=== PATIENT | female | born 1945 | race Caucasian/White ===

== ENCOUNTER → 2016-02-19 | Outpatient (CLI) | payer MEDICARE, MEDICAID | LOC: RAD 07:49 | PROVIDERS: ATTEND Specialist | DX: C20 Malignant neoplasm of rectum (principal) | CPT/HCPCS: 71260; 74177 ==

== ENCOUNTER 2016-03-29 08:00 | Outpatient (CLI) | payer MEDICARE, MEDICAID ==
[~2016-03-29 08:00] MED LIST: BEVACIZUMAB IV PRN; CONTAINER EMPTY IV PRN; DISPOSABLE IV PRN; FLUOROURACIL IV PRN; LEUCOVORIN CALCIUM IV PRN; NORMAL SALINE 250 ML IV PRN; NORMAL SALINE IV PRN
[2016-03-29 09:10] VITALS: BP 122/61
[2016-03-29 09:14] LABS: ABSOLUTE EOSINOPHILS # (AUTO) 0.1 10^3/uL (0.0-0.6); ABSOLUTE LYMPHOCYTES (AUTO) 0.6 10^3/uL (0.5-4.7); ABSOLUTE MONOCYTES (AUTO) 0.5 10^3/uL (0.1-1.4); ABSOLUTE NEUT (AUTO) 3.3 10^3/uL (1.7-8.2); BASOPHILS % (AUTO) 0.6 % (0-2); EOSINOPHILS % (AUTO) 2.5 % (0-6); HEMATOCRIT 32.9 % (36.0-47.0); HEMOGLOBIN 10.6 g/dL (12.0-15.5); HGB HCT DIFFERENCE -1.1; LYMPHOCYTES % (AUTO) 12.9 % (13-45); MEAN CORPUSCULAR HEMOGLOBIN 30.6 pg (27.0-33.4); MEAN CORPUSCULAR HGB CONC 32.3 g/dL (32.0-36.0); MEAN CORPUSCULAR VOLUME 95 fl (80-97); MONOCYTES % (AUTO) 10.7 % (3-13); RED BLOOD COUNT 3.47 10^6/uL (3.72-5.28); RED CELL DISTRIBUTION WIDTH 19.3 % (11.5-14.0); SEGMENTED NEUTROPHILS % (AUTO) 73.3 % (42-78); WHITE BLOOD COUNT 4.5 10^3/uL (4.0-10.5)
[2016-03-29 09:32] LABS: APPEARANCE,URINE SLIGHTLY-CLOUDY; BILIRUBIN,URINE NEGATIVE (NEGATIVE); GLUCOSE, URINE 50 mg/dL (NEGATIVE); KETONES,URINE NEGATIVE (NEGATIVE); LEUKOCYTE ESTERASE,URINE LARGE (NEGATIVE); NITRITE,URINE NEGATIVE (NEGATIVE); PROTEIN,URINE NEGATIVE (NEGATIVE); URINE SPECIFIC GRAVITY 1.015; UROBILINOGEN,URINE NEGATIVE mg/dL (<2.0)
== END 2016-03-29 13:04 | disposition home or self-care (01) ==
LOC: II 08:00 → 5TH 08:01 → II 13:04
PROVIDERS: ATTEND Internal Medicine
DX: Z51.11 Encounter for antineoplastic chemotherapy (principal); C20 Malignant neoplasm of rectum
CPT/HCPCS: 96413; 96415; 96416; 96376; 36415; 85025; 81001; A4222; J0640; A9270; J9190; J7050; J3490; J9035

== ENCOUNTER 2016-04-26 07:57 | Outpatient (CLI) | payer MEDICAID, MEDICARE ==
[2016-04-26 08:39] LABS: ABSOLUTE EOSINOPHILS # (AUTO) 0.2 10^3/uL (0.0-0.6); ABSOLUTE LYMPHOCYTES (AUTO) 0.5 10^3/uL (0.5-4.7); ABSOLUTE MONOCYTES (AUTO) 0.5 10^3/uL (0.1-1.4); ABSOLUTE NEUT (AUTO) 4.2 10^3/uL (1.7-8.2); BASOPHILS % (AUTO) 0.5 % (0-2); EOSINOPHILS % (AUTO) 3.3 % (0-6); HEMATOCRIT 33.6 % (36.0-47.0); HGB HCT DIFFERENCE -0.6; LYMPHOCYTES % (AUTO) 9.8 % (13-45); MEAN CORPUSCULAR HEMOGLOBIN 31.1 pg (27.0-33.4); MEAN CORPUSCULAR HGB CONC 32.7 g/dL (32.0-36.0); MEAN CORPUSCULAR VOLUME 95 fl (80-97); MONOCYTES % (AUTO) 9.1 % (3-13); RED BLOOD COUNT 3.54 10^6/uL (3.72-5.28); RED CELL DISTRIBUTION WIDTH 17.1 % (11.5-14.0); SEGMENTED NEUTROPHILS % (AUTO) 77.3 % (42-78); WHITE BLOOD COUNT 5.5 10^3/uL (4.0-10.5)
[2016-04-26 08:40] VITALS: BP 149/73
[2016-04-26 08:44] LABS: APPEARANCE,URINE CLEAR; BILIRUBIN,URINE NEGATIVE (NEGATIVE); GLUCOSE, URINE NEGATIVE (NEGATIVE); KETONES,URINE NEGATIVE (NEGATIVE); LEUKOCYTE ESTERASE,URINE LARGE (NEGATIVE); NITRITE,URINE NEGATIVE (NEGATIVE); PROTEIN,URINE NEGATIVE (NEGATIVE); URINE SPECIFIC GRAVITY 1.017; UROBILINOGEN,URINE NEGATIVE mg/dL (<2.0)
== END 2016-04-26 12:55 | disposition home or self-care (01) ==
LOC: II 07:57 → 5TH 07:58 → II 12:55
PROVIDERS: ATTEND Internal Medicine
PROC: 3E04305 Introduction of Other Antineoplastic into Central Vein, Percutaneous Approach (ICD-10-PCS; principal; 2016-04-26)
PROC: 3E0430M Introduction of Antineoplastic, Monoclonal Antibody, into Central Vein, Percutaneous Approach (ICD-10-PCS; 2016-04-26)
PROC: 3E0437Z Introduction of Electrolytic and Water Balance Substance into Central Vein, Percutaneous Approach (ICD-10-PCS; 2016-04-26)
PROC: 3E043GC Introduction of Other Therapeutic Substance into Central Vein, Percutaneous Approach (ICD-10-PCS; 2016-04-26)
DX: C20 Malignant neoplasm of rectum (principal); Z51.11 Encounter for antineoplastic chemotherapy
CPT/HCPCS: 96411; 96413; 96416; 96368; 96361; 36415; 85025; 81001; A4222; J0640; A9270; J9190; J7050; J3490; J9035; 96375; 96376; 96409; 96415

== ENCOUNTER 2016-04-28 13:17 | Outpatient (CLI) | payer MEDICAID, MEDICARE ==
[2016-04-28] MEDS ORDERED: NORMAL SALINE 1000 ML 1,000 ML IV PRN (13:48)
[2016-04-28] MEDS ORDERED: NORMAL SALINE INJ/PF 0.9% 10 ML SDV IV PRN (13:56)
[2016-04-28 15:54] VITALS: BP 114/70
== END 2016-04-28 14:41 | disposition home or self-care (01) ==
LOC: II 13:17 → 5TH 13:22 → II 14:41
PROVIDERS: ATTEND Internal Medicine
PROC: 3E0437Z Introduction of Electrolytic and Water Balance Substance into Central Vein, Percutaneous Approach (ICD-10-PCS; principal; 2016-04-28)
PROC: 3E0437Z Introduction of Electrolytic and Water Balance Substance into Central Vein, Percutaneous Approach (ICD-10-PCS; 2016-04-28)
DX: C20 Malignant neoplasm of rectum (principal); Z51.11 Encounter for antineoplastic chemotherapy
CPT/HCPCS: 96360; 96361

== ENCOUNTER 2016-05-10 07:57 | Outpatient (CLI) | payer MEDICARE, MEDICAID ==
[2016-05-10 08:34] LABS: ABSOLUTE EOSINOPHILS # (AUTO) 0.2 10^3/uL (0.0-0.6); ABSOLUTE LYMPHOCYTES (AUTO) 0.5 10^3/uL (0.5-4.7); ABSOLUTE MONOCYTES (AUTO) 0.5 10^3/uL (0.1-1.4); ABSOLUTE NEUT (AUTO) 3.7 10^3/uL (1.7-8.2); BASOPHILS % (AUTO) 0.8 % (0-2); EOSINOPHILS % (AUTO) 4.1 % (0-6); HEMATOCRIT 34.9 % (36.0-47.0); HEMOGLOBIN 11.5 g/dL (12.0-15.5); HGB HCT DIFFERENCE -0.4; LYMPHOCYTES % (AUTO) 9.9 % (13-45); MEAN CORPUSCULAR HEMOGLOBIN 31.3 pg (27.0-33.4); MEAN CORPUSCULAR VOLUME 95 fl (80-97); MONOCYTES % (AUTO) 10.8 % (3-13); RED BLOOD COUNT 3.69 10^6/uL (3.72-5.28); RED CELL DISTRIBUTION WIDTH 16.5 % (11.5-14.0); SEGMENTED NEUTROPHILS % (AUTO) 74.4 % (42-78); WHITE BLOOD COUNT 4.9 10^3/uL (4.0-10.5)
[2016-05-10 09:15] VITALS: BP 149/67
[2016-05-10 09:27] LABS: APPEARANCE,URINE SLIGHTLY-CLOUDY; BILIRUBIN,URINE NEGATIVE (NEGATIVE); GLUCOSE, URINE NEGATIVE (NEGATIVE); KETONES,URINE NEGATIVE (NEGATIVE); LEUKOCYTE ESTERASE,URINE SMALL (NEGATIVE); NITRITE,URINE NEGATIVE (NEGATIVE); PROTEIN,URINE NEGATIVE (NEGATIVE); URINE SPECIFIC GRAVITY 1.015; UROBILINOGEN,URINE NEGATIVE mg/dL (<2.0)
== END 2016-05-10 13:29 | disposition home or self-care (01) ==
LOC: II 07:57 → 5TH 07:59 → II 13:29
PROVIDERS: ATTEND Internal Medicine
PROC: 3E0430M Introduction of Antineoplastic, Monoclonal Antibody, into Central Vein, Percutaneous Approach (ICD-10-PCS; principal; 2016-05-10)
PROC: 3E04305 Introduction of Other Antineoplastic into Central Vein, Percutaneous Approach (ICD-10-PCS; 2016-05-10)
PROC: 3E0437Z Introduction of Electrolytic and Water Balance Substance into Central Vein, Percutaneous Approach (ICD-10-PCS; 2016-05-10)
PROC: 3E043GC Introduction of Other Therapeutic Substance into Central Vein, Percutaneous Approach (ICD-10-PCS; 2016-05-10)
DX: C20 Malignant neoplasm of rectum (principal); Z51.11 Encounter for antineoplastic chemotherapy
CPT/HCPCS: 96413; 96416; 96368; 96361; 96417; 36415; 85025; 81001; J0640; A9270; J9190; J7050; J3490; J9035; 96360; 96374; 96409; 96415

== ENCOUNTER 2016-05-12 12:37 | Outpatient (CLI) | payer MEDICARE, MEDICAID ==
[~2016-05-12 12:37] MED LIST changes: -BEVACIZUMAB IV PRN; -CONTAINER EMPTY IV PRN; -DISPOSABLE IV PRN; -FLUOROURACIL IV PRN; -LEUCOVORIN CALCIUM IV PRN; +NORMAL SALINE 10 ML SDV (AFTER EACH USE) IV PRN; +NORMAL SALINE 1000 ML 1,000 ML IV PRN; -NORMAL SALINE 250 ML IV PRN; -NORMAL SALINE IV PRN
[2016-05-12 13:18] VITALS: BP 132/66
[2016-05-12] MEDS ORDERED: ONDANSETRON HCL INJ/PF 4 MG/2 ML SDV IV ONE (14:30)
== END 2016-05-12 14:17 | disposition home or self-care (01) ==
LOC: II 12:37 → 5TH 12:41 → II 14:17
PROVIDERS: ATTEND Internal Medicine
PROC: 3E0337Z Introduction of Electrolytic and Water Balance Substance into Peripheral Vein, Percutaneous Approach (ICD-10-PCS; principal; 2016-05-12)
DX: C20 Malignant neoplasm of rectum (principal); Z51.11 Encounter for antineoplastic chemotherapy
CPT/HCPCS: 96360; 96375; J2405

== ENCOUNTER 2016-05-31 09:46 | Outpatient (CLI) | payer MEDICARE, MEDICAID ==
[~2016-05-31 09:46] MED LIST changes: +BEVACIZUMAB IV PRN; +CONTAINER EMPTY IV PRN; +DISPOSABLE IV PRN; +FLUOROURACIL IV PRN; +LEUCOVORIN CALCIUM IV PRN; +NORMAL SALINE 250 ML IV PRN; +NORMAL SALINE IV PRN; +ONDANSETRON 4 MG TAB.RAPDIS ONE
[2016-05-31 10:02] VITALS: BP 141/74
== END 2016-05-31 13:56 | disposition home or self-care (01) ==
LOC: II 09:46 → 5TH 09:47 → II 13:56
PROVIDERS: ATTEND Internal Medicine
PROC: 3E0430M Introduction of Antineoplastic, Monoclonal Antibody, into Central Vein, Percutaneous Approach (ICD-10-PCS; principal; 2016-05-31)
PROC: 3E04305 Introduction of Other Antineoplastic into Central Vein, Percutaneous Approach (ICD-10-PCS; 2016-05-31)
PROC: 3E043GC Introduction of Other Therapeutic Substance into Central Vein, Percutaneous Approach (ICD-10-PCS; 2016-05-31)
DX: Z51.11 Encounter for antineoplastic chemotherapy (principal); C20 Malignant neoplasm of rectum
CPT/HCPCS: 96411; 96413; 96415; 96366; 96367; 96361; J0640; A9270; J9190; J7050; J3490; J9035; 96360; 96409; 96417; S0119

== ENCOUNTER 2016-06-02 14:10 | Outpatient (CLI) | payer MEDICARE, MEDICAID ==
[2016-06-02] MEDS ORDERED: NORMAL SALINE 1000 ML 1,000 ML IV ONE (14:30)
[2016-06-02 16:06] VITALS: BP 115/75
== END 2016-06-02 15:45 | disposition home or self-care (01) ==
LOC: II 14:10 → 5TH 14:17 → II 15:45
PROVIDERS: ATTEND Internal Medicine
PROC: 3E043GC Introduction of Other Therapeutic Substance into Central Vein, Percutaneous Approach (ICD-10-PCS; principal; 2016-06-02)
DX: C20 Malignant neoplasm of rectum (principal)
CPT/HCPCS: 96360

== ENCOUNTER 2016-06-14 08:17 | Outpatient (CLI) | payer MEDICARE, MEDICAID ==
[~2016-06-14 08:17] MED LIST changes: -NORMAL SALINE 10 ML SDV (AFTER EACH USE) IV PRN; -ONDANSETRON 4 MG TAB.RAPDIS ONE
[2016-06-14 09:02] LABS: ABSOLUTE EOSINOPHILS # (AUTO) 0.1 10^3/uL (0.0-0.6); ABSOLUTE LYMPHOCYTES (AUTO) 0.5 10^3/uL (0.5-4.7); ABSOLUTE MONOCYTES (AUTO) 0.5 10^3/uL (0.1-1.4); ABSOLUTE NEUT (AUTO) 3.2 10^3/uL (1.7-8.2); BASOPHILS % (AUTO) 0.4 % (0-2); EOSINOPHILS % (AUTO) 3.1 % (0-6); HEMATOCRIT 32.8 % (36.0-47.0); HEMOGLOBIN 10.9 g/dL (12.0-15.5); HGB HCT DIFFERENCE -0.1; LYMPHOCYTES % (AUTO) 12.2 % (13-45); MEAN CORPUSCULAR HEMOGLOBIN 30.8 pg (27.0-33.4); MEAN CORPUSCULAR HGB CONC 33.1 g/dL (32.0-36.0); MEAN CORPUSCULAR VOLUME 93 fl (80-97); MONOCYTES % (AUTO) 11.9 % (3-13); RED BLOOD COUNT 3.53 10^6/uL (3.72-5.28); RED CELL DISTRIBUTION WIDTH 16.7 % (11.5-14.0); SEGMENTED NEUTROPHILS % (AUTO) 72.4 % (42-78); WHITE BLOOD COUNT 4.5 10^3/uL (4.0-10.5)
[2016-06-14 09:09] VITALS: BP 149/69
[2016-06-14 09:19] LABS: APPEARANCE,URINE CLEAR; BILIRUBIN,URINE NEGATIVE (NEGATIVE); GLUCOSE, URINE NEGATIVE (NEGATIVE); KETONES,URINE NEGATIVE (NEGATIVE); LEUKOCYTE ESTERASE,URINE TRACE (NEGATIVE); NITRITE,URINE NEGATIVE (NEGATIVE); PROTEIN,URINE NEGATIVE (NEGATIVE); URINE SPECIFIC GRAVITY 1.015; UROBILINOGEN,URINE NEGATIVE mg/dL (<2.0)
[2016-06-14] MEDS ORDERED: DIPHENHYDRAMINE HCL 25 MG CAPSULE PO PRN (10:00)
== END 2016-06-14 13:23 | disposition home or self-care (01) ==
LOC: II 08:17 → 5TH 08:18 → II 13:23
PROVIDERS: ATTEND Internal Medicine
PROC: 3E0430M Introduction of Antineoplastic, Monoclonal Antibody, into Central Vein, Percutaneous Approach (ICD-10-PCS; principal; 2016-06-14)
PROC: 3E043GC Introduction of Other Therapeutic Substance into Central Vein, Percutaneous Approach (ICD-10-PCS; 2016-06-14)
DX: Z51.11 Encounter for antineoplastic chemotherapy (principal); C20 Malignant neoplasm of rectum
CPT/HCPCS: 96409; 96413; 96415; 96416; 96375; 36415; 85025; 81001; J0640; A9270; J9190; J7050; J3490; J9035; 96366; 96367; 96417

== ENCOUNTER 2016-06-16 12:20 | Outpatient (CLI) | payer MEDICARE ==
[2016-06-16 12:46] VITALS: BP 117/62
== END 2016-06-16 13:48 | disposition home or self-care (01) ==
LOC: II 12:20 → 5TH 12:24 → II 13:48
PROVIDERS: ATTEND Internal Medicine
PROC: 3E0337Z Introduction of Electrolytic and Water Balance Substance into Peripheral Vein, Percutaneous Approach (ICD-10-PCS; principal; 2016-06-16)
DX: Z51.11 Encounter for antineoplastic chemotherapy (principal); C20 Malignant neoplasm of rectum
CPT/HCPCS: 96360; 96375

== ENCOUNTER → 2016-06-23 | Outpatient (CLI) | payer MEDICAID, MEDICARE | LOC: RAD 09:33 | PROVIDERS: ATTEND Internal Medicine | DX: C20 Malignant neoplasm of rectum (principal) | CPT/HCPCS: 71260; 74177 ==

== ENCOUNTER 2016-06-28 10:57 | Outpatient (CLI) | payer MEDICARE ==
[~2016-06-28 10:57] MED LIST changes: -NORMAL SALINE 1000 ML 1,000 ML IV PRN; -NORMAL SALINE 250 ML IV PRN
[2016-06-28] MEDS ORDERED: BEVACIZUMAB IV PRN (11:17)
[2016-06-28] MEDS ORDERED: NORMAL SALINE IV PRN (11:17)
[2016-06-28 11:23] VITALS: BP 161/74
[2016-06-28] MEDS: NORMAL SALINE 250 ML IV PRN ×2 (12:37→13:15)
== END 2016-06-28 13:19 | disposition home or self-care (01) ==
LOC: II 10:57 → 5TH 11:00 → II 13:19
PROVIDERS: ATTEND Internal Medicine
PROC: 3E0430M Introduction of Antineoplastic, Monoclonal Antibody, into Central Vein, Percutaneous Approach (ICD-10-PCS; principal; 2016-06-28)
DX: Z51.11 Encounter for antineoplastic chemotherapy (principal); C20 Malignant neoplasm of rectum
CPT/HCPCS: 96413; 96375; J9035; J0640; J3490; J7050; J9190

== ENCOUNTER 2016-07-12 09:13 | Outpatient (CLI) | payer MEDICARE ==
[~2016-07-12 09:13] MED LIST changes: -CONTAINER EMPTY IV PRN; -DISPOSABLE IV PRN; -FLUOROURACIL IV PRN; -LEUCOVORIN CALCIUM IV PRN; +NORMAL SALINE 10 ML SDV (AFTER EACH USE) IV PRN; +NORMAL SALINE 1000 ML 1,000 ML IV PRN; +NORMAL SALINE 250 ML IV PRN
[2016-07-12 10:21] VITALS: BP 147/83
== END 2016-07-12 10:33 | disposition home or self-care (01) ==
LOC: II 09:13 → 5TH 09:19 → II 10:33
PROVIDERS: ATTEND Internal Medicine
PROC: 3E0430M Introduction of Antineoplastic, Monoclonal Antibody, into Central Vein, Percutaneous Approach (ICD-10-PCS; principal; 2016-07-12)
DX: Z51.11 Encounter for antineoplastic chemotherapy (principal); C20 Malignant neoplasm of rectum
CPT/HCPCS: 96413; 96375; J9035

== ENCOUNTER 2016-07-26 08:05 | Outpatient (CLI) | payer MEDICARE ==
[~2016-07-26 08:05] MED LIST changes: -NORMAL SALINE 10 ML SDV (AFTER EACH USE) IV PRN; -NORMAL SALINE 1000 ML 1,000 ML IV PRN
[2016-07-26 09:33] VITALS: BP 106/50
== END 2016-07-26 10:00 | disposition home or self-care (01) ==
LOC: II 08:05 → 5TH 08:08 → II 10:00
PROVIDERS: ATTEND Internal Medicine
PROC: 3E0430M Introduction of Antineoplastic, Monoclonal Antibody, into Central Vein, Percutaneous Approach (ICD-10-PCS; principal; 2016-07-26)
DX: Z51.11 Encounter for antineoplastic chemotherapy (principal); C20 Malignant neoplasm of rectum
CPT/HCPCS: 96413; 96374; J9035

== ENCOUNTER 2016-08-09 11:33 | Outpatient (CLI) | payer MEDICARE ==
[~2016-08-09 11:33] MED LIST changes: -NORMAL SALINE 250 ML IV PRN
[2016-08-09 12:01] VITALS: BP 178/83
[2016-08-09] MEDS: NORMAL SALINE 250 ML IV PRN ×2 (12:48→13:25)
== END 2016-08-09 13:42 | disposition home or self-care (01) ==
LOC: II 11:33 → 5TH 12:00 → II 13:42
PROVIDERS: ATTEND Internal Medicine
PROC: 3E0330M Introduction of Antineoplastic, Monoclonal Antibody, into Peripheral Vein, Percutaneous Approach (ICD-10-PCS; principal; 2016-08-09)
DX: Z51.11 Encounter for antineoplastic chemotherapy (principal); C20 Malignant neoplasm of rectum
CPT/HCPCS: 96413; J9035

== ENCOUNTER 2016-08-18 17:52 | Emergency (ER) | payer MEDICARE ==
--- NOTE | 2016-08-18 18:57 | ER Document Report ---
ED General - General Chief Complaint: Numbness of Arm Stated Complaint: BLOOD PRESSURE Time Seen by Provider: 08/18/16 18:54 Notes: Patient is here because she has had a headache for the past couple of weeks which comes and goes. Additionally, yesterday, patient noticed pain in her fingers and then other places. She saw her primary care provider, Dr. Oakes and her blood pressure was high so he told her to come to the emergency department. 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 She is no longer on chemo but is on Neulasta. TRAVEL OUTSIDE OF THE [place] IN LAST 30 DAYS: No - Related Data Allergies/Adverse Reactions: oxaliplatin Allergy (Severe, Verified 08/18/16 17:57) Anaphylaxis morphine Adverse Reaction (Unknown, Verified 08/18/16 17:57) Unknown reaction Past Medical History - Social History Smoking Status: Never Smoker Chew tobacco use (# tins/day): No Frequency of alcohol use: None Drug Abuse: None Family History: Reviewed & Not Pertinent Patient has suicidal ideation: No Patient has homicidal ideation: No - Past Medical History Cardiac Medical History: Reports: Hx Hypertension - medicated Denies: Hx Atrial Fibrillation, Hx Congestive Heart Failure, Hx Coronary Artery Disease, Hx Heart Attack, Hx Hypercholesterolemia, Hx Peripheral Vascular Disease, Hx Pulmonary Embolism, Hx Heart Murmur Pulmonary Medical History: Reports: Hx Pneumonia - Age 13 Denies: Hx Asthma, Hx Bronchitis, Hx COPD, Hx Respiratory Failure, Hx Sleep Apnea, Hx Tuberculosis Neurological Medical History: Denies: Hx Cerebrovascular Accident, Hx Seizures Endocrine Medical History: Denies: Hx Graves' Disease, Hx Hyperthyroidism, Hx Hypothyroidism Renal/ Medical History: Denies: Hx Peritoneal Dialysis Malignancy Medical History: Reports: Hx Colorectal Cancer. Denies: Hx Leukemia , Hx Lung Cancer GI Medical History: Reports: Hx Hiatal Hernia. Denies: Hx Crohn's Disease, Hx Gastroesophageal Reflux Disease, Hx Hepatitis, Hx Irritable Bowel, Hx Liver Failure, Hx Ulcer Musculoskeltal Medical History: Denies Hx Arthritis, Denies Hx Fibromyalgia, Denies Hx Muscular Dystrophy Psychiatric Medical History: Denies: Hx Dementia Traumatic Medical History: Reports: Hx Fractures - Josesito index fingers, Lt little toe Infectious Medical History: Denies: Hx Hepatitis, Hx HIV Past Surgical History: Reports: Hx Bowel Surgery, Hx Tubal Ligation. Denies: Hx Appendectomy, Hx Section, Hx Cholecystectomy, Hx Colostomy, Hx Coronary Artery Bypass Graft, Hx Gastric Bypass Surgery, Hx Herniorrhaphy, Hx Hysterectomy, Hx Mastectomy, Hx Open Heart Surgery, Hx Pacemaker, Hx Tonsillectomy - Immunizations Hx Diphtheria, Pertussis, Tetanus Vaccination: Yes Hx Pneumococcal Vaccination: 12/14/13 Physical Exam - Vital signs Vitals: Temp Pulse Resp BP Pulse Ox 98.2 F 86 16 195/83 H 96 08/18/16 18:00 08/18/16 18:00 08/18/16 18:00 08/18/16 18:00 08/18/16 18:00 Course - Vital Signs Vital signs: Temp Pulse Resp BP Pulse Ox 98.2 F 86 16 195/83 H 96 08/18/16 18:00 08/18/16 18:00 08/18/16 18:47 08/18/16 18:00 08/18/16 18:00
[2016-08-18 19:32] LABS: APPEARANCE,URINE CLEAR; BILIRUBIN,URINE NEGATIVE (NEGATIVE); GLUCOSE, URINE NEGATIVE (NEGATIVE); KETONES,URINE NEGATIVE (NEGATIVE); LEUKOCYTE ESTERASE,URINE NEGATIVE (NEGATIVE); NITRITE,URINE NEGATIVE (NEGATIVE); PROTEIN,URINE 100 mg/dL (NEGATIVE); URINE SPECIFIC GRAVITY 1.016; UROBILINOGEN,URINE NEGATIVE mg/dL (<2.0)
--- NOTE | 2016-08-18 19:32 | RADIOLOGY REPORT (SQ) ---
EXAM DESCRIPTION: CT HEAD WITHOUT COMPLETED DATE/TIME: 08/18/2016 7:24 pm REASON FOR STUDY: X colon cancer with metastases, bad headache COMPARISON: None. TECHNIQUE: Axial images acquired through the brain without intravenous contrast. Images reviewed wi th bone, brain and subdural windows. Images stored on PACS. LIMITATIONS: None. FINDINGS: VENTRICLES: Normal size and contour. CEREBRUM: No masses. No hemorrhage. No midline shift. Normal walters/white matter differentiation. N o evidence for acute infarction. CEREBELLUM: No masses. No hemorrhage. No alteration of density. No evidence for acute infarction. EXTRAAXIAL SPACES: No fluid collections. No masses. ORBITS AND GLOBE: No intra- or extraconal masses. Normal contour of globe without masses. CALVARIUM: No fracture. PARANASAL SINUSES: No fluid or mucosal thickening. SOFT TISSUES: No mass or hematoma. OTHER: No other significant finding. IMPRESSION: UNREMARKABLE NONCONTRAST CT HEAD. CT HAS LIMITED SENSITIVITY FOR DETECTION OF METASTATI C DISEASE. IF PERSISTENT CONCERN, RECOMMEND CONTRAST-ENHANCED MRI BRAIN. COMMENT: WAS EXAM PERFORMED WITHIN 24 HOURS UPON ARRIVAL TO FACILITY? Yes. TECHNICAL DOCUMENTATION: JOB ID: [id number]
--- NOTE | 2016-08-18 19:35 | RADIOLOGY REPORT (SQ) ---
EXAM DESCRIPTION: CHEST PA/LAT COMPLETED DATE/TIME: 08/18/2016 7:26 pm REASON FOR STUDY: Colorectal cancer with lung metastases COMPARISON: CT CHEST FROM 06/23/2016. EXAM PARAMETERS: NUMBER OF VIEWS: two views TECHNIQUE: Digital Frontal and Lateral radiographic views of the chest acquired. RADIATION DOSE: NA LIMITATIONS: none FINDINGS: LUNGS AND PLEURA: Stable right upper lobe mass. No new opacities, masses or pneumothorax. No pleural effusion. MEDIASTINUM AND HILAR STRUCTURES: No masses or contour abnormalities. HEART AND VASCULAR STRUCTURES: Heart stable in size. No evidence for failure. BONES: No acute findings. HARDWARE: Stable. OTHER: No other significant finding. IMPRESSION: NO ACUTE CARDIOPULMONARY PROCESS. STABLE APPEARANCE OF THE CHEST INCLUDING RIGHT UPPER LOBE MASS. TECHNICAL DOCUMENTATION: JOB ID: [id number] [employer]- All Rights Reserved
[2016-08-18] MEDS ORDERED: OXYCODONE-ACETAMINOPHEN 5-325 MG TABLET PO ONE (21:27)
--- NOTE | 2016-08-18 21:27 | ER Document Report ---
ED General - General Mode of Arrival: Ambulatory Information source: Patient TRAVEL OUTSIDE OF THE [place] IN LAST 30 DAYS: No - HPI Onset: Other - Refer to HPI notes <KAMILA ARBOLEDA - Last Filed: 08/18/16 22:13> <PATT TEE - Last Filed: 08/19/16 00:14> - General Chief Complaint: Numbness of Arm Stated Complaint: BLOOD PRESSURE Time Seen by Provider: 08/18/16 18:54 Notes: Patient is a 71-year-old female presenting to the emergency department for headache, numbness in her left hand, blurred vision, and hypertension. Patient' s headaches have been waxing and waning over the past couple of weeks. Patient states she has right jaw pain and blurred vision with the headaches and these symptoms are relieved when the patient's headache goes away. Patient is also hypertensive today and she normally takes 30 mg of lisinopril for this. Patient took 2 30 mg lisinopril at 16:00 today. Patient has also been taking Neulasta x1 month and she was told it would raise her blood pressure. Patient has not been into see her PCP (Dr. Santiago) to get her lisinopril dosage adjusted from the Neulasta. Patient has colon cancer with metastisis to the brain; she is not longer on chemotherapy. Two months ago the patient had CT scans of the pelvis/ abdomen and brain that showed a stable state of her cancer and she has another CT scan scheduled in the next month. Patient's spouse contacted the patient's doctor who said to come into the ED if her symptoms persist. (KAMILA ARBOLEDA) - Related Data Allergies/Adverse Reactions: oxaliplatin Allergy (Severe, Verified 08/18/16 17:57) Anaphylaxis morphine Adverse Reaction (Unknown, Verified 08/18/16 17:57) Unknown reaction Past Medical History - General Information source: Patient - Social History Smoking Status: Never Smoker Cigarette use (# per day): No Chew tobacco use (# tins/day): No Frequency of alcohol use: None Drug Abuse: None Family History: None Patient has suicidal ideation: No Patient has homicidal ideation: No - Past Medical History Cardiac Medical History: Reports: Hx Hypertension - medicated Pulmonary Medical History: Reports: Hx Pneumonia - Age 13 Renal/ Medical History: Malignancy Medical History: Reports: 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 GI Medical History: Reports: Hx Hiatal Hernia Traumatic Medical History: Reports: Hx Fractures - Josesito index fingers, Lt little toe Past Surgical History: Reports: Hx Bowel Surgery, Hx Tubal Ligation - Immunizations Hx Diphtheria, Pertussis, Tetanus Vaccination: Yes Hx Pneumococcal Vaccination: 12/14/13 <KAMILA ARBOLEDA - Last Filed: 08/18/16 22:13> Review of Systems - Review of Systems Constitutional: No symptoms reported EENT: See HPI, Other - jaw pain Cardiovascular: No symptoms reported Respiratory: No symptoms reported Gastrointestinal: No symptoms reported Genitourinary: No symptoms reported Female Genitourinary: No symptoms reported Musculoskeletal: No symptoms reported Skin: No symptoms reported Hematologic/Lymphatic: No symptoms reported Neurological/Psychological: See HPI, Headaches, Numbness -: Yes All other systems reviewed and negative <EPHRAIMERROLKAMILA - Last Filed: 08/18/16 22:13> Physical Exam - Vital signs Interpretation: Hypertensive <KAMILA ARBOLEDA - Last Filed: 08/18/16 22:13> <PATT TEE - Last Filed: 08/19/16 00:14> - Vital signs Vitals: Temp Pulse Resp BP Pulse Ox 98.2 F 86 16 195/83 H 96 08/18/16 18:00 08/18/16 18:00 08/18/16 18:00 08/18/16 18:00 08/18/16 18:00 - Notes Notes: GENERAL: Alert, interacts well. No acute distress. HEAD: Normocephalic, atraumatic. Tenderness to palpation over the right posterior cervical musculature. EYES: Pupils equal, round, and reactive to light. Extraocular movements intact. Palpation over the eyeballs is nontender and soft. ENT: Oral mucosa moist, tongue midline. NECK: Full range of motion. Supple. Trachea midline. LUNGS: Clear to auscultation bilaterally, no wheezes, rales, or rhonchi. No respiratory distress. HEART: Regular rate and rhythm. No murmurs, gallops, or rubs. ABDOMEN: Soft, non-tender. Non-distended. Bowel sounds present in all 4 quadrants. EXTREMITIES: Moves all 4 extremities spontaneously. NEUROLOGICAL: Alert and oriented x3. Normal speech. PSYCH: Normal affect, normal mood. SKIN: Warm, dry, normal turgor. No rashes or lesions noted. (KAMILA ARBOLEDA) Course - Laboratory Result Diagrams: 08/18/16 21:19 08/18/16 21:19 <KAMILA ARBOLEDA - Last Filed: 08/18/16 22:13> - Laboratory Result Diagrams: 08/18/16 21:19 08/18/16 21:19 <PATT TEE - Last Filed: 08/19/16 00:14> - Vital Signs Vital signs: Temp Pulse Resp BP Pulse Ox 98.2 F 86 21 H 150/81 H 97 08/18/16 18:00 08/18/16 18:00 08/18/16 23:31 08/18/16 23:31 08/18/16 23:31 - Laboratory Laboratory results interpreted by me: 08/18/16 08/18/16 08/18/16 19:05 21:19 21:19 MCHC 31.8 L RDW 16.2 H Plt Count 141 L Seg Neutrophils % 78.1 H Lymphocytes % 9.4 L Glucose 113 H Urine Protein 100 H Discharge <KAMILA ARBOLEDA - Last Filed: 08/18/16 22:13> <PATT TEE - Last Filed: 08/19/16 00:14> - Discharge Clinical Impression: Tension headache Hypertension Qualifiers: Hypertension type: essential hypertension Qualified Code(s): I10 - Essential ( primary) hypertension Condition: Stable Disposition: HOME, SELF-CARE Additional Instructions: Follow-up with Dr. Santiago tomorrow to recheck your blood pressure and review your current medications. Return to the emergency room if any problems. Referrals: CULLEN SANTIAGO MD [Primary Care Provider] - 08/19/16 Scribe Attestation: 08/19/16 00:14 I personally performed the services described in the documentation, reviewed and edited the documentation which was dictated to the scribe in my presence, and it accurately records my words and actions. (PATT TEE) Scribe Documentation - Scribe Written by Scribe:: Kwan Gómez 08/18/2016 22:18 acting as scribe for :: Fabricio <KAMILA ARBOLEDA - Last Filed: 08/18/16 22:13>
[2016-08-18 21:36] LABS: ABSOLUTE EOSINOPHILS # (AUTO) 0.2 10^3/uL (0.0-0.6); ABSOLUTE LYMPHOCYTES (AUTO) 0.6 10^3/uL (0.5-4.7); ABSOLUTE MONOCYTES (AUTO) 0.5 10^3/uL (0.1-1.4); ABSOLUTE NEUT (AUTO) 4.6 10^3/uL (1.7-8.2); BASOPHILS % (AUTO) 0.2 % (0-2); EOSINOPHILS % (AUTO) 3.9 % (0-6); HEMATOCRIT 38.4 % (36.0-47.0); HEMOGLOBIN 12.2 g/dL (12.0-15.5); HGB HCT DIFFERENCE -1.8; LYMPHOCYTES % (AUTO) 9.4 % (13-45); MEAN CORPUSCULAR HEMOGLOBIN 29.4 pg (27.0-33.4); MEAN CORPUSCULAR HGB CONC 31.8 g/dL (32.0-36.0); MEAN CORPUSCULAR VOLUME 93 fl (80-97); MONOCYTES % (AUTO) 8.4 % (3-13); RED BLOOD COUNT 4.14 10^6/uL (3.72-5.28); RED CELL DISTRIBUTION WIDTH 16.2 % (11.5-14.0); SEGMENTED NEUTROPHILS % (AUTO) 78.1 % (42-78); WHITE BLOOD COUNT 5.9 10^3/uL (4.0-10.5)
[2016-08-18 21:43] LABS: ALANINE AMINOTRANSFERASE 31 U/L (9-52); ALBUMIN 4.1 g/dL (3.5-5.0); ALKALINE PHOSPHATASE 69 U/L (38-126); ANION GAP 11 (5-19); ASPARTATE AMINO TRANSFERASE 30 U/L (14-36); BILIRUBIN,DIRECT 0.3 mg/dL (0.0-0.4); BILIRUBIN,TOTAL 0.5 mg/dL (0.2-1.3); BLOOD UREA NITROGEN 19 mg/dL (7-20); CALCIUM 9.8 mg/dL (8.4-10.2); CARBON DIOXIDE 28 mmol/L (22-30); CHLORIDE 101 mmol/L (98-107); GLUCOSE 113 mg/dL (75-110); LIPASE 66.6 U/L (23-300); POTASSIUM 4.5 mmol/L (3.6-5.0); SODIUM 140.4 mmol/L (137-145); TOTAL PROTEIN 7.2 g/dL (6.3-8.2)
[2016-08-18] MEDS ORDERED: CLONIDINE HCL 0.2 MG TABLET PO ONE (22:18)
[2016-08-19 00:24] VITALS: BP 127/69
== END 2016-08-19 00:33 | disposition home or self-care (01) ==
LOC: ER 17:52
DX: G44.209 Tension-type headache, unspecified, not intractable (principal); I10 Essential (primary) hypertension; R20.0 Anesthesia of skin; H53.8 Other visual disturbances; Z79.899 Other long term (current) drug therapy
CPT/HCPCS: 99284; 36415; 83690; 85025; 80053; 81001; 71020; 70450; A9270 ×2

== ENCOUNTER 2016-08-23 09:01 | Outpatient (CLI) | payer MEDICARE ==
[~2016-08-23 09:01] MED LIST changes: +NORMAL SALINE 250 ML IV PRN
[2016-08-23 09:49] LABS: ABSOLUTE EOSINOPHILS # (AUTO) 0.2 10^3/uL (0.0-0.6); ABSOLUTE LYMPHOCYTES (AUTO) 0.6 10^3/uL (0.5-4.7); ABSOLUTE MONOCYTES (AUTO) 0.5 10^3/uL (0.1-1.4); ABSOLUTE NEUT (AUTO) 4.2 10^3/uL (1.7-8.2); BASOPHILS % (AUTO) 0.5 % (0-2); HEMATOCRIT 35.4 % (36.0-47.0); HEMOGLOBIN 11.7 g/dL (12.0-15.5); HGB HCT DIFFERENCE -0.3; LYMPHOCYTES % (AUTO) 11.5 % (13-45); MEAN CORPUSCULAR HGB CONC 33.1 g/dL (32.0-36.0); MEAN CORPUSCULAR VOLUME 91 fl (80-97); MONOCYTES % (AUTO) 8.9 % (3-13); RED BLOOD COUNT 3.91 10^6/uL (3.72-5.28); RED CELL DISTRIBUTION WIDTH 15.9 % (11.5-14.0); SEGMENTED NEUTROPHILS % (AUTO) 75.1 % (42-78); WHITE BLOOD COUNT 5.6 10^3/uL (4.0-10.5)
[2016-08-23 10:01] LABS: APPEARANCE,URINE CLEAR; BILIRUBIN,URINE NEGATIVE (NEGATIVE); GLUCOSE, URINE NEGATIVE (NEGATIVE); KETONES,URINE NEGATIVE (NEGATIVE); LEUKOCYTE ESTERASE,URINE SMALL (NEGATIVE); NITRITE,URINE NEGATIVE (NEGATIVE); PROTEIN,URINE 30 mg/dL (NEGATIVE); URINE SPECIFIC GRAVITY 1.016; UROBILINOGEN,URINE NEGATIVE mg/dL (<2.0)
[2016-08-23 10:28] VITALS: BP 147/66
== END 2016-08-23 11:10 | disposition home or self-care (01) ==
LOC: II 09:01 → 5TH 09:04 → II 11:10
PROVIDERS: ATTEND Internal Medicine
PROC: 3E0430M Introduction of Antineoplastic, Monoclonal Antibody, into Central Vein, Percutaneous Approach (ICD-10-PCS; principal; 2016-08-23)
DX: Z51.11 Encounter for antineoplastic chemotherapy (principal); C20 Malignant neoplasm of rectum
CPT/HCPCS: 96413; 96360; 96523; 36415; 85025; 81001; J9035

== ENCOUNTER 2016-08-28 10:32 | Emergency (ER) | payer MEDICARE ==
--- NOTE | 2016-08-28 11:06 | ER Document Report ---
ED Medical Screen (RME) - General Chief Complaint: Headache Stated Complaint: HEADACHE/CHEST PRESSURE Time Seen by Provider: 08/28/16 10:55 Mode of Arrival: Ambulatory Information source: Patient TRAVEL OUTSIDE OF THE [place] IN LAST 30 DAYS: No - HPI Onset: Yesterday Onset/Duration: Gradual Quality of pain: Achy, Dull Associated Symptoms: Chest pain, Nausea, Vomiting. denies: Diarrhea Exacerbated by: Denies Relieved by: Denies Similar symptoms previously: Yes - H.A. THOUGHT DUE TO CHEMOTx. - Related Data Allergies/Adverse Reactions: oxaliplatin Allergy (Severe, Verified 08/28/16 10:46) Anaphylaxis morphine Adverse Reaction (Unknown, Verified 08/28/16 10:46) Unknown reaction Past Medical History - General Information source: Patient - Social History Chew tobacco use (# tins/day): No Frequency of alcohol use: None Drug Abuse: None Lives with: Spouse/Significant other - Past Medical History Cardiac Medical History: Reports: Hx Hypertension - medicated Denies: Hx Atrial Fibrillation, Hx Congestive Heart Failure, Hx Coronary Artery Disease, Hx Heart Attack, Hx Hypercholesterolemia, Hx Peripheral Vascular Disease, Hx Pulmonary Embolism, Hx Heart Murmur Pulmonary Medical History: Reports: Hx Pneumonia - Age 13 Denies: Hx Asthma, Hx Bronchitis, Hx COPD, Hx Respiratory Failure, Hx Sleep Apnea, Hx Tuberculosis Neurological Medical History: Denies: Hx Cerebrovascular Accident, Hx Seizures Endocrine Medical History: Reports: Hx Diabetes Mellitus Type 2. 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 Denies: Hx Leukemia, Hx Lung Cancer GI Medical History: Reports: Hx Hiatal Hernia. Denies: Hx Crohn's Disease, Hx Gastroesophageal Reflux Disease, Hx Hepatitis, Hx Irritable Bowel, Hx Liver Failure, Hx Ulcer Musculoskeltal Medical History: Denies Hx Arthritis, Denies Hx Fibromyalgia, Denies Hx Muscular Dystrophy Psychiatric Medical History: Denies: Hx Dementia Traumatic Medical History: Reports: Hx Fractures - Josesito index fingers, Lt little toe Infectious Medical History: Denies: Hx Hepatitis, Hx HIV Past Surgical History: Reports: Hx Bowel Surgery, Hx Tubal Ligation. Denies: Hx Appendectomy, Hx Section, Hx Cholecystectomy, Hx Colostomy, Hx Coronary Artery Bypass Graft, Hx Gastric Bypass Surgery, Hx Herniorrhaphy, Hx Hysterectomy, Hx Mastectomy, Hx Open Heart Surgery, Hx Pacemaker, Hx Tonsillectomy - Immunizations Hx Diphtheria, Pertussis, Tetanus Vaccination: Yes Review of Systems - Review of Systems Constitutional: denies: Chills, Diaphoresis, Fever EENT: No symptoms reported Cardiovascular: See HPI Respiratory: See HPI Gastrointestinal: See HPI Physical Exam - Vital signs Vitals: Temp Pulse Resp BP Pulse Ox 98.1 F 86 20 169/90 H 08/28/16 10:45 08/28/16 10:45 08/28/16 10:45 08/28/16 10:45 08/28/16 10:45 Interpretation: Hypertensive - General General appearance: Appears well, Alert In distress: None Course - Vital Signs Vital signs: Temp Pulse Resp BP Pulse Ox 98.1 F 86 20 169/90 H 96 08/28/16 10:45 08/28/16 10:45 08/28/16 10:45 08/28/16 10:45 08/28/16 10:45
--- NOTE | 2016-08-28 11:30 | RADIOLOGY REPORT (SQ) ---
EXAM DESCRIPTION: CT HEAD WITHOUT COMPLETED DATE/TIME: 08/28/2016 11:21 am REASON FOR STUDY: HEADACHE COMPARISON: 08/18/2016. TECHNIQUE: Axial images acquired through the brain without intravenous contrast. Images reviewed wi th bone, brain and subdural windows. Images stored on PACS. All CT scanners at this facility use dose modulation, iterative reconstruction, and/or weight based d osing when appropriate to reduce radiation dose to as low as reasonably achievable (ALARA). [facility]: Dose Right [facility]: CareDose [facility]: Dose Right [facility]: Teradose 4D [facility]: Smart Legend3D RADIATION DOSE: Up-to-date CT equipment and radiation dose reduction techniques were employed. CTDIv ol: 64.6 mGy. DLP: 1163 mGy-cm. mGy. LIMITATIONS: None. FINDINGS: VENTRICLES: Normal size and contour. CEREBRUM: No masses. No hemorrhage. No midline shift. Normal walters/white matter differentiation. N o evidence for acute infarction. CEREBELLUM: No masses. No hemorrhage. No alteration of density. No evidence for acute infarction. EXTRAAXIAL SPACES: No fluid collections. No masses. ORBITS AND GLOBE: No intra- or extraconal masses. Normal contour of globe without masses. CALVARIUM: No fracture. PARANASAL SINUSES: No fluid or mucosal thickening. SOFT TISSUES: No mass or hematoma. OTHER: No other significant finding. IMPRESSION: NORMAL BRAIN CT WITHOUT CONTRAST. TECHNICAL DOCUMENTATION: JOB ID: [id number] Quality ID # [id number]: Final reports with documentation of one or more dose reduction techniques (e.g., Au tomated exposure control, adjustment of the mA and/or kV according to patient size, use of iterative reconstruction technique) 2010 [email or web address]- All Rights Reserved
--- NOTE | 2016-08-28 11:32 | ER Document Report ---
ED General - General Mode of Arrival: Wheelchair Information source: Patient TRAVEL OUTSIDE OF THE [place] IN LAST 30 DAYS: No - HPI Onset: This morning - Refer to HPI Notes Similar symptoms previously: Yes Recently seen / treated by doctor: Yes <KAMILA ARBOLEDA - Last Filed: 08/28/16 11:50> <PATT TEE - Last Filed: 08/28/16 16:48> - General Chief Complaint: Headache Stated Complaint: HEADACHE/CHEST PRESSURE Time Seen by Provider: 08/28/16 10:55 Notes: Patient is a 71-year-old female presented emergency department for nausea and headache. Patient's symptoms were onset this morning. Patient's headache is located to the back of her head/neck. Patient states she also feels hot and has some pain across her chest. Patient's blood pressure at home this morning was 188/87 and the patient has taken 40 mg of lisinopril and did not take any medication for her headache. Patient has a history of colon cancer with metastisis to her brain. Patient is no longer on chemotherapy. Patient is taking Neulasta and was seen on 08/18/2016 for similar symptoms of today's visit. Patient was discharged and told to follow up with her primary care physician, Dr. Santiago, so he could adjust her hypertension medications; the patient's Neulasta medication being prescribed by Dr. Dyer was increasing her blood pressure. Patient did follow up with Dr. Santiago who changed her lisinopril dose from 30 mg to 40 mg and also gave the patient an oxycodone prescription. (KAMILA ARBOLEDA) - Related Data Allergies/Adverse Reactions: oxaliplatin Allergy (Severe, Verified 08/28/16 10:46) Anaphylaxis morphine Adverse Reaction (Unknown, Verified 08/28/16 10:46) Unknown reaction Past Medical History - General Information source: Patient - Social History Smoking Status: Never Smoker Cigarette use (# per day): No Chew tobacco use (# tins/day): No Frequency of alcohol use: None Drug Abuse: None Lives with: Spouse/Significant other Family History: None - Past Medical History Cardiac Medical History: Reports: Hx Hypertension - medicated Pulmonary Medical History: Reports: Hx Pneumonia - Age 13 Endocrine Medical History: Reports: Hx Diabetes Mellitus Type 2 Renal/ Medical History: Malignancy Medical History: Reports: 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 GI Medical History: Reports: Hx Hiatal Hernia Traumatic Medical History: Reports: Hx Fractures - Josesito index fingers, Lt little toe Past Surgical History: Reports: Hx Bowel Surgery, Hx Tubal Ligation - Immunizations Hx Diphtheria, Pertussis, Tetanus Vaccination: Yes Hx Pneumococcal Vaccination: 12/14/13 <KAMILA ARBOLEDA - Last Filed: 08/28/16 11:50> Review of Systems - Review of Systems Constitutional: See HPI, Chills EENT: No symptoms reported Cardiovascular: See HPI, Chest pain Respiratory: No symptoms reported Gastrointestinal: See HPI, Nausea. denies: Vomiting Genitourinary: No symptoms reported Female Genitourinary: No symptoms reported Musculoskeletal: No symptoms reported Skin: No symptoms reported Hematologic/Lymphatic: No symptoms reported Neurological/Psychological: See HPI, Headaches -: Yes All other systems reviewed and negative <KAMILA ARBOLEDA - Last Filed: 08/28/16 11:50> Physical Exam - Vital signs Interpretation: Hypertensive <KAMILA ARBOLEDA - Last Filed: 08/28/16 11:50> <PATT TEE - Last Filed: 08/28/16 16:48> - Vital signs Vitals: Temp Pulse Resp BP Pulse Ox 98.1 F 86 20 169/90 H 96 08/28/16 10:45 08/28/16 10:45 08/28/16 10:45 08/28/16 10:45 08/28/16 10:45 - Notes Notes: GENERAL: Alert, interacts well. No acute distress. HEAD: Normocephalic, atraumatic. EYES: Appear normal. Pupils equal, round, and reactive to light. ENT: Moist mucus membranes, tongue midline. NECK: Full range of motion. Supple. Trachea midline. Posterior cervical muscles are tender with palpation. LUNGS: Clear to auscultation bilaterally, no wheezes, rales, or rhonchi. No respiratory distress. Mild tenderness to palpation over the sternum. HEART: Regular rate and rhythm. No murmurs, gallops, or rubs. ABDOMEN: Soft, non-tender. Non-distended. Normal bowel sounds. EXTREMITIES: Moves all 4 extremities spontaneously. Normal strength. Normal ROM. No edema. NEUROLOGICAL: Alert and oriented x3. Normal speech. No focal neurological deficits. GSC 15. PSYCH: Depressed. SKIN: Warm, dry, normal turgor. No rashes or lesions noted. (KAMILA ARBOLEDA) Course <KAMILA ARBOLEDA - Last Filed: 08/28/16 11:50> - Laboratory Result Diagrams: 08/28/16 12:53 08/28/16 12:53 - Diagnostic Test Radiology reviewed: Image reviewed, Reports reviewed - Chest x-ray does not show an acute process. CT scan of the brain is unremarkable. - EKG Interpretation by Me EKG shows normal: Sinus rhythm, [place], Intervals, QRS Complexes, ST-T Waves Rate: Normal - 83 Rhythm: NSR <PATT TEE - Last Filed: 08/28/16 16:48> - Re-evaluation Re-evalutation: 08/28/16 13:27 CBC, Chem-12, UA, EKG and chest x-ray are all unchanged compared to 08/18/2016. CT scan of the head today is unremarkable. 08/28/16 16:44 The patient feels much better. Blood pressures now down to 125/71. She will follow-up with her primary care physician tomorrow to discuss adding something to her lisinopril regimen. (PATT TEE) - Vital Signs Vital signs: Temp Pulse Resp BP Pulse Ox 98.1 F 86 17 125/71 92 08/28/16 10:45 08/28/16 10:45 08/28/16 16:30 08/28/16 16:30 08/28/16 16:30 - Laboratory Laboratory results interpreted by me: 08/28/16 08/28/16 08/28/16 12:53 12:53 12:53 RDW 15.8 H Plt Count 144 L Seg Neutrophils % 83.3 H Lymphocytes % 8.4 L Glucose 148 H Urine Protein 100 H Discharge <KAMILA ARBOLEDA - Last Filed: 08/28/16 11:50> <PATT TEE - Last Filed: 08/28/16 16:48> - Discharge Clinical Impression: Hypertension Qualifiers: Hypertension type: essential hypertension Qualified Code(s): I10 - Essential ( primary) hypertension Headache Qualifiers: Headache type: tension-type Headache chronicity pattern: unspecified pattern Intractability: not intractable Qualified Code(s): G44.209 - Tension-type headache, unspecified, not intractable Condition: Stable Disposition: HOME, SELF-CARE Additional Instructions: Follow-up with your doctor tomorrow to discuss additional blood pressure medications. RETURN TO THE EMERGENCY ROOM IF ANY NEW OR WORSENING SYMPTOMS. Referrals: CULLEN SANTIAGO MD [ACTIVE STAFF] - Follow up tomorrow Scribe Attestation: 08/28/16 16:45 I personally performed the services described in the documentation, reviewed and edited the documentation which was dictated to the scribe in my presence, and it accurately records my words and actions. (PATT TEE) Scribe Documentation - Scribe Written by Kwan:: Kwan Gómez 08/28/2016 11:49 acting as scribe for :: Fabricio <KAMILA ARBOLEDA - Last Filed: 08/28/16 11:50>
[2016-08-28] MEDS ORDERED: NORMAL SALINE 1000 ML 1,000 ML IV ONE (11:45)
--- NOTE | 2016-08-28 11:47 | RADIOLOGY REPORT (SQ) ---
EXAM DESCRIPTION: CHEST SINGLE VIEW COMPLETED DATE/TIME: 08/28/2016 11:31 am REASON FOR STUDY: CHEST PAIN COMPARISON: 08/18/2016. EXAM PARAMETERS: NUMBER OF VIEWS: One view. TECHNIQUE: Single frontal radiographic view of the chest acquired. RADIATION DOSE: NA LIMITATIONS: None. FINDINGS: LUNGS AND PLEURA: No opacities, masses or pneumothorax. No pleural effusion. MEDIASTINUM AND HILAR STRUCTURES: No masses. Contour normal. HEART AND VASCULAR STRUCTURES: Heart normal in size. Normal vasculature. BONES: No acute findings. HARDWARE: Vascular access port. Surgical clips. OTHER: No other significant finding. IMPRESSION: NO ACUTE RADIOGRAPHIC FINDING IN THE CHEST. TECHNICAL DOCUMENTATION: JOB ID: [id number]
[2016-08-28] MEDS ORDERED: ONDANSETRON 4 MG TAB.RAPDIS PO ONE (12:00)
[2016-08-28] MEDS ORDERED: OXYCODONE-ACETAMINOPHEN 5-325 MG TABLET PO ONE ×2 (12:00→13:59)
[2016-08-28] MEDS ORDERED: CLONIDINE HCL 0.1 MG TABLET PO ONE ×2 (12:00→13:58)
[2016-08-28 13:04] LABS: ABSOLUTE EOSINOPHILS # (AUTO) 0.1 10^3/uL (0.0-0.6); ABSOLUTE LYMPHOCYTES (AUTO) 0.5 10^3/uL (0.5-4.7); ABSOLUTE MONOCYTES (AUTO) 0.4 10^3/uL (0.1-1.4); ABSOLUTE NEUT (AUTO) 5.2 10^3/uL (1.7-8.2); BASOPHILS % (AUTO) 0.3 % (0-2); EOSINOPHILS % (AUTO) 1.8 % (0-6); HEMATOCRIT 38.2 % (36.0-47.0); HEMOGLOBIN 12.2 g/dL (12.0-15.5); HGB HCT DIFFERENCE -1.6; LYMPHOCYTES % (AUTO) 8.4 % (13-45); MEAN CORPUSCULAR HEMOGLOBIN 29.3 pg (27.0-33.4); MEAN CORPUSCULAR VOLUME 91 fl (80-97); MONOCYTES % (AUTO) 6.2 % (3-13); RED BLOOD COUNT 4.19 10^6/uL (3.72-5.28); RED CELL DISTRIBUTION WIDTH 15.8 % (11.5-14.0); SEGMENTED NEUTROPHILS % (AUTO) 83.3 % (42-78); WHITE BLOOD COUNT 6.2 10^3/uL (4.0-10.5)
[2016-08-28 13:20] LABS: ALANINE AMINOTRANSFERASE 24 U/L (9-52); ALBUMIN 3.8 g/dL (3.5-5.0); ALKALINE PHOSPHATASE 63 U/L (38-126); ANION GAP 7 (5-19); ASPARTATE AMINO TRANSFERASE 24 U/L (14-36); BILIRUBIN,DIRECT 0.2 mg/dL (0.0-0.4); BILIRUBIN,TOTAL 0.4 mg/dL (0.2-1.3); BLOOD UREA NITROGEN 14 mg/dL (7-20); CALCIUM 9.5 mg/dL (8.4-10.2); CARBON DIOXIDE 28 mmol/L (22-30); CHLORIDE 103 mmol/L (98-107); CREATINE KINASE 83 U/L (30-135); CREATININE RESULT 0.64 mg/dL (0.52-1.25); GLUCOSE 148 mg/dL (75-110); POTASSIUM 4.2 mmol/L (3.6-5.0); SODIUM 138.4 mmol/L (137-145); TOTAL PROTEIN 6.6 g/dL (6.3-8.2)
[2016-08-28 13:23] LABS: APPEARANCE,URINE CLEAR; BILIRUBIN,URINE NEGATIVE (NEGATIVE); GLUCOSE, URINE NEGATIVE (NEGATIVE); KETONES,URINE NEGATIVE (NEGATIVE); LEUKOCYTE ESTERASE,URINE NEGATIVE (NEGATIVE); NITRITE,URINE NEGATIVE (NEGATIVE); PROTEIN,URINE 100 mg/dL (NEGATIVE); URINE SPECIFIC GRAVITY 1.012; UROBILINOGEN,URINE NEGATIVE mg/dL (<2.0)
[2016-08-28 13:32] LABS: CREATINE KINASE MB 1.75 ng/mL (<4.55)
[2016-08-28 13:34] LABS: TROPONIN I < 0.012 ng/mL
--- NOTE | 2016-08-28 14:04 | EKG REPORT ---
SEVERITY:- NORMAL ECG - SINUS RHYTHM : Confirmed by: Michael Rush MD 28-Aug-2016 14:03:36
[2016-08-28 18:07] VITALS: BP 136/72
== END 2016-08-28 17:40 | disposition home or self-care (01) ==
LOC: ER 10:32
DX: G44.209 Tension-type headache, unspecified, not intractable (principal); I10 Essential (primary) hypertension; R07.9 Chest pain, unspecified; R11.0 Nausea; Z85.038 Personal history of other malignant neoplasm of large intestine; Z85.841 Personal history of malignant neoplasm of brain; Z79.899 Other long term (current) drug therapy
CPT/HCPCS: 93005; 36591; 99285; 96360; 96361; 36415; 82553; 82550; 85025; 80053; 81001; 84484; 71010; 70450; 93010; A9270 ×3; J7030; S0119

== ENCOUNTER 2016-09-06 09:46 | Outpatient (CLI) | payer MEDICARE ==
[2016-09-06 10:22] LABS: HEMATOCRIT 36.4 % (36.0-47.0); HGB HCT DIFFERENCE -0.4; MEAN CORPUSCULAR HEMOGLOBIN 30.2 pg (27.0-33.4); MEAN CORPUSCULAR HGB CONC 32.9 g/dL (32.0-36.0); MEAN CORPUSCULAR VOLUME 92 fl (80-97); RED BLOOD COUNT 3.98 10^6/uL (3.72-5.28); RED CELL DISTRIBUTION WIDTH 15.4 % (11.5-14.0); WHITE BLOOD COUNT 4.8 10^3/uL (4.0-10.5)
[2016-09-06 10:27] LABS: APPEARANCE,URINE CLEAR; BILIRUBIN,URINE NEGATIVE (NEGATIVE); GLUCOSE, URINE NEGATIVE (NEGATIVE); KETONES,URINE NEGATIVE (NEGATIVE); LEUKOCYTE ESTERASE,URINE NEGATIVE (NEGATIVE); NITRITE,URINE NEGATIVE (NEGATIVE); PROTEIN,URINE 30 mg/dL (NEGATIVE); URINE SPECIFIC GRAVITY 1.016; UROBILINOGEN,URINE NEGATIVE mg/dL (<2.0)
[2016-09-06 10:57] VITALS: BP 145/89
== END 2016-09-06 12:13 | disposition home or self-care (01) ==
LOC: II 09:46 → 5TH 10:45 → II 12:13
PROVIDERS: ATTEND Internal Medicine
PROC: 3E0430M Introduction of Antineoplastic, Monoclonal Antibody, into Central Vein, Percutaneous Approach (ICD-10-PCS; principal; 2016-09-06)
DX: Z51.11 Encounter for antineoplastic chemotherapy (principal); C20 Malignant neoplasm of rectum
CPT/HCPCS: 96413; 36415; 85027; 81001; J9035; 96375

== ENCOUNTER 2016-09-20 09:28 | Outpatient (CLI) | payer MEDICARE ==
[2016-09-20 09:54] LABS: HEMATOCRIT 35.8 % (36.0-47.0); HEMOGLOBIN 11.9 g/dL (12.0-15.5); HGB HCT DIFFERENCE -0.1; MEAN CORPUSCULAR HEMOGLOBIN 30.2 pg (27.0-33.4); MEAN CORPUSCULAR HGB CONC 33.2 g/dL (32.0-36.0); MEAN CORPUSCULAR VOLUME 91 fl (80-97); RED BLOOD COUNT 3.94 10^6/uL (3.72-5.28); RED CELL DISTRIBUTION WIDTH 14.6 % (11.5-14.0); WHITE BLOOD COUNT 4.2 10^3/uL (4.0-10.5)
[2016-09-20 10:06] LABS: APPEARANCE,URINE SLIGHTLY-CLOUDY; BILIRUBIN,URINE NEGATIVE (NEGATIVE); GLUCOSE, URINE NEGATIVE (NEGATIVE); KETONES,URINE NEGATIVE (NEGATIVE); LEUKOCYTE ESTERASE,URINE NEGATIVE (NEGATIVE); NITRITE,URINE NEGATIVE (NEGATIVE); PROTEIN,URINE 100 mg/dL (NEGATIVE); URINE SPECIFIC GRAVITY 1.016; UROBILINOGEN,URINE NEGATIVE mg/dL (<2.0)
[2016-09-20 11:10] VITALS: BP 142/70
== END 2016-09-20 11:45 | disposition home or self-care (01) ==
LOC: II 09:28 → 5TH 09:29 → II 11:45
PROVIDERS: ATTEND Internal Medicine
PROC: 3E0330M Introduction of Antineoplastic, Monoclonal Antibody, into Peripheral Vein, Percutaneous Approach (ICD-10-PCS; principal; 2016-09-20)
DX: Z51.11 Encounter for antineoplastic chemotherapy (principal); C20 Malignant neoplasm of rectum
CPT/HCPCS: 96413; 96375; 36415; 85027; 81001; J9035

== ENCOUNTER → 2016-09-29 | Outpatient (CLI) | payer MEDICAID, MEDICARE ==
--- NOTE | 2016-10-01 13:22 | RADIOLOGY REPORT (SQ) ---
EXAM DESCRIPTION: CT CHEST WITH; CT ABD/PELVIS WITH IV ORAL COMPLETED DATE/TIME: 09/29/2016 9:57 am REASON FOR STUDY: RECTAL CA (C20) C20 MALIGNANT NEOPLASM OF RECTUM COMPARISON: PET-CT 02/08/2015, CT chest abdomen and pelvis 06/15/2015, 11/16/2015, 02/19/2016, 06/23/2016 CONTRAST TYPE AND DOSE: 82 mL Isovue 370- low osmolar. RENAL FUNCTION: Creatinine 0.9 TECHNIQUE: CT scan of the chest performed using helical scanning technique with dynamic intravenous contrast injection. Images reviewed with lung, soft tissue and bone windows. Reconstructed coronal a nd sagittal MPR images reviewed. All images stored on PACS. CT scan of the abdomen and pelvis performed with intravenous and with oral contrastusing helical scan chhaya technique with dynamic intravenous contrast injection. Images reviewed with lung, soft tissue a nd bone windows. Reconstructed coronal and sagittal MPR images reviewed. Delayed images for evaluat ion of the urinary system also acquired and evaluated. All images stored on PACS. All CT scanners at this facility use dose modulation, iterative reconstruction, and/or weight based d osing when appropriate to reduce radiation dose to as low as reasonably achievable (ALARA). [facility]: Dose Right [facility]: CareDose [facility]: Dose Right [facility]: Teradose 4D [facility]: Smart Technologies RADIATION DOSE: Total study radiation dose 19 mGy . LIMITATIONS: None. FINDINGS: CHEST: LUNGS AND PLEURA: In the posterior right upper lobe, a 3.8 x 3.7 cm mass is present on axial image 29 (was 3 x 2.4 cm on 06/13/2016. Stable dumbbell-shaped lingular mass, 2.2 x 0.7 cm as compared to 06/23/2016. No other pulmonary nodules. No pleural effusion. No pneumothorax. HILAR AND MEDIASTINAL STRUCTURES: No identified masses or abnormal nodes. Small hiatal hernia HEART AND VASCULAR STRUCTURES: No aneurysm or dissection. No central pulmonary emboli. No pericardi al effusion. HARDWARE: None. THYROID AND OTHER SOFT TISSUES: No masses. No adenopathy. BONES: No significant finding. OTHER: No other significant finding. ABDOMEN AND PELVIS: LIVER: Normal size. No masses. No dilated ducts. SPLEEN: Normal size. No focal lesions. PANCREAS: No masses. No significant calcifications. No adjacent inflammation or peripancreatic fluid collections. Pancreatic duct not dilated. GALLBLADDER: Tiny stones in the gallbladder without CT signs of acute cholecystitis ADRENAL GLANDS: No significant masses or asymmetry. RIGHT KIDNEY AND URETER: No solid masses. No significant calcification. No hydronephrosis or hydroure ter. LEFT KIDNEY AND URETER: No solid masses. No significant calcification. No hydronephrosis or hydrouret er. AORTA AND VESSELS: No aneurysm. No dissection. Renal arteries, SMA, celiac without stenosis. RETROPERITONEUM: No retroperitoneal adenopathy, hemorrhage or masses. BOWEL AND PERITONEAL CAVITY: No masses or inflammatory changes. No free fluid or peritoneal masses. Anastomotic shirley at the rectosigmoid APPENDIX: Normal. ABDOMINAL WALL: No masses. Intact ventral hernia repair with mesh and laparoscopic tacks. BONES: No significant or acute findings. PELVIS: Normal size female pelvic organs. Bladder unremarkable. No free fluid. No adenopathy. Sta ble stranding in the presacral fat post radiation therapy. Surgical anastomotic shirley at the rectu m. No other significant finding. IMPRESSION: Increase in size of right upper lobe mass compared to previous studies Stable Post therapeutic changes in the pelvis given history of rectal cancer. No acute findings. TECHNICAL DOCUMENTATION: JOB ID: [id number] Quality ID # [id number]: Final reports with documentation of one or more dose reduction techniques (e.g., Au tomated exposure control, adjustment of the mA and/or kV according to patient size, use of iterative reconstruction technique) 2010 [employer]- All Rights Reserved
== END ==
LOC: RAD 09:18
PROVIDERS: ATTEND Internal Medicine
DX: C20 Malignant neoplasm of rectum (principal)
CPT/HCPCS: 71260; 74177; 82565

== ENCOUNTER 2016-10-04 11:52 | Outpatient (CLI) | payer MEDICARE ==
[2016-10-04 12:40] VITALS: BP 118/64
== END 2016-10-04 13:41 | disposition home or self-care (01) ==
LOC: II 11:52 → 5TH 11:55 → II 13:41
PROVIDERS: ATTEND Internal Medicine
PROC: 3E0430M Introduction of Antineoplastic, Monoclonal Antibody, into Central Vein, Percutaneous Approach (ICD-10-PCS; principal; 2016-10-04)
DX: Z51.11 Encounter for antineoplastic chemotherapy (principal); C20 Malignant neoplasm of rectum; Z79.899 Other long term (current) drug therapy
CPT/HCPCS: 96413; J9035; 96375; 96523

== ENCOUNTER → 2016-10-09 | Outpatient (CLI) | payer MEDICARE, MEDICAID ==
--- NOTE | 2016-10-10 09:17 | RADIOLOGY REPORT (SQ) ---
EXAM DESCRIPTION: PET CT SKULL/THIGH COMPLETED DATE/TIME: 10/09/2016 5:05 pm REASON FOR STUDY: RECTAL CANCER C20 MALIGNANT NEOPLASM OF RECTUM COMPARISON: 02/08/2015 RADIONUCLIDE AND DOSE: 9.5 mCi F18 FDG The route of agent administration: Intravenous FASTING BLOOD SUGAR: 101 mg/dl CONTRAST TYPE AND DOSE: No CT contrast given. TECHNIQUE: Blood glucose level was verified. Above dose of FDG was injected intravenously. 2-D seg mented attenuation correction images were obtained from the base of the skull to the midthighs. Nonc ontrast CT images were obtained for attenuation correction and fusion with emission images. CT image s were performed without oral or intravenous contrast and are not sensitive for parenchymal lesions. A series of overlapping emission PET images were obtained. Images reviewed and manipulated at [facility] work station by the radiologist. Images stored on PACS. LIMITATIONS: None. FINDINGS: HEAD AND NECK: No areas of abnormal metabolic activity in the soft tissues of the head and neck. CHEST: Right upper lobe mass measures about 4.7 x 3.2 cm with SUV 10.4. Lingular nodule measures abo ut 1.9 x 0.7 cm and 4 SUV. ABDOMEN AND PELVIS: 1 cm left adrenal nodule measures 5.5 SUV. PROXIMAL LOWER EXTREMITIES: No areas of abnormal metabolic activity in the soft tissues of the lower extremities. BONES: No abnormal metabolic activity in the visualized skeleton. ADDITIONAL CT FINDINGS: Colonic anastomosis. Ventral hernia repair. Cholelithiasis. OTHER: No other significant findings. IMPRESSION: Slight increase in size of pulmonary lesions. New left adrenal hypermetabolic lesion. TECHNICAL DOCUMENTATION: JOB ID: [id number] [employer]- All Rights Reserved
== END ==
LOC: RAD 14:51
PROVIDERS: ATTEND Internal Medicine
DX: C20 Malignant neoplasm of rectum (principal); R91.1 Solitary pulmonary nodule; E27.9 Disorder of adrenal gland, unspecified
CPT/HCPCS: 78815; A9552

== ENCOUNTER 2016-11-01 09:46 | Outpatient (CLI) | payer MEDICARE ==
[~2016-11-01 09:46] MED LIST changes: -BEVACIZUMAB IV PRN; +CONTAINER EMPTY IV PRN; +DIPHENHYDRAMINE HCL 50 MG/ML VIAL IV PRN; +DISPOSABLE IV PRN; +FLUOROURACIL IV PRN; +IRINOTECAN HCL IV PRN; +LEUCOVORIN CALCIUM IV PRN; -NORMAL SALINE 250 ML IV PRN; +ONDANSETRON HCL/PF 16 MG, DEXAMETHASONE SOD PHOSPHATE 10 MG in NORMAL SALINE 50 ML IV PRN; +PANITUMUMAB IV PRN
[2016-11-01 10:33] LABS: ABSOLUTE EOSINOPHILS # (AUTO) 0.2 10^3/uL (0.0-0.6); ABSOLUTE LYMPHOCYTES (AUTO) 0.6 10^3/uL (0.5-4.7); ABSOLUTE MONOCYTES (AUTO) 0.5 10^3/uL (0.1-1.4); BASOPHILS % (AUTO) 0.6 % (0-2); EOSINOPHILS % (AUTO) 4.1 % (0-6); HEMATOCRIT 33.7 % (36.0-47.0); HEMOGLOBIN 11.3 g/dL (12.0-15.5); HGB HCT DIFFERENCE 0.2; LYMPHOCYTES % (AUTO) 11.5 % (13-45); MEAN CORPUSCULAR HGB CONC 33.4 g/dL (32.0-36.0); MEAN CORPUSCULAR VOLUME 87 fl (80-97); MONOCYTES % (AUTO) 8.6 % (3-13); RED BLOOD COUNT 3.88 10^6/uL (3.72-5.28); RED CELL DISTRIBUTION WIDTH 15.1 % (11.5-14.0); SEGMENTED NEUTROPHILS % (AUTO) 75.2 % (42-78); WHITE BLOOD COUNT 5.3 10^3/uL (4.0-10.5)
[2016-11-01 10:44] VITALS: BP 119/62
[2016-11-01 10:46] LABS: ALBUMIN 4.1 g/dL (3.5-5.0); ANION GAP 9 (5-19); BLOOD UREA NITROGEN 21 mg/dL (7-20); CARBON DIOXIDE 28 mmol/L (22-30); CHLORIDE 103 mmol/L (98-107); CREATININE RESULT 0.81 mg/dL (0.52-1.25); GLUCOSE 155 mg/dL (75-110); POTASSIUM 4.3 mmol/L (3.6-5.0)
[2016-11-01 10:48] LABS: ALANINE AMINOTRANSFERASE 25 U/L (9-52); ALKALINE PHOSPHATASE 65 U/L (38-126); ASPARTATE AMINO TRANSFERASE 32 U/L (14-36); BILIRUBIN,DIRECT 0.3 mg/dL (0.0-0.4); BILIRUBIN,TOTAL 0.4 mg/dL (0.2-1.3); CALCIUM 10.1 mg/dL (8.4-10.2)
[2016-11-01] MEDS: NORMAL SALINE 250 ML IV PRN ×2 (11:16→12:36)
== END 2016-11-01 15:31 | disposition home or self-care (01) ==
LOC: II 09:46 → 5TH 09:48 → II 15:31
PROVIDERS: ATTEND Internal Medicine
PROC: 3E0430M Introduction of Antineoplastic, Monoclonal Antibody, into Central Vein, Percutaneous Approach (ICD-10-PCS; principal; 2016-11-01)
PROC: 3E04305 Introduction of Other Antineoplastic into Central Vein, Percutaneous Approach (ICD-10-PCS; 2016-11-01)
PROC: 3E043GC Introduction of Other Therapeutic Substance into Central Vein, Percutaneous Approach (ICD-10-PCS; 2016-11-01)
DX: Z51.11 Encounter for antineoplastic chemotherapy (principal); C20 Malignant neoplasm of rectum
CPT/HCPCS: 96409; 96413; 96415; 96416; 96367; 96375; 96417; 36415; 85025; 80053; J0640; J1200; A9270; J9190; J9206; J2405; J7050; J7040; J3490; J1100; J9303 ×2; 96368; 96411

== ENCOUNTER 2016-11-15 10:52 | Outpatient (CLI) | payer MEDICARE ==
[2016-11-15] MEDS ORDERED: DIPHENHYDRAMINE HCL 50 MG/ML VIAL IV PRN (11:03)
[2016-11-15] MEDS ORDERED: ONDANSETRON HCL/PF 16 MG, DEXAMETHASONE SOD PHOSPHATE 10 MG in NORMAL SALINE 50 ML IV PRN (11:04)
[2016-11-15] MEDS ORDERED: FLUOROURACIL IV PRN ×2 (11:08→11:16)
[2016-11-15] MEDS ORDERED: CONTAINER EMPTY IV PRN (11:08)
[2016-11-15] MEDS ORDERED: NORMAL SALINE 250 ML IV PRN (11:09)
[2016-11-15] MEDS ORDERED: IRINOTECAN HCL IV PRN (11:11)
[2016-11-15] MEDS ORDERED: NORMAL SALINE IV PRN ×3 (11:11→11:15)
[2016-11-15] MEDS ORDERED: PANITUMUMAB IV PRN (11:14)
[2016-11-15] MEDS ORDERED: LEUCOVORIN CALCIUM IV PRN (11:15)
[2016-11-15] MEDS ORDERED: DISPOSABLE IV PRN (11:16)
[2016-11-15 13:44] VITALS: BP 156/86
== END 2016-11-15 15:48 | disposition home or self-care (01) ==
LOC: II 10:52 → 5TH 11:10 → II 15:48
PROVIDERS: ATTEND Internal Medicine
PROC: 3E0330M Introduction of Antineoplastic, Monoclonal Antibody, into Peripheral Vein, Percutaneous Approach (ICD-10-PCS; principal; 2016-11-15)
PROC: 3E03305 Introduction of Other Antineoplastic into Peripheral Vein, Percutaneous Approach (ICD-10-PCS; 2016-11-15)
PROC: 3E033GC Introduction of Other Therapeutic Substance into Peripheral Vein, Percutaneous Approach (ICD-10-PCS; 2016-11-15)
DX: Z51.11 Encounter for antineoplastic chemotherapy (principal); C20 Malignant neoplasm of rectum
CPT/HCPCS: 96411; 96413; 96416; 96367; 96368; 96375; 96417; J0640; J1200; A9270; J9190; J9206; J2405; J7050; J7040; J3490; J1100; J9303 ×2; 96409; 96415

== ENCOUNTER 2016-11-29 10:40 | Outpatient (CLI) | payer MEDICARE ==
[~2016-11-29 10:40] MED LIST changes: +NORMAL SALINE 250 ML IV PRN
[2016-11-29] MEDS ORDERED: IRINOTECAN HCL IV PRN (11:00)
[2016-11-29] MEDS ORDERED: NORMAL SALINE IV PRN (11:00)
[2016-11-29 13:17] VITALS: BP 142/69
== END 2016-11-29 16:48 | disposition home or self-care (01) ==
LOC: 5TH 10:40 → II 10:40
PROVIDERS: ATTEND Internal Medicine
PROC: 3E0430M Introduction of Antineoplastic, Monoclonal Antibody, into Central Vein, Percutaneous Approach (ICD-10-PCS; principal; 2016-11-29)
PROC: 3E04305 Introduction of Other Antineoplastic into Central Vein, Percutaneous Approach (ICD-10-PCS; 2016-11-29)
PROC: 3E043GC Introduction of Other Therapeutic Substance into Central Vein, Percutaneous Approach (ICD-10-PCS; 2016-11-29)
DX: Z51.11 Encounter for antineoplastic chemotherapy (principal); C20 Malignant neoplasm of rectum
CPT/HCPCS: 96411; 96413; 96415; 96416; 96367; 96368; 96375; 96417; J0640; J1200; A9270; J9190; J9206; J2405; J7050; J7040; J3490; J1100; J9303 ×2

== ENCOUNTER 2016-12-03 21:31 | Emergency (ER) | payer MEDICARE, MEDICAID ==
[2016-12-03] MEDS ORDERED: ONDANSETRON HCL INJ/PF 4 MG/2 ML SDV IV ONE (23:13)
[2016-12-03] MEDS ORDERED: DIPHENOXYLATE HCL/ATROP SULF 2.5-0.025 MG TABLET PO ONE (23:14)
--- NOTE | 2016-12-03 23:39 | ER Document Report ---
ED General - General Chief Complaint: Diarrhea Stated Complaint: DIARRHEA Time Seen by Provider: 12/03/16 23:03 Notes: Patient is a 71-year-old female who has a history of colon cancer with some metastases to lungs and adrenal glands. She is on chemotherapy. She has a chemo pump which was recently discontinued. She says every time her chemo pump was discontinued she developed some vomiting and diarrhea which she has now. She has says she feels a little dehydrated. He is followed by Dr. Dyer. She denies any fevers. No blood in her emesis or stool. No significant abdominal pain. She is on Zofran and Phenergan at home. TRAVEL OUTSIDE OF THE [place] IN LAST 30 DAYS: No - Related Data Allergies/Adverse Reactions: oxaliplatin Allergy (Severe, Verified 12/03/16 22:50) Anaphylaxis morphine Adverse Reaction (Unknown, Verified 12/03/16 22:50) Unknown reaction Past Medical History - Social History Smoking Status: Unknown if Ever Smoked Frequency of alcohol use: None Drug Abuse: None Family History: None - Past Medical History Cardiac Medical History: Reports: Hx Hypertension - medicated Denies: Hx Atrial Fibrillation, Hx Congestive Heart Failure, Hx Coronary Artery Disease, Hx Heart Attack, Hx Hypercholesterolemia, Hx Peripheral Vascular Disease, Hx Pulmonary Embolism, Hx Heart Murmur Pulmonary Medical History: Reports: Hx Pneumonia - Age 13 Denies: Hx Asthma, Hx Bronchitis, Hx COPD, Hx Respiratory Failure, Hx Sleep Apnea, Hx Tuberculosis Neurological Medical History: Denies: Hx Cerebrovascular Accident, Hx Seizures Endocrine Medical History: Reports: Hx Diabetes Mellitus Type 2. 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 Denies: Hx Leukemia, Hx Lung Cancer GI Medical History: Reports: Hx Hiatal Hernia. Denies: Hx Crohn's Disease, Hx Gastroesophageal Reflux Disease, Hx Hepatitis, Hx Irritable Bowel, Hx Liver Failure, Hx Pancreatitis, Hx Ulcer Musculoskeltal Medical History: Denies Hx Arthritis, Denies Hx Fibromyalgia, Denies Hx Muscular Dystrophy Psychiatric Medical History: Denies: Hx Dementia Traumatic Medical History: Reports: Hx Fractures - Josesito index fingers, Lt little toe Infectious Medical History: Denies: Hx Hepatitis, Hx HIV Past Surgical History: Reports: Hx Bowel Surgery, Hx Tubal Ligation. Denies: Hx Appendectomy, Hx Section, Hx Cholecystectomy, Hx Colostomy, Hx Coronary Artery Bypass Graft, Hx Gastric Bypass Surgery, Hx Herniorrhaphy, Hx Hysterectomy, Hx Mastectomy, Hx Open Heart Surgery, Hx Pacemaker, Hx Tonsillectomy - Immunizations Hx Diphtheria, Pertussis, Tetanus Vaccination: Yes Hx Pneumococcal Vaccination: 12/14/13 Review of Systems - Review of Systems Notes: My Normal Review Basic REVIEW OF SYSTEMS: CONSTITUTIONAL : Denies fever, chills, or sweats. Denies recent illness. EENT: Denies eye, ear, throat, or mouth pain or symptoms. Denies nasal or sinus congestion. CARDIOVASCULAR: Denies chest pain. RESPIRATORY: Denies cough, cold, or chest congestion. Denies shortness of breath, difficulty breathing, or wheezing. GASTROINTESTINAL: Denies abdominal pain. Vomiting and diarrhea. GENITOURINARY: Denies difficulty urinating, painful urination, burning, frequency, or blood in urine. MUSCULOSKELETAL: Denies neck or back pain or joint pain or swelling. SKIN: Denies rash or skin lesions. NEUROLOGICAL: Denies altered mental status or loss of consciousness. Denies headache. Denies weakness or paralysis or loss of use of either side. Denies problems with gait or speech. Denies sensory or motor loss. ALL OTHER SYSTEMS REVIEWED AND NEGATIVE. Physical Exam - Vital signs Vitals: Temp Pulse Resp BP Pulse Ox 99.3 F 91 18 125/77 97 12/03/16 22:50 12/03/16 22:50 12/03/16 22:50 12/03/16 22:50 12/03/16 22:50 - Notes Notes: General Appearance: Well nourished, alert, cooperative, no acute distress, no obvious discomfort. Vitals: reviewed, See vital signs table. Head: no swelling or tenderness to the head Eyes: PERRL, EOMI, Conjuctiva clear Mouth: No decreasd moisture Chest wall: Port in right upper chest wall. Throat: No tonsillar inflammation, No airway obstruction, No lymphadenopathy Lungs: No wheezing, No rales, No rhonci, No accessory muscle use, good air exchange bilaterally. Heart: Normal rate, Regular rythm, No murmur, no rub Abdomen: Normal BS, soft, No rigidity, No reproducible abdominal tenderness to palpation, No guarding, no rebound, no abdominal masses, no organomegaly Extremities: strength 5/5 in all extremities, good pulses in all extremities, no swelling or tenderness in the extremities, no edema. Skin: warm, dry, appropriate color, no rash Neuro: speech clear, oriented x 3, normal affect, responds appropriately to questions. Course - Re-evaluation Re-evalutation: 12/04/16 02:48 Patient's nausea is completely resolved with Reglan. I will prescribe her Reglan but I encouraged her to not take the Phenergan while she is taking Reglan. She is understanding of this. Lomotil has started to slow down her bowel movements. I will prescribe Lomotil by informed her that as soon as she is not having any diarrhea she must stop it so that it does not cause severe constipation or obstruction. Patient shows understanding of this as well. Patient encouraged to return to ER immediately if she has any fevers, abdominal pain, intractable vomiting, or worsening diarrhea. Patient to follow-up closely with her oncologist. Patient agrees with plan will be discharged home. Dictation of this chart was performed using voice recognition software; therefore, there may be some unintended grammatical errors. - Vital Signs Vital signs: Temp Pulse Resp BP Pulse Ox 99.3 F 91 18 125/77 97 12/03/16 22:50 12/03/16 22:50 12/03/16 22:50 12/03/16 22:50 12/03/16 22:50 - Laboratory Result Diagrams: 12/03/16 23:55 12/03/16 23:55 Laboratory results interpreted by me: 12/03/16 12/03/16 23:55 23:55 WBC 3.2 L Hgb 11.2 L Hct 32.7 L RDW 15.8 H Plt Count 145 L Seg Neutrophils % 81.1 H Lymphocytes % 12.3 L Absolute Lymphocytes 0.4 L Sodium 135.3 L Glucose 141 H Total Protein 5.9 L Discharge - Discharge Clinical Impression: Vomiting and diarrhea Condition: Good Disposition: HOME, SELF-CARE Additional Instructions: Please do not take the Phenergan and Reglan at the same time as they can interact with each other. I have prescribed an anti diarrhea medication called Lomotil. Please stop taking this as soon as your diarrhea has resolved or it will make you very constipated. Return to the ER immediately if you develop fevers, abdominal pain, blood in your stool, intractable vomiting, or feel unwell. Follow up closely with your cancer doctor in 1-2 days for close reevaluation. Prescriptions: Diphenoxylate HCl/Atrop Sulf [Lomotil 2.5 mg Tablet] 1 tab PO Q8HP PRN #10 tablet PRN Reason: Diarrhea Metoclopramide HCl [Reglan 10 mg Tablet] 1 tab PO ASDIR PRN #25 tablet PRN Reason: Referrals: CULLEN SANTIAGO MD [Primary Care Provider] - Follow up as needed
[2016-12-04] MEDS: NORMAL SALINE 1000 ML 1,000 ML IV PRN ×2 (00:02→00:10)
[2016-12-04 00:24] LABS: ABSOLUTE EOSINOPHILS # (AUTO) 0.1 10^3/uL (0.0-0.6); ABSOLUTE LYMPHOCYTES (AUTO) 0.4 10^3/uL (0.5-4.7); ABSOLUTE MONOCYTES (AUTO) 0.1 10^3/uL (0.1-1.4); ABSOLUTE NEUT (AUTO) 2.6 10^3/uL (1.7-8.2); BASOPHILS % (AUTO) 0.3 % (0-2); HEMATOCRIT 32.7 % (36.0-47.0); HEMOGLOBIN 11.2 g/dL (12.0-15.5); HGB HCT DIFFERENCE 0.9; LYMPHOCYTES % (AUTO) 12.3 % (13-45); MEAN CORPUSCULAR HEMOGLOBIN 29.8 pg (27.0-33.4); MEAN CORPUSCULAR HGB CONC 34.4 g/dL (32.0-36.0); MEAN CORPUSCULAR VOLUME 87 fl (80-97); MONOCYTES % (AUTO) 4.3 % (3-13); RED BLOOD COUNT 3.77 10^6/uL (3.72-5.28); RED CELL DISTRIBUTION WIDTH 15.8 % (11.5-14.0); SEGMENTED NEUTROPHILS % (AUTO) 81.1 % (42-78); WHITE BLOOD COUNT 3.2 10^3/uL (4.0-10.5)
[2016-12-04] MEDS ORDERED: METOCLOPRAMIDE HCL INJ/PF 10 MG/2 ML SDV IV ONE (00:39)
[2016-12-04 00:46] LABS: ALANINE AMINOTRANSFERASE 37 U/L (9-52); ALBUMIN 3.7 g/dL (3.5-5.0); ALKALINE PHOSPHATASE 68 U/L (38-126); ANION GAP 11 (5-19); ASPARTATE AMINO TRANSFERASE 25 U/L (14-36); BILIRUBIN,DIRECT 0.4 mg/dL (0.0-0.4); BILIRUBIN,TOTAL 0.7 mg/dL (0.2-1.3); BLOOD UREA NITROGEN 19 mg/dL (7-20); CALCIUM 9.4 mg/dL (8.4-10.2); CARBON DIOXIDE 24 mmol/L (22-30); CHLORIDE 100 mmol/L (98-107); CREATININE RESULT 0.93 mg/dL (0.52-1.25); GLUCOSE 141 mg/dL (75-110); LIPASE 84.6 U/L (23-300); MAGNESIUM 1.9 mg/dL (1.6-2.3); POTASSIUM 4.2 mmol/L (3.6-5.0); SODIUM 135.3 mmol/L (137-145); TOTAL PROTEIN 5.9 g/dL (6.3-8.2)
[2016-12-04 03:34] VITALS: BP 115/67
== END 2016-12-04 03:33 | disposition home or self-care (01) ==
LOC: ER 21:31
DX: R11.10 Vomiting, unspecified (principal); R19.7 Diarrhea, unspecified; Z85.038 Personal history of other malignant neoplasm of large intestine; C78.02 Secondary malignant neoplasm of left lung; C78.01 Secondary malignant neoplasm of right lung; C79.72 Secondary malignant neoplasm of left adrenal gland; C79.71 Secondary malignant neoplasm of right adrenal gland; Z79.899 Other long term (current) drug therapy
CPT/HCPCS: 36591; 99284; 96361; 96374; 96375; 36415; 83690; 83735; 85025; 80053; A9270; J2765; J2405; J7030; J3490

== ENCOUNTER 2016-12-15 13:54 | Outpatient (CLI) | payer MEDICARE ==
[~2016-12-15 13:54] MED LIST changes: -CONTAINER EMPTY IV PRN; -DIPHENHYDRAMINE HCL 50 MG/ML VIAL IV PRN; -DISPOSABLE IV PRN; -FLUOROURACIL IV PRN; -IRINOTECAN HCL IV PRN; -LEUCOVORIN CALCIUM IV PRN; +NORMAL SALINE 1000 ML 1,000 ML IV PRN; -NORMAL SALINE 250 ML IV PRN; -NORMAL SALINE IV PRN; -ONDANSETRON HCL/PF 16 MG, DEXAMETHASONE SOD PHOSPHATE 10 MG in NORMAL SALINE 50 ML IV PRN; -PANITUMUMAB IV PRN
[2016-12-15 14:30] VITALS: BP 137/66
== END 2016-12-15 15:30 | disposition home or self-care (01) ==
LOC: II 13:54 → 5TH 14:29 → II 15:30
PROVIDERS: ATTEND Internal Medicine
PROC: 3E0337Z Introduction of Electrolytic and Water Balance Substance into Peripheral Vein, Percutaneous Approach (ICD-10-PCS; principal; 2016-12-15)
DX: E86.0 Dehydration (principal); C20 Malignant neoplasm of rectum
CPT/HCPCS: 96360

== ENCOUNTER 2016-12-23 12:07 | Outpatient (CLI) | payer MEDICARE, MEDICAID ==
[2016-12-23] MEDS ORDERED: NORMAL SALINE 1000 ML 1,000 ML IV PRN (12:32)
[2016-12-23 12:57] VITALS: BP 122/58
== END 2016-12-23 13:22 | disposition home or self-care (01) ==
LOC: II 12:07 → 5TH 12:13 → II 13:22
PROVIDERS: ATTEND Internal Medicine
PROC: 3E0437Z Introduction of Electrolytic and Water Balance Substance into Central Vein, Percutaneous Approach (ICD-10-PCS; principal; 2016-12-23)
DX: E86.0 Dehydration (principal); C20 Malignant neoplasm of rectum
CPT/HCPCS: 96360; 96375

== ENCOUNTER → 2017-01-08 | Outpatient (CLI) | payer MEDICAID, MEDICARE ==
--- NOTE | 2017-01-09 09:04 | RADIOLOGY REPORT (SQ) ---
"EXAM DESCRIPTION: PET CT SKULL/THIGH COMPLETED DATE/TIME: 01/08/2017 7:10 pm REASON FOR STUDY: RECTAL CANCER C20 MALIGNANT NEOPLASM OF RECTUM COMPARISON: PET-CT 10/09/2016, 02/08/2015, 04/18/2013, 03/04/2012 CT chest abdomen pelvis 12/20/2016, 09/29/2016, 09/23/2016 RADIONUCLIDE AND DOSE: 10 mCi F18 FDG The route of agent administration: Intravenous FASTING BLOOD SUGAR: 101 mg/dl CONTRAST TYPE AND DOSE: No CT contrast given. TECHNIQUE: Blood glucose level was verified. Above dose of FDG was injected intravenously. 2-D seg mented attenuation correction images were obtained from the base of the skull to the midthighs. Nonc ontrast CT images were obtained for attenuation correction and fusion with emission images. CT image s were performed without oral or intravenous contrast and are not sensitive for parenchymal lesions. A series of overlapping emission PET images were obtained. Images reviewed and manipulated at [facility] work station by the radiologist. Images stored on PACS. LIMITATIONS: None. FINDINGS: HEAD AND NECK: Right vocal cord activity is present likely artifact from talking after inj ection. CHEST: Persistent right upper lobe mass, 4 x 2.7 cm in size with SUV of 10.0. This was 3.8 x 2.5 cm in size on CT chest abdomen pelvis 12/20/2016. This was 4.7 x 3.2 cm in size with SUV 10.4 on PET-CT 10/09/2016. There is a persistent lingular dumbbell-shaped nodule 2 x 0.7 cm with SUV of 1.3. This was 2 x [address] chest abdomen pelvis 12/20/2016, and 2 x 0.7 cm in size with SUV of 4 on PET-CT 10/09/2016. ABDOMEN AND PELVIS: Hypermetabolic left adrenal nodule seen on PET-CT 10/09/2016 has resolved. No liver lesions, retroperitoneal or pelvic lymph nodes or gross recurrent mass at the rectosigmoid a nastomotic staple line. PROXIMAL LOWER EXTREMITIES: No areas of abnormal metabolic activity in the soft tissues of the lower extremities. BONES: No abnormal metabolic activity in the visualized skeleton. ADDITIONAL CT FINDINGS: Right central venous catheter tip in the right atrium. Small hiatal hernia. Few small calcified gallstones. Rectosigmoid and small bowel anastomotic shirley. Laparoscopic travis tral hernia repair. Less than 5 mm right lower pole intrarenal nonobstructive stones. 1 cm right mi dpole renal cortical cyst. OTHER: Liver background SUV 2.0. Blood pool background activity 1.4 SUV. IMPRESSION: Persistent right upper lobe mass with SUV of 10. Stable lingular nodule with significant decrease in metabolic activity compared to prior PET-CT Resolved left adrenal nodule TECHNICAL DOCUMENTATION: JOB ID: [id number] [employer]- All Rights Reserved"
== END ==
LOC: RAD 14:58
PROVIDERS: ATTEND Internal Medicine
DX: C20 Malignant neoplasm of rectum (principal)
CPT/HCPCS: 78815; A9552

== ENCOUNTER → 2017-06-01 | Outpatient (CLI) | payer MEDICARE, MEDICAID ==
[2017-06-01 12:55] LABS: ALANINE AMINOTRANSFERASE 27 U/L (9-52); ALBUMIN 4.1 g/dL (3.5-5.0); ALKALINE PHOSPHATASE 79 U/L (38-126); ANION GAP 11 (5-19); ASPARTATE AMINO TRANSFERASE 26 U/L (14-36); BILIRUBIN,DIRECT 0.3 mg/dL (0.0-0.4); BILIRUBIN,TOTAL 0.4 mg/dL (0.2-1.3); BLOOD UREA NITROGEN 18 mg/dL (7-20); CALCIUM 9.9 mg/dL (8.4-10.2); CARBON DIOXIDE 30 mmol/L (22-30); CHLORIDE 102 mmol/L (98-107); GLUCOSE 124 mg/dL (75-110); POTASSIUM 4.5 mmol/L (3.6-5.0); SODIUM 142.7 mmol/L (137-145); TOTAL PROTEIN 6.5 g/dL (6.3-8.2)
[2017-06-02 08:44] LABS: HEPATITIS C VIRUS AB <0.1 s/co ratio (0.0-0.9)
== END ==
LOC: LAB 12:23
PROVIDERS: ATTEND Internal Medicine Geriatric Medicine
DX: Z00.00 Encounter for general adult medical examination without abnormal findings (principal); E11.65 Type 2 diabetes mellitus with hyperglycemia; I10 Essential (primary) hypertension; E78.5 Hyperlipidemia, unspecified
CPT/HCPCS: 36415; 80053; 86803; 86804

== ENCOUNTER → 2017-06-08 | Outpatient (CLI) | payer MEDICAID, MEDICARE ==
--- NOTE | 2017-06-08 10:22 | WOMENS IMAGING REPORT ---
EXAM DESCRIPTION: BONE DENSITY HIP/SPINE COMPLETED DATE/TIME: 06/08/2017 9:54 am REASON FOR STUDY: DISORDER OF BONE; M89.9 Z12.31 ENCNTR SCREEN MAMMOGRAM FOR MALIGNANT NEOPLASM OF XANDER M89.9 DISORDER OF BONE, UNSPECIFIED COMPARISON: 03/25/2014. TECHNIQUE: Dual-Energy X-ray Absorptiometry (DEXA) of the AP Spine and Hip. LIMITATIONS: None. FINDINGS: LUMBAR SPINE: The bone mineral density (BMD) measured from L1-L4 in the AP projection correlates with a T-score of -1.7, which is osteopenia as defined by the World Health Organization. HIP: The bone mineral density (BMD) measured in the left hip correlates with a T-score of -1.0, which is o steopenia as defined by the World Health Organization. IMPRESSION: 1. LUMBAR SPINE: OSTEOPENIA. 2. HIP: OSTEOPENIA. COMMENT: The World Health Organization defines low BMD as follows: T-score: Normal: Greater than -1.0 Osteopenia: Between -1.0 and -2.5 Osteoporosis: Less than -2.5 without fractures Established osteoporosis: Less than -2.5 with fractures In general, you may wish to consider: Diagnosis Treatment Follow-up DEXA Normal BMD Prevention 2-3 years Osteopenia Prevention/Therapy 1-2 years Osteoporosis Therapy Yearly TECHNICAL DOCUMENTATION: JOB ID: [id number] [employer]- All Rights Reserved Reading location - IP/workstation name: [email or web address]
--- NOTE | 2017-06-08 11:18 | WOMENS IMAGING REPORT ---
EXAM DESCRIPTION: 3D SCREENING MAMMO BILAT COMPLETED DATE/TIME: 06/08/2017 9:54 am REASON FOR STUDY: ROUTINE SCREENING;Z12.31 Z12.31 ENCNTR SCREEN MAMMOGRAM FOR MALIGNANT NEOPLASM OF XANDER M89.9 DISORDER OF BONE, UNSPECIFIED COMPARISON: 07/14/2015 and 12/04/2013. TECHNIQUE: Standard craniocaudal and mediolateral oblique views of each breast recorded using digita l acquisition and breast tomosynthesis. LIMITATIONS: None. FINDINGS: Findings present which are benign by mammographic criteria. No suspicious masses, calcifi cations or architectural distortion. Pertinent benign findings: Stable calcifications. Read with the assistance of CAD. .[facility] - R2 Cenova Version 1.3 .[facility] Imaging - R2 Cenova Version 1.3 .[facility] Imaging - R2 Cenova Version 2.4 .[facility] [place] - R2 Cenova Version 2.4 .[facility] - R2 B[employer] Version 9.2 Benign mammographic findings may include one or more of the following: Smooth masses, popcorn/rim/co arse calcifications, asymmetries, post-procedure changes, and lesions with long-standing stability. IMPRESSION: BENIGN MAMMOGRAPHIC FINDINGS. BIRADS 2 BREAST DENSITY: c. The breasts are heterogeneously dense, which may obscure small masses. BIRAD: 2 BENIGN FINDING(S) RECOMMENDATION: RECOMMENDATION: ROUTINE SCREENING COMMENT: The patient has been notified of the results by letter per SA requirements. Additional no tification policies are in place for contacting patient with suspicious or incomplete findings. Quality ID #[id number]: The [place] [employer] recommends an annual screening mammogram for women aged 40 years or over. This facility utilizes a reminder system to ensure that all patients receive reminder letters, and/or direct phone calls for appointments. This includes reminders for routine scr eening mammograms, diagnostic mammograms, or other Breast Imaging Interventions when appropriate. Th is patient will be placed in the appropriate reminder system. The [place] [employer] (ACR) has developed recommendations for screening MRI of the breast s in certain patient populations, to be used in conjunction with mammography. Breast MRI surveillanc e may be appropriate for women with more than 20% lifetime risk of developing breast cancer as deter mined by genetic testing, significant family history of the disease, or history of mantle radiation f or Hodgkins Disease. ACR Practice Guidelines 2008. DBT Technology DBT is a type of tomographic mammography. With conventional mammography, overlapping breast tissue ma y make lesions difficult to detect, even with good compression. DBT uses an x-ray tube that rotates a round the breast, taking images at different angles. These images are then combined to create thin sl ices of the breast that the radiologist can view as a 3D reconstruction. The [employer] unit can perform full-field digital mammograms (2D imaging); or DBT (3D imaging); or both, in a combination mode that quickly performs both the mammogram and the tomosynthesis scan while the breast is still compressed. PQRS 6045F: Fluoroscopic imaging is not utilized for breast tomosynthesis. TECHNICAL DOCUMENTATION: FINDING NUMBER: (1) ASSESSMENT: (1) JOB ID: [id number] [employer]- All Rights Reserved Reading location - IP/workstation name: [email or web address]
== END ==
LOC: WI 09:31
PROVIDERS: ATTEND Internal Medicine Geriatric Medicine
DX: Z12.31 Encounter for screening mammogram for malignant neoplasm of breast (principal); M85.88 Other specified disorders of bone density and structure, other site
CPT/HCPCS: 77063; 77067; 77080

== ENCOUNTER → 2017-06-25 | Outpatient (CLI) | payer MEDICAID, MEDICARE ==
--- NOTE | 2017-06-26 10:22 | RADIOLOGY REPORT (SQ) ---
EXAM DESCRIPTION: PET CT SKULL/THIGH COMPLETED DATE/TIME: 06/25/2017 5:48 pm REASON FOR STUDY: RECTAL CANCER C20 MALIGNANT NEOPLASM OF RECTUM COMPARISON: PET-CT 01/08/2017, 10/09/2016, 02/08/2015, 04/28/2013, 03/12/2012 CT chest abdomen pelvis 12/20/2016, 09/29/2016 RADIONUCLIDE AND DOSE: 12.9 mCi F18 FDG The route of agent administration: Intravenous FASTING BLOOD SUGAR: 115 mg/dl CONTRAST TYPE AND DOSE: No CT contrast given. TECHNIQUE: Blood glucose level was verified. Above dose of FDG was injected intravenously. 2-D seg mented attenuation correction images were obtained from the base of the skull to the midthighs. Nonc ontrast CT images were obtained for attenuation correction and fusion with emission images. CT image s were performed without oral or intravenous contrast and are not sensitive for parenchymal lesions. A series of overlapping emission PET images were obtained. Images reviewed and manipulated at [facility] work station by the radiologist. Images stored on PACS. LIMITATIONS: None. FINDINGS: HEAD AND NECK: No areas of abnormal metabolic activity in the soft tissues of the head and neck. CHEST: The right upper lobe mass with radiotherapy markers is stable in size, with decrease in metabo lic activity compared to 01/08/2017. On the current exam this measures 4 x 2.5 cm in size on axial i mage 77 with SUV of 4 (was 4 x 2.7 cm with SUV of 10 on 01/08/2017). Since the prior studies, patient has developed bandlike airspace disease in the right upper lobe and superior segment right lower lobe adjacent to the right upper lobe mass. This represents post radiat ion therapy change, and patchy ground-glass opacity in this area has SUV 2.6 on axial images 67-84. The dumbbell-shaped lingular nodule measures 2 x 1 cm in size. However, there is increase in metabol ic activity with SUV of 3.4 (was 2 x 0.7 cm in size with SUV of 1.3 on 01/08/2017). No hypermetabolic mediastinal or hilar adenopathy. On today's study, an index precarinal 10 x 9 mm l ymph node is present with SUV of 1.6 (at baseline). ABDOMEN AND PELVIS: The left adrenal mass seen has recurrent, now 4 x 3 cm in size with SUV 9.2 (was absent on 01/08/2017 PET-CT). PROXIMAL LOWER EXTREMITIES: No areas of abnormal metabolic activity in the soft tissues of the lower extremities. BONES: No abnormal metabolic activity in the visualized skeleton. ADDITIONAL CT FINDINGS: Right-sided permanent central line tip superior vena cava. Small hiatal shaun ia. Calcified gallstones. Intact laparoscopic ventral hernia repair. Rectosigmoid anastomotic stap les. Less than 5 mm right lower pole intrarenal nonobstructive stone. OTHER: Liver background activity 2.2 SUV. Blood pool background activity 1.6 SUV. IMPRESSION: Recurrent left adrenal mass Increase in metabolic activity along stable sized lingular dumbbell-shaped nodule. Post radiation therapy treatment changes in the right upper lobe and superior segment right lower lob e, with reactive airspace disease and decrease in metabolic activity of right upper lobe metastatic l esion. TECHNICAL DOCUMENTATION: JOB ID: [id number] [employer]- All Rights Reserved Reading location - IP/workstation name: [email or web address]
== END ==
LOC: RAD 15:34
PROVIDERS: ATTEND Internal Medicine
DX: C20 Malignant neoplasm of rectum (principal)
CPT/HCPCS: 78815; A9552

== ENCOUNTER 2017-07-25 10:01 | Outpatient (CLI) | payer MEDICARE, MEDICAID ==
[~2017-07-25 10:01] MED LIST changes: +CONTAINER EMPTY IV PRN; +DISPOSABLE IV PRN; +FLUOROURACIL IV PRN; +LEUCOVORIN CALCIUM IV PRN; -NORMAL SALINE 1000 ML 1,000 ML IV PRN; +NORMAL SALINE 250 ML IV PRN; +NORMAL SALINE IV PRN; +ONDANSETRON HCL/PF 16 MG, DEXAMETHASONE SOD PHOSPHATE 10 MG in NORMAL SALINE 50 ML IV PRN; +PANITUMUMAB IV PRN
[2017-07-25 10:41] LABS: APPEARANCE,URINE SLIGHTLY-CLOUDY; BILIRUBIN,URINE NEGATIVE (NEGATIVE); COLOR,URINE YELLOW; GLUCOSE, URINE NEGATIVE (NEGATIVE); KETONES,URINE NEGATIVE (NEGATIVE); LEUKOCYTE ESTERASE,URINE NEGATIVE (NEGATIVE); NITRITE,URINE NEGATIVE (NEGATIVE); PROTEIN,URINE NEGATIVE (NEGATIVE); URINE SPECIFIC GRAVITY 1.019; UROBILINOGEN,URINE NEGATIVE mg/dL (<2.0)
[2017-07-25 10:44] VITALS: BP 123/56
== END 2017-07-25 16:39 | disposition home or self-care (01) ==
LOC: II 10:01 → 5TH 10:17 → II 16:39
PROVIDERS: ATTEND Internal Medicine
PROC: 3E0430M Introduction of Antineoplastic, Monoclonal Antibody, into Central Vein, Percutaneous Approach (ICD-10-PCS; principal; 2017-07-25)
PROC: 3E04305 Introduction of Other Antineoplastic into Central Vein, Percutaneous Approach (ICD-10-PCS; 2017-07-25)
PROC: 3E043GC Introduction of Other Therapeutic Substance into Central Vein, Percutaneous Approach (ICD-10-PCS; 2017-07-25)
PROC: 3E0433Z Introduction of Anti-inflammatory into Central Vein, Percutaneous Approach (ICD-10-PCS; 2017-07-25)
DX: Z51.11 Encounter for antineoplastic chemotherapy (principal); C20 Malignant neoplasm of rectum
CPT/HCPCS: 81001; 96401; 96413; 96415; 96416; 96367; A9270; J9190; J2405; J7050; J3490; J1100; J9303 ×2; 96366; 96411

== ENCOUNTER 2017-08-08 08:58 | Outpatient (CLI) | payer MEDICARE, MEDICAID ==
[2017-08-08 09:41] LABS: ABSOLUTE EOSINOPHILS # (AUTO) 0.2 10^3/uL (0.0-0.6); ABSOLUTE LYMPHOCYTES (AUTO) 0.4 10^3/uL (0.5-4.7); ABSOLUTE MONOCYTES (AUTO) 0.4 10^3/uL (0.1-1.4); ABSOLUTE NEUT (AUTO) 3.5 10^3/uL (1.7-8.2); BASOPHILS % (AUTO) 0.4 % (0-2); EOSINOPHILS % (AUTO) 3.6 % (0-6); HEMATOCRIT 32.9 % (36.0-47.0); HEMOGLOBIN 10.8 g/dL (12.0-15.5); MEAN CORPUSCULAR HEMOGLOBIN 27.3 pg (27.0-33.4); MEAN CORPUSCULAR HGB CONC 32.7 g/dL (32.0-36.0); MEAN CORPUSCULAR VOLUME 84 fl (80-97); MONOCYTES % (AUTO) 9.6 % (3-13); PLATELET COUNT 152 10^3/uL (150-450); RED BLOOD COUNT 3.94 10^6/uL (3.72-5.28); SEGMENTED NEUTROPHILS % (AUTO) 77.4 % (42-78); TOTAL CELLS COUNTED % (AUTO) 100 %; WHITE BLOOD COUNT 4.5 10^3/uL (4.0-10.5)
[2017-08-08 09:54] VITALS: BP 145/72
[2017-08-08 10:54] LABS: APPEARANCE,URINE SLIGHTLY-CLOUDY; BILIRUBIN,URINE NEGATIVE (NEGATIVE); COLOR,URINE YELLOW; GLUCOSE, URINE NEGATIVE (NEGATIVE); KETONES,URINE NEGATIVE (NEGATIVE); LEUKOCYTE ESTERASE,URINE MODERATE (NEGATIVE); NITRITE,URINE NEGATIVE (NEGATIVE); PROTEIN,URINE NEGATIVE (NEGATIVE); URINE SPECIFIC GRAVITY 1.016; UROBILINOGEN,URINE NEGATIVE mg/dL (<2.0)
== END 2017-08-08 14:24 | disposition home or self-care (01) ==
LOC: II 08:58 → 5TH 09:01 → II 14:24
PROVIDERS: ATTEND Internal Medicine
PROC: 3E0430M Introduction of Antineoplastic, Monoclonal Antibody, into Central Vein, Percutaneous Approach (ICD-10-PCS; principal; 2017-08-08)
PROC: 3E0430M Introduction of Antineoplastic, Monoclonal Antibody, into Central Vein, Percutaneous Approach (ICD-10-PCS; 2017-08-08)
PROC: 3E0433Z Introduction of Anti-inflammatory into Central Vein, Percutaneous Approach (ICD-10-PCS; 2017-08-08)
PROC: 3E043GC Introduction of Other Therapeutic Substance into Central Vein, Percutaneous Approach (ICD-10-PCS; 2017-08-08)
DX: Z51.11 Encounter for antineoplastic chemotherapy (principal); C20 Malignant neoplasm of rectum
CPT/HCPCS: 36415; 83735; 85025; 81001; 96409; 96413; 96415; 96367; 96417; A9270; J9190; J2405; J7050; J3490; J1100; J9303 ×2; 96366; 96411

== ENCOUNTER 2017-08-22 09:15 | Outpatient (CLI) | payer MEDICARE, MEDICAID ==
[2017-08-22 10:29] LABS: APPEARANCE,URINE SLIGHTLY-CLOUDY; BILIRUBIN,URINE NEGATIVE (NEGATIVE); COLOR,URINE YELLOW; GLUCOSE, URINE NEGATIVE (NEGATIVE); KETONES,URINE NEGATIVE (NEGATIVE); LEUKOCYTE ESTERASE,URINE MODERATE (NEGATIVE); NITRITE,URINE NEGATIVE (NEGATIVE); PROTEIN,URINE NEGATIVE (NEGATIVE); URINE SPECIFIC GRAVITY 1.017; UROBILINOGEN,URINE NEGATIVE mg/dL (<2.0)
[2017-08-22 10:34] VITALS: BP 144/76
== END 2017-08-22 14:30 | disposition home or self-care (01) ==
LOC: II 09:15 → 5TH 09:19 → II 14:30
PROVIDERS: ATTEND Internal Medicine
PROC: 3E0430M Introduction of Antineoplastic, Monoclonal Antibody, into Central Vein, Percutaneous Approach (ICD-10-PCS; principal; 2017-08-22)
PROC: 3E03305 Introduction of Other Antineoplastic into Peripheral Vein, Percutaneous Approach (ICD-10-PCS; 2017-08-22)
PROC: 3E0333Z Introduction of Anti-inflammatory into Peripheral Vein, Percutaneous Approach (ICD-10-PCS; 2017-08-22)
PROC: 3E033GC Introduction of Other Therapeutic Substance into Peripheral Vein, Percutaneous Approach (ICD-10-PCS; 2017-08-22)
DX: Z51.11 Encounter for antineoplastic chemotherapy (principal); C20 Malignant neoplasm of rectum
CPT/HCPCS: 81001; 96409; 96413; 96415; 96416; 96367; A9270; J9190; J2405; J7050; J3490; J1100; J9303 ×2; 96411

== ENCOUNTER 2017-08-26 12:31 | Emergency (ER) | payer MEDICARE, MEDICAID ==
[2017-08-26] MEDS ORDERED: NORMAL SALINE 1000 ML 1,000 ML IV ONE ×2 (12:47→14:34)
--- NOTE | 2017-08-26 12:50 | ER Document Report ---
ED Medical Screen (RME) - General Chief Complaint: General Weakness Stated Complaint: WEAKNESS Time Seen by Provider: 08/26/17 12:42 Notes: RAPID MEDICAL EVALUATION DISCLOSURE I have seen this patient as part of a Rapid Medical Evaluation and, if applicable, placed any initially appropriate orders. The patient will be seen and fully evaluated, including a full history and physical exam, by a provider ( in Main ED or Fast Track) when a room becomes available. 72-year-old female and dehydration over the past few days. She had her last chemotherapy sessions several days ago and has been feeling this way since. This usually occurs right after her chemotherapy and she usually receives a bag of fluids which "perks her up" according to the . She denies any pain nausea vomiting. She has been eating and drinking "a little bit". Had a turkey burger yesterday. EXAM CTAB RRR TRAVEL OUTSIDE OF THE [place] IN LAST 30 DAYS: No - Related Data Allergies/Adverse Reactions: oxaliplatin Allergy (Severe, Verified 08/26/17 12:46) Anaphylaxis morphine Adverse Reaction (Unknown, Verified 08/26/17 12:46) Unknown reaction Past Medical History - Social History Chew tobacco use (# tins/day): No Frequency of alcohol use: None Drug Abuse: None - Past Medical History Cardiac Medical History: Reports: Hx Hypertension - medicated Denies: Hx Atrial Fibrillation, Hx Congestive Heart Failure, Hx Coronary Artery Disease, Hx Heart Attack, Hx Hypercholesterolemia, Hx Peripheral Vascular Disease, Hx Pulmonary Embolism, Hx Heart Murmur Pulmonary Medical History: Reports: Hx Pneumonia - Age 13 Denies: Hx Asthma, Hx Bronchitis, Hx COPD, Hx Respiratory Failure, Hx Sleep Apnea, Hx Tuberculosis Neurological Medical History: Denies: Hx Cerebrovascular Accident, Hx Seizures Endocrine Medical History: Reports: Hx Diabetes Mellitus Type 2. 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 Denies: Hx Leukemia, Hx Lung Cancer GI Medical History: Reports: Hx Hiatal Hernia. Denies: Hx Crohn's Disease, Hx Gastroesophageal Reflux Disease, Hx Hepatitis, Hx Irritable Bowel, Hx Liver Failure, Hx Pancreatitis, Hx Ulcer Musculoskeltal Medical History: Denies Hx Arthritis, Denies Hx Fibromyalgia, Denies Hx Muscular Dystrophy Psychiatric Medical History: Denies: Hx Dementia Traumatic Medical History: Reports: Hx Fractures - Josesito index fingers, Lt little toe Infectious Medical History: Denies: Hx Hepatitis, Hx HIV Past Surgical History: Reports: Hx Bowel Surgery, Hx Tubal Ligation. Denies: Hx Appendectomy, Hx Section, Hx Cholecystectomy, Hx Colostomy, Hx Coronary Artery Bypass Graft, Hx Gastric Bypass Surgery, Hx Herniorrhaphy, Hx Hysterectomy, Hx Mastectomy, Hx Open Heart Surgery, Hx Pacemaker, Hx Tonsillectomy - Immunizations Hx Diphtheria, Pertussis, Tetanus Vaccination: Yes Physical Exam - Vital signs Vitals: Temp Pulse Resp BP Pulse Ox 97.9 F 94 17 131/72 H 97 08/26/17 12:39 08/26/17 12:39 08/26/17 12:39 08/26/17 12:39 08/26/17 12:39 Course - Vital Signs Vital signs: Temp Pulse Resp BP Pulse Ox 97.9 F 94 17 131/72 H 97 08/26/17 12:39 08/26/17 12:39 08/26/17 12:39 08/26/17 12:39 08/26/17 12:39 Doctor's Discharge - Discharge Referrals: CELY RODRIGUEZ MD [Primary Care Provider] - Follow up as needed
[2017-08-26 13:24] LABS: ABSOLUTE EOSINOPHILS # (AUTO) 0.1 10^3/uL (0.0-0.6); ABSOLUTE LYMPHOCYTES (AUTO) 0.4 10^3/uL (0.5-4.7); ABSOLUTE MONOCYTES (AUTO) 0.2 10^3/uL (0.1-1.4); ABSOLUTE NEUT (AUTO) 3.1 10^3/uL (1.7-8.2); BASOPHILS % (AUTO) 0.4 % (0-2); EOSINOPHILS % (AUTO) 2.2 % (0-6); HEMATOCRIT 33.7 % (36.0-47.0); LYMPHOCYTES % (AUTO) 9.5 % (13-45); MEAN CORPUSCULAR HEMOGLOBIN 27.4 pg (27.0-33.4); MEAN CORPUSCULAR HGB CONC 32.5 g/dL (32.0-36.0); MEAN CORPUSCULAR VOLUME 84 fl (80-97); MONOCYTES % (AUTO) 4.2 % (3-13); PLATELET COUNT 188 10^3/uL (150-450); RED BLOOD COUNT 3.99 10^6/uL (3.72-5.28); RED CELL DISTRIBUTION WIDTH 18.6 % (11.5-14.0); SEGMENTED NEUTROPHILS % (AUTO) 83.7 % (42-78); TOTAL CELLS COUNTED % (AUTO) 100 %; WHITE BLOOD COUNT 3.8 10^3/uL (4.0-10.5)
[2017-08-26 13:41] LABS: ALANINE AMINOTRANSFERASE 27 U/L (9-52); ALBUMIN 3.6 g/dL (3.5-5.0); ALKALINE PHOSPHATASE 77 U/L (38-126); ANION GAP 9 (5-19); ASPARTATE AMINO TRANSFERASE 22 U/L (14-36); BILIRUBIN,DIRECT 0.3 mg/dL (0.0-0.4); BILIRUBIN,TOTAL 0.5 mg/dL (0.2-1.3); BLOOD UREA NITROGEN 18 mg/dL (7-20); CALCIUM 9.3 mg/dL (8.4-10.2); CARBON DIOXIDE 31 mmol/L (22-30); CHLORIDE 100 mmol/L (98-107); GLUCOSE 241 mg/dL (75-110); PHOSPHORUS 3.7 mg/dL (2.5-4.5); POTASSIUM 4.5 mmol/L (3.6-5.0); SODIUM 139.8 mmol/L (137-145); TOTAL PROTEIN 6.2 g/dL (6.3-8.2)
[2017-08-26 13:48] LABS: APPEARANCE,URINE SLIGHTLY-CLOUDY; BILIRUBIN,URINE NEGATIVE (NEGATIVE); COLOR,URINE YELLOW; GLUCOSE, URINE 150 mg/dL (NEGATIVE); KETONES,URINE NEGATIVE (NEGATIVE); LEUKOCYTE ESTERASE,URINE TRACE (NEGATIVE); NITRITE,URINE POSITIVE (NEGATIVE); PROTEIN,URINE NEGATIVE (NEGATIVE); URINE SPECIFIC GRAVITY 1.024; UROBILINOGEN,URINE NEGATIVE mg/dL (<2.0)
[2017-08-26] MEDS ORDERED: CEFTRIAXONE 1 GM/D5W RTU 50 ML IV ONE (14:01)
--- NOTE | 2017-08-26 14:01 | ER Document Report ---
ED Dizziness/Weakness <PATT TEE - Last Filed: 08/26/17 16:44> - General Information source: Patient TRAVEL OUTSIDE OF THE [place] IN LAST 30 DAYS: No <RERE JARA - Last Filed: 08/26/17 17:24> - General Chief Complaint: General Weakness Stated Complaint: WEAKNESS Time Seen by Provider: 08/26/17 12:42 Notes: 72-year-old female with colorectal cancer with metastases to the brain that presents today for generalized weakness and lightheadedness. Patient states her symptoms today are consistent with her symptoms in the past when she has become dehydrated after chemotherapy treatments. Patient states she wishes to just be "given some fluids and then be released". (RERE JARA) - Related Data Allergies/Adverse Reactions: oxaliplatin Allergy (Severe, Verified 08/26/17 12:46) Anaphylaxis morphine Adverse Reaction (Unknown, Verified 08/26/17 12:46) Unknown reaction Past Medical History - General Information source: Patient - Social History Smoking Status: Never Smoker Cigarette use (# per day): No Chew tobacco use (# tins/day): No Frequency of alcohol use: None Drug Abuse: None Lives with: Family Family History: None Patient has suicidal ideation: No Patient has homicidal ideation: No - Past Medical History Cardiac Medical History: Reports: Hx Hypertension - medicated Pulmonary Medical History: Reports: Hx Pneumonia - Age 13 Endocrine Medical History: Reports: Hx Diabetes Mellitus Type 2 Renal/ Medical History: Malignancy Medical History: Reports: 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 GI Medical History: Reports: Hx Hiatal Hernia Traumatic Medical History: Reports: Hx Fractures - Josesito index fingers, Lt little toe Past Surgical History: Reports: Hx Bowel Surgery, Hx Tubal Ligation - Immunizations Hx Diphtheria, Pertussis, Tetanus Vaccination: Yes Hx Pneumococcal Vaccination: 12/14/13 <RERE JARA - Last Filed: 08/26/17 17:24> Review of Systems - Review of Systems Constitutional: See HPI, Weakness, Other - dehydrated EENT: No symptoms reported Cardiovascular: No symptoms reported Respiratory: No symptoms reported Gastrointestinal: No symptoms reported Genitourinary: No symptoms reported Female Genitourinary: No symptoms reported Musculoskeletal: No symptoms reported Skin: No symptoms reported Hematologic/Lymphatic: No symptoms reported Neurological/Psychological: No symptoms reported -: Yes All other systems reviewed and negative <RERE JARA - Last Filed: 08/26/17 17:24> Physical Exam <PATT TEE - Last Filed: 08/26/17 16:44> <RERE JARA - Last Filed: 08/26/17 17:24> - Vital signs Vitals: Temp Pulse Resp BP Pulse Ox 97.9 F 94 17 131/72 H 97 08/26/17 12:39 08/26/17 12:39 08/26/17 12:39 08/26/17 12:39 08/26/17 12:39 - Notes Notes: Physical Exam: General: Alert. Pleasant. HEENT: Normocephalic. Atraumatic. PERRL. Extraocular movements intact. Oropharynx clear. Dry mucous membranes. Neck: Supple. Non-tender. Respiratory: No respiratory distress. Clear and equal breath sounds bilaterally. Cardiovascular: Regular rate and rhythm. Abdominal: Normal Inspection. Non-tender. No distension. Normal Bowel Sounds. Back: Non-tender. No deformity or step off. Extremities: Moves all four extremities. Upper extremities: Normal inspection. Normal ROM. Lower extremities: Normal inspection. No edema. Normal ROM. Neurological: Normal cognition. AAOx4. Normal speech. Psychological: Normal affect. Normal Mood. Skin: Warm. Dry. Normal color. (RERE JARA) Course - Laboratory Result Diagrams: 08/26/17 13:05 08/26/17 13:05 <PATT TEE - Last Filed: 08/26/17 16:44> - Laboratory Result Diagrams: 08/26/17 13:05 08/26/17 13:05 <RERE JARA - Last Filed: 08/26/17 17:24> - Vital Signs Vital signs: Temp Pulse Resp BP Pulse Ox 97.9 F 94 29 H 144/71 H 96 08/26/17 12:39 08/26/17 12:39 08/26/17 17:01 08/26/17 17:01 08/26/17 17:00 - Laboratory Laboratory results interpreted by me: 08/26/17 08/26/17 08/26/17 13:05 13:05 13:30 WBC 3.8 L Hgb 11.0 L Hct 33.7 L RDW 18.6 H Seg Neutrophils % 83.7 H Lymphocytes % 9.5 L Absolute Lymphocytes 0.4 L Carbon Dioxide 31 H Glucose 241 H Total Protein 6.2 L Urine Glucose (UA) 150 H Urine Nitrite POSITIVE H Ur Leukocyte Esterase TRACE H Discharge <PATT TEE - Last Filed: 08/26/17 16:44> <RERE JARA - Last Filed: 08/26/17 17:24> - Discharge Clinical Impression: Weakness, Dehydration, Chemotherapy induced diarrhea Urinary tract infection Qualifiers: Urinary tract infection type: site unspecified Hematuria presence: without hematuria Qualified Code(s): N39.0 - Urinary tract infection, site not specified Condition: Stable Disposition: HOME, SELF-CARE Additional Instructions: Urinary Tract Infection Your evaluation indicates that you have a urinary tract infection. This is due to germs growing in the bladder. This is a common problem. This infection usually responds quickly to antibiotics. Your antibiotic should be taken exactly as prescribed. Drink plenty of fluids -- three to four quarts a day. Occasionally, a bladder anesthetic will be prescribed to help stop the feeling of urgency until the antibiotic has a chance to clear the infection. This may cause your urine to be dark orange. Certain urine infections require a culture. If the doctor obtained a culture, the results will be back in two days. You should call to see if a change in treatment is needed. A repeat urinalysis after you finish treatment is often recommended. The physician will let you know if further testing is required. Call the doctor if you develop fever, chills, flank pain, inability to urinate, or blood in the urine. Take medication as prescribed for your urinary tract infection. Drink plenty of fluids. Follow-up with Dr. Dyer on Monday for re-evaluation of your urine infection and to check on the culture. RETURN TO THE EMERGENCY ROOM IF ANY NEW OR WORSENING SYMPTOMS. Prescriptions: Cephalexin Monohydrate [Keflex 500 mg Capsule] 500 mg PO TID #15 capsule Referrals: CELY DYER MD [Primary Care Provider] - 08/28/17 Scribe Attestation: 08/26/17 16:15 I personally performed the services described in the documentation, reviewed and edited the documentation which was dictated to the scribe in my presence, and it accurately records my words and actions. (PATT TEE) Scribe Documentation - Scribe Written by Kwan:: Kwan Carmona, 08/26/2017 1724 acting as scribe for :: Fabricio <RERE JARA - Last Filed: 08/26/17 17:24>
[2017-08-26] MEDS ORDERED: CEFTRIAXONE INJ 1000 MG VIAL IV ONE (14:39)
[2017-08-26] MEDS ORDERED: CEFTRIAXONE INJ 1000 MG VIAL ONE (14:39)
[2017-08-26 17:12] VITALS: BP 144/71
== END 2017-08-26 17:12 | disposition home or self-care (01) ==
LOC: ER 12:31
DX: N39.0 Urinary tract infection, site not specified (principal); K52.1 Toxic gastroenteritis and colitis; T45.1X5A Adverse effect of antineoplastic and immunosuppressive drugs, initial encounter; C19 Malignant neoplasm of rectosigmoid junction; C79.31 Secondary malignant neoplasm of brain; E86.0 Dehydration; R53.1 Weakness; R42 Dizziness and giddiness; I10 Essential (primary) hypertension; E11.9 Type 2 diabetes mellitus without complications
CPT/HCPCS: 99285; 96361; 96365; 36415; 87086; 83735; 84100; 85025; 87088; 80053; 81001; 87186; J0696; J7030

== ENCOUNTER 2017-08-30 08:04 | Outpatient (CLI) | payer MEDICARE, MEDICAID ==
[~2017-08-30 08:04] MED LIST changes: -CONTAINER EMPTY IV PRN; -DISPOSABLE IV PRN; +ERTAPENEM SODIUM 1 GM in NORMAL SALINE 50 ML IV PRN; -FLUOROURACIL IV PRN; -LEUCOVORIN CALCIUM IV PRN; -NORMAL SALINE IV PRN; -ONDANSETRON HCL/PF 16 MG, DEXAMETHASONE SOD PHOSPHATE 10 MG in NORMAL SALINE 50 ML IV PRN; -PANITUMUMAB IV PRN
[2017-08-30 08:16] VITALS: BP 132/61
== END 2017-08-30 09:30 | disposition home or self-care (01) ==
LOC: II 08:04 → 5TH 08:06 → II 09:30
PROVIDERS: ATTEND Internal Medicine
DX: N39.0 Urinary tract infection, site not specified (principal)
CPT/HCPCS: 96367; J1335; 96365

== ENCOUNTER 2017-09-05 07:58 | Outpatient (CLI) | payer MEDICARE, MEDICAID ==
[~2017-09-05 07:58] MED LIST changes: +CONTAINER EMPTY IV PRN; +DISPOSABLE IV PRN; -ERTAPENEM SODIUM 1 GM in NORMAL SALINE 50 ML IV PRN; +FLUOROURACIL IV PRN; +LEUCOVORIN CALCIUM IV PRN; +NORMAL SALINE IV PRN; +ONDANSETRON HCL/PF 16 MG, DEXAMETHASONE SOD PHOSPHATE 10 MG in NORMAL SALINE 50 ML IV PRN; +PANITUMUMAB IV PRN
[2017-09-05 09:05] LABS: ABSOLUTE EOSINOPHILS # (AUTO) 0.2 10^3/uL (0.0-0.6); ABSOLUTE LYMPHOCYTES (AUTO) 0.4 10^3/uL (0.5-4.7); ABSOLUTE MONOCYTES (AUTO) 0.5 10^3/uL (0.1-1.4); ABSOLUTE NEUT (AUTO) 3.9 10^3/uL (1.7-8.2); BASOPHILS % (AUTO) 0.5 % (0-2); EOSINOPHILS % (AUTO) 3.7 % (0-6); HEMATOCRIT 30.9 % (36.0-47.0); HEMOGLOBIN 10.4 g/dL (12.0-15.5); LYMPHOCYTES % (AUTO) 7.7 % (13-45); MEAN CORPUSCULAR HEMOGLOBIN 28.5 pg (27.0-33.4); MEAN CORPUSCULAR HGB CONC 33.5 g/dL (32.0-36.0); MEAN CORPUSCULAR VOLUME 85 fl (80-97); PLATELET COUNT 158 10^3/uL (150-450); RED BLOOD COUNT 3.64 10^6/uL (3.72-5.28); RED CELL DISTRIBUTION WIDTH 18.3 % (11.5-14.0); SEGMENTED NEUTROPHILS % (AUTO) 78.1 % (42-78); TOTAL CELLS COUNTED % (AUTO) 100 %
[2017-09-05 09:26] LABS: ALANINE AMINOTRANSFERASE 28 U/L (9-52); ALBUMIN 3.4 g/dL (3.5-5.0); ALKALINE PHOSPHATASE 92 U/L (38-126); ANION GAP 9 (5-19); ASPARTATE AMINO TRANSFERASE 24 U/L (14-36); BILIRUBIN,DIRECT 0.2 mg/dL (0.0-0.4); BILIRUBIN,TOTAL 0.4 mg/dL (0.2-1.3); BLOOD UREA NITROGEN 13 mg/dL (7-20); CARBON DIOXIDE 28 mmol/L (22-30); CHLORIDE 104 mmol/L (98-107); GLUCOSE 174 mg/dL (75-110); POTASSIUM 4.2 mmol/L (3.6-5.0); SODIUM 141.1 mmol/L (137-145); TOTAL PROTEIN 5.9 g/dL (6.3-8.2)
[2017-09-05 09:40] VITALS: BP 132/63
== END 2017-09-05 14:40 | disposition home or self-care (01) ==
LOC: II 07:58 → 5TH 08:00 → II 14:40
PROVIDERS: ATTEND Internal Medicine
PROC: 3E0430M Introduction of Antineoplastic, Monoclonal Antibody, into Central Vein, Percutaneous Approach (ICD-10-PCS; principal; 2017-09-05)
PROC: 3E04305 Introduction of Other Antineoplastic into Central Vein, Percutaneous Approach (ICD-10-PCS; 2017-09-05)
PROC: 3E0433Z Introduction of Anti-inflammatory into Central Vein, Percutaneous Approach (ICD-10-PCS; 2017-09-05)
PROC: 3E043GC Introduction of Other Therapeutic Substance into Central Vein, Percutaneous Approach (ICD-10-PCS; 2017-09-05)
DX: Z51.11 Encounter for antineoplastic chemotherapy (principal); C20 Malignant neoplasm of rectum; N39.0 Urinary tract infection, site not specified
CPT/HCPCS: 36415; 85025; 80053; 96411; 96413; 96416; 96366; 96367; A9270; J9190; J2405; J7050; J3490; J1100; J9303 ×2; 96409; 96415

== ENCOUNTER 2017-09-19 10:18 | Outpatient (CLI) | payer MEDICARE, MEDICAID ==
[2017-09-19 10:47] VITALS: BP 131/68
[2017-09-19] MEDS ORDERED: LEUCOVORIN CALCIUM IV PRN (11:04)
[2017-09-19] MEDS ORDERED: NORMAL SALINE IV PRN ×3 (11:04→13:09)
[2017-09-19] MEDS ORDERED: CONTAINER EMPTY IV PRN (11:14)
[2017-09-19] MEDS ORDERED: FLUOROURACIL IV PRN ×2 (11:14→11:15)
[2017-09-19] MEDS ORDERED: DISPOSABLE IV PRN (11:15)
[2017-09-19] MEDS ORDERED: PANITUMUMAB IV PRN ×2 (11:48→13:09)
== END 2017-09-19 16:55 | disposition home or self-care (01) ==
LOC: II 10:18 → 5TH 10:23 → II 16:55
PROVIDERS: ATTEND Internal Medicine
PROC: 3E04305 Introduction of Other Antineoplastic into Central Vein, Percutaneous Approach (ICD-10-PCS; principal; 2017-09-19)
PROC: 3E0433Z Introduction of Anti-inflammatory into Central Vein, Percutaneous Approach (ICD-10-PCS; 2017-09-19)
PROC: 3E043GC Introduction of Other Therapeutic Substance into Central Vein, Percutaneous Approach (ICD-10-PCS; 2017-09-19)
DX: Z51.11 Encounter for antineoplastic chemotherapy (principal); C20 Malignant neoplasm of rectum
CPT/HCPCS: 96413; 96415; 96416; 96366; 96367; 96417; A9270; J9190; J2405; J7050; J3490; J1100; J9303 ×2; 96409

== ENCOUNTER → 2017-10-12 | Outpatient (CLI) | payer MEDICARE, MEDICAID ==
--- NOTE | 2017-10-12 10:23 | RADIOLOGY REPORT (SQ) ---
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 Images reviewed with lung, soft tissue and bone windows. Reconstructed coronal and sagittal MPR and MIP images reviewed. All images stored on PACS. All CT scanners at this facility use dose modulation, iterative reconstruction, and/or weight based d osing when appropriate to reduce radiation dose to as low as reasonably achievable (ALARA). [facility]: Dose Right [facility]: CareDose [facility]: Dose Right [facility]: Teradose 4D [facility]: [employer] CONTRAST TYPE AND DOSE: 85 mL Isovue 370- low osmolar. RENAL FUNCTION: Creatinine 0.8 RADIATION DOSE: . LIMITATIONS: None. FINDINGS: LUNGS AND PLEURA: There are 2 distinct pulmonary nodules in the right upper lobe. There i s a new nodule measured at 5.4 mm. There is a stable approximately 6 mm nodule. Extensive scarring in the right upper lobe and right perihilar distribution is slightly improved from prior PET. Lingul ar nodule is stable in size and configuration. HILAR AND MEDIASTINAL STRUCTURES: A precarinal node has increased in size and now measures 1.6 x 1.4 cm. Previously it measured just under 1 cm HEART AND VASCULAR STRUCTURES: No aneurysm or dissection. No central pulmonary emboli. No pericardi al effusion. HARDWARE: [id number]sc[facility] is in place. UPPER ABDOMEN: Left adrenal mass is again noted and not significantly changed from prior PET. THYROID AND OTHER SOFT TISSUES: No masses. No adenopathy. BONES: No significant finding. OTHER: No other significant finding. IMPRESSION: 1. There is a new 5.4 mm right upper lobe pulmonary nodule. This was not identified on the PET-CT done in June of this year. Changes in the right hilum and lingula are stable to improved from prior PET-CT. 2. Precarinal lymph node has increased in size and now measures 1.6 x 1.4 cm. 3. Large left adrenal mass is grossly unchanged. TECHNICAL DOCUMENTATION: JOB ID: [id number] Quality ID # [id number]: Final reports with documentation of one or more dose reduction techniques (e.g., Au tomated exposure control, adjustment of the mA and/or kV according to patient size, use of iterative reconstruction technique) 2010 [employer]- All Rights Reserved Reading location - IP/workstation name: [email or web address]
--- NOTE | 2017-10-12 11:08 | RADIOLOGY REPORT (SQ) ---
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 No oral contrast. Images reviewed with lung, soft tissue, and bone windows. Reconstructed coronal and sagittal MPR images reviewed. Delayed images for evaluation of the urinary system also acquired. All images stored on PACS. All CT scanners at this facility use dose modulation, iterative reconstruction, and/or weight based d osing when appropriate to reduce radiation dose to as low as reasonably achievable (ALARA). [facility]: Dose Right [facility]: CareDose [facility]: Dose Right [facility]: Teradose 4D [facility]: [employer] CONTRAST TYPE AND DOSE: contrast/concentration: Isovue 350.00 mg/ml; Total Contrast Delivered: 85.0 ml; Total Saline Delivered: 69.0 ml RENAL FUNCTION: Creatinine 0.8 RADIATION DOSE: CT Rad equipment meets quality standard of care and radiation dose reduction techniq ues were employed. CTDIvol: 5.4 - 7.4 mGy. DLP: 988 mGy-cm.. LIMITATIONS: None. FINDINGS: LOWER CHEST: No significant findings. No nodules or infiltrates. LIVER: Normal size. No masses. No dilated ducts. SPLEEN: Normal size. No focal lesions. PANCREAS: No masses. No significant calcifications. No adjacent inflammation or peripancreatic fluid collections. Pancreatic duct not dilated. GALLBLADDER: No identified stones by CT criteria. No inflammatory changes to suggest cholecystitis. ADRENAL GLANDS: The left adrenal mass demonstrates heterogeneous attenuation. It is slightly larger when compared to prior study and is now measured 4.9 cm compared to 4 cm on prior exam. RIGHT KIDNEY AND URETER: No solid masses. No significant calcifications. No hydronephrosis or hyd roureter. LEFT KIDNEY AND URETER: No solid masses. No significant calcifications. No hydronephrosis or hydr oureter. AORTA AND VESSELS: No aneurysm. No dissection. Renal arteries, SMA, celiac without stenosis. RETROPERITONEUM: No retroperitoneal adenopathy, hemorrhage or masses. BOWEL AND PERITONEAL CAVITY: No masses or inflammatory changes. No free fluid or peritoneal masses. There are postsurgical changes present with a suture line noted in the rectal region. There is evide nce of prior hernia repair as well. APPENDIX: Normal. PELVIS: No mass. No free fluid. Normal bladder. ABDOMINAL WALL: No masses. No hernias. BONES: No significant or acute findings. OTHER: No other significant finding. IMPRESSION: 1. Left adrenal mass is increased in size. It measures 4.9 cm on today's study. No oth er significant interval change from previous PET-CT. TECHNICAL DOCUMENTATION: JOB ID: [id number] Quality ID # [id number]: Final reports with documentation of one or more dose reduction techniques (e.g., Au tomated exposure control, adjustment of the mA and/or kV according to patient size, use of iterative reconstruction technique) 2010 [employer]- All Rights Reserved Reading location - IP/workstation name: [email or web address]
== END ==
LOC: RAD 09:15
PROVIDERS: ATTEND Internal Medicine
DX: C20 Malignant neoplasm of rectum (principal)
CPT/HCPCS: 71260; 74177; 82565

== ENCOUNTER 2017-11-15 09:11 | Outpatient (CLI) | payer MEDICARE, MEDICAID ==
[~2017-11-15 09:11] MED LIST changes: -CONTAINER EMPTY IV PRN; -DISPOSABLE IV PRN; -FLUOROURACIL IV PRN; -LEUCOVORIN CALCIUM IV PRN; -NORMAL SALINE IV PRN; -ONDANSETRON HCL/PF 16 MG, DEXAMETHASONE SOD PHOSPHATE 10 MG in NORMAL SALINE 50 ML IV PRN; -PANITUMUMAB IV PRN
[2017-11-15] MEDS: MAGNESIUM SULFATE 1 GM/D5W 100 ML IV PRN ×2 (09:38→10:41)
[2017-11-15 09:44] VITALS: BP 143/73
== END 2017-11-15 11:58 | disposition home or self-care (01) ==
LOC: II 09:11 → 5TH 09:52 → II 11:58
PROVIDERS: ATTEND Internal Medicine
PROC: 3E033GC Introduction of Other Therapeutic Substance into Peripheral Vein, Percutaneous Approach (ICD-10-PCS; principal; 2017-11-15)
DX: E83.42 Hypomagnesemia (principal)
CPT/HCPCS: 96367; J3475; 96365; 96366

== ENCOUNTER → 2017-12-29 | Outpatient (CLI) | payer MEDICARE, MEDICAID ==
--- NOTE | 2017-12-29 11:00 | RADIOLOGY REPORT (SQ) ---
EXAM DESCRIPTION: CT CHEST WITH; CT ABD/PELVIS WITH IV ONLY COMPLETED DATE/TIME: 12/29/2017 9:12 am REASON FOR STUDY: RECTAL CA (C20) C20 MALIGNANT NEOPLASM OF RECTUM COMPARISON: CT chest abdomen pelvis 10/12/2017 PET-CT 06/25/2017 CONTRAST TYPE AND DOSE: contrast/concentration: Isovue 350.00 mg/ml; Total Contrast Delivered: 85.0 ml; Total Saline Delivered: 57.3 ml RENAL FUNCTION: GFR > 60. TECHNIQUE: CT scan of the chest performed using helical scanning technique with dynamic intravenous contrast injection. Images reviewed with lung, soft tissue and bone windows. Reconstructed coronal a nd sagittal MPR images reviewed. All images stored on PACS. CT scan of the abdomen and pelvis performed with intravenous and without oral contrastusing helical s alma technique with dynamic intravenous contrast injection. Images reviewed with lung, soft tissu e and bone windows. Reconstructed coronal and sagittal MPR images reviewed. Delayed images for eval uation of the urinary system also acquired and evaluated. All images stored on PACS. All CT scanners at this facility use dose modulation, iterative reconstruction, and/or weight based d osing when appropriate to reduce radiation dose to as low as reasonably achievable (ALARA). [facility]: Dose Right [facility]: CareDose [facility]: Dose Right [facility]: Teradose 4D [facility]: [employer] RADIATION DOSE: CT Rad equipment meets quality standard of care and radiation dose reduction techniq ues were employed. CTDIvol: 7.5 - 11.1 mGy. DLP: 1042 mGy-cm. . LIMITATIONS: None. FINDINGS: CHEST: LUNGS AND PLEURA: Increase in size and number of right upper lobe nodules since 10/12/2017 and 06/26/19 18 as follows: 7 mm nodule right upper lobe image 16 (was 5.4 mm 10/12/2017). 9 mm nodule right upper lobe image 19 (was 6 mm on 10/12/2017). 2.2 x 1.8 cm right upper lobe nodule image 18 (was 1.4 x 1 cm on 10/12/2017). New 5 mm right upper lobe nodule axial image 19 There is old consolidation adjacent to posterior right upper lobe radiotherapy treatment markers, are a of consolidation measures 3.5 x 2 cm in size, similar compared to 10/12/2017. There is an old dumbbell-shaped nodule in the lingula 2 x 1 cm in size with adjacent radiotherapy kandice atment markers unchanged from 10/12/2017 and 06/25/2017 No pneumothorax. No pleural effusion. HILAR AND MEDIASTINAL STRUCTURES: Increase in size of precarinal lymph node now 3 x 2.3 cm diameter ( was 1.6 x 1.4 cm on 10/12/2017) HEART AND VASCULAR STRUCTURES: No aneurysm or dissection. No central pulmonary emboli. No pericardi al effusion. HARDWARE: Right permanent central line tip superior vena cava THYROID AND OTHER SOFT TISSUES: No masses. No adenopathy. BONES: No significant finding. OTHER: No other significant finding. ABDOMEN AND PELVIS: LIVER: Normal size. No masses. No dilated ducts. SPLEEN: Normal size. No focal lesions. PANCREAS: No masses. No significant calcifications. No adjacent inflammation or peripancreatic fluid collections. Pancreatic duct not dilated. GALLBLADDER: Stones in the gallbladder without gallbladder wall thickening or pericholecystic fluid ADRENAL GLANDS: Right adrenal gland unremarkable. Left adrenal mass 6 x 4 cm (was 4 x 3 cm on 018) RIGHT KIDNEY AND URETER: No solid masses. 1 cm right upper pole renal cortical cyst. 5 mm right low er pole intrarenal nonobstructive stone. No hydronephrosis or hydroureter. LEFT KIDNEY AND URETER: No solid masses. No significant calcification. No hydronephrosis or hydrouret er. AORTA AND VESSELS: No aneurysm. No dissection. Renal arteries, SMA, celiac without stenosis. RETROPERITONEUM: No retroperitoneal adenopathy, hemorrhage or masses. BOWEL AND PERITONEAL CAVITY: No CT evidence of bowel obstruction or free intraperitoneal air or fluid . Rectosigmoid anastomotic shirley are present APPENDIX: Not identified ABDOMINAL WALL: Intact ventral hernia repair PELVIS: No mass or free fluid. Normal bladder. Post hysterectomy BONES: No significant or acute findings. OTHER: No other significant finding. IMPRESSION: Progression of disease, with increasing size and number of right upper lobe nodules, inc rease size of precarinal lymph node, and increase size of left adrenal gland compared to 10/12/2017 an d 06/25/2017 TECHNICAL DOCUMENTATION: JOB ID: [id number] Quality ID # 436: Final reports with documentation of one or more dose reduction techniques (e.g., Au tomated exposure control, adjustment of the mA and/or kV according to patient size, use of iterative reconstruction technique) 2010 [employer]- All Rights Reserved Reading location - IP/workstation name: [email or web address]
== END ==
LOC: RAD 08:44
PROVIDERS: ATTEND Internal Medicine
DX: C20 Malignant neoplasm of rectum (principal); R91.8 Other nonspecific abnormal finding of lung field
CPT/HCPCS: 71260; 74177

== ENCOUNTER → 2018-04-17 | Outpatient (CLI) | payer MEDICARE, MEDICAID ==
--- NOTE | 2018-04-17 10:58 | RADIOLOGY REPORT (SQ) ---
EXAM DESCRIPTION: CT CHEST WITH; CT ABD/PELVIS WITH IV ONLY COMPLETED DATE/TIME: 04/17/2018 10:07 am REASON FOR STUDY: MALIGNANT NEOPLASM OF RECTUM C20 MALIGNANT NEOPLASM OF RECTUM COMPARISON: CT chest abdomen pelvis 12/29/2017, 10/12/2017, 12/20/2016 PET-CT 06/25/2017, 01/08/2017 CONTRAST TYPE AND DOSE: contrast/concentration: Isovue 350.00 mg/ml; Total Contrast Delivered: 81.0 ml; Total Saline Delivered: 68.0 ml RENAL FUNCTION: GFR > 60. TECHNIQUE: CT scan of the chest performed using helical scanning technique with dynamic intravenous contrast injection. Images reviewed with lung, soft tissue and bone windows. Reconstructed coronal a nd sagittal MPR images reviewed. All images stored on PACS. CT scan of the abdomen and pelvis performed with intravenous and without oral contrastusing helical s alma technique with dynamic intravenous contrast injection. Images reviewed with lung, soft tissu e and bone windows. Reconstructed coronal and sagittal MPR images reviewed. Delayed images for eval uation of the urinary system also acquired and evaluated. All images stored on PACS. All CT scanners at this facility use dose modulation, iterative reconstruction, and/or weight based d osing when appropriate to reduce radiation dose to as low as reasonably achievable (ALARA). [facility]: Dose Right [facility]: CareDose [facility]: Dose Right [facility]: Teradose 4D [facility]: [employer] RADIATION DOSE: CT Rad equipment meets quality standard of care and radiation dose reduction techniq ues were employed. CTDIvol: 4.4 - 5.3 mGy. DLP: 707 mGy-cm. . LIMITATIONS: None. FINDINGS: CHEST: LUNGS AND PLEURA: Increase in size of the metastatic right upper lobe and lingular nodules as follows : 11 mm nodule right upper lobe image 27 (was 7 mm 12/29/2017). 10 mm nodule right upper lobe image 30 (was 5 mm on 12/29/2017). 2.8 x 2.3 cm right upper lobe nodule image 32 (was 2.2 x 1.8 cm on 12/29/2017). 2.2 x 1.3 cm lingular nodule axial image 55 (was 2 x 0.8 cm on 12/29/2017). New left upper lobe 6 mm nodule axial image 30 Stable scarring and consolidation with air bronchograms and a radiotherapy markers in the medial righ t upper lobe, with of 3.5 x 2 cm area of consolidation No acute infiltrates. No pleural effusions or pneumothorax. HILAR AND MEDIASTINAL STRUCTURES: Precarinal lymph node today is 2.7 x 2.4 cm on axial image 19 (was 3 x 2.3 cm on 12/29/2017). HEART AND VASCULAR STRUCTURES: No aneurysm or dissection. No central pulmonary emboli. No pericardi al effusion. HARDWARE: Right permanent central line tip superior vena cava THYROID AND OTHER SOFT TISSUES: No masses. No adenopathy. BONES: No significant finding. OTHER: No other significant finding. ABDOMEN AND PELVIS: LIVER: New liver mass, 3 cm in size left lobe liver axial image 19. SPLEEN: Normal size. No focal lesions. PANCREAS: No masses. No significant calcifications. No adjacent inflammation or peripancreatic fluid collections. Pancreatic duct not dilated. GALLBLADDER: Tiny stones in the gallbladder without gallbladder wall thickening or pericholecystic fl uid. ADRENAL GLANDS: Right adrenal gland unremarkable. Left adrenal metastatic lesion 5.5 x 4.8 cm in siz e (was 6 x 4 cm on 12/29/2017) RIGHT KIDNEY AND URETER: No solid masses. 1 cm right midpole renal cortical cyst. 5 mm right lower pole intrarenal nonobstructive calculus. No hydronephrosis or hydroureter. LEFT KIDNEY AND URETER: No solid masses. No significant calcification. No hydronephrosis or hydrouret er. AORTA AND VESSELS: No aneurysm. No dissection. Renal arteries, SMA, celiac without stenosis. RETROPERITONEUM: No retroperitoneal adenopathy, hemorrhage or masses. BOWEL AND PERITONEAL CAVITY: No CT evidence of bowel obstruction or free intraperitoneal air or fluid . Surgical clips at the rectosigmoid post partial sigmoid colectomy. Few radiopaque shirley along n ondistended small bowel loops in the pelvis. APPENDIX: Normal. ABDOMINAL WALL: Intact lower abdominal wall laparoscopic ventral hernia repair PELVIS: No mass or free fluid. Normal bladder. Normal size postmenopausal female pelvic organs BONES: No significant or acute findings. OTHER: No other significant finding. IMPRESSION: Increasing size of lung nodules New liver metastatic lesion TECHNICAL DOCUMENTATION: JOB ID: [id number] Quality ID # [id number]: Final reports with documentation of one or more dose reduction techniques (e.g., Au tomated exposure control, adjustment of the mA and/or kV according to patient size, use of iterative reconstruction technique) 2010 [employer]- All Rights Reserved Reading location - IP/workstation name: [email or web address]
== END ==
LOC: RAD 08:59
PROVIDERS: ATTEND Physician Assistant Medical
DX: C20 Malignant neoplasm of rectum (principal)
CPT/HCPCS: 71260; 74177; 82565

== ENCOUNTER 2018-04-29 14:47 | Emergency (ER) | payer MEDICARE, MEDICAID ==
[2018-04-29] MEDS ORDERED: TETRACAINE HCL 0.5% OPH SOLN 4 ML ONE (15:29)
[2018-04-29] MEDS ORDERED: TETRACAINE HCL 0.5% OPH SOLN 4 ML OS ONE (15:29)
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
[2018-04-29] MEDS ORDERED: DIPH/PERTUSS(ACELL)/TETANUS VAC/PF 0.5 ML SYR (>=10YO) IM ONE (17:11)
--- NOTE | 2018-04-29 18:42 | RADIOLOGY REPORT (SQ) ---
EXAM DESCRIPTION: CT ORBIT/SELLA WITHOUT COMPLETED DATE/TIME: 04/29/2018 6:24 pm REASON FOR STUDY: left eye trauma COMPARISON: 08/28/2016 TECHNIQUE: Noncontrasted images through the orbits windowed for bone and soft tissue. Additional co william and sagittal reconstructed images reviewed. All images stored on PACS. All CT scanners at this facility use dose modulation, iterative reconstruction, and/or weight based d osing when appropriate to reduce radiation dose to as low as reasonably achievable (ALARA). [facility]: Dose Right [facility]: CareDose [facility]: Dose Right [facility]: Teradose 4D [facility]: [employer] RADIATION DOSE: CT Rad equipment meets quality standard of care and radiation dose reduction techniq ues were employed. CTDIvol: 30.4 mGy. DLP: 376 mGy-cm. mGy. LIMITATIONS: None. FINDINGS: FACIAL BONES: No fracture or bone lesion. ORBITS: Intact. No fracture. Symmetric intact globes and retroorbital soft tissues. PARANASAL SINUSES: Clear. No significant mucosal thickening, mass or fluid. No nasal polyps. Maxilla ry sinus outlets are patent. SOFT TISSUES: No mass or edema. INFERIOR BRAIN: Limited view. No acute findings. OTHER: No other significant finding. IMPRESSION: NO ACUTE FINDINGS. TECHNICAL DOCUMENTATION: JOB ID: [id number] Quality ID # 436: Final reports with documentation of one or more dose reduction techniques (e.g., Au tomated exposure control, adjustment of the mA and/or kV according to patient size, use of iterative reconstruction technique) 2010 [employer]- All Rights Reserved Reading location - IP/workstation name: [email or web address]
[2018-04-29] MEDS ORDERED: ERYTHROMYCIN 0.5% OPH OINT 1 GM UNIT DOSE OS ONE (18:44)
[2018-04-29 19:12] VITALS: BP 144/74
== END 2018-04-29 19:22 | disposition home or self-care (01) ==
LOC: ER 14:47
DX: S05.32XA Ocular laceration without prolapse or loss of intraocular tissue, left eye, initial encounter (principal); H57.12 Ocular pain, left eye; H53.8 Other visual disturbances; W22.8XXA Striking against or struck by other objects, initial encounter; E11.9 Type 2 diabetes mellitus without complications; I10 Essential (primary) hypertension; Z79.01 Long term (current) use of anticoagulants
CPT/HCPCS: 70480; 90471; 90715; 99283

== ENCOUNTER 2018-05-15 07:51 | Outpatient (CLI) | payer MEDICARE, MEDICAID ==
[2018-05-15] MEDS ORDERED: LEUCOVORIN CALCIUM IV PRN (08:00)
[2018-05-15] MEDS ORDERED: PALONOSETRON 0.25 MG/5 ML SDV IV PRN (08:00)
[2018-05-15] MEDS ORDERED: NORMAL SALINE 10 ML SDV (SCHEDULED) IV PRN (08:00)
[2018-05-15] MEDS ORDERED: NORMAL SALINE 250 ML IV PRN (08:00)
[2018-05-15] MEDS ORDERED: NORMAL SALINE IV PRN ×2 (08:00)
[2018-05-15] MEDS ORDERED: FLUOROURACIL 728 MG in SYRINGE, DISPOSABLE, 1 EACH IV PRN (08:00)
[2018-05-15] MEDS ORDERED: FLUOROURACIL IV PRN (08:00)
[2018-05-15] MEDS ORDERED: CONTAINER EMPTY IV PRN (08:00)
[2018-05-15] MEDS ORDERED: DEXAMETHASONE SOD PHOSPHATE 10 MG in NORMAL SALINE 50 ML IV PRN (08:00)
[2018-05-15] MEDS ORDERED: IRINOTECAN HCL IV PRN (08:00)
[2018-05-15 08:58] VITALS: BP 146/63
[2018-05-16] MEDS ORDERED: NORMAL SALINE IV PRN (08:00)
[2018-05-16] MEDS ORDERED: BEVACIZUMAB IV PRN (08:00)
== END 2018-05-15 13:52 | disposition home or self-care (01) ==
LOC: II 07:51 → 5TH 07:53 → II 13:52
PROVIDERS: ATTEND Internal Medicine
PROC: 3E0430M Introduction of Antineoplastic, Monoclonal Antibody, into Central Vein, Percutaneous Approach (ICD-10-PCS; principal; 2018-05-15)
PROC: 3E04305 Introduction of Other Antineoplastic into Central Vein, Percutaneous Approach (ICD-10-PCS; 2018-05-15)
PROC: 3E0433Z Introduction of Anti-inflammatory into Central Vein, Percutaneous Approach (ICD-10-PCS; 2018-05-15)
PROC: 3E043GC Introduction of Other Therapeutic Substance into Central Vein, Percutaneous Approach (ICD-10-PCS; 2018-05-15)
DX: Z51.11 Encounter for antineoplastic chemotherapy (principal); C20 Malignant neoplasm of rectum
CPT/HCPCS: 96409; 96413; 96415; 96416; 96367; 96374; 96375; 96360; 96417; A9270; J9190; J9206; J7050; J7040; J3490; J1100; J2469; 96368; 96411

== ENCOUNTER 2018-06-05 09:00 | Outpatient (CLI) | payer MEDICARE, MEDICAID ==
[~2018-06-05 09:00] MED LIST changes: +BEVACIZUMAB IV PRN; +CONTAINER EMPTY IV PRN; +DEXAMETHASONE 10 MG in NS 50 ML IV PRN; +DISPOSABLE IV PRN; +FLUOROURACIL IV PRN; +IRINOTECAN HCL IV PRN; +LEUCOVORIN CALCIUM IV PRN; +NORMAL SALINE 250 ML @ KVO IV PRN; -NORMAL SALINE 250 ML IV PRN; +NORMAL SALINE IV PRN; +PALONOSETRON 0.25 MG/5 ML VIAL IV PRN
[2018-06-05 09:45] VITALS: BP 150/60
== END 2018-06-05 13:17 | disposition home or self-care (01) ==
LOC: II 09:00 → 5TH 09:04 → II 13:17
PROVIDERS: ATTEND Internal Medicine
PROC: 3E04305 Introduction of Other Antineoplastic into Central Vein, Percutaneous Approach (ICD-10-PCS; principal; 2018-06-05)
PROC: 3E0433Z Introduction of Anti-inflammatory into Central Vein, Percutaneous Approach (ICD-10-PCS; 2018-06-05)
PROC: 3E043GC Introduction of Other Therapeutic Substance into Central Vein, Percutaneous Approach (ICD-10-PCS; 2018-06-05)
DX: Z51.11 Encounter for antineoplastic chemotherapy (principal); C20 Malignant neoplasm of rectum
CPT/HCPCS: 96409; 96413; 96415; 96416; 96367; 96374; 96417; J0640; A9270; J9190; J9206; J7050; J7040; J3490; J1100; J9035; J2469; 96368; 96411

== ENCOUNTER 2018-06-19 08:02 | Outpatient (CLI) | payer MEDICARE, MEDICAID ==
[~2018-06-19 08:02] MED LIST changes: -DEXAMETHASONE 10 MG in NS 50 ML IV PRN; +DEXAMETHASONE SOD PHOSPHATE 10 MG in NORMAL SALINE 50 ML IV PRN; -NORMAL SALINE 250 ML @ KVO IV PRN; +NORMAL SALINE 250 ML IV PRN; +PALONOSETRON 0.25 MG/5 ML SDV IV PRN; -PALONOSETRON 0.25 MG/5 ML VIAL IV PRN
[2018-06-19 08:47] VITALS: BP 121/64
[2018-06-19] MEDS ORDERED: LEUCOVORIN CALCIUM IV PRN (11:10)
[2018-06-19] MEDS ORDERED: NORMAL SALINE IV PRN (11:10)
== END 2018-06-19 13:55 | disposition home or self-care (01) ==
LOC: II 08:02 → 5TH 08:06 → II 13:55
PROVIDERS: ATTEND Internal Medicine
PROC: 3E04305 Introduction of Other Antineoplastic into Central Vein, Percutaneous Approach (ICD-10-PCS; principal; 2018-06-19)
PROC: 3E0430M Introduction of Antineoplastic, Monoclonal Antibody, into Central Vein, Percutaneous Approach (ICD-10-PCS; 2018-06-19)
PROC: 3E0433Z Introduction of Anti-inflammatory into Central Vein, Percutaneous Approach (ICD-10-PCS; 2018-06-19)
PROC: 3E043GC Introduction of Other Therapeutic Substance into Central Vein, Percutaneous Approach (ICD-10-PCS; 2018-06-19)
DX: Z51.11 Encounter for antineoplastic chemotherapy (principal); C20 Malignant neoplasm of rectum
CPT/HCPCS: 96409; 96413; 96415; 96416; 96367; 96374; 96375; 96360; 96417; A4222; J0640; A9270; J9190; J9206; J7050; J7040; J3490; J1100; J1642; J9035; J2469; 96368; 96411

== ENCOUNTER 2018-06-21 12:43 | Outpatient (CLI) | payer MEDICARE, MEDICAID ==
[2018-06-21 13:06] VITALS: BP 137/66
[2018-06-21] MEDS ORDERED: NORMAL SALINE 1000 ML 1,000 ML IV PRN (13:09)
== END 2018-06-21 15:00 | disposition home or self-care (01) ==
LOC: II 12:43 → 5TH 14:51 → II 15:00
PROVIDERS: ATTEND Internal Medicine
PROC: 3E0437Z Introduction of Electrolytic and Water Balance Substance into Central Vein, Percutaneous Approach (ICD-10-PCS; principal; 2018-06-21)
DX: C20 Malignant neoplasm of rectum (principal)
CPT/HCPCS: 96360

== ENCOUNTER → 2018-06-28 | Outpatient (CLI) | payer MEDICAID, MEDICARE ==
--- NOTE | 2018-06-28 12:20 | RADIOLOGY REPORT (SQ) ---
EXAM DESCRIPTION: CT CHEST WITH; CT ABD/PELVIS WITH IV ORAL COMPLETED DATE/TIME: 06/28/2018 9:40 am REASON FOR STUDY: RECTAL CA (C20) C20 MALIGNANT NEOPLASM OF RECTUM FINDINGS: CHEST: LUNGS AND PLEURA: Multiple stable lung nodules are present unchanged from 04/17/2018 as follows: 10 mm diameter right upper lobe, 10 mm right upper lobe laterally, 2.8 x 2.3 cm right upper lobe, 4.3 x 2.2 cm medial right upper lobe, 2.2 x 1.3 cm lingula No acute infiltrates. No pleural effusion. No pneumothorax. HILAR AND MEDIASTINAL STRUCTURES: Unchanged precarinal 2.6 x 2.3 cm lymph node HEART AND VASCULAR STRUCTURES: No aneurysm or dissection. No central pulmonary emboli. No pericardi al effusion. HARDWARE: Right-sided permanent central line tip in the right atrium. THYROID AND OTHER SOFT TISSUES: No masses. No adenopathy. BONES: No significant finding. OTHER: No other significant finding. ABDOMEN AND PELVIS: LIVER: Stable 3 cm left lobe liver mass SPLEEN: Normal size. No focal lesions. PANCREAS: 1 cm pancreatic tail cyst is present, stable compared to 04/17/2018. No CT evidence of acute pancreatitis GALLBLADDER: Gallstones. No inflammatory changes to suggest cholecystitis. ADRENAL GLANDS: Right adrenal gland unremarkable. Slight decrease in size of the left adrenal metast atic lesion, currently 5 x 3.7 cm (was 5.5 x 4.8 cm on 04/17/2018) RIGHT KIDNEY AND URETER: No solid masses. No significant calcification. No hydronephrosis or hydroure ter. LEFT KIDNEY AND URETER: No solid masses. 1 cm right midpole renal cortical cyst. 5 mm right lower p ole intrarenal nonobstructive stone. No hydronephrosis or hydroureter. AORTA AND VESSELS: No aneurysm. No dissection. Renal arteries, SMA, celiac without stenosis. RETROPERITONEUM: No retroperitoneal adenopathy, hemorrhage or masses. BOWEL AND PERITONEAL CAVITY: Patient drank oral contrast. No CT evidence of bowel obstruction or nichole e intraperitoneal air or fluid. APPENDIX: Normal. ABDOMINAL WALL: Intact laparoscopic ventral hernia repair. PELVIS: No mass or free fluid. Normal bladder. BONES: No significant or acute findings. OTHER: No other significant finding. IMPRESSION: Stable lung nodules and mediastinal lymph node Stable liver metastatic lesion in the left lobe. Slight decrease in size of left adrenal metastatic lesion TECHNICAL DOCUMENTATION: JOB ID: [id number] Quality ID # 436: Final reports with documentation of one or more dose reduction techniques (e.g., Au tomated exposure control, adjustment of the mA and/or kV according to patient size, use of iterative reconstruction technique) 2010 [employer]- All Rights Reserved COMPARISON: None. CT chest abdomen pelvis 04/17/2018, 12/28/2017, 10/12/2017 CONTRAST TYPE AND DOSE: contrast/concentration: Isovue 350.00 mg/ml; Total Contrast Delivered: 75.0 ml; Total Saline Delivered: 55.0 ml RENAL FUNCTION: Creatinine 0.9 TECHNIQUE: CT scan of the chest performed using helical scanning technique with dynamic intravenous contrast injection. Images reviewed with lung, soft tissue and bone windows. Reconstructed coronal a nd sagittal MPR images reviewed. All images stored on PACS. CT scan of the abdomen and pelvis performed with intravenous and with oral contrastusing helical scan chhaya technique with dynamic intravenous contrast injection. Images reviewed with lung, soft tissue a nd bone windows. Reconstructed coronal and sagittal MPR images reviewed. Delayed images for evaluat ion of the urinary system also acquired and evaluated. All images stored on PACS. All CT scanners at this facility use dose modulation, iterative reconstruction, and/or weight based d osing when appropriate to reduce radiation dose to as low as reasonably achievable (ALARA). [facility]: Dose Right [facility]: CareDose [facility]: Dose Right [facility]: Teradose 4D [facility]: [employer] RADIATION DOSE: CT Rad equipment meets quality standard of care and radiation dose reduction techniq ues were employed. CTDIvol: 4.4 - 5.5 mGy. DLP: 729 mGy-cm. . LIMITATIONS: None. Reading location - IP/workstation name: [email or web address]
== END ==
LOC: RAD 09:07
PROVIDERS: ATTEND Internal Medicine
DX: C20 Malignant neoplasm of rectum (principal); R91.8 Other nonspecific abnormal finding of lung field
CPT/HCPCS: 71260; 74177; 82565

== ENCOUNTER 2018-07-03 08:35 | Outpatient (CLI) | payer MEDICAID, MEDICARE ==
[~2018-07-03 08:35] MED LIST changes: +DEXAMETHASONE 10 MG in NS 50 ML IV PRN; -DEXAMETHASONE SOD PHOSPHATE 10 MG in NORMAL SALINE 50 ML IV PRN; +NORMAL SALINE 250 ML @ KVO IV PRN; -NORMAL SALINE 250 ML IV PRN; -PALONOSETRON 0.25 MG/5 ML SDV IV PRN; +PALONOSETRON 0.25 MG/5 ML VIAL IV PRN
[2018-07-03 09:45] VITALS: BP 129/63
== END 2018-07-03 13:30 | disposition home or self-care (01) ==
LOC: II 08:35 → 5TH 08:37 → II 13:30
PROVIDERS: ATTEND Internal Medicine
PROC: 3E04305 Introduction of Other Antineoplastic into Central Vein, Percutaneous Approach (ICD-10-PCS; principal; 2018-07-03)
PROC: 3E0430M Introduction of Antineoplastic, Monoclonal Antibody, into Central Vein, Percutaneous Approach (ICD-10-PCS; 2018-07-03)
PROC: 3E0433Z Introduction of Anti-inflammatory into Central Vein, Percutaneous Approach (ICD-10-PCS; 2018-07-03)
PROC: 3E043GC Introduction of Other Therapeutic Substance into Central Vein, Percutaneous Approach (ICD-10-PCS; 2018-07-03)
DX: Z51.11 Encounter for antineoplastic chemotherapy (principal); C20 Malignant neoplasm of rectum
CPT/HCPCS: 96409; 96413; 96415; 96416; 96365; 96374; 96417; A4222; J0640; A9270; J9190; J9206; J7050 ×2; J7040; J3490; J1100; J9035; J2469; 96367; 96368; 96375; 96411

== ENCOUNTER 2018-07-05 11:09 | Outpatient (CLI) | payer MEDICARE ==
[~2018-07-05 11:09] MED LIST changes: -BEVACIZUMAB IV PRN; -CONTAINER EMPTY IV PRN; -DEXAMETHASONE 10 MG in NS 50 ML IV PRN; -DISPOSABLE IV PRN; -FLUOROURACIL IV PRN; -IRINOTECAN HCL IV PRN; -LEUCOVORIN CALCIUM IV PRN; +NORMAL SALINE 1000 ML 1,000 ML IV PRN; -NORMAL SALINE 250 ML @ KVO IV PRN; -NORMAL SALINE IV PRN; -PALONOSETRON 0.25 MG/5 ML VIAL IV PRN
[2018-07-05 11:42] VITALS: BP 115/61
== END 2018-07-05 13:24 | disposition home or self-care (01) ==
LOC: 5TH 11:09 → II 11:09
PROVIDERS: ATTEND Internal Medicine
PROC: 3E0437Z Introduction of Electrolytic and Water Balance Substance into Central Vein, Percutaneous Approach (ICD-10-PCS; principal; 2018-07-05)
DX: C20 Malignant neoplasm of rectum (principal)
CPT/HCPCS: 96360; 96361; J1642

== ENCOUNTER 2018-07-12 07:44 | Outpatient (CLI) | payer MEDICARE ==
[~2018-07-12 07:44] MED LIST changes: +FERUMOXYTOL (NON-ESRD) 510 MG/NS 100 ML IV PRN; -NORMAL SALINE 1000 ML 1,000 ML IV PRN; +NORMAL SALINE 250 ML IV PRN
== END 2018-07-12 09:26 | disposition home or self-care (01) ==
LOC: II 07:44 → 5TH 07:46 → II 09:26
PROVIDERS: ATTEND Internal Medicine
PROC: 3E043GC Introduction of Other Therapeutic Substance into Central Vein, Percutaneous Approach (ICD-10-PCS; principal; 2018-07-12)
DX: D50.9 Iron deficiency anemia, unspecified (principal); K90.9 Intestinal malabsorption, unspecified
CPT/HCPCS: 96365; 96374; Q0138; J7050; J1642

== ENCOUNTER 2018-07-17 07:49 | Outpatient (CLI) | payer MEDICARE, MEDICAID ==
[~2018-07-17 07:49] MED LIST changes: +BEVACIZUMAB IV PRN; +CONTAINER EMPTY IV PRN; +DEXAMETHASONE SOD PHOSPHATE 10 MG in NORMAL SALINE 50 ML IV PRN; +DISPOSABLE IV PRN; -FERUMOXYTOL (NON-ESRD) 510 MG/NS 100 ML IV PRN; +FLUOROURACIL IV PRN; +IRINOTECAN HCL IV PRN; +LEUCOVORIN CALCIUM IV PRN; +NORMAL SALINE IV PRN; +PALONOSETRON 0.25 MG/5 ML SDV IV PRN
[2018-07-17 08:41] VITALS: BP 158/71
== END 2018-07-17 12:23 | disposition home or self-care (01) ==
LOC: II 07:49 → 5TH 07:52 → II 12:23
PROVIDERS: ATTEND Internal Medicine
PROC: 3E0430M Introduction of Antineoplastic, Monoclonal Antibody, into Central Vein, Percutaneous Approach (ICD-10-PCS; principal; 2018-07-17)
PROC: 3E0433Z Introduction of Anti-inflammatory into Central Vein, Percutaneous Approach (ICD-10-PCS; 2018-07-17)
PROC: 3E043GC Introduction of Other Therapeutic Substance into Central Vein, Percutaneous Approach (ICD-10-PCS; 2018-07-17)
DX: Z51.11 Encounter for antineoplastic chemotherapy (principal); C20 Malignant neoplasm of rectum
CPT/HCPCS: 96409; 96413; 96415; 96416; 96367; 96374; 96375; 96360; 96417; A4222; J0640; A9270; J9190; J9206; J7050 ×2; J7040; J3490; J1100; J1642; J9035; J2469; 96411

== ENCOUNTER 2018-07-19 12:37 | Outpatient (CLI) | payer MEDICARE, MEDICAID ==
[~2018-07-19 12:37] MED LIST changes: -BEVACIZUMAB IV PRN; -CONTAINER EMPTY IV PRN; -DEXAMETHASONE SOD PHOSPHATE 10 MG in NORMAL SALINE 50 ML IV PRN; -DISPOSABLE IV PRN; +FERUMOXYTOL (NON-ESRD) 510 MG/NS 100 ML IV PRN; -FLUOROURACIL IV PRN; -IRINOTECAN HCL IV PRN; -LEUCOVORIN CALCIUM IV PRN; +NORMAL SALINE 1000 ML 1,000 ML IV PRN; -NORMAL SALINE 250 ML IV PRN; -NORMAL SALINE IV PRN; -PALONOSETRON 0.25 MG/5 ML SDV IV PRN
[2018-07-19 13:05] VITALS: BP 127/61
== END 2018-07-19 13:55 | disposition home or self-care (01) ==
LOC: II 12:37 → 5TH 12:37 → II 13:55
PROVIDERS: ATTEND Internal Medicine
PROC: 3E033GC Introduction of Other Therapeutic Substance into Peripheral Vein, Percutaneous Approach (ICD-10-PCS; principal; 2018-07-19)
DX: Z51.11 Encounter for antineoplastic chemotherapy (principal); C20 Malignant neoplasm of rectum; D50.9 Iron deficiency anemia, unspecified; K90.9 Intestinal malabsorption, unspecified
CPT/HCPCS: 96365; 96360; Q0138; J7050; 96361

== ENCOUNTER 2018-08-02 11:00 | Outpatient (CLI) | payer MEDICARE, MEDICAID ==
[~2018-08-02 11:00] MED LIST changes: -FERUMOXYTOL (NON-ESRD) 510 MG/NS 100 ML IV PRN
[2018-08-02 12:14] VITALS: BP 130/66
== END 2018-08-02 14:20 | disposition home or self-care (01) ==
LOC: II 11:00 → 5TH 11:01 → II 14:20
PROVIDERS: ATTEND Internal Medicine
PROC: 3E0437Z Introduction of Electrolytic and Water Balance Substance into Central Vein, Percutaneous Approach (ICD-10-PCS; principal; 2018-08-02)
DX: Z51.11 Encounter for antineoplastic chemotherapy (principal); C20 Malignant neoplasm of rectum
CPT/HCPCS: 96360; 96374

== ENCOUNTER → 2018-08-09 | Outpatient (CLI) | payer MEDICAID, MEDICARE ==
--- NOTE | 2018-08-09 12:54 | RADIOLOGY REPORT (SQ) ---
EXAM DESCRIPTION: CT CHEST WITH; CT ABD/PELVIS WITH IV ORAL COMPLETED DATE/TIME: 08/09/2018 10:44 am REASON FOR STUDY: RECTUM CA C20 MALIGNANT NEOPLASM OF RECTUM COMPARISON: CT chest abdomen pelvis 06/28/2018, 04/17/2018, 12/29/2017 PET-CT 06/25/2017 CONTRAST TYPE AND DOSE: contrast/concentration: Isovue 350.00 mg/ml; Total Contrast Delivered: 75.0 ml; Total Saline Delivered: 58.3 ml RENAL FUNCTION: Creatinine 0.8 TECHNIQUE: CT scan of the chest performed using helical scanning technique with dynamic intravenous contrast injection. Images reviewed with lung, soft tissue and bone windows. Reconstructed coronal a nd sagittal MPR images reviewed. All images stored on PACS. CT scan of the abdomen and pelvis performed with intravenous and with oral contrastusing helical scan chhaya technique with dynamic intravenous contrast injection. Images reviewed with lung, soft tissue a nd bone windows. Reconstructed coronal and sagittal MPR images reviewed. Delayed images for evaluat ion of the urinary system also acquired and evaluated. All images stored on PACS. All CT scanners at this facility use dose modulation, iterative reconstruction, and/or weight based d osing when appropriate to reduce radiation dose to as low as reasonably achievable (ALARA). [facility]: Dose Right [facility]: CareDose [facility]: Dose Right [facility]: Teradose 4D [facility]: [employer] RADIATION DOSE: CT Rad equipment meets quality standard of care and radiation dose reduction techniq ues were employed. CTDIvol: 7.1 - 9.9 mGy. DLP: 1014 mGy-cm. . LIMITATIONS: None. FINDINGS: CHEST: LUNGS AND PLEURA: Stable or Slight decrease in size of multiple right upper lobe nodules as follows: 9 mm nodule right upper lobe axial image 13/61 unchanged from 06/28/2018 2.1 x 2 cm nodule right upper lobe axial image 15/61 (was 2.7 x 2.3 cm on 06/28/2018) 9 mm right upper lobe nodule axial image 14/61 unchanged from 06/28/2018 Medial right upper lobe soft tissue along the right upper hilum 3.4 x 2 cm on axial image 13/ (was 4 x 2.2 cm on 06/28/2018). Left upper lobe nodules are as follows: 4-5 mm anterior left upper lobe subpleural nodule axial image 15/61 is unchanged from 06/28/2018 Dumbbell-shaped lingular nodule is now 1.2 x 0.9 cm in size (was 2.2 x 1 cm in size on 06/28/2018). HILAR AND MEDIASTINAL STRUCTURES: Precarinal lymph node currently 2.3 x 2.2 cm in size (was 2.6 x 2.3 cm on 06/28/2018). HEART AND VASCULAR STRUCTURES: No aneurysm or dissection. No central pulmonary emboli. No pericardi al effusion. HARDWARE: None. THYROID AND OTHER SOFT TISSUES: No masses. No adenopathy. BONES: No significant finding. OTHER: No other significant finding. ABDOMEN AND PELVIS: LIVER: Liver normal size. 2.3 cm mass in the left lobe liver (was 3 cm in diameter 06/28/2018). SPLEEN: Normal size. No focal lesions. PANCREAS: No worrisome masses or pancreatic inflammation. 1 cm cyst pancreatic tail unchanged. GALLBLADDER: Multiple tiny stones. No gallbladder wall thickening or pericholecystic fluid ADRENAL GLANDS: Right adrenal gland unremarkable. 4.4 x 3.4 cm left adrenal nodule (was 5 x 3.7 cm i n size on 06/28/2018). RIGHT KIDNEY AND URETER: No solid masses. 1 cm cyst right mid-pole kidney. 3 mm calcification right lower pole kidney. No hydronephrosis or hydroureter. LEFT KIDNEY AND URETER: No solid masses. No significant calcification. No hydronephrosis or hydrouret er. AORTA AND VESSELS: No aneurysm. No dissection. Renal arteries, SMA, celiac without stenosis. RETROPERITONEUM: No retroperitoneal adenopathy, hemorrhage or masses. BOWEL AND PERITONEAL CAVITY: Patient drank oral contrast. No bowel obstruction. Rectosigmoid anasto motic shirley are present fibrosis in the very rectal fat likely from radiation therapy. Few colonic diverticuli without CT signs of acute diverticulitis. No free intraperitoneal air or fluid. APPENDIX: Not identified. ABDOMINAL WALL: Intact laparoscopic ventral hernia repair with mesh PELVIS: No masses or adenopathy. No free pelvic fluid. Normal size female pelvic organs BONES: No significant or acute findings. OTHER: No other significant finding. IMPRESSION: Treatment response in the chest Decrease in size of left adrenal and left lobe liver metastatic lesions TECHNICAL DOCUMENTATION: JOB ID: [id number] Quality ID # 436: Final reports with documentation of one or more dose reduction techniques (e.g., Au tomated exposure control, adjustment of the mA and/or kV according to patient size, use of iterative reconstruction technique) 2010 [employer]- All Rights Reserved Reading location - IP/workstation name: [email or web address]
== END ==
LOC: RAD 09:02
PROVIDERS: ATTEND Physician Assistant Medical
DX: C20 Malignant neoplasm of rectum (principal)
CPT/HCPCS: 71260; 74177; 82565

== ENCOUNTER 2018-08-21 08:31 | Outpatient (CLI) | payer MEDICARE ==
[~2018-08-21 08:31] MED LIST changes: +BEVACIZUMAB IV PRN; +CONTAINER EMPTY IV PRN; +DEXAMETHASONE 10 MG in NS 50 ML IV PRN; +DISPOSABLE IV PRN; +FLUOROURACIL IV PRN; +IRINOTECAN HCL IV PRN; +LEUCOVORIN CALCIUM IV PRN; -NORMAL SALINE 1000 ML 1,000 ML IV PRN; +NORMAL SALINE 250 ML @ KVO IV PRN; +NORMAL SALINE 250 ML IV PRN; +NORMAL SALINE IV PRN; +PALONOSETRON 0.25 MG/5 ML VIAL IV PRN; +POTASSIUM CHLORIDE 20 MEQ/50 ML RTU IV SCH
[2018-08-21 08:50] VITALS: BP 142/73
[2018-08-21] MEDS: BEVACIZUMAB IV PRN ×2 (11:12→11:13)
[2018-08-21] MEDS: NORMAL SALINE IV PRN ×2 (11:12→11:13)
== END 2018-08-21 13:42 | disposition home or self-care (01) ==
LOC: 5TH 08:31 → II 08:31
PROVIDERS: ATTEND Internal Medicine
PROC: 3E04305 Introduction of Other Antineoplastic into Central Vein, Percutaneous Approach (ICD-10-PCS; principal; 2018-08-21)
PROC: 3E0433Z Introduction of Anti-inflammatory into Central Vein, Percutaneous Approach (ICD-10-PCS; 2018-08-21)
PROC: 3E043GC Introduction of Other Therapeutic Substance into Central Vein, Percutaneous Approach (ICD-10-PCS; 2018-08-21)
PROC: 3E0430M Introduction of Antineoplastic, Monoclonal Antibody, into Central Vein, Percutaneous Approach (ICD-10-PCS; 2018-08-21)
DX: Z51.11 Encounter for antineoplastic chemotherapy (principal); C20 Malignant neoplasm of rectum
CPT/HCPCS: 96411; 96413; 96415; 96416; 96367; 96375; 96417; A4222; J0640; A9270; J9190; J9206; J7050 ×2; J7040; J3490; J1100; J9035; J2469; 96360; 96374; 96409; J3480

== ENCOUNTER 2018-08-23 13:41 | Outpatient (CLI) | payer MEDICARE ==
[~2018-08-23 13:41] MED LIST changes: -BEVACIZUMAB IV PRN; -CONTAINER EMPTY IV PRN; -DEXAMETHASONE 10 MG in NS 50 ML IV PRN; -DISPOSABLE IV PRN; -FLUOROURACIL IV PRN; -IRINOTECAN HCL IV PRN; -LEUCOVORIN CALCIUM IV PRN; +NORMAL SALINE 1000 ML 1,000 ML IV PRN; -NORMAL SALINE 250 ML @ KVO IV PRN; -NORMAL SALINE 250 ML IV PRN; -NORMAL SALINE IV PRN; -PALONOSETRON 0.25 MG/5 ML VIAL IV PRN; -POTASSIUM CHLORIDE 20 MEQ/50 ML RTU IV SCH
[2018-08-23 13:58] VITALS: BP 134/60
== END 2018-08-23 14:50 | disposition home or self-care (01) ==
LOC: II 13:41 → 5TH 13:43 → II 14:50
PROVIDERS: ATTEND Internal Medicine
PROC: 3E0437Z Introduction of Electrolytic and Water Balance Substance into Central Vein, Percutaneous Approach (ICD-10-PCS; principal; 2018-08-23)
DX: Z51.11 Encounter for antineoplastic chemotherapy (principal); C20 Malignant neoplasm of rectum
CPT/HCPCS: 96360; J1642; 96374

== ENCOUNTER 2018-09-06 14:41 | Outpatient (CLI) | payer MEDICARE ==
[2018-09-06 15:01] VITALS: BP 142/67
== END 2018-09-06 15:46 | disposition home or self-care (01) ==
LOC: II 14:41 → 5TH 14:42 → II 15:46
PROVIDERS: ATTEND Physician Assistant Medical
PROC: 3E0437Z Introduction of Electrolytic and Water Balance Substance into Central Vein, Percutaneous Approach (ICD-10-PCS; principal; 2018-09-06)
DX: C20 Malignant neoplasm of rectum (principal)
CPT/HCPCS: 96360

== ENCOUNTER 2018-09-18 08:25 | Outpatient (CLI) | payer MEDICARE ==
[~2018-09-18 08:25] MED LIST changes: +ATROPINE SULFATE INJ 0.4 MG/1 ML VIAL IV PRN; +BEVACIZUMAB IV PRN; +CONTAINER EMPTY IV PRN; +DEXAMETHASONE 10 MG in NS 50 ML IV PRN; +DISPOSABLE IV PRN; +FLUOROURACIL IV PRN; +IRINOTECAN HCL IV PRN; +LEUCOVORIN CALCIUM IV PRN; -NORMAL SALINE 1000 ML 1,000 ML IV PRN; +NORMAL SALINE 250 ML @ KVO IV PRN; +NORMAL SALINE IV PRN; +PALONOSETRON 0.25 MG/5 ML VIAL IV PRN
[2018-09-18 08:59] VITALS: BP 124/65
== END 2018-09-18 13:09 | disposition home or self-care (01) ==
LOC: II 08:25 → 5TH 08:27 → II 13:09
PROVIDERS: ATTEND Internal Medicine Hematology & Oncology
PROC: 3E04305 Introduction of Other Antineoplastic into Central Vein, Percutaneous Approach (ICD-10-PCS; principal; 2018-09-18)
PROC: 3E0430M Introduction of Antineoplastic, Monoclonal Antibody, into Central Vein, Percutaneous Approach (ICD-10-PCS; 2018-09-18)
PROC: 3E0433Z Introduction of Anti-inflammatory into Central Vein, Percutaneous Approach (ICD-10-PCS; 2018-09-18)
PROC: 3E043GC Introduction of Other Therapeutic Substance into Central Vein, Percutaneous Approach (ICD-10-PCS; 2018-09-18)
DX: Z51.11 Encounter for antineoplastic chemotherapy (principal); C20 Malignant neoplasm of rectum
CPT/HCPCS: 96411; 96413; 96416; 96367; 96368; 96375; 96417; J0461; J0640; A9270; J9190; J9206; J7050 ×2; J7040; J3490; J1100; J1642; J9035; J2469; 96365; 96374; 96409; 96415

== ENCOUNTER 2018-09-20 10:29 | Outpatient (CLI) | payer MEDICARE ==
[~2018-09-20 10:29] MED LIST changes: -ATROPINE SULFATE INJ 0.4 MG/1 ML VIAL IV PRN; -BEVACIZUMAB IV PRN; -CONTAINER EMPTY IV PRN; -DEXAMETHASONE 10 MG in NS 50 ML IV PRN; -DISPOSABLE IV PRN; -FLUOROURACIL IV PRN; -IRINOTECAN HCL IV PRN; -LEUCOVORIN CALCIUM IV PRN; +NORMAL SALINE 1000 ML 1,000 ML IV PRN; -NORMAL SALINE 250 ML @ KVO IV PRN; -NORMAL SALINE IV PRN; -PALONOSETRON 0.25 MG/5 ML VIAL IV PRN
[2018-09-20 10:49] VITALS: BP 111/71
== END 2018-09-20 12:03 | disposition home or self-care (01) ==
LOC: II 10:29 → 5TH 10:48 → II 12:03
PROVIDERS: ATTEND Internal Medicine
PROC: 3E0437Z Introduction of Electrolytic and Water Balance Substance into Central Vein, Percutaneous Approach (ICD-10-PCS; principal; 2018-09-20)
DX: C20 Malignant neoplasm of rectum (principal)
CPT/HCPCS: 96360; 96361

== ENCOUNTER 2018-10-02 08:26 | Outpatient (CLI) | payer MEDICARE ==
[~2018-10-02 08:26] MED LIST changes: +ATROPINE SULFATE INJ 0.4 MG/1 ML VIAL IV PRN; +BEVACIZUMAB IV PRN; +CONTAINER EMPTY IV PRN; +DEXAMETHASONE 10 MG in NS 50 ML IV PRN; +DISPOSABLE IV PRN; +FLUOROURACIL IV PRN; +IRINOTECAN HCL IV PRN; +LEUCOVORIN CALCIUM IV PRN; -NORMAL SALINE 1000 ML 1,000 ML IV PRN; +NORMAL SALINE 250 ML @ KVO IV PRN; +NORMAL SALINE IV PRN; +PALONOSETRON 0.25 MG/5 ML VIAL IV PRN
[2018-10-02 08:46] VITALS: BP 142/66
== END 2018-10-02 13:13 | disposition home or self-care (01) ==
LOC: II 08:26 → 5TH 08:30 → II 13:13
PROVIDERS: ATTEND Internal Medicine Hematology & Oncology
PROC: 3E04305 Introduction of Other Antineoplastic into Central Vein, Percutaneous Approach (ICD-10-PCS; principal; 2018-10-02)
PROC: 3E0430M Introduction of Antineoplastic, Monoclonal Antibody, into Central Vein, Percutaneous Approach (ICD-10-PCS; 2018-10-02)
PROC: 3E0433Z Introduction of Anti-inflammatory into Central Vein, Percutaneous Approach (ICD-10-PCS; 2018-10-02)
PROC: 3E043GC Introduction of Other Therapeutic Substance into Central Vein, Percutaneous Approach (ICD-10-PCS; 2018-10-02)
DX: Z51.11 Encounter for antineoplastic chemotherapy (principal); C20 Malignant neoplasm of rectum
CPT/HCPCS: 96409; 96413; 96415; 96416; 96417; J0461; J0640; A9270; J9190; J9206; J7050 ×2; J7040; J3490; J1100; J1642; J9035; J2469; 96367; 96368; 96375; 96411

== ENCOUNTER 2018-10-04 11:58 | Outpatient (CLI) | payer MEDICARE ==
[~2018-10-04 11:58] MED LIST changes: -ATROPINE SULFATE INJ 0.4 MG/1 ML VIAL IV PRN; -BEVACIZUMAB IV PRN; -CONTAINER EMPTY IV PRN; -DEXAMETHASONE 10 MG in NS 50 ML IV PRN; -DISPOSABLE IV PRN; -FLUOROURACIL IV PRN; -IRINOTECAN HCL IV PRN; -LEUCOVORIN CALCIUM IV PRN; +NORMAL SALINE 1000 ML 1,000 ML IV PRN; -NORMAL SALINE 250 ML @ KVO IV PRN; -NORMAL SALINE IV PRN; -PALONOSETRON 0.25 MG/5 ML VIAL IV PRN
[2018-10-04 12:24] VITALS: BP 144/63
== END 2018-10-04 13:35 | disposition home or self-care (01) ==
LOC: II 11:58 → 5TH 12:23 → II 13:35
PROVIDERS: ATTEND Internal Medicine
PROC: 3E0437Z Introduction of Electrolytic and Water Balance Substance into Central Vein, Percutaneous Approach (ICD-10-PCS; principal; 2018-10-04)
DX: C20 Malignant neoplasm of rectum (principal)
CPT/HCPCS: 96360

== ENCOUNTER 2018-10-23 09:01 | Outpatient (CLI) | payer MEDICARE ==
[~2018-10-23 09:01] MED LIST changes: +ATROPINE SULFATE INJ 0.4 MG/1 ML VIAL IV PRN; +BEVACIZUMAB IV PRN; +CONTAINER EMPTY IV PRN; +DEXAMETHASONE SOD PHOSPHATE 10 MG in NORMAL SALINE 50 ML IV PRN; +DISPOSABLE IV PRN; +FLUOROURACIL IV PRN; +IRINOTECAN HCL IV PRN; +LEUCOVORIN CALCIUM IV PRN; -NORMAL SALINE 1000 ML 1,000 ML IV PRN; +NORMAL SALINE 250 ML IV PRN; +NORMAL SALINE IV PRN; +PALONOSETRON 0.25 MG/5 ML SDV IV PRN
[2018-10-23 09:27] VITALS: BP 131/71
== END 2018-10-23 13:45 | disposition home or self-care (01) ==
LOC: II 09:01 → 5TH 09:15 → II 13:45
PROVIDERS: ATTEND Internal Medicine
PROC: 3E04305 Introduction of Other Antineoplastic into Central Vein, Percutaneous Approach (ICD-10-PCS; principal; 2018-10-23)
PROC: 3E0433Z Introduction of Anti-inflammatory into Central Vein, Percutaneous Approach (ICD-10-PCS; 2018-10-23)
PROC: 3E043GC Introduction of Other Therapeutic Substance into Central Vein, Percutaneous Approach (ICD-10-PCS; 2018-10-23)
DX: Z51.11 Encounter for antineoplastic chemotherapy (principal); C20 Malignant neoplasm of rectum
CPT/HCPCS: 96411; 96413; 96415; 96416; 96367; 96368; 96375; 96417; A4222; J0461; J0640; A9270; J9190; J9206; J7050 ×2; J7040; J3490; J1100; J1642; J9035; J2469

== ENCOUNTER 2018-11-06 08:45 | Outpatient (CLI) | payer MEDICARE ==
[~2018-11-06 08:45] MED LIST changes: +DEXAMETHASONE 10 MG in NS 50 ML IV PRN; -DEXAMETHASONE SOD PHOSPHATE 10 MG in NORMAL SALINE 50 ML IV PRN; +NORMAL SALINE 250 ML @ KVO IV PRN; -NORMAL SALINE 250 ML IV PRN; -PALONOSETRON 0.25 MG/5 ML SDV IV PRN; +PALONOSETRON 0.25 MG/5 ML VIAL IV PRN
[2018-11-06 10:15] VITALS: BP 102/71
== END 2018-11-06 13:00 | disposition home or self-care (01) ==
LOC: II 08:45 → 5TH 08:46 → II 13:00
PROVIDERS: ATTEND Internal Medicine
PROC: 3E04305 Introduction of Other Antineoplastic into Central Vein, Percutaneous Approach (ICD-10-PCS; principal; 2018-11-06)
PROC: 3E0433Z Introduction of Anti-inflammatory into Central Vein, Percutaneous Approach (ICD-10-PCS; 2018-11-06)
PROC: 3E043GC Introduction of Other Therapeutic Substance into Central Vein, Percutaneous Approach (ICD-10-PCS; 2018-11-06)
DX: Z51.11 Encounter for antineoplastic chemotherapy (principal); C20 Malignant neoplasm of rectum
CPT/HCPCS: 96411; 96413; 96415; 96416; 96367; 96368; 96375; 96417; A9270; J0461; J9190; J9206; J7050 ×2; J7040; J3490; J1100; J1642; J9035; J2469; 96409

== ENCOUNTER 2018-11-08 10:59 | Outpatient (CLI) | payer MEDICARE ==
[~2018-11-08 10:59] MED LIST changes: -ATROPINE SULFATE INJ 0.4 MG/1 ML VIAL IV PRN; -BEVACIZUMAB IV PRN; -CONTAINER EMPTY IV PRN; -DEXAMETHASONE 10 MG in NS 50 ML IV PRN; -DISPOSABLE IV PRN; -FLUOROURACIL IV PRN; -IRINOTECAN HCL IV PRN; -LEUCOVORIN CALCIUM IV PRN; +NORMAL SALINE 1000 ML @ AS DIRECTED IV PRN; -NORMAL SALINE 250 ML @ KVO IV PRN; -NORMAL SALINE IV PRN; -PALONOSETRON 0.25 MG/5 ML VIAL IV PRN
[2018-11-08 11:27] VITALS: BP 135/65
== END 2018-11-08 12:35 | disposition home or self-care (01) ==
LOC: II 10:59 → 5TH 11:02 → II 12:35
PROVIDERS: ATTEND Internal Medicine
PROC: 3E0437Z Introduction of Electrolytic and Water Balance Substance into Central Vein, Percutaneous Approach (ICD-10-PCS; principal; 2018-11-08)
DX: C20 Malignant neoplasm of rectum (principal)
CPT/HCPCS: 96360

== ENCOUNTER → 2018-11-12 | Outpatient (CLI) | payer MEDICARE ==
--- NOTE | 2018-11-12 10:18 | RADIOLOGY REPORT (SQ) ---
EXAM DESCRIPTION: CT ABD/PELVIS WITH IV ORAL; CT CHEST WITH COMPLETED DATE/TIME: 11/12/2018 9:34 am; 11/12/2018 9:33 am REASON FOR STUDY: C20 MALIGNANT NEOPLASM OF RECTUM C20 MALIGNANT NEOPLASM OF RECTUM COMPARISON: 08/09/2018 CONTRAST TYPE AND DOSE: contrast/concentration: Isovue 350.00 mg/ml; Total Contrast Delivered: 75.0 ml; Total Saline Delivered: 56.0 ml RENAL FUNCTION: GFR > 60. TECHNIQUE: CT scan of the chest performed using helical scanning technique with dynamic intravenous contrast injection. Images reviewed with lung, soft tissue and bone windows. Reconstructed coronal a nd sagittal MPR images reviewed. All images stored on PACS. CT scan of the abdomen and pelvis performed with intravenous and with oral contrastusing helical scan chhaya technique with dynamic intravenous contrast injection. Images reviewed with lung, soft tissue a nd bone windows. Reconstructed coronal and sagittal MPR images reviewed. Delayed images for evaluat ion of the urinary system also acquired and evaluated. All images stored on PACS. All CT scanners at this facility use dose modulation, iterative reconstruction, and/or weight based d osing when appropriate to reduce radiation dose to as low as reasonably achievable (ALARA). [facility]: Dose Right [facility]: CareDose [facility]: Dose Right [facility]: Teradose 4D [facility]: Smart Technologies RADIATION DOSE: CT Rad equipment meets quality standard of care and radiation dose reduction techniq ues were employed. CTDIvol: 4.4 - 4.7 mGy. DLP: 640 mGy-cm. . LIMITATIONS: None. FINDINGS: CHEST: LUNGS AND PLEURA: Stable soft tissue and nodules of the apical right upper lobe and adjacent mediasti num (series 2, image 16) and lingula (series 2, image 31) with biopsy and/or fiducial markers. No pn eumothorax. No effusions. HILAR AND MEDIASTINAL STRUCTURES: Right paratracheal soft tissue mass unchanged from prior. HEART AND VASCULAR STRUCTURES: No aneurysm or dissection. No central pulmonary emboli. No pericardi al effusion. HARDWARE: None. THYROID AND OTHER SOFT TISSUES: No masses. No adenopathy. BONES: No significant finding. OTHER: Right neck port catheter. ABDOMEN AND PELVIS: LIVER: Normal size. Ill-defined mass of the tip of the left lobe of the liver measures 3.0 cm, sligh tly increased in apparent size compared to prior examination dated 08/09/2018 although not significant ly changed compared to prior examination dated 06/28/2018 (series 3, image 16). Suspect that apparent size of this mass depends upon exact timing of contrast phase and is unlikely that there is true int erval change. No dilated ducts. SPLEEN: Normal size. No focal lesions. PANCREAS: No masses. Unchanged 1.0 cm cystic lesion of the pancreatic tail, likely a small incidenta l IPMN. No significant calcifications. No adjacent inflammation or peripancreatic fluid collections. Pancreatic duct not dilated. GALLBLADDER: Tiny gallstones and/or minimal calcified sludge in the dependent gallbladder. No inflam matory changes to suggest cholecystitis. ADRENAL GLANDS: Stable left adrenal mass measuring 4.7 cm (series 3, image 22). RIGHT KIDNEY AND URETER: No solid masses. Tiny nonobstructive inferior pole calculus. No hydronephr osis or hydroureter. LEFT KIDNEY AND URETER: No solid masses. No significant calcification. No hydronephrosis or hydrouret er. AORTA AND VESSELS: No aneurysm. No dissection. Renal arteries, SMA, celiac without stenosis. RETROPERITONEUM: No retroperitoneal adenopathy, hemorrhage or masses. BOWEL AND PERITONEAL CAVITY: No masses or inflammatory changes. No free fluid or peritoneal masses. Redemonstrated postoperative findings of rectal resection. Occasional sigmoid diverticular without e vidence of acute diverticulitis. APPENDIX: Not clearly visualized. ABDOMINAL WALL: No masses. No hernias. PELVIS: No mass or free fluid. Unchanged postoperative findings about the rectum and presacral soft tissue thickening. Normal bladder. BONES: No significant or acute findings. OTHER: No other significant finding. IMPRESSION: 1. No significant interval change in multifocal metastatic disease involving the lungs and left adrenal gland. 2. Ill-defined mass of the tip of the left lobe of the liver measures 3.0 cm, slightly increased in a pparent size compared to prior examination dated 08/09/2018 although not significantly changed compare d to prior examination dated 06/28/2018 (series 3, image 16). Suspect that apparent size of this mass depends upon exact timing of contrast phase and is unlikely that there is true interval change. Att ention on follow-up. 3. Unchanged postoperative findings of rectal resection. 4. Tiny gallstones and/or gall sludge in the gallbladder. TECHNICAL DOCUMENTATION: JOB ID: [id number] Quality ID # [id number]: Final reports with documentation of one or more dose reduction techniques (e.g., Au tomated exposure control, adjustment of the mA and/or kV according to patient size, use of iterative reconstruction technique) 2010 [employer]- All Rights Reserved Reading location - IP/workstation name: [email or web address]
== END ==
LOC: RAD 09:00
PROVIDERS: ATTEND Internal Medicine
DX: C20 Malignant neoplasm of rectum (principal); C78.01 Secondary malignant neoplasm of right lung; C79.72 Secondary malignant neoplasm of left adrenal gland; K80.80 Other cholelithiasis without obstruction
CPT/HCPCS: 71260; 74177

== ENCOUNTER 2018-11-20 07:51 | Outpatient (CLI) | payer MEDICARE ==
[2018-11-20 08:15] VITALS: BP 127/64
[2018-11-20] MEDS ORDERED: BEVACIZUMAB IV PRN (08:16)
[2018-11-20] MEDS ORDERED: NORMAL SALINE IV PRN (08:16)
[2018-11-20] MEDS ORDERED: NORMAL SALINE 250 ML IV PRN (08:17)
== END 2018-11-20 10:42 | disposition home or self-care (01) ==
LOC: II 07:51 → 5TH 07:59 → II 10:42
PROVIDERS: ATTEND Internal Medicine
PROC: 3E0430M Introduction of Antineoplastic, Monoclonal Antibody, into Central Vein, Percutaneous Approach (ICD-10-PCS; principal; 2018-11-20)
DX: Z51.11 Encounter for antineoplastic chemotherapy (principal); C20 Malignant neoplasm of rectum
CPT/HCPCS: 96413; J7050; J1642; J9035 ×2

== ENCOUNTER 2018-12-02 18:02 | Observation (INO) | payer MEDICARE ==
[2018-12-02] MEDS ORDERED: GLUCAGON,HUMAN RECOMB 1 MG INJ IM ONE (18:25)
--- NOTE | 2018-12-02 18:28 | ER Document Report ---
ED ENT - General TRAVEL OUTSIDE OF THE [place] IN LAST 30 DAYS: No <MIC MALLORY - Last Filed: 12/02/18 20:22> <ESTEBAN MORGAN - Last Filed: 12/02/18 20:55> - General Stated Complaint: POSSIBLE CHOKING Time Seen by Provider: 12/02/18 18:10 Primary Care Provider: CELY DYER MD [Primary Care Provider] - Follow up as needed Notes: Patient is a 73-year-old female with a history of type 2 diabetes, hypertension who presents to the emergency department with a chief complaint of a piece of food stuck in her throat. Patient reports 40 minutes prior to arrival she was eating a piece of beef roast when he got stuck in her esophagus. Patient reports she attempted to drink water but is unable to swallow and begins to choke. Patient states that she has never had anything this happened before. Patient reports her last EGD and colonoscopy was in 2011. Patient does have colorectal cancer with mets to the lungs. She is currently being followed by Dr. Dyer. Patient states she is unable to swallow her own secretions she does begin to choke. (MIC MALLORY) - Related Data Allergies/Adverse Reactions: oxaliplatin Allergy (Severe, Verified 12/02/18 20:05) Anaphylaxis morphine Adverse Reaction (Unknown, Verified 12/02/18 20:05) Unknown reaction Past Medical History - General Information source: Patient - Social History Smoking Status: Never Smoker Lives with: Family, Spouse/Significant other Family History: None - Past Medical History Cardiac Medical History: Reports: Hx Hypertension - medicated Denies: Hx Atrial Fibrillation, Hx Congestive Heart Failure, Hx Coronary Artery Disease, Hx Heart Attack, Hx Hypercholesterolemia, Hx Peripheral Vascular Disease, Hx Pulmonary Embolism, Hx Heart Murmur Pulmonary Medical History: Reports: Hx Pneumonia - Age 13 Denies: Hx Asthma, Hx Bronchitis, Hx COPD, Hx Respiratory Failure, Hx Sleep Apnea, Hx Tuberculosis EENT Medical History: Reports: None Neurological Medical History: Reports: None. Denies: Hx Cerebrovascular Accident, Hx Seizures, Hx Parkinson's Disease Endocrine Medical History: Reports: Hx Diabetes Mellitus Type 2. Denies: Hx Graves' Disease, Hx Hyperthyroidism, Hx Hypothyroidism Renal/ Medical History: Reports: None. Denies: Hx Peritoneal Dialysis Malignancy Medical History: Reports: 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. Denies: Hx Leukemia, Hx Lung Cancer GI Medical History: Reports: Hx Hiatal Hernia. Denies: Hx Crohn's Disease, Hx Gastroesophageal Reflux Disease, Hx Hepatitis, Hx Irritable Bowel, Hx Liver Failure, Hx Pancreatitis, Hx Ulcer Musculoskeletal Medical History: Reports None, Denies Hx Arthritis, Denies Hx Fibromyalgia, Denies Hx Muscular Dystrophy, Denies Hx Systemic Lupus Erythemat osus Skin Medical History: Reports None Psychiatric Medical History: Reports: None Denies: Hx Dementia Traumatic Medical History: Reports: Hx Fractures - Josesito index fingers, Lt little toe Infectious Medical History: Reports: None. Denies: Hx Hepatitis, Hx HIV Past Surgical History: Reports: Hx Bowel Surgery, Hx Tubal Ligation. Denies: Hx Appendectomy, Hx Section, Hx Cholecystectomy, Hx Colostomy, Hx Coronary Artery Bypass Graft, Hx Gastric Bypass Surgery, Hx Herniorrhaphy, Hx Hysterectomy, Hx Mastectomy, Hx Open Heart Surgery, Hx Pacemaker, Hx Tonsillectomy - Immunizations Hx Diphtheria, Pertussis, Tetanus Vaccination: Yes Hx Pneumococcal Vaccination: 12/14/13 <MIC MALLORY - Last Filed: 12/02/18 20:22> Review of Systems - Review of Systems Constitutional: No symptoms reported EENT: See HPI Cardiovascular: No symptoms reported Respiratory: No symptoms reported Gastrointestinal: No symptoms reported Genitourinary: No symptoms reported Female Genitourinary: No symptoms reported Musculoskeletal: No symptoms reported Skin: No symptoms reported Hematologic/Lymphatic: No symptoms reported Neurological/Psychological: No symptoms reported <MIC MALLORY - Last Filed: 12/02/18 20:22> Physical Exam - Vital signs Interpretation: Tachycardic <MIC MALLORY - Last Filed: 12/02/18 20:22> - Vital signs Vitals: Pulse Ox 98 12/02/18 18:04 - Notes Notes: GENERAL: Tearful, well-nourished and in mild distress, appears uncomfortable. HEAD: Atraumatic, normocephalic. EYES: Pupils equal round and reactive to light, extraocular movements intact, sclera anicteric, conjunctiva are normal. ENT: Nares patent, oropharynx clear without exudates. Moist mucous membranes. No obvious foreign body noted within the mouth. Uvula midline. NECK: Normal range of motion, supple without lymphadenopathy or JVD. LUNGS: Breath sounds clear to auscultation bilaterally and equal. No wheezes rales or rhonchi. HEART: Regular rate and rhythm without murmurs, rubs or gallops. ABDOMEN: Soft, nontender, normoactive bowel sounds. No guarding, no rebound. No masses appreciated. BACK: No cervical, thoracic, lumbar midline tenderness. No saddle anesthesia, normal distal neurovascular exam. GENITOURINARY: Deferred. EXTREMITIES: Normal range of motion, no pitting or edema. No clubbing or cyanosis. NEUROLOGICAL: Cranial nerves II through XII grossly intact. Normal speech, normal gait. PSYCH: Normal mood, normal affect. SKIN: Warm, Dry, normal turgor, no rashes or lesions noted. (MIC MALLORY) Course - Diagnostic Test Radiology reviewed: Reports reviewed <MIC MALLORY - Last Filed: 12/02/18 20:22> - Laboratory Result Diagrams: 12/02/18 20:30 12/02/18 20:30 <ESTEBAN MORGAN - Last Filed: 12/02/18 20:55> - Re-evaluation Re-evalutation: 12/02/18 18:29 We will give glucagon 1 mg IM. Will obtain a x-ray of the chest and neck. Patient is on a continuous pulse ox. We will continue to closely monitor. 12/02/18 18:38 I did page the on-call surgical is Dr. Ferguson in regards to the patient and possible food impaction in her esophagus. Patient may ultimately require a upper endoscopy. Patient was moved from room 5 to room 3 for closer monitoring. I did make my attending physician Dr. Van aware of the patient's status and he agrees with the plan at this time. Pt. does have scattered hives throughout her body - notably on her arms and around her chest/neck. Patient states that this is a side effect from her chemo medication and is not new since being in the ER. 12/02/18 19:32 Patient sitting upright on stretcher. Patient appears more calm. Patient reports she feels like the food bolus may have potentially moved but is still present in the esophagus causing her to intermittently cough and she is still unable to swallow her secretions. Patient airway remains patent. We will continue closely monitor. 12/02/18 20:[address] Ferguson who will come to the ER and see the patient. I did update the patient. No relief with Glucagon. (MIC MALLORY) 12/02/18 20:37 Dr. Ferguson is in the ED and would like the pt. admitted for EGD in the OR based on her medical problems and the fact she in on Xaralto. I have paged Dr. Leon who is etl application developer for pts PCP Dr. Valdovinos for admit. 12/02/18 20:[address] Leon who wants the Pt. admitted to [facility], he would like me to admit to Dr. Valdovinos and reach out to Oncology Dr. Dyer. I have spoken to Dr. Dyer who is aware of the pt and will help with her care as needed. Pt. remains hemodynamically stable. Currently awaiting labs. (ESTEBAN MORGAN) - Vital Signs Vital signs: Temp Pulse Resp BP Pulse Ox 98.6 F 103 H 21 H 167/80 H 100 12/02/18 18:13 12/02/18 18:13 12/02/18 19:02 12/02/18 19:02 12/02/18 19:02 - Laboratory Laboratory results interpreted by me: 12/02/18 20:30 Hgb 11.1 L Hct 34.5 L RDW 19.0 H Lymph % (Auto) 8.4 L Seg Neutrophils % 80.6 H - Diagnostic Test Radiology results interpreted by me: 12/02/18 18:52 Chest X-Ray 12/02/18 18:22 IMPRESSION: FAINT PULMONARY NODULE SECONDARY TO METASTASES. NO ACUTE RADIOGRAPHIC FINDING IN THE CHEST. Soft Tissue Neck X-Ray 12/02/18 18:22 IMPRESSION: NEGATIVE STUDY OF THE SOFT TISSUES OF THE NECK. (MIC MALLORY) Discharge <MIC MALLORY - Last Filed: 12/02/18 20:22> - Discharge Admitting Provider: [facility] Unit Admitted: [facility] <ESTEBAN MORGAN - Last Filed: 12/02/18 20:55> - Discharge Clinical Impression: Esophagus, foreign body Qualifiers: Encounter type: initial encounter Qualified Code(s): T18.108A - Unspecified foreign body in esophagus causing other injury, initial encounter Condition: Fair Disposition: ADMITTED INPATIENT Referrals: CELY DYER MD [Primary Care Provider] - Follow up as needed
--- NOTE | 2018-12-02 18:47 | RADIOLOGY REPORT (SQ) ---
EXAM DESCRIPTION: CHEST 2 VIEWS COMPLETED DATE/TIME: 12/02/2018 6:35 pm REASON FOR STUDY: possible food bolus in esophagus COMPARISON: Chest CT dated 11/12/2018. EXAM PARAMETERS: NUMBER OF VIEWS: two views TECHNIQUE: Digital Frontal and Lateral radiographic views of the chest acquired. RADIATION DOSE: NA LIMITATIONS: none FINDINGS: LUNGS AND PLEURA: Faint pulmonary nodules. No lobar infiltrate. No pleural effusion or p neumothorax. MEDIASTINUM AND HILAR STRUCTURES: No masses or contour abnormalities. HEART AND VASCULAR STRUCTURES: Heart normal size. No evidence for failure. BONES: No acute findings. HARDWARE: Vascular port. Metallic clips. OTHER: No other significant finding. IMPRESSION: FAINT PULMONARY NODULE SECONDARY TO METASTASES. NO ACUTE RADIOGRAPHIC FINDING IN THE CH EST. TECHNICAL DOCUMENTATION: JOB ID: [id number] [employer]- All Rights Reserved Reading location - IP/workstation name: [email or web address]
--- NOTE | 2018-12-02 18:48 | RADIOLOGY REPORT (SQ) ---
EXAM DESCRIPTION: SOFT TISSUE NECK COMPLETED DATE/TIME: 12/02/2018 6:35 pm REASON FOR STUDY: possible food bolus in esophagus COMPARISON: None. NUMBER OF VIEWS: Two views. TECHNIQUE: AP and lateral radiographic image of the soft tissues of the neck. LIMITATIONS: None. FINDINGS: EPIGLOTTIS: Normal. Contour normal. Aryepiglottic folds normal. PREVERTEBRAL SOFT TISSUES: Normal. No soft tissue swelling. SUBGLOTTIC AREA: Normal. No narrowing. RETROPHARYNGEAL SPACE: Normal. No soft tissue masses. BONES: No significant findings. LUNG APICES: Normal. OTHER: No radiopaque foreign body. No other significant finding. IMPRESSION: NEGATIVE STUDY OF THE SOFT TISSUES OF THE NECK. TECHNICAL DOCUMENTATION: JOB ID: [id number] [employer]- All Rights Reserved Reading location - IP/workstation name: [email or web address]
[2018-12-02 20:41] LABS: ABSOLUTE EOSINOPHILS # (AUTO) 0.2 10^3/uL (0.0-0.6); ABSOLUTE LYMPHOCYTES (AUTO) 0.6 10^3/uL (0.5-4.7); ABSOLUTE MONOCYTES (AUTO) 0.6 10^3/uL (0.1-1.4); ABSOLUTE NEUT (AUTO) 5.8 10^3/uL (1.7-8.2); BASOPHILS % (AUTO) 0.5 % (0-2); EOSINOPHILS % (AUTO) 2.7 % (0-6); HEMATOCRIT 34.5 % (36.0-47.0); HEMOGLOBIN 11.1 g/dL (12.0-15.5); LYMPHOCYTES % (AUTO) 8.4 % (13-45); MEAN CORPUSCULAR HEMOGLOBIN 29.8 pg (27.0-33.4); MEAN CORPUSCULAR HGB CONC 32.2 g/dL (32.0-36.0); MEAN CORPUSCULAR VOLUME 93 fl (80-97); MONOCYTES % (AUTO) 7.8 % (3-13); PLATELET COUNT 169 10^3/uL (150-450); RED BLOOD COUNT 3.73 10^6/uL (3.72-5.28); SEGMENTED NEUTROPHILS % (AUTO) 80.6 % (42-78); TOTAL CELLS COUNTED % (AUTO) 100 %; WHITE BLOOD COUNT 7.2 10^3/uL (4.0-10.5)
[2018-12-02 20:49] LABS: INTERNATIONAL RATION (INR) 1.02; PROTHROMBIN TIME 13.4 SEC (11.4-15.4)
[2018-12-02 20:50] LABS: PARTIAL THROMBOPLASTIN TIME 32.7 SEC (23.5-35.8)
[2018-12-02 21:01] LABS: ALBUMIN 3.7 g/dL (3.5-5.0); ALKALINE PHOSPHATASE 87 U/L (38-126); ANION GAP 10 (5-19); ASPARTATE AMINO TRANSFERASE 27 U/L (14-36); BILIRUBIN,DIRECT 0.2 mg/dL (0.0-0.4); BILIRUBIN,TOTAL 0.4 mg/dL (0.2-1.3); BLOOD UREA NITROGEN 19 mg/dL (7-20); CALCIUM 9.5 mg/dL (8.4-10.2); CARBON DIOXIDE 28 mmol/L (22-30); CHLORIDE 103 mmol/L (98-107); GLUCOSE 229 mg/dL (75-110); TOTAL PROTEIN 6.7 g/dL (6.3-8.2)
--- NOTE | 2018-12-02 21:17 | PDOC CONSULTATION ---
Consultation Consult Date: 12/02/18 Attending physician:: HOMER LEON Provider Consulted: AASHISH CONNORS Consult reason:: Bolus stuck in the esophagus History of Present Illness Admission Date/PCP: CELY DYER MD History of Present Illness: JOSIE JOSHI is a 73 year old female Presents emergency department via ground rescue complaining of acute onset dysphagia after swallowing roast beef. She feels like something is stuck in her esophagus. Was brought by ground rescue to [facility] emergency department where she had a soft tissue x-ray of her neck which showed nothing significant. Surgery was consulted and endoscopy with food bolus ex traction was advised. Patient has widespread metastatic disease secondary to colon cancer which she has been fighting since 2011. She is a full code. She is a patient of Dr. Dyer. She will be admitted to Dr. Leon service for observation after the procedure. Past Medical History Cardiac Medical History: Reports: Hypertension - medicated Denies: Atrial Fibrillation, Congestive Heart Failure, Coronary Artery Disease, Myocardial Infarction, Hyperlipidema, Peripheral Vascular Disease, Pulmonary Embolism, Heart Murmur Pulmonary Medical History: Reports: Pneumonia - Age 13 Denies: Asthma, Bronchitis, Chronic Obstructive Pulmonary Disease (COPD), Respiratory Failure, Sleep Apnea, Tuberculosis EENT Medical History: Reports: None Neurological Medical History: Reports: None Denies: Seizures Endocrine Medical History: Reports: Diabetes Mellitus Type 2 Denies: Hyperthyroidism, Hypothyroidism Renal/ Medical History: Reports: None Malignancy Medical History: 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 Denies: Leukemia, Lung Cancer GI Medical History: Reports: Hiatal Hernia Denies: Crohn's Disease, Gastroesophageal Reflux Disease, Hepatitis Musculoskeltal Medical History: Reports: None Denies: Arthritis, Fibromyalgia Skin Medical History: Reports: None Psychiatric Medical History: Reports: None Denies: Dementia Hematology: Denies: Anemia, Hemophilia, Sickle Cell Disease Infectious Medical History: Reports: None Denies: HIV Past Surgical History Past Surgical History: Rectosigmoid colectomy , low anterior resection, 2013, Dr. Bansal, placement 2013 status post 2 adjuvant chemoradiation; patient developed metastatic disease thereafter and has been on chemotherapy since. She has diffuse bilateral pulmonary metastases and left adrenal metastases. She is a full code. Past Surgical History: Reports: Tubal Ligation Denies: Amputation, Appendectomy, Section, Cholecystectomy, Colostomy, Coronary Artery Bypass Graft, Gastric Bypass Surgery, Herniorrhaphy, Hysterectomy, Mastectomy, Pacemaker, Tonsillectomy Social History Lives with: Family, Spouse/Significant other Smoking Status: Never Smoker Electronic Cigarette use?: No Frequency of Alcohol Use: None Hx Recreational Drug Use: Yes Hx Prescription Drug Abuse: No Family History Family History: None Parental Family History Reviewed: No Children Family History Reviewed: No Sibling(s) Family History Reviewed.: No Medication/Allergy Home Medications: Metformin HCl [Glucophage 500 mg Tablet] 500 mg PO DAILY 01/12/13 Docusate Sodium [Colace 100 mg Capsule] 100 mg PO DAILY #30 capsule 12/27/13 Lisinopril 1 tab PO DAILY 08/10/15 Promethazine HCl 1 tab PO Q4HP PRN 08/10/15 Apixaban [Eliquis 5 mg Tablet] 5 mg PO BID 11/15/15 Gabapentin 600 mg PO TID #90 tablet 11/23/15 Amlodipine Besylate 5 mg PO DAILY 09/06/16 Diphenoxylate HCl/Atrop Sulf [Lomotil 2.5 mg Tablet] 1 tab PO Q8HP PRN #10 tablet 12/04/16 Metoclopramide HCl [Reglan 10 mg Tablet] 1 tab PO ASDIR PRN #25 tablet 12/04/16 Cephalexin Monohydrate [Keflex 500 mg Capsule] 500 mg PO TID #15 capsule 08/26/17 Erythromycin Base [Erythromycin Oph 1 Gm Oint Ud] 1 applic OS TID 7 Days tube 04/29/18 Allergies/Adverse Reactions: oxaliplatin Allergy (Severe, Verified 12/02/18 20:05) Anaphylaxis morphine Adverse Reaction (Unknown, Verified 12/02/18 20:05) Unknown reaction Review of Systems ROS unobtainable: Other Eyes: ABSENT: visual disturbances Ears: ABSENT: hearing changes Gastrointestinal: PRESENT: other - GI tract functioning Integumentary: PRESENT: other - Diffuse urticarial rash secondary to side effects of chemotherapy. Physical Exam Vital Signs: Temp Pulse Resp BP Pulse Ox 98.6 F 103 H 21 H 167/80 H 100 12/02/18 18:13 12/02/18 18:13 12/02/18 19:02 12/02/18 19:02 12/02/18 19:02 Intake & Output 12/01/18 12/02/18 12/03/18 06:59 06:59 06:59 Weight 68.3 kg General appearance: PRESENT: other - Very thin white female, diffuse urticarial rash, skin Eye exam: PRESENT: EOMI Mouth exam: PRESENT: dry mucosa Teeth exam: PRESENT: other - Actively spitting up saliva Neck exam: PRESENT: other - Acute midline Respiratory exam: PRESENT: rhonchi Cardiovascular exam: PRESENT: other - Port right subclavian position, palpable Pulses: PRESENT: normal carotid pulses GI/Abdominal exam: PRESENT: soft, other Rectal exam: PRESENT: deferred Extremities exam: PRESENT: +1 edema, other - Lower extremities cool Neurological exam: PRESENT: oriented to person, oriented to place, oriented to time, oriented to situation Psychiatric exam: PRESENT: appropriate affect Results Laboratory Results: 12/02/18 20:30 12/02/18 20:30 12/02/18 12/02/18 20:30 20:30 WBC 7.2 RBC 3.73 Hgb 11.1 L Hct 34.5 L MCV 93 MCH 29.8 MCHC 32.2 RDW 19.0 H Plt Count 169 Seg Neutrophils % 80.6 H Sodium 140.6 Potassium 4.0 Chloride 103 Carbon Dioxide 28 Anion Gap 10 BUN 19 Creatinine 0.76 Est GFR ( Amer) > 60 Glucose 229 H Calcium 9.5 Total Bilirubin 0.4 AST 27 Alkaline Phosphatase 87 Total Protein 6.7 Albumin 3.7 Impressions: Chest X-Ray 12/02/18 18:22 IMPRESSION: FAINT PULMONARY NODULE SECONDARY TO METASTASES. NO ACUTE RADIOGRAPHIC FINDING IN THE CHEST. Soft Tissue Neck X-Ray 12/02/18 18:22 IMPRESSION: NEGATIVE STUDY OF THE SOFT TISSUES OF THE NECK. Assessment & Plan - Diagnosis (1) Esophagus, foreign body Qualifiers: Encounter type: initial encounter Qualified Code(s): T18.108A - Unspecified foreign body in esophagus causing other injury, initial encounter Is this a current diagnosis for this admission?: Yes Plan: Impression: Based on clinical history and inability to swallow saliva. Recommendations: 1. Because of the lateness of the hour, and patient's multiple comorbidities, I recommended the patient be admitted for observation on the internal medicine service; the emergency department will consult Leon for admission 2. We will perform upper endoscopy under LMAC anesthesia in the operating room. Patient is at risk for bleeding due to Xarelto therapy. Also has history of reaction to morphine sulfate with nausea and vomiting. (5) Zoster Qualifiers: (6) Anticoagulated Is this a current diagnosis for this admission?: Yes - Time Time Spent: 30 to 50 Minutes Smoking Cessation Education: 3 to 10 minutes Medications reviewed and adjusted accordingly: Yes Anticipated discharge: Home
[2018-12-02] MEDS ORDERED: PROPOFOL INJ 200 MG/20 ML VIAL IV ONE (21:32)
[2018-12-02] MEDS ORDERED: LIDOCAINE 2% INJ-PF (20 MG/ML) 10 ML AMPUL ONE (21:32)
[2018-12-02] MEDS ORDERED: MIDAZOLAM 2 MG/2 ML INJ ONE (21:41)
[2018-12-02] MEDS ORDERED: FENTANYL CITRATE INJ/PF 100 MCG/2 ML AMPUL ONE (21:41)
[2018-12-02] MEDS ORDERED: ONDANSETRON HCL INJ/PF 4 MG/2 ML SDV ONE (21:41)
[2018-12-02] MEDS ORDERED: DEXTROSE 50%-WATER 25 GM/50 ML DISP.SYRIN IV PRN ×4 (21:49→21:54)
[2018-12-02] MEDS ORDERED: DEXTROSE 40% GEL 15 GM TUBE PO PRN ×4 (21:49→21:54)
[2018-12-02] MEDS ORDERED: ONDANSETRON HCL INJ/PF 4 MG/2 ML SDV IV PRN ×2 (21:49→22:11)
[2018-12-02] MEDS ORDERED: GLUCAGON,HUMAN RECOMB 1 MG INJ SUBCUT PRN (21:49)
[2018-12-02] MEDS ORDERED: GLUCAGON,HUMAN RECOMB 1 MG INJ IM PRN (21:54)
[2018-12-02] MEDS ORDERED: PROMETHAZINE HCL INJ 25 MG/1 ML VIAL IV PRN ×2 (22:11)
[2018-12-02] MEDS ORDERED: DIPHENHYDRAMINE HCL 50 MG/ML VIAL IV PRN (22:11)
--- NOTE | 2018-12-02 22:24 | Operative Report ---
Operative Report DATE OF SURGERY: 12/02/18 PREOPERATIVE DIAGNOSIS: 1. Retained food bolus in the esophagus. 2. Metastat ic colorectal carcinoma. 3. Pharmacologic anticoagulation POSTOPERATIVE DIAGNOSIS: Same with retained food bolus at the upper esophageal sphincter OPERATION: 1. Mechanical extraction upper esophageal food bolus consistent with undigested meat. 2. Esophagogastroduodenoscopy SURGEON: AASHISH CONNORS ANESTHESIA: GA TISSUE REMOVED OR ALTERED: Food bolus removed COMPLICATIONS: None ESTIMATED BLOOD LOSS: Minimal INTRAOPERATIVE FINDINGS: See below PROCEDURE: The patient was taken from the preop holding area to the main operating room where general anesthesia was induced uneventfully. Surgical plan surgical timeout conducted. The patient was edentulous. The flexible adult upper endoscope was advanced through the hypopharynx, into the upper esophagus with a complete obstruction was encountered consistent with a meat bolus. This was right at the upper esophageal sphincter. The endoscope was removed. The patient was placed in supine position and using a curve mechanical laryngoscope, and the mcgills forceps, the large meat bolus was extracted in a piecemeal fashion successfully. Bleeding was minimal from the posterior pharynx. The flexible upper endoscope was then advanced through the hypopharynx, past the upper esophageal sphincter down the esophagus into the stomach, through the pylorus and into the first and second portion of the duodenum. The duodenum was normal as was the stomach. There was some undigested meat products in the stomach. The GE junction was mildly erythematous with irregularity at the Z line. Photos were taken. No biopsies were obtained. The scope was withdrawn to the length of the esophagus checking a carefully. There was no evidence of mechanical trauma other than a little bloody irritation right at the posterior side of the upper esophageal sphincter. The scope was withdrawn to the patient's oropharynx. She tolerated procedure well. She was extubated, taken recovery in stable condition. Recommendations: Patient will be observed overnight, and discharged home tomorrow. This was discussed with patient and her family.
[2018-12-02] MEDS: NORMAL SALINE 1000 ML 1,000 ML IV PRN (23:47)
[2018-12-02] MEDS: PANTOPRAZOLE SODIUM 40 MG VIAL IV SCH (23:47)
[2018-12-03] MEDS: INSULIN LISPRO 100 UNIT/ML 3 ML VIAL SUBCUT SCH ×4 (01:00→16:59)
[2018-12-03 01:10] LABS: ANION GAP 8 (5-19); BLOOD UREA NITROGEN 17 mg/dL (7-20); CALCIUM 9.1 mg/dL (8.4-10.2); CARBON DIOXIDE 27 mmol/L (22-30); CHLORIDE 104 mmol/L (98-107); GLUCOSE 150 mg/dL (75-110); POTASSIUM 4.1 mmol/L (3.6-5.0)
[2018-12-03] MEDS ORDERED: TRAMADOL HCL 50 MG TABLET PO PRN (08:41)
--- NOTE | 2018-12-03 08:56 | PDOC CONSULTATION ---
Consultation Consult Date: 12/03/18 Attending physician:: AASHISH CONNORS Provider Consulted: CELY RODRIGUEZ Consult reason:: Patient with known history of stage IV colon cancer, here with impacted food bolus History of Present Illness Admission Date/PCP: 12/02/18 21:09 CELY RODRIGUEZ MD Patient complains of: Nausea vomiting, cannot keep anything down History of Present Illness: JOSIE JOSHI is a 73 year old female with recent nausea vomiting and intractable, after eating, she presented to the ED and was found to have an impacted food bolus, late last night was taken for upper endoscopy with removal of the meat bolus, it was a large item and took some time to take out. She is doing better today, hoarse with sore throat as expected, discussed case with Dr. Connors who suggests that we could now give her clear liquids and advance as tolerated, I wrote those orders. Past Medical History Cardiac Medical History: Reports: Hypertension - medicated Denies: Atrial Fibrillation, Congestive Heart Failure, Coronary Artery Disease, Myocardial Infarction, Hyperlipidema, Peripheral Vascular Disease, Pulmonary Embolism, Heart Murmur Pulmonary Medical History: Reports: Pneumonia - Age 13 Denies: Asthma, Bronchitis, Chronic Obstructive Pulmonary Disease (COPD), Respiratory Failure, Sleep Apnea, Tuberculosis EENT Medical History: Reports: None Neurological Medical History: Reports: None Denies: Seizures Endocrine Medical History: Reports: Diabetes Mellitus Type 2 Denies: Hyperthyroidism, Hypothyroidism Renal/ Medical History: Reports: None Malignancy Medical History: 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 Denies: Leukemia, Lung Cancer GI Medical History: Reports: Hiatal Hernia Denies: Crohn's Disease, Gastroesophageal Reflux Disease, Hepatitis Musculoskeltal Medical History: Reports: None Denies: Arthritis, Fibromyalgia Skin Medical History: Reports: None Psychiatric Medical History: Reports: None Denies: Dementia Hematology: Denies: Anemia, Hemophilia, Sickle Cell Disease Infectious Medical History: Reports: None Denies: HIV Past Surgical History Past Surgical History: Reports: Tubal Ligation Denies: Amputation, Appendectomy, Section, Cholecystectomy, Colostomy, Coronary Artery Bypass Graft, Gastric Bypass Surgery, Herniorrhaphy, Hysterectomy, Mastectomy, Pacemaker, Tonsillectomy Social History Information Source: Patient Lives with: Family, Spouse/Significant other Smoking Status: Never Smoker Electronic Cigarette use?: No Frequency of Alcohol Use: None Hx Recreational Drug Use: No Drugs: None Hx Prescription Drug Abuse: No - Advance Directive Resuscitation Status: Full Code Family History Family History: None Parental Family History Reviewed: Yes Children Family History Reviewed: Yes Sibling(s) Family History Reviewed.: Yes Medication/Allergy Home Medications: Lorazepam 0.5 mg PO Q6HP PRN 12/03/18 Rivaroxaban [Xarelto] 20 mg PO DAILY 12/03/18 Allergies/Adverse Reactions: oxaliplatin Allergy (Severe, Verified 12/02/18 20:05) Anaphylaxis morphine Adverse Reaction (Unknown, Verified 12/02/18 20:05) Unknown reaction Review of Systems Constitutional: ABSENT: chills, fever(s), headache(s), weight gain, weight loss Eyes: ABSENT: visual disturbances Ears: ABSENT: hearing changes Cardiovascular: ABSENT: chest pain, dyspnea on exertion, edema, orthropnea, palpitations Respiratory: ABSENT: cough, hemoptysis Gastrointestinal: ABSENT: abdominal pain, constipation, diarrhea, hematemesis, hematochezia, nausea, vomiting Genitourinary: ABSENT: dysuria, hematuria Musculoskeletal: ABSENT: joint swelling Integumentary: ABSENT: rash, wounds Neurological: ABSENT: abnormal gait, abnormal speech, confusion, dizziness, focal weakness, syncope Psychiatric: ABSENT: anxiety, depression, homidical ideation, suicidal ideation Endocrine: ABSENT: cold intolerance, heat intolerance, polydipsia, polyuria Hematologic/Lymphatic: ABSENT: easy bleeding, easy bruising Physical Exam Vital Signs: Temp Pulse Resp BP Pulse Ox 98.2 F 82 16 137/71 H 98 12/03/18 03:36 12/03/18 07:00 12/03/18 03:36 12/03/18 03:36 12/03/18 03:36 Intake & Output 12/02/18 12/03/18 12/04/18 06:59 06:59 06:59 Intake Total 700 Output Total 400 Balance 300 Weight 64.1 kg General appearance: PRESENT: no acute distress, well-developed, well-nourished Head exam: PRESENT: atraumatic, normocephalic Eye exam: PRESENT: conjunctiva pink, EOMI, PERRLA. ABSENT: scleral icterus Ear exam: PRESENT: normal external ear exam Mouth exam: PRESENT: moist, tongue midline Neck exam: ABSENT: carotid bruit, JVD, lymphadenopathy, thyromegaly Respiratory exam: PRESENT: clear to auscultation dora. ABSENT: rales, rhonchi, wheezes Cardiovascular exam: PRESENT: RRR. ABSENT: diastolic murmur, rubs, systolic murmur Pulses: PRESENT: normal dorsalis pedis pul Vascular exam: PRESENT: normal capillary refill GI/Abdominal exam: PRESENT: normal bowel sounds, soft. ABSENT: distended, guarding, mass, organolmegaly, rebound, tenderness Rectal exam: PRESENT: deferred Extremities exam: PRESENT: full ROM. ABSENT: calf tenderness, clubbing, pedal edema Neurological exam: PRESENT: alert, awake, oriented to person, oriented to place, oriented to time, oriented to situation, CN II-XII grossly intact. ABSENT: motor sensory deficit Psychiatric exam: PRESENT: appropriate affect, normal mood. ABSENT: homicidal ideation, suicidal ideation Skin exam: PRESENT: dry, intact, warm. ABSENT: cyanosis, rash Results Laboratory Results: 12/02/18 20:30 12/03/18 00:43 12/02/18 12/02/18 12/02/18 20:30 20:30 20:30 WBC 7.2 RBC 3.73 Hgb 11.1 L Hct 34.5 L MCV 93 MCH 29.8 MCHC 32.2 RDW 19.0 H Plt Count 169 Seg Neutrophils % 80.6 H Sodium 140.6 Potassium 4.0 Chloride 103 Carbon Dioxide 28 Anion Gap 10 BUN 19 Creatinine 0.76 Est GFR ( Amer) > 60 Glucose 229 H Calcium 9.5 Magnesium 2.0 Total Bilirubin 0.4 AST 27 Alkaline Phosphatase 87 Total Protein 6.7 Albumin 3.7 12/03/18 00:43 WBC RBC Hgb Hct MCV MCH MCHC RDW Plt Count Seg Neutrophils % Sodium 139.0 Potassium 4.1 Chloride 104 Carbon Dioxide 27 Anion Gap 8 BUN 17 Creatinine 0.66 Est GFR ( Amer) > 60 Glucose 150 H Calcium 9.1 Magnesium Total Bilirubin AST Alkaline Phosphatase Total Protein Albumin Impressions: Chest X-Ray 12/02/18 18:22 IMPRESSION: FAINT PULMONARY NODULE SECONDARY TO METASTASES. NO ACUTE RADIOGRAPHIC FINDING IN THE CHEST. Soft Tissue Neck X-Ray 12/02/18 18:22 IMPRESSION: NEGATIVE STUDY OF THE SOFT TISSUES OF THE NECK. Assessment & Plan - Diagnosis (1) Esophagus, foreign body Qualifiers: Encounter type: initial encounter Qualified Code(s): T18.108A - Unspecified foreign body in esophagus causing other injury, initial encounter Is this a current diagnosis for this admission?: Yes Plan: Patient had endoscopy, I advance diet today, swallowing appropriately now with some pain (2) Colon cancer metastasized to lung Is this a current diagnosis for this admission?: Yes Plan: Patient was supposed to be seen this week for continued therapy, will need to hold until she is recovered from this episode probably the next 1 to 2 weeks hold. - Time Time Spent: 50 to 70 Minutes - Inpatient Certification Based on my medical assessment, after consideration of the patient's comorbidities, presenting symptoms, or acuity I expect that the services needed warrant INPATIENT care.: Yes I certify that my determination is in accordance with my understanding of Medicare's requirements for reasonable and necessary INPATIENT services [42 CFR 412.3e].: Yes Medical Necessity: Need For IV Fluids, Need for Surgery
[2018-12-03] MEDS: PANTOPRAZOLE SODIUM 40 MG VIAL IV SCH ×2 (09:56→21:57)
[2018-12-03] MEDS: IPRATROPIUM/ALBUTEROL 0.5-2.5 MG/3 ML AMPUL NEB PRN (10:33)
--- NOTE | 2018-12-03 10:38 | RADIOLOGY REPORT (SQ) ---
EXAM DESCRIPTION: CHEST 2 VIEWS COMPLETED DATE/TIME: 12/03/2018 9:07 am REASON FOR STUDY: Pneumonia COMPARISON: 12/02/2018. EXAM PARAMETERS: NUMBER OF VIEWS: two views TECHNIQUE: Digital Frontal and Lateral radiographic views of the chest acquired. RADIATION DOSE: NA LIMITATIONS: none FINDINGS: LUNGS AND PLEURA: Scattered ill-defined pulmonary nodules. No lobar infiltrate. No pleur al effusion or pneumothorax. MEDIASTINUM AND HILAR STRUCTURES: No masses or contour abnormalities. HEART AND VASCULAR STRUCTURES: Heart normal size. No evidence for failure. BONES: No acute findings. HARDWARE: Vascular port. Metallic markers in the lungs. OTHER: No other significant finding. IMPRESSION: NO CHANGE IN APPEARANCE OF THE CHEST. TECHNICAL DOCUMENTATION: JOB ID: [id number] [employer]- All Rights Reserved Reading location - IP/workstation name: [email or web address]
--- NOTE | 2018-12-03 20:18 | PDOC H&P ---
History of Present Illness Admission Date/PCP: 12/02/18 21:09 CULLEN SNATIAGO MD History of Present Illness: JOSIE JOSHI is a 73 year old female known to my practice who presented to the ED with choking feeling after consumption of steak meat product at home. She attempted use water to dislodge the meat product without success and due to inability to swallow subsequently she seek medical attention at the ED. She denied similar episode in the past or any progressive difficulty with swallowing in recent time. She was tolerating soft diet and drinking freely until onset of this event. he was seen in consultation by surgicalist and had EGD procedure intervention by Dr. Ferguson with removal of the meet product. Patient is currently asking for oral drinks. She denied any current chest pain or difficult with breathing. No nausea, vomiting, abdominal pain, diarrhea or constipation. No fever or chills. She denied any headache, dizziness or sinus symptoms. Her morbidities are as listed below. Past Medical History Cardiac Medical History: Reports: Hypertension - medicated Denies: Atrial Fibrillation, Congestive Heart Failure, Coronary Artery Disease, Myocardial Infarction, Hyperlipidema, Peripheral Vascular Disease, Pulmonary Embolism, Heart Murmur Pulmonary Medical History: Reports: Pneumonia - Age 13 Denies: Asthma, Bronchitis, Chronic Obstructive Pulmonary Disease (COPD), Respiratory Failure, Sleep Apnea, Tuberculosis EENT Medical History: Reports: None Neurological Medical History: Reports: None Denies: Seizures Endocrine Medical History: Reports: Diabetes Mellitus Type 2 Denies: Hyperthyroidism, Hypothyroidism Renal/ Medical History: Reports: None Malignancy Medical History: 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 Denies: Leukemia, Lung Cancer GI Medical History: Reports: Hiatal Hernia Denies: Crohn's Disease, Gastroesophageal Reflux Disease, Hepatitis Musculoskeltal Medical History: Reports: None Denies: Arthritis, Fibromyalgia Skin Medical History: Reports: None Psychiatric Medical History: Reports: None Denies: Dementia Hematology: Denies: Anemia, Hemophilia, Sickle Cell Disease Infectious Medical History: Reports: None Denies: HIV Past Surgical History Past Surgical History: Reports: Tubal Ligation Denies: Amputation, Appendectomy, Section, Cholecystectomy, Colostomy, Coronary Artery Bypass Graft, Gastric Bypass Surgery, Herniorrhaphy, Hysterectomy, Mastectomy, Pacemaker, Tonsillectomy Social History Lives with: Family, Spouse/Significant other Smoking Status: Never Smoker Electronic Cigarette use?: No Frequency of Alcohol Use: None Hx Recreational Drug Use: No Drugs: None Hx Prescription Drug Abuse: No - Advance Directive Resuscitation Status: Full Code Family History Family History: None Parental Family History Reviewed: Yes Children Family History Reviewed: Yes Sibling(s) Family History Reviewed.: Yes Medication/Allergy Home Medications: Lorazepam 0.5 mg PO Q6HP PRN 12/03/18 Rivaroxaban [Xarelto] 20 mg PO DAILY 12/03/18 Allergies/Adverse Reactions: oxaliplatin Allergy (Severe, Verified 12/02/18 20:05) Anaphylaxis morphine Adverse Reaction (Unknown, Verified 12/02/18 20:05) Unknown reaction Review of Systems Constitutional: ABSENT: chills, fever(s), headache(s), weight gain, weight loss Eyes: ABSENT: visual disturbances Ears: ABSENT: hearing changes Nose, Mouth, and Throat: ABSENT: headache(s), mouth pain, vertigo Cardiovascular: ABSENT: chest pain, dyspnea on exertion, edema, orthropnea, palpitations Gastrointestinal: PRESENT: dysphagia Genitourinary: ABSENT: dysuria, hematuria Integumentary: ABSENT: rash, wounds Neurological: ABSENT: abnormal gait, abnormal speech, confusion, dizziness, focal weakness, syncope Psychiatric: ABSENT: anxiety, depression, homidical ideation, suicidal ideation Endocrine: ABSENT: cold intolerance, heat intolerance, polydipsia, polyuria Hematologic/Lymphatic: ABSENT: easy bleeding, easy bruising, lymphadenopathy Allergic/Immunologic: ABSENT: seasonal rhinorrhea Physical Exam Vital Signs: Temp Pulse Resp BP Pulse Ox 97.9 F 89 20 134/74 H 99 12/03/18 19:24 12/03/18 19:24 12/03/18 19:24 12/03/18 19:24 12/03/18 19:24 Intake & Output 12/02/18 12/03/18 12/04/18 06:59 06:59 06:59 Intake Total 700 720 Output Total 400 Balance 300 720 Weight 64.1 kg General appearance: PRESENT: no acute distress - post EGD at the time of my bedside evaluation., well-developed, well-nourished Head exam: PRESENT: atraumatic, normocephalic Eye exam: PRESENT: conjunctiva pink, EOMI, PERRLA. ABSENT: scleral icterus Ear exam: PRESENT: normal external ear exam Mouth exam: PRESENT: moist Neck exam: PRESENT: full ROM. ABSENT: carotid bruit, JVD, lymphadenopathy, thyromegaly Respiratory exam: PRESENT: clear to auscultation dora Cardiovascular exam: PRESENT: RRR. ABSENT: diastolic murmur, rubs, systolic murmur Vascular exam: ABSENT: pallor GI/Abdominal exam: PRESENT: normal bowel sounds, soft. ABSENT: distended, guarding, mass, organolmegaly, rebound, tenderness Rectal exam: PRESENT: deferred Extremities exam: ABSENT: pedal edema Musculoskeletal exam: PRESENT: normal inspection Neurological exam: PRESENT: alert, awake, oriented to person, oriented to place, oriented to time, oriented to situation, CN II-XII grossly intact. ABSENT: motor sensory deficit Psychiatric exam: PRESENT: appropriate affect, normal mood. ABSENT: homicidal ideation, suicidal ideation Skin exam: PRESENT: dry, warm Results Laboratory Results: 12/02/18 20:30 12/03/18 00:43 12/02/18 12/02/18 12/02/18 20:30 20:30 20:30 WBC 7.2 RBC 3.73 Hgb 11.1 L Hct 34.5 L MCV 93 MCH 29.8 MCHC 32.2 RDW 19.0 H Plt Count 169 Seg Neutrophils % 80.6 H Sodium 140.6 Potassium 4.0 Chloride 103 Carbon Dioxide 28 Anion Gap 10 BUN 19 Creatinine 0.76 Est GFR ( Amer) > 60 Glucose 229 H Calcium 9.5 Magnesium 2.0 Total Bilirubin 0.4 AST 27 Alkaline Phosphatase 87 Total Protein 6.7 Albumin 3.7 12/03/18 00:43 WBC RBC Hgb Hct MCV MCH MCHC RDW Plt Count Seg Neutrophils % Sodium 139.0 Potassium 4.1 Chloride 104 Carbon Dioxide 27 Anion Gap 8 BUN 17 Creatinine 0.66 Est GFR ( Amer) > 60 Glucose 150 H Calcium 9.1 Magnesium Total Bilirubin AST Alkaline Phosphatase Total Protein Albumin Impressions: Soft Tissue Neck X-Ray 12/02/18 18:22 IMPRESSION: NEGATIVE STUDY OF THE SOFT TISSUES OF THE NECK. Chest X-Ray 12/03/18 00:00 IMPRESSION: NO CHANGE IN APPEARANCE OF THE CHEST. Assessment & Plan - Diagnosis (1) Esophagus, foreign body Qualifiers: Encounter type: initial encounter Qualified Code(s): T18.108A - Unspecified foreign body in esophagus causing other injury, initial encounter Is this a current diagnosis for this admission?: Yes Plan: s/p EGD with foreign body removal. Start on full liquid diet and advance as tolerated. 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 (3) HTN (hypertension) Qualifiers: Hypertension type: essential hypertension Qualified Code(s): I10 - Essential (primary) hypertension Is this a current diagnosis for this admission?: Yes Plan: Maintain on preadmission medication management and dietary salt restrictions. (4) Colon cancer metastasized to brain Is this a current diagnosis for this admission?: Yes Plan: Maintain on supportive care at this time. - Time Time Spent: 50 to 70 Minutes Medications reviewed and adjusted accordingly: Yes Anticipated discharge: Home Within: Other - Inpatient Certification Based on my medical assessment, after consideration of the patient's comorbidities, presenting symptoms, or acuity I expect that the services needed warrant INPATIENT care.: No I certify that my determination is in accordance with my understanding of [employer] 's requirements for reasonable and necessary INPATIENT services [42 CFR 412.3e].: No Medical Necessity: Significant Comorbidiites Make Outpatient Treatment Too R isky, Need Close Monitoring Due to Risk of Patient Decompensation, Need For Continuous Telemetry Monitoring, Risk of Complication if Not Cared For in Hospital, Risk of Diagnosis Which Will Require Inpatient Eval/Care/Monitoring Post Hospital Care: D/C Design Release Engineer Documentation - Plan Summary Plan Summary: See admitting attending physician orders about details of care plan.
--- NOTE | 2018-12-03 21:34 | PDOC PROGRESS REPORT ---
Subjective Progress Note for:: 12/03/18 Subjective:: C/o pains on her sides due to Heimlich maneuver done prior to endoscopic removal of food bolus. Tolerating clears CXR no change, no acute abn other than mets Reason For Visit: ESOPHAGEAL BOLUS Physical Exam Vital Signs: Temp Pulse Resp BP Pulse Ox 97.9 F 89 20 134/74 H 99 12/03/18 19:24 12/03/18 19:24 12/03/18 19:24 12/03/18 19:24 12/03/18 19:24 Intake & Output 12/02/18 12/03/18 12/04/18 06:59 06:59 06:59 Intake Total 700 720 Output Total 400 Balance 300 720 Weight 64.1 kg Exam: abdomen is soft and non tender Results Laboratory Results: 12/02/18 20:30 12/03/18 00:43 12/03/18 00:43 Sodium 139.0 Potassium 4.1 Chloride 104 Carbon Dioxide 27 Anion Gap 8 BUN 17 Creatinine 0.66 Est GFR ( Amer) > 60 Glucose 150 H Calcium 9.1 Impressions: Soft Tissue Neck X-Ray 12/02/18 18:22 IMPRESSION: NEGATIVE STUDY OF THE SOFT TISSUES OF THE NECK. Chest X-Ray 12/03/18 00:00 IMPRESSION: NO CHANGE IN APPEARANCE OF THE CHEST. Assessment & Plan - Time Time Spent with patient: 15-24 minutes - Plan Summary Plan Summary: OK to gradually increase food intake with reg food. Dr Oakes informed Will sign off
[2018-12-04] MEDS: INSULIN LISPRO 100 UNIT/ML 3 ML VIAL SUBCUT SCH ×4 (00:15→17:26)
[2018-12-04] MEDS: NORMAL SALINE 1000 ML 1,000 ML IV PRN (01:45)
[2018-12-04] MEDS: PANTOPRAZOLE SODIUM 40 MG VIAL IV SCH (09:19)
[2018-12-04] MEDS: IPRATROPIUM/ALBUTEROL 0.5-2.5 MG/3 ML AMPUL NEB PRN (10:07)
--- NOTE | 2018-12-04 19:28 | PDOC DISCHARGE SUMMARY ---
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 She was seen in consultation by Dr. Ferguson and taken to EGD suite with successful retrieval of the foreign body. she has been tolerant of full liquid and graduated to regular soft diet today. She remain symptom free and will be discharge home today. She will follow up in the office as instructed upon discharge. - Additional Information Resuscitation Status: Full Code Discharge Diet: As Tolerated Discharge Activity: Activity As Tolerated, Slowly Increase Activity Referrals: CELY RODRIGUEZ MD [Primary Care Provider] - Follow up as needed CULLEN SANTIAGO MD [ACTIVE STAFF] - 12/12/18 10:00 am Prescriptions: Lisinopril 20 mg PO DAILY #90 tablet Home Medications: Lorazepam 0.5 mg PO Q6HP PRN 12/03/18 Rivaroxaban [Xarelto] 20 mg PO DAILY 12/03/18 Lisinopril 20 mg PO DAILY #90 tablet 12/04/18 History of Present Illiness History of Present Illness: JOSIE JOSHI is a 73 year old female known to my practice who presented to the ED with choking feeling after consumption of steak meat product at home. She attempted use water to dislodge the meat product without success and due to inability to swallow subsequently she seek medical attention at the ED. She denied similar episode in the past or any progressive difficulty with swallowing in recent time. She was tolerating soft diet and drinking freely until onset of this event. he was seen in consultation by surgicalist and had EGD procedure intervention by Dr. Ferguson with removal of the meet product. Patient is currently asking for oral drinks. She denied any current chest pain or difficult with breathing. No nausea, vomiting, abdominal pain, constipation or diarrhea. No fever or chills. She denied any headache, dizziness or sinus symptoms. Her morbidities are as listed below. Hospital Course Hospital Course: Patient presented to the ED with choke feeling following consumption of steak with difficulty swallowing her own saliva. She was seen in consultation by Dr. Ferguson and taken to EGD suite with successful retrieval of the foreign body. she has been tolerant of full liquid and graduated to regular soft diet today. She remain symptom free and will be discharge home today. She will follow up in the office as instructed upon discharge. Physical Exam Vital Signs: Temp Pulse Resp BP Pulse Ox 97.7 F 90 16 129/69 H 99 12/04/18 14:59 12/04/18 14:59 12/04/18 14:59 12/04/18 14:59 12/04/18 14:59 Intake & Output 12/03/18 12/04/18 12/05/18 06:59 06:59 06:59 Intake Total 700 1720 1870 Output Total 400 2100 Balance 300 -380 1870 Weight 64.1 kg 67.4 kg General appearance: PRESENT: no acute distress, well-developed, well-nourished Head exam: PRESENT: atraumatic, normocephalic Eye exam: PRESENT: conjunctiva pink. ABSENT: scleral icterus Ear exam: PRESENT: normal external ear exam Mouth exam: PRESENT: moist Respiratory exam: PRESENT: clear to auscultation dora Cardiovascular exam: PRESENT: RRR. ABSENT: diastolic murmur, rubs, systolic murmur GI/Abdominal exam: PRESENT: normal bowel sounds, soft. ABSENT: distended, guarding, mass, organolmegaly, rebound, tenderness Extremities exam: ABSENT: pedal edema Musculoskeletal exam: PRESENT: ambulatory Neurological exam: PRESENT: alert, awake, oriented to person, oriented to place, oriented to time, oriented to situation, CN II-XII grossly intact. ABSENT: motor sensory deficit Psychiatric exam: PRESENT: appropriate affect, normal mood. ABSENT: homicidal ideation, suicidal ideation Skin exam: PRESENT: dry, warm Results Laboratory Results: WBC 7.2 10^3/uL (4.0-10.5) 12/02/18 20:30 RBC 3.73 10^6/uL (3.72-5.28) 12/02/18 20:30 Hgb 11.1 g/dL (12.0-15.5) L 12/02/18 20:30 Hct 34.5 % (36.0-47.0) L 12/02/18 20:30 MCV 93 fl (80-97) 12/02/18 20:30 MCH 29.8 pg (27.0-33.4) 12/02/18 20:30 MCHC 32.2 g/dL (32.0-36.0) 12/02/18 20:30 RDW 19.0 % (11.5-14.0) H 12/02/18 20:30 Plt Count 169 10^3/uL (150-450) 12/02/18 20:30 Lymph % (Auto) 8.4 % (13-45) L 12/02/18 20:30 [place] % (Auto) 7.8 % (3-13) 12/02/18 20:30 Eos % (Auto) 2.7 % (0-6) 12/02/18 20:30 Baso % (Auto) 0.5 % (0-2) 12/02/18 20:30 Absolute Neuts (auto) 5.8 10^3/uL (1.7-8.2) 12/02/18 20:30 Absolute Lymphs (auto) 0.6 10^3/uL (0.5-4.7) 12/02/18 20:30 Absolute Monos (auto) 0.6 10^3/uL (0.1-1.4) 12/02/18 20:30 Absolute Eos (auto) 0.2 10^3/uL (0.0-0.6) 12/02/18 20:30 Absolute Basos (auto) 0.0 10^3/uL (0.0-0.2) 12/02/18 20:30 Seg Neutrophils % 80.6 % (42-78) H 12/02/18 20:30 PT 13.4 SEC (11.4-15.4) 12/02/18 20:30 INR 1.02 12/02/18 20:30 APTT 32.7 SEC (23.5-35.8) 12/02/18 20:30 Sodium 139.0 mmol/L (137-145) 12/03/18 00:43 Potassium 4.1 mmol/L (3.6-5.0) 12/03/18 00:43 Chloride 104 mmol/L (98-107) 12/03/18 00:43 Carbon Dioxide 27 mmol/L (22-30) 12/03/18 00:43 Anion Gap 8 (5-19) 12/03/18 00:43 BUN 17 mg/dL (7-20) 12/03/18 00:43 Creatinine 0.66 mg/dL (0.52-1.25) 12/03/18 00:43 Est GFR ( Amer) > 60 (>60) 12/03/18 00:43 Est GFR (MDRD) Non-Af > 60 (>60) 12/03/18 00:43 Glucose 150 mg/dL (75-110) H 12/03/18 00:43 POC Glucose 162 mg/dL (70-110) H 12/04/18 11:08 Calcium 9.1 mg/dL (8.4-10.2) 12/03/18 00:43 Magnesium 2.0 mg/dL (1.6-2.3) 12/02/18 20:30 Total Bilirubin 0.4 mg/dL (0.2-1.3) 12/02/18 20:30 Direct Bilirubin 0.2 mg/dL (0.0-0.4) 12/02/18 20:30 Neonat Total Bilirubin Not Reportable 12/02/18 20:30 Neonat Direct Bilirubin Not Reportable 12/02/18 20:30 Neonat Indirect Bili Not Reportable 12/02/18 20:30 AST 27 U/L (14-36) 12/02/18 20:30 ALT 17 U/L (<35) 12/02/18 20:30 Alkaline Phosphatase 87 U/L (38-126) 12/02/18 20:30 Total Protein 6.7 g/dL (6.3-8.2) 12/02/18 20:30 Albumin 3.7 g/dL (3.5-5.0) 12/02/18 20:30 Impressions: Chest X-Ray 12/02/18 18:22 IMPRESSION: FAINT PULMONARY NODULE SECONDARY TO METASTASES. NO ACUTE RADIOGRAPHIC FINDING IN THE CHEST. Soft Tissue Neck X-Ray 12/02/18 18:22 IMPRESSION: NEGATIVE STUDY OF THE SOFT TISSUES OF THE NECK. Chest X-Ray 12/03/18 00:00 IMPRESSION: NO CHANGE IN APPEARANCE OF THE CHEST. Plan Health Concerns: Metastatic colon cancer with brain involvement. Avoidance of recurrent esophageal foreign body obstruction. Plan of Treatment: Maintain on pre-admission medication management. Avoid swallowing solid meat Goals: Continue preadmission medication and community support Time Spent: Less than 30 Minutes Stroke Is this a Stroke Patient?: No Acute Heart Failure - Is this a Heart Failure Patient?: No
[2018-12-04 19:47] VITALS: BP 156/88
== END 2018-12-04 20:08 | disposition home or self-care (01) ==
LOC: ER 18:02 → EH 21:09 → INTOOBSV 21:09 → 3N 23:00
PROVIDERS: ADMIT Internal Medicine Geriatric Medicine; ATTEND Internal Medicine Geriatric Medicine
PROC: 0DC18ZZ Extirpation of Matter from Upper Esophagus, Via Natural or Artificial Opening Endoscopic (ICD-10-PCS; principal; 2018-12-02 21:30)
DX: T18.128A Food in esophagus causing other injury, initial encounter (principal); X58.XXXA Exposure to other specified factors, initial encounter; E11.69 Type 2 diabetes mellitus with other specified complication; I10 Essential (primary) hypertension; C18.9 Malignant neoplasm of colon, unspecified; C78.00 Secondary malignant neoplasm of unspecified lung; C79.31 Secondary malignant neoplasm of brain; C79.72 Secondary malignant neoplasm of left adrenal gland; L50.0 Allergic urticaria; T45.1X5A Adverse effect of antineoplastic and immunosuppressive drugs, initial encounter; B02.9 Zoster without complications; Z98.51 Tubal ligation status; Z90.49 Acquired absence of other specified parts of digestive tract; Z79.899 Other long term (current) drug therapy; Z79.84 Long term (current) use of oral hypoglycemic drugs; Z79.01 Long term (current) use of anticoagulants
CPT/HCPCS: 99285; 96372; 43247; 36415; 82962 ×2; 83735; 85025; 85610; 85730; 80053; 71046 ×2; 70360; 94640 ×2; 00731; J2250; J3010; J1610; C9113 ×3; J2405; J7030 ×2; J2704; A9270 ×3; J3490; 731; J7620

== ENCOUNTER 2018-12-11 09:13 | Outpatient (CLI) | payer MEDICARE ==
[~2018-12-11 09:13] MED LIST changes: +BEVACIZUMAB IV PRN; -NORMAL SALINE 1000 ML @ AS DIRECTED IV PRN; +NORMAL SALINE 250 ML IV PRN; +NORMAL SALINE IV PRN
[2018-12-11 09:53] VITALS: BP 160/83
== END 2018-12-11 11:05 | disposition home or self-care (01) ==
LOC: II 09:13 → 5TH 09:15 → II 11:05
PROVIDERS: ATTEND Internal Medicine
PROC: 3E0430M Introduction of Antineoplastic, Monoclonal Antibody, into Central Vein, Percutaneous Approach (ICD-10-PCS; principal; 2018-12-11)
DX: Z51.11 Encounter for antineoplastic chemotherapy (principal); C20 Malignant neoplasm of rectum; C22.0 Liver cell carcinoma
CPT/HCPCS: 96413; J7050; J9035 ×2; J1642

== ENCOUNTER 2019-01-01 08:57 | Outpatient (CLI) | payer MEDICARE ==
[~2019-01-01 08:57] MED LIST changes: -NORMAL SALINE 250 ML IV PRN
[2019-01-01] MEDS: NORMAL SALINE 250 ML IV PRN ×2 (09:05→09:09)
[2019-01-01 09:14] VITALS: BP 148/65
== END 2019-01-01 10:40 | disposition home or self-care (01) ==
LOC: II 08:57 → 5TH 08:58 → II 10:40
PROVIDERS: ATTEND Internal Medicine
PROC: 3E0430M Introduction of Antineoplastic, Monoclonal Antibody, into Central Vein, Percutaneous Approach (ICD-10-PCS; principal; 2019-01-01)
DX: Z51.11 Encounter for antineoplastic chemotherapy (principal); C20 Malignant neoplasm of rectum
CPT/HCPCS: 96413; J7050; J9035 ×2; J1642

== ENCOUNTER 2019-01-22 08:28 | Outpatient (CLI) | payer MEDICARE ==
[~2019-01-22 08:28] MED LIST changes: +NORMAL SALINE 250 ML @ KVO IV PRN
[2019-01-22 08:43] VITALS: BP 151/77
== END 2019-01-22 10:05 | disposition home or self-care (01) ==
LOC: II 08:28 → 5TH 08:28 → II 10:05
PROVIDERS: ATTEND Internal Medicine
DX: Z51.11 Encounter for antineoplastic chemotherapy (principal); C20 Malignant neoplasm of rectum
CPT/HCPCS: 96413; J7050; J9035 ×2; J1642

== ENCOUNTER → 2019-02-08 | Outpatient (CLI) | payer MEDICAID, MEDICARE ==
--- NOTE | 2019-02-08 11:07 | RADIOLOGY REPORT (SQ) ---
EXAM DESCRIPTION: CT CHEST WITH; CT ABD/PELVIS WITH IV ORAL COMPLETED DATE/TIME: 02/08/2019 8:59 am REASON FOR STUDY: C20 MALIGNANT NEOPLASM OF RECTUM C20 MALIGNANT NEOPLASM OF RECTUM COMPARISON: PET-CT 06/25/2017 CT chest abdomen and pelvis 04/17/2018, 08/09/2018, 11/12/2018 CONTRAST TYPE AND DOSE: contrast/concentration: Isovue 350.00 mg/ml; Total Contrast Delivered: 77.0 ml; Total Saline Delivered: 67.0 ml RENAL FUNCTION: Creatinine 0.7 TECHNIQUE: CT scan of the chest performed using helical scanning technique with dynamic intravenous contrast injection. Images reviewed with lung, soft tissue and bone windows. Reconstructed coronal a nd sagittal MPR images reviewed. All images stored on PACS. CT scan of the abdomen and pelvis performed with intravenous and without oral contrastusing helical s alma technique with dynamic intravenous contrast injection. Images reviewed with lung, soft tissu e and bone windows. Reconstructed coronal and sagittal MPR images reviewed. Delayed images for eval uation of the urinary system also acquired and evaluated. All images stored on PACS. All CT scanners at this facility use dose modulation, iterative reconstruction, and/or weight based d osing when appropriate to reduce radiation dose to as low as reasonably achievable (ALARA). [facility]: Dose Right [facility]: CareDose [facility]: Dose Right [facility]: Teradose 4D [facility]: [employer] RADIATION DOSE: CT Rad equipment meets quality standard of care and radiation dose reduction techniq ues were employed. CTDIvol: 4.4 - 4.8 mGy. DLP: 651 mGy-cm. . LIMITATIONS: None. FINDINGS: CHEST: LUNGS AND PLEURA: There are multiple lung nodules, index lesions are as follows: Lingular mass axial image 30, measures 2.3 x 1.1 cm in size (was 2 x 1 cm on 11/12/2018, 2 x 0.5 cm on 08/09/2018). Posteromedial right lung apex axial image 17, measures 3.7 x 2.4 cm in size (was 3.7 x 2.3 cm on 11/12, 3.4 x 2 cm on 08/09/2018). Right upper lobe 2.4 x 2 cm mass, axial image 18 (was 2 x 1.6 cm on 11/12/2018, was 2 x 2 cm on 019). No acute infiltrates. No pleural effusion. No pneumothorax. HILAR AND MEDIASTINAL STRUCTURES: Persistent 1.4 x 1.2 cm precarinal lymph node axial image 22) uncha nged from 11/12/2018, was 2.3 x 2.1 cm on 08/09/2018). HEART AND VASCULAR STRUCTURES: No aneurysm or dissection. No central pulmonary emboli. No pericardi al effusion. HARDWARE: Right-sided permanent central line tip superior vena cava THYROID AND OTHER SOFT TISSUES: No masses. No adenopathy. BONES: No significant finding. OTHER: No other significant finding. ABDOMEN AND PELVIS: LIVER: There is a 4 x 4 cm mass in the left lobe liver best shown on axial abdominal series (wa s 3 x 3 cm in size 11/12/2018, 2.3 cm diameter 08/09/2018). SPLEEN: Normal size. No focal lesions. PANCREAS: No masses. No significant calcifications. No adjacent inflammation or peripancreatic fluid collections. Pancreatic duct not dilated. 1 cm cyst at the pancreatic tail unchanged from multiple p revious studies GALLBLADDER: Tiny stones in the gallbladder. No gallbladder wall thickening or pericholecystic fluid ADRENAL GLANDS: Right adrenal gland unremarkable. Left adrenal 4 x 3.5 cm mass, similar compared to 11/12/2018 and 08/09/2018 RIGHT KIDNEY AND URETER: No solid masses. 1 cm right lower pole renal cortical cyst unchanged from m ultiple previous studies. 5 mm right lower pole intrarenal nonobstructive stone. . No hydronephrosi s or hydroureter. LEFT KIDNEY AND URETER: No solid masses. No intrarenal or ureteral stones. No hydronephrosis or hydr oureter. AORTA AND VESSELS: No aneurysm. No dissection. Renal arteries, SMA, celiac without stenosis. RETROPERITONEUM: No retroperitoneal adenopathy, hemorrhage or masses. BOWEL AND PERITONEAL CAVITY: No masses or inflammatory changes. No free fluid or peritoneal masses. Surgical anastomotic shirley at the rectosigmoid. Stranding in the presacral fat post surgery/radiat ion, stable APPENDIX: Normal. ABDOMINAL WALL: Intact laparoscopic umbilical hernia repair PELVIS: No mass or free fluid. Normal bladder. Normal size female pelvic organs BONES: No significant or acute findings. OTHER: No other significant finding. IMPRESSION: Slight increase in size of liver mass compared to CT exam 11/12/2018 and 08/09/2018 Stable left adrenal mass compared to prior studies Slight increase in size of lung nodules TECHNICAL DOCUMENTATION: JOB ID: [id number] Quality ID # [id number]: Final reports with documentation of one or more dose reduction techniques (e.g., Au tomated exposure control, adjustment of the mA and/or kV according to patient size, use of iterative reconstruction technique) 2010 [employer]- All Rights Reserved Reading location - IP/workstation name: [email or web address]
== END ==
LOC: RAD 08:32
PROVIDERS: ATTEND Internal Medicine
DX: C20 Malignant neoplasm of rectum (principal)
CPT/HCPCS: 71260; 74177

== ENCOUNTER 2019-02-12 08:34 | Outpatient (CLI) | payer MEDICARE ==
[~2019-02-12 08:34] MED LIST changes: -NORMAL SALINE 250 ML @ KVO IV PRN; +NORMAL SALINE 250 ML IV PRN
[2019-02-12 09:01] VITALS: BP 151/74
== END 2019-02-12 10:12 | disposition home or self-care (01) ==
LOC: II 08:34 → 5TH 08:37 → II 10:12
PROVIDERS: ATTEND Internal Medicine
DX: Z51.11 Encounter for antineoplastic chemotherapy (principal); C20 Malignant neoplasm of rectum
CPT/HCPCS: 96413; J7050; J9035 ×2; J1642

== ENCOUNTER → 2019-07-29 | Outpatient (CLI) | payer MEDICARE, MEDICAID ==
--- NOTE | 2019-07-29 09:08 | RADIOLOGY REPORT (SQ) ---
EXAM DESCRIPTION: CT CHEST WITH IMAGES COMPLETED DATE/TIME: 07/29/2019 8:26 am REASON FOR STUDY: RECTUM CA C20 MALIGNANT NEOPLASM OF RECTUM COMPARISON: 02/08/2019 TECHNIQUE: CT scan of the chest performed using helical scanning technique with dynamic intravenous contrast injection. Images reviewed with lung, soft tissue and bone windows. Reconstructed coronal and sagittal MPR and MIP images reviewed. All images stored on PACS. All CT scanners at this facility use dose modulation, iterative reconstruction, and/or weight based d osing when appropriate to reduce radiation dose to as low as reasonably achievable (ALARA). [facility]: Dose Right [facility]: CareDose [facility]: Dose Right [facility]: Teradose 4D [facility]: Smart [email or web address] CONTRAST TYPE AND DOSE: See abdomen RENAL FUNCTION: Creatinine 0.9 RADIATION DOSE: CT Rad equipment meets quality standard of care and radiation dose reduction techniq ues were employed. CTDIvol: 4.5 - 4.5 mGy. DLP: 653 mGy-cm. . LIMITATIONS: None. FINDINGS: LUNGS AND PLEURA: Multiple bilateral pulmonary nodules, index lesions are as follows: Lingular mass (series 6, image 60) measures 2.7 x 1.4 cm, previously 2.3 x 1.1 cm. Posteromedial rig ht lung apex lesion (series 6, image 34) measures 4.0 x 2.3 cm, previously 3.7 x 2.4 cm. Right upper lobe mass (series 6, image 32) measures 3.1 x 2.9 cm, previously 2.4 x 2.0 cm. There are multiple a dditional pulmonary nodules which demonstrate interval increase in size compared to prior exam. No n ew definitive nodules. No pleural effusion or pneumothorax. HILAR AND MEDIASTINAL STRUCTURES: Persistent mediastinal adenopathy. The previously referenced preca rinal node demonstrates mild interval increase in size and measures 15 mm in short axis, previously 1 3 mm (series 2, image 22). Additional right hilar mass/ adenopathy as above. No new discrete medias tinal adenopathy. HEART AND VASCULAR STRUCTURES: Normal heart size. Scattered coronary atherosclerosis. No significan t pericardial effusion. HARDWARE: Right-sided chest port with catheter tip right atrium. Fiducial markers within the lungs b ilaterally. UPPER ABDOMEN: See separate report of the CT of the abdomen. THYROID AND OTHER SOFT TISSUES: No masses. No adenopathy. BONES: No acute bony abnormality. No discrete lytic or blastic osseous lesions. OTHER: No other significant finding. IMPRESSION: 1. Interval increase in size of bilateral pulmonary nodules and mediastinal adenopathy compared to prior exam and as detailed above. 2. No new discrete lesions within the thorax. 3. Please see same-day abdomen CT for findings below the diaphragm. TECHNICAL DOCUMENTATION: JOB ID: [id number] Quality ID # [id number]: Final reports with documentation of one or more dose reduction techniques (e.g., Au tomated exposure control, adjustment of the mA and/or kV according to patient size, use of iterative reconstruction technique) 2010 [employer]- All Rights Reserved Reading location - IP/workstation name: [email or web address]
--- NOTE | 2019-07-29 09:21 | RADIOLOGY REPORT (SQ) ---
EXAM DESCRIPTION: CT ABD/PELVIS WITH IV ORAL IMAGES COMPLETED DATE/TIME: 07/29/2019 8:26 am REASON FOR STUDY: RECTUM CA C20 MALIGNANT NEOPLASM OF RECTUM COMPARISON: 02/08/2019. Please see separately dictated CT chest from today. TECHNIQUE: CT scan of the abdomen and pelvis performed with intravenous and oral contrast using nabor cady scanning technique with dynamic intravenous contrast injection. Images reviewed with lung, soft t issue, and bone windows. Reconstructed coronal and sagittal MPR images reviewed. Delayed images for e valuation of the urinary system also acquired. All images stored on PACS. All CT scanners at this facility use dose modulation, iterative reconstruction, and/or weight based d osing when appropriate to reduce radiation dose to as low as reasonably achievable (ALARA). [facility]: Dose Right [facility]: CareDose [facility]: Dose Right [facility]: Teradose 4D [facility]: [employer] RENAL FUNCTION: GFR > 60. RADIATION DOSE: . LIMITATIONS: None. FINDINGS: LOWER CHEST: See separate dictation of the chest. LIVER: Mass in the lateral segment left lobe is progressive. This now measures up to 5.9 cm in maxim al transverse dimension. There are several scattered smaller satellite nodules around the periphery of the main mass. The largest of these satellites measures approximately 1.5 cm. SPLEEN: Normal size. No focal lesions. PANCREAS: 2.5 cm cystic mass at the splenic hilum along the tail of the pancreas. This measures 2.5 cm today and has enlarged. No other pancreatic mass detected. GALLBLADDER: Mild cholelithiasis without CT evidence of acute cholecystitis. ADRENAL GLANDS: Right adrenal remains normal. Left adrenal heterogeneous mass measures up to 5.4 cm, increased in size. RIGHT KIDNEY AND URETER: No developing obstruction. At least 1 tiny stable cyst. Evidence of nonobs tructing calculi. LEFT KIDNEY AND URETER: No solid masses. No significant calcification. No hydronephrosis or hydrouret er. AORTA AND VESSELS: No aneurysm. No dissection. Renal arteries, SMA, celiac without stenosis. RETROPERITONEUM: No retroperitoneal adenopathy, hemorrhage or masses. BOWEL AND PERITONEAL CAVITY: No evidence of focal wall thickening or suspicious mass or obstruction. Moderate proximal colonic stool. No ascites or gross developing implants. APPENDIX: Normal. PELVIS: No significant masses. Normal bladder. No free fluid. ABDOMINAL WALL: No masses. No hernias. BONES: No significant or acute findings. OTHER: No other significant finding. IMPRESSION: 1. Progressive liver metastatic disease. Previously noted dominant lesion in the lateral segment lef t lobe has increased in size and there are now small satellite lesions adjacent. 2. Progressive left adrenal metastatic lesion. 3. Increase in size of a cyst along the pancreatic tail. TECHNICAL DOCUMENTATION: JOB ID: [id number] Quality ID # [id number]: Final reports with documentation of one or more dose reduction techniques (e.g., Au tomated exposure control, adjustment of the mA and/or kV according to patient size, use of iterative reconstruction technique) 2010 [employer]- All Rights Reserved Reading location - IP/workstation name: [email or web address]
== END ==
LOC: RAD 07:54
PROVIDERS: ATTEND Internal Medicine
DX: C20 Malignant neoplasm of rectum (principal); C78.7 Secondary malignant neoplasm of liver and intrahepatic bile duct; C79.72 Secondary malignant neoplasm of left adrenal gland; R91.8 Other nonspecific abnormal finding of lung field
CPT/HCPCS: 71260; 74177; 82565

== ENCOUNTER 2019-08-21 09:01 | Outpatient (CLI) | payer MEDICARE, MEDICAID ==
[~2019-08-21 09:01] MED LIST changes: +ATROPINE SULFATE INJ 0.4 MG/1 ML VIAL IV PRN; -BEVACIZUMAB IV PRN; +DEXAMETH 10 MG/ONDANSETRON 16 MG in NS 50 ML IV PRN; +DIPHENHYDRAMINE 50 MG in NS 50 ML IV PRN; +FAMOTIDINE 20 MG in NS 50 ML IV PRN; +IRINOTECAN HCL IV PRN; +NORMAL SALINE 250 ML @ KVO IV PRN; -NORMAL SALINE 250 ML IV PRN; +PANITUMUMAB IV PRN
[2019-08-21 09:34] VITALS: BP 137/74
== END 2019-08-21 13:49 | disposition home or self-care (01) ==
LOC: II 09:01 → 5TH 09:04 → II 13:49
PROVIDERS: ATTEND Internal Medicine
DX: Z51.11 Encounter for antineoplastic chemotherapy (principal); C20 Malignant neoplasm of rectum
CPT/HCPCS: 96413; 96367; 96375; 96417; J0461; J1200; J9206; J2405; J7050; J7040; S0028; J1100; J9303; J1642; 96415

== ENCOUNTER 2019-09-04 08:28 | Outpatient (CLI) | payer MEDICARE, MEDICAID ==
[2019-09-04 08:44] VITALS: BP 126/75
== END 2019-09-04 13:36 | disposition home or self-care (01) ==
LOC: II 08:28 → 5TH 08:29 → II 13:36
PROVIDERS: ATTEND Internal Medicine
DX: Z51.11 Encounter for antineoplastic chemotherapy (principal); C20 Malignant neoplasm of rectum
CPT/HCPCS: 96413; 96415; 96367; 96375; 96417; J0461; J1200; J9206; J2405; J7050; J7040; S0028; J1100; J9303; J1642

== ENCOUNTER → 2019-10-04 | Outpatient (CLI) | payer MEDICARE, MEDICAID ==
--- NOTE | 2019-10-04 12:29 | XCELERA REPORT ---
[address] [address] Transthoracic Echocardiogram Report Name: JOSIE JOSHI Age: 74 yrs Gender: Female : 1945 Patient Status: Outpatient Patient Location: Study Date: 10/04/2019 08:01 AM History: Chest pin Dyspnea Colorectal cancer with lung metastasis Height: 66 in Weight: 124 lb BSA: 1.6 m2 Procedure: A complete two-dimensional transthoracic echocardiogram was performed (2D, M-mode, spectral and color flow Doppler). The study was technically difficult with many images being suboptimal in quality. Reason For Study: CHRONIC ISCHEMIC HEART DISEASE Previous Evaluation: No previous studies were available. History: Shortness of breath. Chest pain. Coloretcal cancer with lung mets. Ordering Physician: MJ HOGAN Performed By: Lisa Chung Interpretation Summary Left ventricular systolic function is normal. The Ejection Fraction estimate is 55-60% The right ventricle is normal in size and function. There is a trace amount of mitral regurgitation There is no aortic valve stenosis There is a mild amount of tricuspid regurgitation There is no pericardial effusion. MMode/2D Measurements & Calculations RVDd: 1.9 cm LVIDd: 3.3 cm FS: 27.8 % Ao root diam: 2.9 cm IVSd: 1.2 cm LVIDs: 2.4 cm EDV(Teich): 43.1 ml Ao root area: 6.5 cm2 LVPWd: 0.93 cm ESV(Teich): 19.4 ml EF(Teich): 55.1 % Doppler Measurements & Calculations MV E max jorge: MV dec slope: Ao V2 max: LV V1 max P.0 cm/sec 897.1 cm/sec2 95.8 cm/sec 2.7 mmHg MV dec time: 0.16 secAo max PG: LV V1 max: 3.7 mmHg 81.9 cm/sec PA V2 max: TR max jorge: 78.1 cm/sec 220.2 cm/sec PA max P.4 mmHg TR max P.5 mmHg Left Ventricle The left ventricle is normal in size. There is mild concentric left ventricular hypertrophy. Left ventricular systolic function is normal. The Ejection Fraction estimate is 55-60%. LV diastolic function not assessed. No regional wall motion abnormalities noted. Right Ventricle The right ventricle is normal in size and function. Atria The right atrium is normal. The left atrial size is normal. The interatrial septum is intact with no evidence for an atrial septal defect. There is no Doppler evidence for an interatrial shunt. Mitral Valve Calcified mitral apparatus. There is a trace amount of mitral regurgitation. Aortic Valve The aortic valve is sclerotic, but shows no functional abnormality. There is no aortic valve stenosis. No aortic regurgitation is present. Tricuspid Valve The tricuspid valve is normal in structure and function. There is a mild amount of tricuspid regurgitation. Right ventricular systolic pressure is estimated to be within upper limit of normal. Pulmonic Valve The pulmonic valve is not well visualized. There is a mild amount of pulmonic regurgitation. Great Vessels The aortic root is normal size. The inferior vena cava appeared normal and decreased > 50% with respiration (RAP 5-10 mmHg). Effusions There is no pericardial effusion. : MJ HOGAN Anil
== END ==
LOC: SP 08:21
PROVIDERS: ATTEND Internal Medicine
DX: I25.9 Chronic ischemic heart disease, unspecified (principal); R00.2 Palpitations; R06.02 Shortness of breath; R00.0 Tachycardia, unspecified; I10 Essential (primary) hypertension
CPT/HCPCS: 93306

== ENCOUNTER 2019-10-06 14:53 | Inpatient (IN) | payer MEDICARE, MEDICAID ==
[2019-10-06] MEDS ORDERED: ONDANSETRON 4 MG TAB.RAPDIS PO ONE (15:54)
[2019-10-06 16:33] LABS: ABSOLUTE LYMPHOCYTES (AUTO) 0.2 10^3/uL (0.5-4.7); ABSOLUTE MONOCYTES (AUTO) 0.3 10^3/uL (0.1-1.4); BASOPHILS % (AUTO) 0.5 % (0-2); HEMATOCRIT 28.2 % (36.0-47.0); HEMOGLOBIN 9.4 g/dL (12.0-15.5); LYMPHOCYTES % (AUTO) 6.3 % (13-45); MEAN CORPUSCULAR HEMOGLOBIN 29.5 pg (27.0-33.4); MEAN CORPUSCULAR HGB CONC 33.4 g/dL (32.0-36.0); MEAN CORPUSCULAR VOLUME 88 fl (80-97); MONOCYTES % (AUTO) 9.5 % (3-13); PLATELET COUNT 120 10^3/uL (150-450); SEGMENTED NEUTROPHILS % (AUTO) 83.7 % (42-78); TOTAL CELLS COUNTED % (AUTO) 100 %; WHITE BLOOD COUNT 3.6 10^3/uL (4.0-10.5)
[2019-10-06 16:36] LABS: APPEARANCE,URINE CLOUDY; BILIRUBIN,URINE NEGATIVE (NEGATIVE); COLOR,URINE AMBER; GLUCOSE, URINE NEGATIVE (NEGATIVE); KETONES,URINE NEGATIVE (NEGATIVE); PROTEIN,URINE 100 mg/dL (NEGATIVE); URINE SPECIFIC GRAVITY 1.021
[2019-10-06 16:52] LABS: ALBUMIN 3.2 g/dL (3.5-5.0); ALKALINE PHOSPHATASE 100 U/L (38-126); ANION GAP 5 (5-19); ASPARTATE AMINO TRANSFERASE 58 U/L (14-36); BILIRUBIN,DIRECT 0.4 mg/dL (0.0-0.4); BILIRUBIN,TOTAL 0.8 mg/dL (0.2-1.3); BLOOD UREA NITROGEN 15 mg/dL (7-20); CALCIUM 8.6 mg/dL (8.4-10.2); CARBON DIOXIDE 26 mmol/L (22-30); CHLORIDE 94 mmol/L (98-107); GLUCOSE 182 mg/dL (75-110); POTASSIUM 3.7 mmol/L (3.6-5.0); TOTAL PROTEIN 6.1 g/dL (6.3-8.2)
--- NOTE | 2019-10-06 17:07 | RADIOLOGY REPORT (SQ) ---
EXAM DESCRIPTION: CT PELVIS WITHOUT IMAGES COMPLETED DATE/TIME: 10/06/2019 4:50 pm REASON FOR STUDY: pain, unable to bear weight COMPARISON: CT abdomen and pelvis 07/29/2019 TECHNIQUE: CT scan of the pelvis performed without intravenous or oral contrast. Images reviewed wi th soft tissue and bone windows. Reconstructed coronal and sagittal MPR images reviewed. All images stored on PACS. All CT scanners at this facility use dose modulation, iterative reconstruction, and/or weight based d osing when appropriate to reduce radiation dose to as low as reasonably achievable (ALARA). [facility]: Dose Right [facility]: CareDose [facility]: Dose Right [facility]: Teradose 4D [facility]: [employer] RADIATION DOSE: CT Rad equipment meets quality standard of care and radiation dose reduction techniq ues were employed. CTDIvol: 4.8 mGy. DLP: 145 mGy-cm. mGy. LIMITATIONS: None. FINDINGS: PELVIC BONES: No acute fracture. No new or worrisome bone lesions. Expansile lesion in th e left iliac wing is unchanged compared to multiple remote studies. VISUALIZED SPINE: No acute findings. HIP(S): No acute fracture or dislocation. No worrisome bone lesions. PELVIC SOFT TISSUES: Postsurgical changes of the rectum and small bowel are noted without discrete ev idence for bowel obstruction. EXTRAPELVIC SOFT TISSUES: Multiple surgical tacks are present in the anterior abdominal wall. OTHER: No other significant finding. IMPRESSION: No acute fracture in the pelvis. TECHNICAL DOCUMENTATION: JOB ID: [id number] Quality ID # [id number]: Final reports with documentation of one or more dose reduction techniques (e.g., Au tomated exposure control, adjustment of the mA and/or kV according to patient size, use of iterative reconstruction technique) 2010 [employer]- All Rights Reserved Reading location - IP/workstation name: [email or web address]
--- NOTE | 2019-10-06 18:30 | ER Document Report ---
ED General - General Chief Complaint: Hip Pain Stated Complaint: UNABLE TO STAND Time Seen by Provider: 10/06/19 18:26 Primary Care Provider: CULLEN SANTIAGO MD [Primary Care Provider] - Follow up as needed TRAVEL OUTSIDE OF THE [place] IN LAST 30 DAYS: No - HPI Notes: 74-year-old female presents with leg pain. Patient states that for the past 2 days she has had bilateral upper leg pain. It is constant, she has never had pain like this before. She denies any known injury or trauma. Pain increases with walking and standing. She denies numbness or weakness in her legs. Denies loss of bowel or bladder control. She received chemotherapy about 2 weeks ago. She reports chronic nausea and vomiting, no change in her symptoms. Denies abdominal pain. - Related Data Allergies/Adverse Reactions: oxaliplatin Allergy (Severe, Verified 10/06/19 16:32) Anaphylaxis morphine Adverse Reaction (Unknown, Verified 10/06/19 16:32) Unknown reaction Home Medications: Lisinopril, Metoprolol, Metformin Past Medical History - General Information source: Patient, Relative - Social History Smoking Status: Unknown if Ever Smoked Family History: None - Past Medical History Cardiac Medical History: Reports: Hx Hypertension - medicated Denies: Hx Atrial Fibrillation, Hx Congestive Heart Failure, Hx Coronary Artery Disease, Hx Heart Attack, Hx Hypercholesterolemia, Hx Peripheral Vascular Disease, Hx Pulmonary Embolism, Hx Heart Murmur Pulmonary Medical History: Reports: Hx Pneumonia - Age 13 Denies: Hx Asthma, Hx Bronchitis, Hx COPD, Hx Respiratory Failure, Hx Sleep Apnea, Hx Tuberculosis Neurological Medical History: Denies: Hx Cerebrovascular Accident, Hx Seizures, Hx Parkinson's Disease Endocrine Medical History: Reports: Hx Diabetes Mellitus Type 2. 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 Denies: Hx Leukemia, Hx Lung Cancer GI Medical History: Reports: Hx Hiatal Hernia. Denies: Hx Crohn's Disease, Hx Gastroesophageal Reflux Disease, Hx Hepatitis, Hx Irritable Bowel, Hx Liver Failure, Hx Pancreatitis, Hx Ulcer Musculoskeletal Medical History: Denies Hx Arthritis, Denies Hx Fibromyalgia, Denies Hx Muscular Dystrophy, Denies Hx Systemic Lupus Erythematosus Psychiatric Medical History: Denies: Hx Dementia Traumatic Medical History: Reports: Hx Fractures - Josesito index fingers, Lt little toe Infectious Medical History: Denies: Hx Hepatitis, Hx HIV Past Surgical History: Reports: Hx Bowel Surgery, Hx Tubal Ligation. Denies: Hx Appendectomy, Hx Section, Hx Cholecystectomy, Hx Colostomy, Hx Coronary Artery Bypass Graft, Hx Gastric Bypass Surgery, Hx Herniorrhaphy, Hx Hysterectomy, Hx Mastectomy, Hx Open Heart Surgery, Hx Pacemaker, Hx Tonsillectomy - Immunizations Hx Diphtheria, Pertussis, Tetanus Vaccination: Yes Hx Pneumococcal Vaccination: 12/14/13 Review of Systems - Review of Systems Constitutional: Fever EENT: No symptoms reported Cardiovascular: denies: Chest pain Respiratory: denies: Short of breath Gastrointestinal: Nausea, Vomiting Genitourinary: No symptoms reported Female Genitourinary: No symptoms reported Musculoskeletal: Muscle pain Skin: No symptoms reported Hematologic/Lymphatic: No symptoms reported Neurological/Psychological: denies: Weakness, Numbness Physical Exam - Vital signs Vitals: Temp Pulse Resp BP Pulse Ox 101.7 F H 96 20 117/60 96 10/06/19 15:08 10/06/19 15:08 10/06/19 15:08 10/06/19 15:08 10/06/19 15:08 Interpretation: Febrile - General General appearance: Other - Chronically ill-appearing In distress: None - HEENT Head: Normocephalic, Atraumatic Extraocular movements intact: Yes Pupils: PERRL - Respiratory Breath sounds: Normal, Nonproductive cough - Cardiovascular Rhythm: Regular Heart sounds: Normal auscultation Normal capillary refill: Yes - Abdominal Distension: No distension Bowel sounds: Normal Tenderness: Nontender - Back Back: Nontender - Extremities General lower extremity: Normal ROM, Normal temperature. No: Edema Thigh: Tender - Bilateral thigh. No: Deformity - Neurological Neuro grossly intact: Yes Cognition: Normal Orientation: AAOx4 Notes: Strength is symmetric between lower extremities, she is able to press that with a good amount of resistance. She has intact sensation. No saddle anesthesia. - Psychological Associated symptoms: Normal affect - Skin Skin Temperature: Warm Course - Re-evaluation Re-evalutation: 74-year-old female here with bilateral thigh pain, atraumatic. Has some generalized tenderness on exam, intact range of motion and strength. Possible this is related to chemotherapy side effect versus rhabdo versus electrolyte abnormality. Would have a low suspicion for fracture, though will obtain femur x-rays to assure that no pathologic fracture is present. She currently does not have any neuro deficits to suggest cord compression, do not feel that emergent MRI is needed at this time, though potentially may be considered inpatient. Of note she is febrile. Labs obtained from triage reveal evidence of a UTI, will cover empirically with Zosyn and sent for culture. Will collect blood cultures as well, 1 will be from the port. Her vitals are otherwise stable. Will give pain medication and fluids given that her sodium is 125, mental status does not reflect this. We will additionally check chest x-ray to evaluate for c onsolidation. 10/06/19 21:37 Chest x-ray is negative for acute consolidation. Discussed with Dr Santiago for admission 10/06/19 21:50 Patient and her daughter were updated. She currently is feeling better after pain medication. - Vital Signs Vital signs: Temp Pulse Resp BP Pulse Ox 100.9 F H 96 20 117/60 96 10/06/19 16:57 10/06/19 15:08 10/06/19 15:08 10/06/19 15:08 10/06/19 15:08 - Laboratory Result Diagrams: 10/06/19 16:01 10/06/19 16:01 Laboratory results interpreted by me: 10/06/19 10/06/19 10/06/19 16:01 16:01 16:01 WBC 3.6 L RBC 3.20 L Hgb 9.4 L Hct 28.2 L RDW 17.0 H Plt Count 120 L Lymph % (Auto) 6.3 L Absolute Lymphs (auto) 0.2 L Seg Neutrophils % 83.7 H Sodium 125.4 L Chloride 94 L Est GFR (MDRD) Non-Af 58 L Glucose 182 H AST 58 H Creatine Kinase Total Protein 6.1 L Albumin 3.2 L Urine Protein 100 H Urine Blood MODERATE H Urine Urobilinogen 2.0 H Leukocyte Esterase Rfl MODERATE H 10/06/19 16:01 WBC RBC Hgb Hct RDW Plt Count Lymph % (Auto) Absolute Lymphs (auto) Seg Neutrophils % Sodium Chloride Est GFR (MDRD) Non-Af Glucose AST Creatine Kinase 374 H Total Protein Albumin Urine Protein Urine Blood Urine Urobilinogen Leukocyte Esterase Rfl - Diagnostic Test Radiology reviewed: Image reviewed, Reports reviewed Discharge - Discharge Clinical Impression: Immunocompromised state due to drug therapy, Bacterial UTI, Hyponatremia Disposition: ADMITTED INPATIENT Admitting Provider: [facility] Admitted: Telemetry Referrals: CULLEN SANTIAGO MD [Primary Care Provider] - Follow up as needed
[2019-10-06] MEDS ORDERED: FENTANYL CITRATE INJ/PF 100 MCG/2 ML AMPUL IV ONE (18:38)
[2019-10-06] MEDS ORDERED: PIPERACILLIN/TAZOBACTAM 3.375 GM VIAL IV ONE (18:38)
[2019-10-06] MEDS ORDERED: ACETAMINOPHEN 325 MG TABLET PO ONE (18:38)
[2019-10-06] MEDS ORDERED: NORMAL SALINE 1000 ML 1,000 ML IV ONE ×2 (18:41→23:16)
--- NOTE | 2019-10-06 19:30 | RADIOLOGY REPORT (SQ) ---
EXAM DESCRIPTION: FEMUR BILATERAL 2 VIEWS IMAGES COMPLETED DATE/TIME: 10/06/2019 7:08 pm REASON FOR STUDY: bone pain, cancer pt COMPARISON: None. NUMBER OF VIEWS: Multiple views of the bilateral femurs TECHNIQUE: Multiple views of the bilateral femurs were obtained. LIMITATIONS: None. FINDINGS: MINERALIZATION: Normal. BONES: No acute fracture or dislocation. No worrisome bone lesions. No significant osteophytes. SOFT TISSUES: No obvious swelling or foreign body. Multiple surgical tacks project over the visualiz ed portion of the pelvis. OTHER: No other significant finding. IMPRESSION: No acute osseous abnormality in the bilateral femurs. TECHNICAL DOCUMENTATION: JOB ID: [id number] 2010 [employer]- All Rights Reserved Reading location - IP/workstation name: [email or web address]
--- NOTE | 2019-10-06 19:36 | RADIOLOGY REPORT (SQ) ---
EXAM DESCRIPTION: CHEST SINGLE VIEW IMAGES COMPLETED DATE/TIME: 10/06/2019 7:08 pm REASON FOR STUDY: fever, cancer pt COMPARISON: CT chest 07/29/2019 ; chest radiograph 12/03/2018 NUMBER OF VIEWS: One view. TECHNIQUE: Single frontal radiographic view of the chest acquired. LIMITATIONS: None. FINDINGS: LUNGS AND PLEURA: Right apical/ paratracheal mass is increased in prominence from the [place] chest radiographs, but grossly similar to the recent CT, given differences in imaging techniques. MEDIASTINUM AND HILAR STRUCTURES: No masses. Contour normal. HEART AND VASCULAR STRUCTURES: Heart normal in size. Normal vasculature. BONES: No acute findings. HARDWARE: Right chest wall port is present, unchanged in position from the comparison studies. Metal lic surgical clips project over the right lung apex and the left mid lung. OTHER: No other significant finding. IMPRESSION: Known right apical/paratracheal mass, grossly similar to recent CT dated 07/29/2019, give n differences in technique. No acute pulmonary process. TECHNICAL DOCUMENTATION: JOB ID: [id number] 2010 [employer]- All Rights Reserved Reading location - IP/workstation name: [email or web address]
[2019-10-06] MEDS ORDERED: NORMAL SALINE 500 ML IV ONE (23:16)
[2019-10-07] MEDS ORDERED: PIPERACILLIN SODIUM/TAZOBACTAM 3.375 GM in NORMAL SALINE 100 ML IV SCH ×3 (01:45→09:00)
[2019-10-07] MEDS ORDERED: PIPERACILLIN/TAZOBACTAM 3.375 GM VIAL IV ONE (03:41)
[2019-10-07] MEDS: ACETAMINOPHEN 325 MG TABLET PO PRN (05:24)
[2019-10-07 07:11] LABS: HEMATOCRIT 25.1 % (36.0-47.0); HEMOGLOBIN 8.2 g/dL (12.0-15.5); MEAN CORPUSCULAR HEMOGLOBIN 28.9 pg (27.0-33.4); MEAN CORPUSCULAR HGB CONC 32.8 g/dL (32.0-36.0); MEAN CORPUSCULAR VOLUME 88 fl (80-97); RED BLOOD COUNT 2.85 10^6/uL (3.72-5.28); RED CELL DISTRIBUTION WIDTH 17.2 % (11.5-14.0)
[2019-10-07 07:26] LABS: ANION GAP 7 (5-19); BLOOD UREA NITROGEN 14 mg/dL (7-20); CALCIUM 7.8 mg/dL (8.4-10.2); CARBON DIOXIDE 23 mmol/L (22-30); CHLORIDE 100 mmol/L (98-107); GLUCOSE 138 mg/dL (75-110); POTASSIUM 3.3 mmol/L (3.6-5.0)
[2019-10-07 07:57] LABS: PLATELET COUNT 87 10^3/uL (150-450)
[2019-10-07 08:14] LABS: ABSOLUTE LYMPHOCYTES# (MANUAL) 0.1 10^3/uL (0.5-4.7); ABSOLUTE MONOCYTES # (MANUAL) 0.1 10^3/uL (0.1-1.4); BAND NEUTROPHILS % (MANUAL) 10 % (3-5); BASOPHILS % (MANUAL) 0 % (0-2); EOSINOPHILS % (MANUAL) 0 % (0-6); LYMPHOCYTES % (MANUAL) 6 % (13-45); MONOCYTES % (MANUAL) 4 % (3-13); SEGMENTED NEUTROPHILS % (MAN) 80 % (42-78); TOTAL CELLS COUNTED 50
[2019-10-07 08:18] LABS: ANISOCYTOSIS 1+; OVALOCYTES SLIGHT; PLATELET COMMENT DECREASED; PLATELET LARGE PRESENT; POIKILOCYTOSIS SLIGHT
[2019-10-07] MEDS ORDERED: ONDANSETRON HCL INJ/PF 4 MG/2 ML SDV ONE (09:26)
[2019-10-07] MEDS: PANTOPRAZOLE SODIUM 40 MG VIAL IV SCH (09:40)
[2019-10-07] MEDS ORDERED: PIPERACILLIN SODIUM/TAZOBACTAM 3.375 GM in NORMAL SALINE 100 ML IV ONE (09:45)
[2019-10-07] MEDS: PIPERACILLIN SODIUM/TAZOBACTAM 3.375 GM in NORMAL SALINE 100 ML IV SCH ×3 (11:24→23:43)
[2019-10-07] MEDS: ENOXAPARIN SODIUM INJ 40 MG/0.4 ML DISP.SYRIN SUBCUT SCH (11:32)
[2019-10-07 13:13] LABS: PATH REVIEW PATHOLOGIST REVIEWED
--- NOTE | 2019-10-07 18:22 | PDOC H&P ---
History of Present Illness Admission Date/PCP: 10/06/19 21:46 CULLEN PAMELA Patient complains of: Leg pain History of Present Illness: JOSIE JOSHI is a 74 year old female patient known to my practice who presented to the ED with bilateral thigh pain over preceding 2 to 3 days. She expressed difficulty with walking or any prolong standing due to worsening pain. She denied any recent procedure, fall or trauma to her back. She described pain as sharp and constantly there whenever she tried to walk or stand. She denied any shooting, tingling, or numbness character to her thigh pain. She denied pain in the buttock, loss of bladder or bowel control. She reported longstanding diarrhea related to her chemotherapy and associated intermittent nausea and vomi ting. She denied any abdominal pain. No difficulty with breathing or chest pain. Patient denied fever but reported chills. Her initial ED evaluation was significant for hyponatremia, hyperglycemia and abnormal urinalysis. She was advised hospitalization for further evaluation and management. Her morbidities are as listed below. Past Medical History Cardiac Medical History: Reports: Hypertension - medicated Denies: Atrial Fibrillation, Congestive Heart Failure, Coronary Artery Disease, Myocardial Infarction, Hyperlipidema, Peripheral Vascular Disease, Pu lmonary Embolism, Heart Murmur Pulmonary Medical History: Reports: Pneumonia - Age 13 Denies: Asthma, Bronchitis, Chronic Obstructive Pulmonary Disease (COPD), Respiratory Failure, Sleep Apnea, Tuberculosis Neurological Medical History: Denies: Seizures Endocrine Medical History: Reports: Diabetes Mellitus Type 2 Denies: Hyperthyroidism, Hypothyroidism Renal/ Medical History: Malignancy Medical History: 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 Denies: Leukemia, Lung Cancer GI Medical History: Reports: Hiatal Hernia Denies: Crohn's Disease, Gastroesophageal Reflux Disease, Hepatitis Musculoskeltal Medical History: Denies: Arthritis, Fibromyalgia Psychiatric Medical History: Denies: Dementia, Depression Hematology: Denies: Anemia, Hemophilia, Sickle Cell Disease Infectious Medical History: Denies: HIV Past Surgical History Past Surgical History: Reports: Tubal Ligation Denies: Amputation, Appendectomy, Section, Cholecystectomy, Colostomy, Coronary Artery Bypass Graft, Gastric Bypass Surgery, Herniorrhaphy, Hysterectomy, Mastectomy, Pacemaker, Tonsillectomy Social History Smoking Status: Never Smoker Electronic Cigarette use?: No Frequency of Alcohol Use: None Hx Recreational Drug Use: No Drugs: None Hx Prescription Drug Abuse: No - Advance Directive Resuscitation Status: Do Not Resuscitate Family History Family History: None Parental Family History Reviewed: Yes Children Family History Reviewed: Yes Sibling(s) Family History Reviewed.: Yes Medication/Allergy Home Medications: Lorazepam 0.5 mg PO Q6HP PRN 12/03/18 Rivaroxaban [Xarelto] 20 mg PO DAILY 12/03/18 Lisinopril 20 mg PO DAILY #90 tablet 12/04/18 Allergies/Adverse Reactions: oxaliplatin Allergy (Severe, Verified 10/06/19 16:32) Anaphylaxis morphine Adverse Reaction (Unknown, Verified 10/06/19 16:32) Unknown reaction Review of Systems Constitutional: PRESENT: chills, fatigue. ABSENT: fever(s), headache(s), weight gain, weight loss Eyes: ABSENT: visual disturbances Ears: ABSENT: hearing changes Cardiovascular: ABSENT: chest pain, dyspnea on exertion, edema, orthropnea, palpitations Respiratory: ABSENT: cough, hemoptysis Gastrointestinal: PRESENT: diarrhea, nausea, vomiting. ABSENT: abdominal pain, constipation, hematemesis, hematochezia Genitourinary: ABSENT: dysuria, hematuria Musculoskeletal: PRESENT: muscle weakness, other - pain in upper leg/thigh region bilaterally. ABSENT: joint swelling Integumentary: ABSENT: rash, wounds Neurological: PRESENT: abnormal gait - difficuly with walking due to elicited pain in legs, weakness - generalized due to her morbidities. ABSENT: abnormal speech, confusion, dizziness, focal weakness, syncope Psychiatric: ABSENT: anxiety, depression, homidical ideation, suicidal ideation Endocrine: ABSENT: cold intolerance, heat intolerance, polydipsia, polyuria Hematologic/Lymphatic: ABSENT: easy bleeding, easy bruising, lymphadenopathy Allergic/Immunologic: ABSENT: seasonal rhinorrhea Physical Exam Vital Signs: Temp Pulse Resp BP Pulse Ox 97.6 F 81 22 H 107/55 L 100 10/07/19 12:27 10/07/19 12:27 10/07/19 12:27 10/07/19 12:27 10/07/19 12:27 Intake & Output 10/06/19 10/07/19 10/08/19 06:59 06:59 06:59 Intake Total 1600 680 Balance 1600 680 Weight 56.1 kg 56.1 kg General appearance: PRESENT: no acute distress Head exam: PRESENT: atraumatic, normocephalic Eye exam: PRESENT: conjunctiva pink, EOMI, PERRLA. ABSENT: scleral icterus Ear exam: PRESENT: normal external ear exam Mouth exam: PRESENT: moist, tongue midline Neck exam: PRESENT: full ROM. ABSENT: carotid bruit, JVD, lymphadenopathy, thyromegaly Respiratory exam: PRESENT: clear to auscultation droa, decreased breath sounds - at lung bases Cardiovascular exam: PRESENT: RRR, +S1, +S2. ABSENT: diastolic murmur, rubs, s ystolic murmur Pulses: PRESENT: +2 pedal pulses bilateral Vascular exam: PRESENT: pallor GI/Abdominal exam: PRESENT: normal bowel sounds, soft. ABSENT: distended, guarding, mass, organolmegaly, rebound, tenderness Rectal exam: PRESENT: deferred Extremities exam: ABSENT: pedal edema Neurological exam: PRESENT: alert, awake, oriented to person, oriented to place, oriented to time, oriented to situation, abnormal gait - related to walking and standing related pain, CN II-XII grossly intact. ABSENT: motor sensory deficit Psychiatric exam: PRESENT: appropriate affect, normal mood. ABSENT: homicidal ideation, suicidal ideation Skin exam: PRESENT: dry, intact, warm. ABSENT: cyanosis, rash Results Laboratory Results: 10/07/19 06:02 10/07/19 06:02 10/07/19 10/07/19 06:02 06:02 WBC 2.0 L D RBC 2.85 L Hgb 8.2 L Hct 25.1 L MCV 88 MCH 28.9 MCHC 32.8 RDW 17.2 H Plt Count 87 L Seg Neutrophils % Not Reportable Sodium 130.0 L Potassium 3.3 L Chloride 100 Carbon Dioxide 23 Anion Gap 7 BUN 14 Creatinine 0.79 Est GFR ( Amer) > 60 Glucose 138 H Calcium 7.8 L 10/06/19 16:01 Creatine Kinase 374 H Impressions: Pelvis CT 10/06/19 00:00 IMPRESSION: No acute fracture in the pelvis. Chest X-Ray 10/06/19 18:38 IMPRESSION: Known right apical/paratracheal mass, grossly similar to recent CT dated 07/29/2019, given differences in technique. No acute pulmonary process. Femur X-Ray 10/06/19 18:38 IMPRESSION: No acute osseous abnormality in the bilateral femurs. Assessment & Plan - Diagnosis (1) UTI (urinary tract infection) Qualifiers: Urinary tract infection type: acute cystitis Is this a current diagnosis for this admission?: Yes Plan: See admitting attending physician orders for details about care plan. (2) Hyponatremia Is this a current diagnosis for this admission?: Yes Plan: See admitting attending physician orders for details about care plan. (3) Colon cancer metastasized to lung Is this a current diagnosis for this admission?: Yes Plan: See admitting attending physician orders for details about care plan. 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 (5) HTN (hypertension) Qualifiers: Hypertension type: essential hypertension Qualified Code(s): I10 - Essential (primary) hypertension Is this a current diagnosis for this admission?: Yes Plan: See admitting attending physician orders for details about care plan. (6) Deep vein thrombosis (DVT) of popliteal vein of right lower extremity Qualifiers: Chronicity: chronic Qualified Code(s): I82.531 - Chronic embolism and thrombosis of right popliteal vein Is this a current diagnosis for this admission?: Yes Plan: See admitting attending physician orders for details about care plan. - Time Time Spent: 50 to 70 Minutes Medications reviewed and adjusted accordingly: Yes Anticipated Discharge Disposition: Home with Home Health Anticipated Discharge Timeframe: within 72 hours - Inpatient Certification Based on my medical assessment, after consideration of the patient's comorbidities, presenting symptoms, or acuity I expect that the services needed warrant INPATIENT care.: Yes I certify that my determination is in accordance with my understanding of Medicare's requirements for reasonable and necessary INPATIENT services [42 CFR 412.3e].: Yes Medical Necessity: Significant Comorbidiites Make Outpatient Treatment Too Risky, Need Close Monitoring Due to Risk of Patient Decompensation, Need For IV Fluids, Need For Continuous Telemetry Monitoring, Need for IV Antibiotics, Risk of Complication if Not Cared For in Hospital, Risk of Diagnosis Which Will Require Inpatient Eval/Care/Monitoring 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
[2019-10-07] MEDS: NORMAL SALINE 1000 ML 1,000 ML IV PRN (19:00)
[2019-10-08] MEDS: NORMAL SALINE 1000 ML 1,000 ML IV PRN ×2 (04:07→18:37)
[2019-10-08] MEDS: PIPERACILLIN SODIUM/TAZOBACTAM 3.375 GM in NORMAL SALINE 100 ML IV SCH ×4 (05:48→23:56)
[2019-10-08 06:06] LABS: ABSOLUTE LYMPHOCYTES (AUTO) 0.2 10^3/uL (0.5-4.7); ABSOLUTE MONOCYTES (AUTO) 0.3 10^3/uL (0.1-1.4); ABSOLUTE NEUT (AUTO) 1.5 10^3/uL (1.7-8.2); BASOPHILS % (AUTO) 0.6 % (0-2); EOSINOPHILS % (AUTO) 0.6 % (0-6); HEMATOCRIT 26.5 % (36.0-47.0); HEMOGLOBIN 8.8 g/dL (12.0-15.5); LYMPHOCYTES % (AUTO) 11.7 % (13-45); MEAN CORPUSCULAR HEMOGLOBIN 29.1 pg (27.0-33.4); MEAN CORPUSCULAR HGB CONC 33.2 g/dL (32.0-36.0); MEAN CORPUSCULAR VOLUME 88 fl (80-97); MONOCYTES % (AUTO) 12.2 % (3-13); RED BLOOD COUNT 3.02 10^6/uL (3.72-5.28); RED CELL DISTRIBUTION WIDTH 17.1 % (11.5-14.0); SEGMENTED NEUTROPHILS % (AUTO) 74.9 % (42-78); TOTAL CELLS COUNTED % (AUTO) 100 %; WHITE BLOOD COUNT 2.1 10^3/uL (4.0-10.5)
[2019-10-08 06:23] LABS: ANION GAP 7 (5-19); BLOOD UREA NITROGEN 11 mg/dL (7-20); CARBON DIOXIDE 23 mmol/L (22-30); CHLORIDE 102 mmol/L (98-107); GLUCOSE 104 mg/dL (75-110); POTASSIUM 3.3 mmol/L (3.6-5.0)
[2019-10-08 07:00] LABS: PLATELET COUNT 94 10^3/uL (150-450)
--- NOTE | 2019-10-08 09:09 | PDOC CONSULTATION ---
Consultation Consult Date: 10/08/19 Attending physician:: CULLEN SANTIAGO Provider Consulted: CELY RODRIGUEZ Consult reason:: Patient well-known to our oncology clinic here with severe bilateral hip pain, weakness History of Present Illness Admission Date/PCP: 10/06/19 21:46 CULLEN SANTIAGO Patient complains of: Severe bilateral hip pain and weakness History of Present Illness: JOSIE JOSHI is a 74 year old female with stage IV colon cancer on multiple lines of chemotherapy now on fifth line chemotherapy, most recently with irinotecan and Panitumumab, last chemo was about 2 weeks ago she was due for chemo this week. She was feeling weaker towards the end of last week, on Monday she woke up and could not move. That is what brought her into the ER. Upon presentation she did have blood cultures drawn from the left and right arm. Both cultures have come back as staph aureus. Sensitivities are pending. Unsure of whether this is a true pathogen or contaminant. She did not have fevers or any other septic symptoms at home. But she did have leukocyte esterase in the urine. But there is no urine culture. The blood culture was not drawn through the port. Past Medical History Cardiac Medical History: Reports: Hypertension - medicated Denies: Atrial Fibrillation, Congestive Heart Failure, Coronary Artery Disease, Myocardial Infarction, Hyperlipidema, Peripheral Vascular Disease, Pulmonary Embolism, Heart Murmur Pulmonary Medical History: Reports: Pneumonia - Age 13 Denies: Asthma, Bronchitis, Chronic Obstructive Pulmonary Disease (COPD), Respiratory Failure, Sleep Apnea, Tuberculosis Neurological Medical History: Denies: Seizures Endocrine Medical History: Reports: Diabetes Mellitus Type 2 Denies: Hyperthyroidism, Hypothyroidism Renal/ Medical History: Malignancy Medical History: 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 Denies: Leukemia, Lung Cancer GI Medical History: Reports: Hiatal Hernia Denies: Crohn's Disease, Gastroesophageal Reflux Disease, Hepatitis Musculoskeltal Medical History: Denies: Arthritis, Fibromyalgia Psychiatric Medical History: Denies: Dementia, Depression Hematology: Denies: Anemia, Hemophilia, Sickle Cell Disease Infectious Medical History: Denies: HIV Past Surgical History Past Surgical History: Reports: Tubal Ligation Denies: Amputation, Appendectomy, Section, Cholecystectomy, Colostomy, Coronary Artery Bypass Graft, Gastric Bypass Surgery, Herniorrhaphy, Hysterectomy, Mastectomy, Pacemaker, Tonsillectomy Social History Information Source: Patient Smoking Status: Never Smoker Electronic Cigarette use?: No Frequency of Alcohol Use: None Hx Recreational Drug Use: No Drugs: None Hx Prescription Drug Abuse: No - Advance Directive Resuscitation Status: Do Not Resuscitate Family History Family History: None Parental Family History Reviewed: Yes Children Family History Reviewed: Yes Sibling(s) Family History Reviewed.: Yes Medication/Allergy Home Medications: Lorazepam 0.5 mg PO Q6HP PRN 12/03/18 Rivaroxaban [Xarelto] 20 mg PO DAILY 12/03/18 Lisinopril 20 mg PO DAILY #90 tablet 12/04/18 Allergies/Adverse Reactions: oxaliplatin Allergy (Severe, Verified 10/06/19 16:32) Anaphylaxis morphine Adverse Reaction (Unknown, Verified 10/06/19 16:32) Unknown reaction Review of Systems Constitutional: ABSENT: chills, fever(s), headache(s), weight gain, weight loss Eyes: ABSENT: visual disturbances Ears: ABSENT: hearing changes Cardiovascular: ABSENT: chest pain, dyspnea on exertion, edema, orthropnea, palpitations Respiratory: ABSENT: cough, hemoptysis Gastrointestinal: ABSENT: abdominal pain, constipation, diarrhea, hematemesis, hematochezia, nausea, vomiting Genitourinary: ABSENT: dysuria, hematuria Musculoskeletal: ABSENT: joint swelling Integumentary: ABSENT: rash, wounds Neurological: ABSENT: abnormal gait, abnormal speech, confusion, dizziness, focal weakness, syncope Psychiatric: ABSENT: anxiety, depression, homidical ideation, suicidal ideation Endocrine: ABSENT: cold intolerance, heat intolerance, polydipsia, polyuria Hematologic/Lymphatic: ABSENT: easy bleeding, easy bruising Physical Exam Vital Signs: Temp Pulse Resp BP Pulse Ox 98.4 F 83 16 110/53 L 99 10/07/19 23:49 10/08/19 02:00 10/07/19 23:49 10/07/19 23:49 10/07/19 23:49 Intake & Output 10/07/19 10/08/19 10/09/19 06:59 06:59 06:59 Intake Total 1600 3732 Balance 1600 3732 Weight 56.1 kg 57.8 kg General appearance: PRESENT: no acute distress, well-developed, well-nourished Head exam: PRESENT: atraumatic, normocephalic Eye exam: PRESENT: conjunctiva pink, EOMI, PERRLA. ABSENT: scleral icterus Ear exam: PRESENT: normal external ear exam Mouth exam: PRESENT: moist, tongue midline Neck exam: ABSENT: carotid bruit, JVD, lymphadenopathy, thyromegaly Respiratory exam: PRESENT: clear to auscultation dora. ABSENT: rales, rhonchi, wheezes Cardiovascular exam: PRESENT: RRR. ABSENT: diastolic murmur, rubs, systolic murmur Pulses: PRESENT: normal dorsalis pedis pul Vascular exam: PRESENT: normal capillary refill GI/Abdominal exam: PRESENT: normal bowel sounds, soft. ABSENT: distended, guard ing, mass, organolmegaly, rebound, tenderness Rectal exam: PRESENT: deferred Extremities exam: PRESENT: full ROM. ABSENT: calf tenderness, clubbing, pedal edema Neurological exam: PRESENT: alert, awake, oriented to person, oriented to place, oriented to time, oriented to situation, CN II-XII grossly intact. ABSENT: motor sensory deficit Psychiatric exam: PRESENT: appropriate affect, normal mood. ABSENT: homicidal ideation, suicidal ideation Skin exam: PRESENT: dry, intact, warm. ABSENT: cyanosis, rash Results Laboratory Results: 10/08/19 05:23 10/08/19 05:23 10/08/19 10/08/19 05:23 05:23 WBC 2.1 L RBC 3.02 L Hgb 8.8 L Hct 26.5 L MCV 88 MCH 29.1 MCHC 33.2 RDW 17.1 H Plt Count 94 L Seg Neutrophils % 74.9 Sodium 131.6 L Potassium 3.3 L Chloride 102 Carbon Dioxide 23 Anion Gap 7 BUN 11 Creatinine 0.82 Est GFR ( Amer) > 60 Glucose 104 Calcium 8.0 L Magnesium 1.6 10/06/19 16:01 Creatine Kinase 374 H Impressions: Pelvis CT 10/06/19 00:00 IMPRESSION: No acute fracture in the pelvis. Chest X-Ray 10/06/19 18:38 IMPRESSION: Known right apical/paratracheal mass, grossly similar to recent CT dated 07/29/2019, given differences in technique. No acute pulmonary process. Femur X-Ray 10/06/19 18:38 IMPRESSION: No acute osseous abnormality in the bilateral femurs. Assessment & Plan - Diagnosis (1) Bacteremia Is this a current diagnosis for this admission?: Yes Plan: Patient does have bacteremia, but it was bilateral arms that was the blood draw, so it may be contaminant. However it is staph aureus. Patient on broad- spectrum antibiotics for now. Awaiting sensitivities. At present, I do not believe the port would be seeded. (2) Colon cancer metastasized to lung Is this a current diagnosis for this admission?: Yes Plan: She will hold chemotherapy this week. This will need to be resolved and infection has to be resolved before we restart. (3) Pancytopenia due to antineoplastic chemotherapy Is this a current diagnosis for this admission?: Yes Plan: Pancytopenia, not neutropenic. Hemoglobin 8.8. Will transfuse if hemoglobin gets under 8, or if platelets get under 10. We would need to initiate Neupogen if ANC gets under 1.0. - Time Time Spent: Greater than 70 Minutes
[2019-10-08] MEDS: ENOXAPARIN SODIUM INJ 40 MG/0.4 ML DISP.SYRIN SUBCUT SCH (10:23)
[2019-10-08] MEDS: PANTOPRAZOLE SODIUM 40 MG VIAL IV SCH (10:25)
[2019-10-08] MEDS: ACETAMINOPHEN 325 MG TABLET PO PRN (17:38)
--- NOTE | 2019-10-08 17:52 | PDOC PROGRESS REPORT ---
Subjective Progress Note for:: 10/08/19 Subjective:: Patient is feeling much better today. P.O intake and activity level are improving gradually. No nausea r vomiting. No chest pain or difficulty with breathing. No ever and chills is better so far today. Intermittent muscle cramping persist. Reason For Visit: UTI Physical Exam Vital Signs: Temp Pulse Resp BP Pulse Ox 97.9 F 89 20 103/49 L 100 10/08/19 11:38 10/08/19 14:00 10/08/19 11:38 10/08/19 11:38 10/08/19 11:38 Intake & Output 10/07/19 10/08/19 10/09/19 06:59 06:59 06:59 Intake Total 1600 3732 480 Balance 1600 3732 480 Weight 56.1 kg 57.8 kg General appearance: PRESENT: no acute distress Head exam: PRESENT: atraumatic, normocephalic Eye exam: PRESENT: conjunctiva pink, EOMI, PERRLA. ABSENT: scleral icterus Ear exam: PRESENT: normal external ear exam Mouth exam: PRESENT: moist, tongue midline Neck exam: PRESENT: full ROM. ABSENT: carotid bruit, JVD, lymphadenopathy, thyromegaly Respiratory exam: PRESENT: clear to auscultation dora, decreased breath sounds - at lung bases Cardiovascular exam: PRESENT: RRR. ABSENT: diastolic murmur, rubs, systolic murmur Pulses: PRESENT: normal dorsalis pedis pul, +2 pedal pulses bilateral Vascular exam: ABSENT: pallor GI/Abdominal exam: PRESENT: normal bowel sounds, soft. ABSENT: distended, guarding, mass, organolmegaly, rebound, tenderness Rectal exam: PRESENT: deferred Extremities exam: ABSENT: pedal edema Neurological exam: PRESENT: alert, awake, oriented to person, oriented to place, oriented to time, oriented to situation, CN II-XII grossly intact. ABSENT: motor sensory deficit Psychiatric exam: PRESENT: appropriate affect, normal mood. ABSENT: homicidal ideation, suicidal ideation Skin exam: PRESENT: dry, intact, warm. ABSENT: cyanosis, rash Results Laboratory Results: 10/08/19 05:23 10/08/19 05:23 10/08/19 10/08/19 05:23 05:23 WBC 2.1 L RBC 3.02 L Hgb 8.8 L Hct 26.5 L MCV 88 MCH 29.1 MCHC 33.2 RDW 17.1 H Plt Count 94 L Seg Neutrophils % 74.9 Sodium 131.6 L Potassium 3.3 L Chloride 102 Carbon Dioxide 23 Anion Gap 7 BUN 11 Creatinine 0.82 Est GFR ( Amer) > 60 Glucose 104 Calcium 8.0 L Magnesium 1.6 10/06/19 21:48 Blood Blood Culture (PCR) - Final Staphylococcus Aureus 10/06/19 22:10 Blood Blood Culture (PCR) - Final Staphylococcus Aureus 10/06/19 16:01 Creatine Kinase 374 H Impressions: Pelvis CT 10/06/19 00:00 IMPRESSION: No acute fracture in the pelvis. Chest X-Ray 10/06/19 18:38 IMPRESSION: Known right apical/paratracheal mass, grossly similar to recent CT dated 07/29/2019, given differences in technique. No acute pulmonary process. Femur X-Ray 10/06/19 18:38 IMPRESSION: No acute osseous abnormality in the bilateral femurs. 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 machine operator use Diabetes mellitus complication status: with other specified complication Qualified Code(s): E11.69 - Type 2 diabetes mellitus with other specified complication Is this a current diagnosis for this admission?: Yes (5) HTN (hypertension) Qualifiers: Hypertension type: essential hypertension Qualified Code(s): I10 - Essential (primary) hypertension Is this a current diagnosis for this admission?: Yes (6) Deep vein thrombosis (DVT) of popliteal vein of right lower extremity Qualifiers: Chronicity: chronic Qualified Code(s): I82.531 - Chronic embolism and thrombosis of right popliteal vein Is this a current diagnosis for this admission?: Yes - Time Time Spent with patient: 25-34 minutes Level of Care: MEDICAL Medications reviewed and adjusted accordingly: Yes Anticipated discharge: Home with Homehealth Anticipated DC Timeframe: within 72 hours - Inpatient Certification Based on my medical assessment, after consideration of the patient's comorbidities, presenting symptoms, or acuity I expect that the services needed warrant INPATIENT care.: Yes I certify that my determination is in accordance with my understanding of Medicare's requirements for reasonable and necessary INPATIENT services [42 CFR 412.3e].: Yes Medical Necessity: Significant Comorbidiites Make Outpatient Treatment Too Risky, Need Close Monitoring Due to Risk of Patient Decompensation, Need For IV Fluids, Need For Continuous Telemetry Monitoring, Need for IV Antibiotics, Risk of Complication if Not Cared For in Hospital, Risk of Diagnosis Which Will Require Inpatient Eval/Care/Monitoring - Plan Summary Plan Summary: Potassium and Magnesium replacement in progress. Continue all other current medication management. Obtain BMP, Mag, and CBC with diff in am. PT evaluation of ambulatory safety in am. Follow up on blood cultre final report.
[2019-10-08] MEDS: POTASSIUM CHLORIDE 10 MEQ TABLET.ER PO SCH ×2 (17:53→22:15)
[2019-10-08] MEDS ORDERED: MAGNESIUM SULFATE/D5W 1 GM/100 ML RTUPB IV ONE (18:30)
[2019-10-09] MEDS: PIPERACILLIN SODIUM/TAZOBACTAM 3.375 GM in NORMAL SALINE 100 ML IV SCH ×3 (05:38→16:59)
[2019-10-09 06:24] LABS: ABSOLUTE LYMPHOCYTES (AUTO) 0.2 10^3/uL (0.5-4.7); ABSOLUTE MONOCYTES (AUTO) 0.2 10^3/uL (0.1-1.4); ABSOLUTE NEUT (AUTO) 1.7 10^3/uL (1.7-8.2); BASOPHILS % (AUTO) 0.3 % (0-2); EOSINOPHILS % (AUTO) 2.2 % (0-6); HEMOGLOBIN 8.3 g/dL (12.0-15.5); LYMPHOCYTES % (AUTO) 11.4 % (13-45); MEAN CORPUSCULAR HEMOGLOBIN 28.8 pg (27.0-33.4); MEAN CORPUSCULAR VOLUME 87 fl (80-97); MONOCYTES % (AUTO) 9.9 % (3-13); PLATELET COUNT 107 10^3/uL (150-450); RED BLOOD COUNT 2.87 10^6/uL (3.72-5.28); SEGMENTED NEUTROPHILS % (AUTO) 76.2 % (42-78); TOTAL CELLS COUNTED % (AUTO) 100 %; WHITE BLOOD COUNT 2.2 10^3/uL (4.0-10.5)
[2019-10-09 06:42] LABS: BLOOD UREA NITROGEN 7 mg/dL (7-20); CALCIUM 7.9 mg/dL (8.4-10.2); GLUCOSE 110 mg/dL (75-110); POTASSIUM 4.4 mmol/L (3.6-5.0)
[2019-10-09 06:47] LABS: ANION GAP 5 (5-19); CARBON DIOXIDE 24 mmol/L (22-30); CHLORIDE 106 mmol/L (98-107)
[2019-10-09] MEDS: NORMAL SALINE 1000 ML 1,000 ML IV PRN ×2 (07:45→17:26)
--- NOTE | 2019-10-09 08:09 | PDOC PROGRESS REPORT ---
Subjective Progress Note for:: 10/09/19 Subjective:: No acute events overnight, patient seems to be doing okay this morning Reason For Visit: UTI Physical Exam Vital Signs: Temp Pulse Resp BP Pulse Ox 97.6 F 75 18 108/53 L 100 10/09/19 00:00 10/09/19 07:00 10/09/19 00:00 10/09/19 00:00 10/09/19 00:00 Intake & Output 10/08/19 10/09/19 10/10/19 06:59 06:59 06:59 Intake Total 3732 3666 Balance 3732 3666 Weight 57.8 kg 57.5 kg General appearance: PRESENT: no acute distress, well-developed, well-nourished Head exam: PRESENT: atraumatic, normocephalic Eye exam: PRESENT: conjunctiva pink, EOMI, PERRLA. ABSENT: scleral icterus Ear exam: PRESENT: normal external ear exam Mouth exam: PRESENT: moist, tongue midline Neck exam: ABSENT: carotid bruit, JVD, lymphadenopathy, thyromegaly Respiratory exam: PRESENT: clear to auscultation dora. ABSENT: rales, rhonchi, wheezes Cardiovascular exam: PRESENT: RRR. ABSENT: diastolic murmur, rubs, systolic murmur Pulses: PRESENT: normal dorsalis pedis pul Vascular exam: PRESENT: normal capillary refill GI/Abdominal exam: PRESENT: normal bowel sounds, soft. ABSENT: distended, guarding, mass, organolmegaly, rebound, tenderness Rectal exam: PRESENT: deferred Extremities exam: PRESENT: full ROM. ABSENT: calf tenderness, clubbing, pedal edema Neurological exam: PRESENT: alert, awake, oriented to person, oriented to place, oriented to time, oriented to situation, CN II-XII grossly intact. ABSENT: motor sensory deficit Psychiatric exam: PRESENT: appropriate affect, normal mood. ABSENT: homicidal ideation, suicidal ideation Skin exam: PRESENT: dry, intact, warm. ABSENT: cyanosis, rash Results Laboratory Results: 10/09/19 05:56 10/09/19 05:56 10/09/19 10/09/19 05:56 05:56 WBC 2.2 L RBC 2.87 L Hgb 8.3 L Hct 25.0 L MCV 87 MCH 28.8 MCHC 33.0 RDW 18.0 H Plt Count 107 L Seg Neutrophils % 76.2 Sodium 134.5 L Potassium 4.4 Chloride 106 Carbon Dioxide 24 Anion Gap 5 BUN 7 Creatinine 0.70 Est GFR ( Amer) > 60 Glucose 110 Calcium 7.9 L Magnesium 1.8 10/06/19 22:10 Blood Blood Culture (PCR) - Final Staphylococcus Aureus 10/06/19 21:48 Blood Blood Culture (PCR) - Final Staphylococcus Aureus 10/06/19 16:01 Creatine Kinase 374 H Impressions: Pelvis CT 10/06/19 00:00 IMPRESSION: No acute fracture in the pelvis. Chest X-Ray 10/06/19 18:38 IMPRESSION: Known right apical/paratracheal mass, grossly similar to recent CT dated 07/29/2019, given differences in technique. No acute pulmonary process. Femur X-Ray 10/06/19 18:38 IMPRESSION: No acute osseous abnormality in the bilateral femurs. Assessment & Plan - Diagnosis (1) Bacteremia Is this a current diagnosis for this admission?: Yes Plan: Sensitivities now present, primary team will decide on antibiotics. (2) Colon cancer metastasized to lung Is this a current diagnosis for this admission?: Yes Plan: Hold chemotherapy this week, we will see patient next week to decide on further chemotherapy (3) Pancytopenia due to antineoplastic chemotherapy Is this a current diagnosis for this admission?: Yes Plan: Stable, no need for transfusion today - Time Time Spent with patient: 25-34 minutes
[2019-10-09] MEDS: PANTOPRAZOLE SODIUM 40 MG VIAL IV SCH (09:18)
[2019-10-09] MEDS: ENOXAPARIN SODIUM INJ 40 MG/0.4 ML DISP.SYRIN SUBCUT SCH (09:18)
--- NOTE | 2019-10-09 17:40 | PDOC PROGRESS REPORT ---
Subjective Progress Note for:: 10/09/19 Subjective:: Patient denied any fever or chills. No chest pain or difficulty with breathing. No abdominal pain, nausea or vomiting. Muscle cramping improved. Reason For Visit: UTI Physical Exam Vital Signs: Temp Pulse Resp BP Pulse Ox 97.6 F 84 18 119/61 99 10/09/19 11:42 10/09/19 14:00 10/09/19 11:42 10/09/19 11:42 10/09/19 11:42 Intake & Output 10/08/19 10/09/19 10/10/19 06:59 06:59 06:59 Intake Total 3732 3666 1475 Balance 3732 3666 1475 Weight 57.8 kg 57.5 kg 64 kg Physical Exam: General appearance: PRESENT: no acute distress Head exam: PRESENT: atraumatic, normocephalic Eye exam: PRESENT: conjunctiva pink. ABSENT: pallor, sclera icterus]] Respiratory exam: PRESENT: clear to auscultation dora, decreased breath sounds - at lung bases Cardiovascular exam: PRESENT: RRR. ABSENT: diastolic murmur, rubs, systolic murmur GI/Abdominal exam: PRESENT: normal bowel sounds, soft. ABSENT: distended, guarding, mass, organomegaly, rebound, tenderness Extremities exam: ABSENT: pedal edema Neurological exam: PRESENT: alert, awake, oriented to person, oriented to place, oriented to time, oriented to situation, CN II-XII grossly intact. ABSENT: motor sensory deficit Psychiatric exam: PRESENT: appropriate affect, normal mood. ABSENT: homicidal ideation, suicidal ideation Skin exam: PRESENT: dry, intact, warm. ABSENT: cyanosis Results Laboratory Results: 10/09/19 05:56 10/09/19 05:56 10/09/19 10/09/19 05:56 05:56 WBC 2.2 L RBC 2.87 L Hgb 8.3 L Hct 25.0 L MCV 87 MCH 28.8 MCHC 33.0 RDW 18.0 H Plt Count 107 L Seg Neutrophils % 76.2 Sodium 134.5 L Potassium 4.4 Chloride 106 Carbon Dioxide 24 Anion Gap 5 BUN 7 Creatinine 0.70 Est GFR ( Amer) > 60 Glucose 110 Calcium 7.9 L Magnesium 1.8 10/06/19 21:48 Blood Blood Culture (PCR) - Final Staphylococcus Aureus 10/06/19 21:48 Blood Blood Culture - Final Staphylococcus Aureus 10/06/19 22:10 Blood Blood Culture (PCR) - Final Staphylococcus Aureus 10/06/19 22:10 Blood Blood Culture - Final Staphylococcus Aureus 10/06/19 16:01 Creatine Kinase 374 H Impressions: Pelvis CT 10/06/19 00:00 IMPRESSION: No acute fracture in the pelvis. Chest X-Ray 10/06/19 18:38 IMPRESSION: Known right apical/paratracheal mass, grossly similar to recent CT dated 07/29/2019, given differences in technique. No acute pulmonary process. Femur X-Ray 10/06/19 18:38 IMPRESSION: No acute osseous abnormality in the bilateral femurs. Assessment & Plan - Diagnosis (1) Staphylococcus aureus septicemia Is this a current diagnosis for this admission?: Yes Plan: D/C IV Zosyn. Start on Augmentin 875/125 mg po bid x 10 days. 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 Diabetes mellitus complication status: with other specif ied complication Qualified Code(s): E11.69 - Type 2 diabetes mellitus with other specified complication Is this a current diagnosis for this admission?: Yes (6) HTN (hypertension) Qualifiers: Hypertension type: essential hypertension Qualified Code(s): I10 - Essential (primary) hypertension Is this a current diagnosis for this admission?: Yes (7) Deep vein thrombosis (DVT) of popliteal vein of right lower extremity Qualifiers: Chronicity: chronic Qualified Code(s): I82.531 - Chronic embolism and thrombosis of right popliteal vein Is this a current diagnosis for this admission?: Yes - Time Time Spent with patient: 25-34 minutes Level of Care: MEDICAL Medications reviewed and adjusted accordingly: Yes Anticipated discharge: Home with Homehealth Anticipated DC Timeframe: within 48 hours - Inpatient Certification Based on my medical assessment, after consideration of the patient's comorbidities, presenting symptoms, or acuity I expect that the services needed warrant INPATIENT care.: Yes I certify that my determination is in accordance with my understanding of Medicare's requirements for reasonable and necessary INPATIENT services [42 CFR 412.3e].: Yes Medical Necessity: Significant Comorbidiites Make Outpatient Treatment Too Risky, Need Close Monitoring Due to Risk of Patient Decompensation, Need For Continuous Telemetry Monitoring, Need for IV Antibiotics, Risk of Complication if Not Cared For in Hospital, Risk of Diagnosis Which Will Require Inpatient Eval/Care/Monitoring 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 Start on Augmentin 875/125 mg p.o bid based on her culture se nsitivity report findings. Start on Mag Oxide 400 mg po daily. Maintain on all other current medication management.
[2019-10-09] MEDS: AMOXICILLIN TR/POT CLAVULANATE 875-125 MG TAB PO SCH (21:42)
[2019-10-10 08:04] VITALS: BP 124/58
--- NOTE | 2019-10-10 08:10 | PDOC PROGRESS REPORT ---
Subjective Progress Note for:: 10/10/19 Subjective:: Patient seems to be doing better, started on oral antibiotics. Reason For Visit: UTI Physical Exam Vital Signs: Temp Pulse Resp BP Pulse Ox 98.3 F 88 15 124/58 L 97 10/10/19 07:38 10/10/19 07:38 10/10/19 07:38 10/10/19 07:38 10/10/19 07:38 Intake & Output 10/09/19 10/10/19 10/11/19 06:59 06:59 06:59 Intake Total 3666 2415 Balance 3666 2415 Weight 57.5 kg 57.5 kg General appearance: PRESENT: no acute distress, well-developed, well-nourished Head exam: PRESENT: atraumatic, normocephalic Eye exam: PRESENT: conjunctiva pink, EOMI, PERRLA. ABSENT: scleral icterus Ear exam: PRESENT: normal external ear exam Mouth exam: PRESENT: moist, tongue midline Neck exam: ABSENT: carotid bruit, JVD, lymphadenopathy, thyromegaly Respiratory exam: PRESENT: clear to auscultation dora. ABSENT: rales, rhonchi, wheezes Cardiovascular exam: PRESENT: RRR. ABSENT: diastolic murmur, rubs, systolic murmur Pulses: PRESENT: normal dorsalis pedis pul Vascular exam: PRESENT: normal capillary refill GI/Abdominal exam: PRESENT: normal bowel sounds, soft. ABSENT: distended, guarding, mass, organolmegaly, rebound, tenderness Rectal exam: PRESENT: deferred Extremities exam: PRESENT: full ROM. ABSENT: calf tenderness, clubbing, pedal edema Neurological exam: PRESENT: alert, awake, oriented to person, oriented to place, oriented to time, oriented to situation, CN II-XII grossly intact. ABSENT: motor sensory deficit Psychiatric exam: PRESENT: appropriate affect, normal mood. ABSENT: homicidal ideation, suicidal ideation Skin exam: PRESENT: dry, intact, warm. ABSENT: cyanosis, rash Results Laboratory Results: 10/09/19 05:56 10/09/19 05:56 10/06/19 21:48 Blood Blood Culture (PCR) - Final Staphylococcus Aureus 10/06/19 21:48 Blood Blood Culture - Final Staphylococcus Aureus 10/06/19 22:10 Blood Blood Culture (PCR) - Final Staphylococcus Aureus 10/06/19 22:10 Blood Blood Culture - Final Staphylococcus Aureus 10/06/19 16:01 Creatine Kinase 374 H Impressions: Pelvis CT 10/06/19 00:00 IMPRESSION: No acute fracture in the pelvis. Chest X-Ray 10/06/19 18:38 IMPRESSION: Known right apical/paratracheal mass, grossly similar to recent CT dated 07/29/2019, given differences in technique. No acute pulmonary process. Femur X-Ray 10/06/19 18:38 IMPRESSION: No acute osseous abnormality in the bilateral femurs. Assessment & Plan - Diagnosis (1) Bacteremia Is this a current diagnosis for this admission?: Yes Plan: Pansensitive staph aureus, oral Augmentin initiated. (2) Colon cancer metastasized to lung Is this a current diagnosis for this admission?: Yes Plan: She was due for chemo this week this is of course held but we will probably hold chemo next week as well and initiate chemotherapy possibly in 2 weeks time if her performance status is up to par. We will see her next week however. Patient will call for appointment. (3) Pancytopenia due to antineoplastic chemotherapy Is this a current diagnosis for this admission?: Yes Plan: Overall stable, no need for transfusion - Time Time Spent with patient: 15-24 minutes Anticipated discharge: Home Anticipated DC Timeframe: within 24 hours Disposition: We will sign off and see patient next in office - Inpatient Certification Based on my medical assessment, after consideration of the patient's comorbidities, presenting symptoms, or acuity I expect that the services needed warrant INPATIENT care.: Yes I certify that my determination is in accordance with my understanding of Medicare's requirements for reasonable and necessary INPATIENT services [42 CFR 412.3e].: Yes Medical Necessity: Risk of Complication if Not Cared For in Hospital
--- NOTE | 2019-10-10 08:29 | PDOC DISCHARGE SUMMARY ---
Impression - Admit/DC Date/PCP Admission Date/Primary Care Provider: 10/06/19 21:46 CULLEN SANTIAGO Discharge Date: 10/10/19 - Discharge Diagnosis (1) Staphylococcus aureus septicemia Is this a current diagnosis for this admission?: Yes (2) UTI (urinary tract infection) Is this a current diagnosis for this admission?: Yes (3) Hyponatremia Is this a current diagnosis for this admission?: Yes (4) Colon cancer metastasized to lung Is this a current diagnosis for this admission?: Yes (5) DM (diabetes mellitus) Is this a current diagnosis for this admission?: Yes (6) HTN (hypertension) Is this a current diagnosis for this admission?: Yes (7) Deep vein thrombosis (DVT) of popliteal vein of right lower extremity Is this a current diagnosis for this admission?: Yes - Assessment Summary: Patient was admitted for generalized weakness, pain in lower extremities with walking and standing as well as hyponatremia and abnormal urinalysis suggestive of UTI upon presentation. Her blood culture grew MSSA. Her urine culture was not completed. She was adequately covered with IV Zosyn and eventually transition to oral Augmentin based on sensitivity report. Her functional level did improved with resolution of her hyponatremia. Also, her appetite and PO intake saw improvement. She was seen in consultation by Dr. Rodriguez, medical oncologist, for her metastatic breast cancer with lung involvement. She will be discharged home today and follow up with Dr Rodriguez and myself as instructed upon discharge. - Additional Information Resuscitation Status: Do Not Resuscitate Referrals: CULLEN SANTIAGO MD [Primary Care Provider] - 10/22/19 10:00 am CELY RODRIGUEZ MD [ACTIVE STAFF] - Prescriptions: Amoxicillin/Potassium Clav [Augmentin 875-125 Tablet] 1 tab PO Q12 #20 tablet Magnesium Oxide [Mag-Ox 400 mg Tablet] 400 mg PO DAILY #30 tablet Home Medications: Lorazepam 0.5 mg PO Q6HP PRN 12/03/18 Rivaroxaban [Xarelto] 20 mg PO DAILY 12/03/18 Lisinopril 20 mg PO DAILY #90 tablet 12/04/18 Amoxicillin/Potassium Clav [Augmentin 875-125 Tablet] 1 tab PO Q12 #20 tablet 10/10/19 Magnesium Oxide [Mag-Ox 400 mg Tablet] 400 mg PO DAILY #30 tablet 10/10/19 History of Present Illiness History of Present Illness: JOSIE JOSHI is a 74 year old female patient known to my practice who presented to the ED with bilateral thigh pain over preceding 2 to 3 days. She expressed difficulty with walking or any prolong standing due to worsening pain. She denied any recent procedure, fall or trauma to her back. She described pain as sharp and constantly there whenever she tried to walk or stand. She denied any shooting, tingling, or numbness character to her thigh pain. She denied pain in the buttock, loss of bladder or bowel control. She reported longstanding diarrhea related to her chemotherapy and associated intermittent nausea and vomiting. She denied any abdominal pain. No difficulty with breathing or chest pain. Patient denied fever but reported chills. Her initial ED evaluation was significant for hyponatremia, hyperglycemia and abnormal urinalysis. She was advised hospitalization for further evaluation and management. Her morbidities are as listed below. Hospital Course Hospital Course: Patient was admitted for generalized weakness, pain in lower extremities with walking and standing as well as hyponatremia and abnormal urinalysis suggestive of UTI upon presentation. Her blood culture grew MSSA. Her urine culture was not completed. She was adequately covered with IV Zosyn and eventually transition to oral Augmentin based on sensitivity report. Her functional level did improved with resolution of her hyponatremia. Also, her appetite and PO intake saw improvement. She was seen in consultation by Dr. Rodriguez, medical oncologist, for her metastatic breast cancer with lung involvement. She will be discharged home today and follow up with Dr Rodriugez and myself as instructed upon discharge. Physical Exam Vital Signs: Temp Pulse Resp BP Pulse Ox 98.3 F 88 15 124/58 L 97 10/10/19 08:14 10/10/19 07:38 10/10/19 07:38 10/10/19 07:38 10/10/19 07:38 Intake & Output 10/09/19 10/10/19 10/11/19 06:59 06:59 06:59 Intake Total 3666 2415 Balance 3666 2415 Weight 57.5 kg 57.5 kg General appearance: PRESENT: no acute distress Head exam: PRESENT: atraumatic, normocephalic Eye exam: PRESENT: conjunctiva pink. ABSENT: pallor, sclera icterus Respiratory exam: PRESENT: clear to auscultation dora Cardiovascular exam: PRESENT: RRR. ABSENT: diastolic murmur, rubs, systolic murmur GI/Abdominal exam: PRESENT: normal bowel sounds, soft. ABSENT: distended, guarding, mass, organomegaly, rebound, tenderness Extremities exam: ABSENT: pedal edema Neurological exam: PRESENT: alert, awake, oriented to person, oriented to place, oriented to time, oriented to situation, CN II-XII grossly intact. ABSENT: motor sensory deficit Psychiatric exam: PRESENT: appropriate affect, normal mood. ABSENT: homicidal ideation, suicidal ideation Skin exam: PRESENT: dry, intact, warm. ABSENT: cyanosis Results Laboratory Results: WBC 2.2 10^3/uL (4.0-10.5) L 10/09/19 05:56 RBC 2.87 10^6/uL (3.72-5.28) L 10/09/19 05:56 Hgb 8.3 g/dL (12.0-15.5) L 10/09/19 05:56 Hct 25.0 % (36.0-47.0) L 10/09/19 05:56 MCV 87 fl (80-97) 10/09/19 05:56 MCH 28.8 pg (27.0-33.4) 10/09/19 05:56 MCHC 33.0 g/dL (32.0-36.0) 10/09/19 05:56 RDW 18.0 % (11.5-14.0) H 10/09/19 05:56 Plt Count 107 10^3/uL (150-450) L 10/09/19 05:56 Lymph % (Auto) 11.4 % (13-45) L 10/09/19 05:56 Howard % (Auto) 9.9 % (3-13) 10/09/19 05:56 Eos % (Auto) 2.2 % (0-6) 10/09/19 05:56 Baso % (Auto) 0.3 % (0-2) 10/09/19 05:56 Absolute Neuts (auto) 1.7 10^3/uL (1.7-8.2) 10/09/19 05:56 Absolute Lymphs (auto) 0.2 10^3/uL (0.5-4.7) L 10/09/19 05:56 Absolute Monos (auto) 0.2 10^3/uL (0.1-1.4) 10/09/19 05:56 Absolute Eos (auto) 0.0 10^3/uL (0.0-0.6) 10/09/19 05:56 Absolute Basos (auto) 0.0 10^3/uL (0.0-0.2) 10/09/19 05:56 Total Counted 50 10/07/19 06:02 Seg Neutrophils % 76.2 % (42-78) 10/09/19 05:56 Seg Neuts % (Manual) 80 % (42-78) H 10/07/19 06:02 Band Neutrophils % 10 % (3-5) H 10/07/19 06:02 Lymphocytes % (Manual) 6 % (13-45) L 10/07/19 06:02 Monocytes % (Manual) 4 % (3-13) 10/07/19 06:02 Eosinophils % (Manual) 0 % (0-6) 10/07/19 06:02 Basophils % (Manual) 0 % (0-2) 10/07/19 06:02 Abs Neuts (Manual) 1.8 10^3/uL (1.7-8.2) 10/07/19 06:02 Abs Lymphs (Manual) 0.1 10^3/uL (0.5-4.7) L 10/07/19 06:02 Abs Monocytes (Manual) 0.1 10^3/uL (0.1-1.4) 10/07/19 06:02 Absolute Eos (Manual) 0.0 10^3/uL (0.0-0.6) 10/07/19 06:02 Abs Basophils (Manual) 0.0 10^3/uL (0.0-0.2) 10/07/19 06:02 Large Platelets PRESENT 10/07/19 06:02 Platelet Comment DECREASED 10/07/19 06:02 Poikilocytosis SLIGHT 10/07/19 06:02 Anisocytosis 1+ 10/07/19 06:02 Ovalocytes SLIGHT 10/07/19 06:02 Sodium 134.5 mmol/L (137-145) L 10/09/19 05:56 Potassium 4.4 mmol/L (3.6-5.0) 10/09/19 05:56 Chloride 106 mmol/L (98-107) 10/09/19 05:56 Carbon Dioxide 24 mmol/L (22-30) 10/09/19 05:56 Anion Gap 5 (5-19) 10/09/19 05:56 BUN 7 mg/dL (7-20) 10/09/19 05:56 Creatinine 0.70 mg/dL (0.52-1.25) 10/09/19 05:56 Est GFR ( Amer) > 60 (>60) 10/09/19 05:56 Est GFR (MDRD) Non-Af > 60 (>60) 10/09/19 05:56 Glucose 110 mg/dL (75-110) 10/09/19 05:56 Calcium 7.9 mg/dL (8.4-10.2) L 10/09/19 05:56 Magnesium 1.8 mg/dL (1.6-2.3) 10/09/19 05:56 Total Bilirubin 0.8 mg/dL (0.2-1.3) 10/06/19 16:01 Direct Bilirubin 0.4 mg/dL (0.0-0.4) 10/06/19 16:01 Neonat Total Bilirubin Not Reportable 10/06/19 16:01 Neonat Direct Bilirubin Not Reportable 10/06/19 16:01 Neonat Indirect Bili Not Reportable 10/06/19 16:01 AST 58 U/L (14-36) H 10/06/19 16:01 ALT 31 U/L (<35) 10/06/19 16:01 Alkaline Phosphatase 100 U/L (38-126) 10/06/19 16:01 Creatine Kinase 374 U/L (30-135) H 10/06/19 16:01 Total Protein 6.1 g/dL (6.3-8.2) L 10/06/19 16:01 Albumin 3.2 g/dL (3.5-5.0) L 10/06/19 16:01 Urine Color MARLON 10/06/19 16:01 Urine Appearance CLOUDY 10/06/19 16:01 Urine pH 5.0 (5.0-9.0) 10/06/19 16:01 Ur Specific [place] 1.021 10/06/19 16:01 Urine Protein 100 mg/dL (NEGATIVE) H 10/06/19 16:01 Urine Glucose (UA) NEGATIVE mg/dL (NEGATIVE) 10/06/19 16:01 Urine Ketones NEGATIVE mg/dL (NEGATIVE) 10/06/19 16:01 Urine Blood MODERATE (NEGATIVE) H 10/06/19 16:01 Urine Nitrite (Reflex) NEGATIVE (NEGATIVE) 10/06/19 16:01 Urine Bilirubin NEGATIVE (NEGATIVE) 10/06/19 16:01 Urine Urobilinogen 2.0 mg/dL (<2.0) H 10/06/19 16:01 Leukocyte Esterase Rfl MODERATE (NEGATIVE) H 10/06/19 16:01 Urine RBC (Auto) 3 /HPF 10/06/19 16:01 U Hyaline Cast (Auto) 1 /LPF 10/06/19 16:01 Urine Bacteria (Auto) 3+ /HPF 10/06/19 16:01 Urine WBC (Reflex) 11 /HPF 10/06/19 16:01 Squamous Epi Cells Auto 4 /HPF 10/06/19 16:01 U Non-Squamous Epis Auto 1 /HPF 10/06/19 16:01 Urine Mucus (Auto) RARE /LPF 10/06/19 16:01 Urine Ascorbic Acid NEGATIVE (NEGATIVE) 10/06/19 16:01 Slides for Path Review PATHOLOGIST REVIEWED 10/07/19 06:02 Impressions: Pelvis CT 10/06/19 00:00 IMPRESSION: No acute fracture in the pelvis. Chest X-Ray 10/06/19 18:38 IMPRESSION: Known right apical/paratracheal mass, grossly similar to recent CT dated 07/29/2019, given differences in technique. No acute pulmonary process. Femur X-Ray 10/06/19 18:38 IMPRESSION: No acute osseous abnormality in the bilateral femurs. Plan Health Concerns: High risk for readmission due to her immunocompromise status from metastatic breast cancer with lung involvement. Plan of Treatment: Close community follow up with medical oncology group and myself. Goals: Reduce readmission risk factors. Time Spent: Less than 30 Minutes Stroke Is this a Stroke Patient?: No Acute Heart Failure - Is this a Heart Failure Patient?: No
[2019-10-10] MEDS: PANTOPRAZOLE SODIUM 40 MG VIAL IV SCH (09:14)
[2019-10-10] MEDS: AMOXICILLIN TR/POT CLAVULANATE 875-125 MG TAB PO SCH (09:14)
[2019-10-10] MEDS: ENOXAPARIN SODIUM INJ 40 MG/0.4 ML DISP.SYRIN SUBCUT SCH (09:17)
[2019-10-10] MEDS ORDERED: MAGNESIUM OXIDE 400 MG TABLET PO SCH (10:00)
== END 2019-10-10 13:21 | disposition home or self-care (01) | DRG 871 ==
LOC: ER 14:53 → EH 21:46 → 4S 10-07
PROVIDERS: ADMIT Internal Medicine Geriatric Medicine; ATTEND Internal Medicine Geriatric Medicine
DX: A41.01 Sepsis due to Methicillin susceptible Staphylococcus aureus (principal); D61.810 Antineoplastic chemotherapy induced pancytopenia; E87.1 Hypo-osmolality and hyponatremia; C18.9 Malignant neoplasm of colon, unspecified; C78.00 Secondary malignant neoplasm of unspecified lung; I82.431 Acute embolism and thrombosis of right popliteal vein; K52.1 Toxic gastroenteritis and colitis; C79.31 Secondary malignant neoplasm of brain; N30.00 Acute cystitis without hematuria; E11.9 Type 2 diabetes mellitus without complications; I10 Essential (primary) hypertension; Z66 Do not resuscitate; E83.42 Hypomagnesemia; T45.1X5A Adverse effect of antineoplastic and immunosuppressive drugs, initial encounter; C50.919 Malignant neoplasm of unspecified site of unspecified female breast; M79.652 Pain in left thigh; M79.651 Pain in right thigh; Y92.9 Unspecified place or not applicable; Z79.899 Other long term (current) drug therapy; Z79.01 Long term (current) use of anticoagulants; Z88.6 Allergy status to analgesic agent; Z88.8 Allergy status to other drugs, medicaments and biological substances
CPT/HCPCS: 36415; 71045; 72192; 73552; 80048; 80053; 81001; 82550; 83735; 85025; 87040; 87077; 87150; 87186; 93306; 96361; 96365; 96375; 99285; C9113; J1642; J2405; J2543; J3010; J3475; J3490; J7030; J7040; J7050; S0119

== ENCOUNTER 2019-10-16 16:28 | Inpatient (IN) | payer MEDICARE, MEDICAID ==
[2019-10-16] MEDS ORDERED: PROMETHAZINE HCL INJ 25 MG/1 ML VIAL IV ONE (17:23)
[2019-10-16] MEDS ORDERED: NORMAL SALINE 1000 ML 1,000 ML IV ONE (17:23)
--- NOTE | 2019-10-16 17:26 | ER Document Report ---
ED Medical Screen (RME) - General Chief Complaint: Abnormal Lab Results Stated Complaint: KIDNEY PAIN Time Seen by Provider: 10/16/19 17:18 Primary Care Provider: CULLEN SANTIAGO MD [Primary Care Provider] - Follow up as needed Mode of Arrival: Wheelchair Information source: Patient Notes: 74-year-old female patient with ongoing colorectal cancer that has metastasized to the lungs sent from oncology office with concern for acute kidney failure. Oncologist reports patient was discharged from this hospital about a week ago, creatinine at that time was 0.6. She was seen in his office yesterday and had a creatinine of 3, today and has risen to 4. She reports some nausea and generalized weakness and fatigue. She is not currently undergoing chemotherapy but was supposed to resume chemotherapy next week. She denies any vomiting, diarrhea, fever. Patient is alert, oriented, no acute distress noted. Speaking in full and complete sentences. I have greeted and performed a rapid initial assessment of this patient. A comprehensive ED assessment and evaluation of the patient, analysis of test results and completion of the medical decision making process will be conducted by additional ED providers. I have specifically instructed the patient or family members with the patient to immediately return to any nursing staff should anything change in the patient's condition or with their chief complaint. TRAVEL OUTSIDE OF THE [place] IN LAST 30 DAYS: No - Related Data Allergies/Adverse Reactions: oxaliplatin Allergy (Severe, Verified 10/16/19 17:09) Anaphylaxis morphine Adverse Reaction (Unknown, Verified 10/16/19 17:09) Unknown reaction Home Medications: xarelto, lisinopril, augmentin, magox, lorazepam prn, metformin prn, zofran prn Past Medical History - Social History Chew tobacco use (# tins/day): No Frequency of alcohol use: None Drug Abuse: None - Past Medical History Cardiac Medical History: Reports: Hx Hypertension - medicated Denies: Hx Atrial Fibrillation, Hx Congestive Heart Failure, Hx Coronary Artery Disease, Hx Heart Attack, Hx Hypercholesterolemia, Hx Peripheral Vascular Disease, Hx Pulmonary Embolism, Hx Heart Murmur Pulmonary Medical History: Reports: Hx Pneumonia - Age 13 Denies: Hx Asthma, Hx Bronchitis, Hx COPD, Hx Respiratory Failure, Hx Sleep Apnea, Hx Tuberculosis Neurological Medical History: Denies: Hx Cerebrovascular Accident, Hx Seizures, Hx Parkinson's Disease Endocrine Medical History: Reports: Hx Diabetes Mellitus Type 2. 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 Denies: Hx Leukemia, Hx Lung Cancer GI Medical History: Reports: Hx Hiatal Hernia. Denies: Hx Crohn's Disease, Hx Gastroesophageal Reflux Disease, Hx Hepatitis, Hx Irritable Bowel, Hx Liver Failure, Hx Pancreatitis, Hx Ulcer Musculoskeltal Medical History: Denies Hx Arthritis, Denies Hx Fibromyalgia, Denies Hx Muscular Dystrophy, Denies Hx Systemic Lupus Erythematosus Psychiatric Medical History: Denies: Hx Dementia, Hx Depression Traumatic Medical History: Reports: Hx Fractures - Josesito index fingers, Lt little toe Infectious Medical History: Denies: Hx Hepatitis, Hx HIV Past Surgical History: Reports: Hx Bowel Surgery, Hx Tubal Ligation. Denies: Hx Appendectomy, Hx Section, Hx Cholecystectomy, Hx Colostomy, Hx Coronary Artery Bypass Graft, Hx Gastric Bypass Surgery, Hx Herniorrhaphy, Hx Hysterectomy, Hx Mastectomy, Hx Open Heart Surgery, Hx Pacemaker, Hx Tonsillectomy - Immunizations Hx Diphtheria, Pertussis, Tetanus Vaccination: Yes Physical Exam - Vital signs Vitals: Temp Pulse Resp BP Pulse Ox 98.0 F 97 20 155/66 H 99 10/16/19 16:43 10/16/19 16:43 10/16/19 16:43 10/16/19 16:43 10/16/19 16:43 Course - Vital Signs Vital signs: Temp Pulse Resp BP Pulse Ox 98.0 F 97 20 155/66 H 99 10/16/19 16:43 10/16/19 16:43 10/16/19 16:43 10/16/19 16:43 10/16/19 16:43 Doctor's Discharge - Discharge Referrals: CULLEN SANTIAGO MD [Primary Care Provider] - Follow up as needed
[2019-10-16 17:53] LABS: HEMATOCRIT 26.6 % (36.0-47.0); HEMOGLOBIN 8.8 g/dL (12.0-15.5); MEAN CORPUSCULAR HEMOGLOBIN 28.8 pg (27.0-33.4); MEAN CORPUSCULAR VOLUME 87 fl (80-97); PLATELET COUNT 199 10^3/uL (150-450); RED BLOOD COUNT 3.05 10^6/uL (3.72-5.28); RED CELL DISTRIBUTION WIDTH 18.7 % (11.5-14.0); WHITE BLOOD COUNT 7.5 10^3/uL (4.0-10.5)
[2019-10-16 18:15] LABS: ALBUMIN 2.5 g/dL (3.5-5.0); ALKALINE PHOSPHATASE 118 U/L (38-126); ANION GAP 6 (5-19); ASPARTATE AMINO TRANSFERASE 30 U/L (14-36); BILIRUBIN,DIRECT 0.5 mg/dL (0.0-0.4); BILIRUBIN,TOTAL 0.7 mg/dL (0.2-1.3); BLOOD UREA NITROGEN 39 mg/dL (7-20); CALCIUM 7.9 mg/dL (8.4-10.2); CARBON DIOXIDE 27 mmol/L (22-30); CHLORIDE 97 mmol/L (98-107); GLUCOSE 131 mg/dL (75-110); POTASSIUM 5.3 mmol/L (3.6-5.0); TOTAL PROTEIN 5.4 g/dL (6.3-8.2)
[2019-10-16 18:16] LABS: ABSOLUTE LYMPHOCYTES# (MANUAL) 0.2 10^3/uL (0.5-4.7); ABSOLUTE MONOCYTES # (MANUAL) 0.2 10^3/uL (0.1-1.4); ANISOCYTOSIS 2+; BAND NEUTROPHILS % (MANUAL) 3 % (3-5); BASOPHILS % (MANUAL) 0 % (0-2); EOSINOPHILS % (MANUAL) 0 % (0-6); LYMPHOCYTES % (MANUAL) 2 % (13-45); MONOCYTES % (MANUAL) 3 % (3-13); OVALOCYTES 1+; PLATELET COMMENT ADEQUATE; SEGMENTED NEUTROPHILS % (MAN) 92 % (42-78); TOTAL CELLS COUNTED 100
--- NOTE | 2019-10-16 18:18 | ER Document Report ---
ED Medical Screen (RME) - General Chief Complaint: Abnormal Lab Results Stated Complaint: KIDNEY PAIN Time Seen by Provider: 10/16/19 17:18 Primary Care Provider: CULLEN CHAVEZ MD [Primary Care Provider] - Follow up as needed Mode of Arrival: Wheelchair Information source: Patient, Relative Notes: 10/16/19 17:13 - ED Nursing Note by MAGDALENO RUTH [facility] Num: [id number] : 1945 Patient Age: 74 pt comes to ed from home via pov brought by family member for c/o decreased urinary output and abnormal labs per dr diaz office. pt admitted to this facility for 4 days 10/05-10/08 for Urosepsis and hyponatremia by dr chavez. d/c home on augmentin which she is reportedly compliant with. outpt labs yesterday and today done at [facility] note BUN 25 and 34 and creat 2.9 and 4.0. pt denies flank pain or n/v/d/f/c. pt is on chemo for colon ca with lung met and on xarelto for dvt RLE. pt states she usually urinates approx 4x/day and is noting approx BID urination. ED Medical Screen ([facility] notes)) - General Chief Complaint: Abnormal Lab Results Stated Complaint: KIDNEY PAIN Time Seen by Provider: 10/16/19 17:18 Primary Care Provider: CULLEN CHAVEZ MD [Primary Care Provider] - Follow up as needed Mode of Arrival: Wheelchair Information source: Patient Notes: 74-year-old female patient with ongoing colorectal cancer that has metastasized to the lungs sent from oncology office with concern for acute kidney failure. Oncologist reports patient was discharged from this hospital about a week ago, c reatinine at that time was 0.6. She was seen in his office yesterday and had a creatinine of 3, today and has risen to 4. She reports some nausea and generalized weakness and fatigue. She is not currently undergoing chemotherapy but was supposed to resume chemotherapy next week. She denies any vomiting, diarrhea, fever. Patient is alert, oriented, no acute distress noted. Speaking in full and complete sentences. TRAVEL OUTSIDE OF THE [place] IN LAST 30 DAYS: No - HPI Onset: This morning - labs per Dr.Jayaram with [facility] - Related Data Allergies/Adverse Reactions: oxaliplatin Allergy (Severe, Verified 10/16/19 17:09) Anaphylaxis morphine Adverse Reaction (Unknown, Verified 10/16/19 17:09) Unknown reaction Home Medications: xarelto, lisinopril, augmentin, magox, lorazepam prn, metformin prn, zofran prn Past Medical History - General Information source: Patient, Relative - son - Social History Cigarette use (# per day): Yes Chew tobacco use (# tins/day): No Frequency of alcohol use: None Drug Abuse: None Lives with: Family Family history: Reviewed & Not Pertinent - Past Medical History Cardiac Medical History: Reports: Hx Hypertension - medicated Denies: Hx Atrial Fibrillation, Hx Congestive Heart Failure, Hx Coronary Artery Disease, Hx Heart Attack, Hx Hypercholesterolemia, Hx Peripheral Vascular Disease, Hx Pulmonary Embolism, Hx Heart Murmur Pulmonary Medical History: Reports: Hx Pneumonia - Age 13 Denies: Hx Asthma, Hx Bronchitis, Hx COPD, Hx Respiratory Failure, Hx Sleep Apnea, Hx Tuberculosis Neurological Medical History: Denies: Hx Cerebrovascular Accident, Hx Seizures, Hx Parkinson's Disease Endocrine Medical History: Reports: Hx Diabetes Mellitus Type 2. 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 Denies: Hx Leukemia, Hx Lung Cancer GI Medical History: Reports: Hx Hiatal Hernia. Denies: Hx Crohn's Disease, Hx Gastroesophageal Reflux Disease, Hx Hepatitis, Hx Irritable Bowel, Hx Liver Failure, Hx Pancreatitis, Hx Ulcer Musculoskeltal Medical History: Denies Hx Arthritis, Denies Hx Fibromyalgia, Denies Hx Muscular Dystrophy, Denies Hx Systemic Lupus Erythematosus Psychiatric Medical History: Denies: Hx Dementia, Hx Depression Traumatic Medical History: Reports: Hx Fractures - Josesito index fingers, Lt little toe Infectious Medical History: Denies: Hx Hepatitis, Hx HIV Past Surgical History: Reports: Hx Bowel Surgery, Hx Tubal Ligation. Denies: Hx Appendectomy, Hx Section, Hx Cholecystectomy, Hx Colostomy, Hx Coronary Artery Bypass Graft, Hx Gastric Bypass Surgery, Hx Herniorrhaphy, Hx Hysterectomy, Hx Mastectomy, Hx Open Heart Surgery, Hx Pacemaker, Hx Tonsillectomy - Immunizations Hx Diphtheria, Pertussis, Tetanus Vaccination: Yes Review of Systems - Review of Systems Constitutional: See HPI, Malaise, Weakness, Recent illness EENT: No symptoms reported Cardiovascular: No symptoms reported Respiratory: No symptoms reported Gastrointestinal: No symptoms reported Genitourinary: No symptoms reported Female Genitourinary: No symptoms reported Musculoskeletal: See HPI, Leg swelling, Ankle swelling Skin: No symptoms reported Hematologic/Lymphatic: No symptoms reported Neurological/Psychological: No symptoms reported Physical Exam - Vital signs Vitals: Temp Pulse Resp BP Pulse Ox 98.0 F 97 20 155/66 H 99 10/16/19 16:43 10/16/19 16:43 10/16/19 16:43 10/16/19 16:43 10/16/19 16:43 Interpretation: Hypertensive - HEENT Head: Normocephalic, Atraumatic Eyes: Normal Conjunctiva: Normal Extraocular movements intact: Yes Eyelashes: Normal Pupils: PERRL Ears: Normal Nasal: Clear rhinorrhea, Other - Patient complains of sinus congestion sinus problems Mouth/Lips: Normal Mucous membranes: Dry Pharynx: Normal Neck: Normal - Respiratory Respiratory status: No respiratory distress, Other - Chronic cough according to patient history of cigarette smoking Chest status: Nontender, Other - Right chest port for chemo appears without any signs or symptoms of infection or erythema or tenderness. Breath sounds: Normal Chest palpation: Normal - Cardiovascular Rhythm: Regular Heart sounds: Normal auscultation Murmur: No - Abdominal Inspection: Normal Distension: No distension Bowel sounds: Normal Tenderness: Nontender Organomegaly: No organomegaly - Rectal Hemorrhoids: Other - deferred - Genitourinary Bimanuel exam: Other - deferred - Back Back: Normal - Extremities General upper extremity: Normal inspection General lower extremity: Edema - +1 pitting edema - Neurological Neuro grossly intact: Yes Cognition: Normal Orientation: AAOx4 Pavel Coma Scale Eye Opening: Spontaneous Pavel Coma Scale Verbal: Oriented Pavel Coma Scale Motor: Obeys Commands Lachine Coma Scale Total: 15 Speech: Normal Motor strength normal: LUE, RUE, LLE, RLE Sensory: Normal - Psychological Associated symptoms: Normal affect - Skin Skin Temperature: Warm Skin Moisture: Dry Course - Vital Signs Vital signs: Temp Pulse Resp BP Pulse Ox 98.0 F 97 20 155/66 H 99 10/16/19 16:43 10/16/19 16:43 10/16/19 16:43 10/16/19 16:43 10/16/19 16:43 - Laboratory Result Diagrams: 10/16/19 17:35 10/16/19 17:35 Laboratory results interpreted by me: 10/16/19 10/16/19 17:35 17:35 RBC 3.05 L Hgb 8.8 L Hct 26.6 L RDW 18.7 H Seg Neuts % (Manual) 92 H Lymphocytes % (Manual) 2 L Abs Lymphs (Manual) 0.2 L Sodium 129.6 L Potassium 5.3 H Chloride 97 L BUN 39 H Creatinine 3.83 H Est GFR ( Amer) 14 L Est GFR (MDRD) Non-Af 12 L Glucose 131 H Calcium 7.9 L Direct Bilirubin 0.5 H Total Protein 5.4 L Albumin 2.5 L Critical Care Note - Critical Care Note Comments: I spoke with Dr. Salcido at 1830 and he advises he had spoken with Dr. Sabrina valenzuela earlier about the BUN and creatinine increase and he advises telemetry bed with cautious fluid intake. Patient has +1 pitting edema bilateral legs. She also has a port in her right chest from lung cancer from 2012 and is followed by Dr. Dyer with chemotherapy. Doctor's Discharge - Discharge Clinical Impression: Dehydration, Leg edema Lung cancer Qualifiers: Laterality: unspecified laterality Lung location: unspecified part of lung Qualified Code(s): C34.90 - Malignant neoplasm of unspecified part of unspecified bronchus or lung Condition: Good Disposition: ADMITTED INPATIENT Additional Instructions: Transfer to telemetry bed per Dr. Salcido Referrals: CULLEN CHAVEZ MD [Primary Care Provider] - Follow up as needed
[2019-10-16] MEDS: NORMAL SALINE 1000 ML 1,000 ML IV PRN (23:40)
[2019-10-16 23:58] LABS: APPEARANCE,URINE CLOUDY; BILIRUBIN,URINE NEGATIVE (NEGATIVE); COLOR,URINE AMBER; GLUCOSE, URINE NEGATIVE (NEGATIVE); KETONES,URINE NEGATIVE (NEGATIVE); LEUKOCYTE ESTERASE,URINE MODERATE (NEGATIVE); NITRITE,URINE NEGATIVE (NEGATIVE); PROTEIN,URINE >=500 mg/dL (NEGATIVE); URINE SPECIFIC GRAVITY 1.016; UROBILINOGEN,URINE NEGATIVE mg/dL (<2.0)
[2019-10-17 00:05] LABS: ADD MANUAL MICROSCOPIC YES
[2019-10-17 00:07] LABS: AMORPHOUS SEDIMENT,UR 1+; BACTERIA,URINE 4+ /HPF
--- NOTE | 2019-10-17 10:09 | RADIOLOGY REPORT (SQ) ---
EXAM DESCRIPTION: U/S RETROPERITON (RENAL/AORTA) IMAGES COMPLETED DATE/TIME: 10/17/2019 9:55 am REASON FOR STUDY: ARF COMPARISON: None. TECHNIQUE: Dynamic and static grayscale images acquired of the kidneys and bladder and recorded on P ACS. Additional selected color Doppler and spectral images recorded. LIMITATIONS: Body habitus. FINDINGS: RIGHT KIDNEY: Normal size. Normal echogenicity. No solid or suspicious masses. No h ydronephrosis. 6 mm midpole stone. LEFT KIDNEY: Normal size. Normal echogenicity. No solid or suspicious masses. No hydronephrosi s. No calcifications. BLADDER: No masses. OTHER FINDINGS: No other significant finding. IMPRESSION: No hydronephrosis. TECHNICAL DOCUMENTATION: JOB ID: [id number] 2010 [employer]- All Rights Reserved Reading location - IP/workstation name: [email or web address]
[2019-10-17] MEDS: NORMAL SALINE 1000 ML 1,000 ML IV PRN ×2 (10:34→20:45)
[2019-10-17] MEDS: PANTOPRAZOLE SODIUM 40 MG TABLET.DR PO SCH (10:35)
[2019-10-17 11:07] LABS: ABSOLUTE LYMPHOCYTES (AUTO) 0.4 10^3/uL (0.5-4.7); ABSOLUTE MONOCYTES (AUTO) 0.7 10^3/uL (0.1-1.4); ABSOLUTE NEUT (AUTO) 5.9 10^3/uL (1.7-8.2); BASOPHILS % (AUTO) 0.4 % (0-2); EOSINOPHILS % (AUTO) 0.6 % (0-6); HEMATOCRIT 24.6 % (36.0-47.0); LYMPHOCYTES % (AUTO) 5.7 % (13-45); MEAN CORPUSCULAR HEMOGLOBIN 28.4 pg (27.0-33.4); MEAN CORPUSCULAR HGB CONC 32.5 g/dL (32.0-36.0); MEAN CORPUSCULAR VOLUME 87 fl (80-97); MONOCYTES % (AUTO) 9.6 % (3-13); PLATELET COUNT 180 10^3/uL (150-450); RED BLOOD COUNT 2.83 10^6/uL (3.72-5.28); RED CELL DISTRIBUTION WIDTH 18.6 % (11.5-14.0); SEGMENTED NEUTROPHILS % (AUTO) 83.7 % (42-78); TOTAL CELLS COUNTED % (AUTO) 100 %; WHITE BLOOD COUNT 7.1 10^3/uL (4.0-10.5)
[2019-10-17 11:23] LABS: ALBUMIN 2.3 g/dL (3.5-5.0); ALKALINE PHOSPHATASE 114 U/L (38-126); ANION GAP 8 (5-19); ASPARTATE AMINO TRANSFERASE 28 U/L (14-36); BILIRUBIN,DIRECT 0.5 mg/dL (0.0-0.4); BILIRUBIN,TOTAL 0.7 mg/dL (0.2-1.3); BLOOD UREA NITROGEN 40 mg/dL (7-20); CALCIUM 7.7 mg/dL (8.4-10.2); CARBON DIOXIDE 22 mmol/L (22-30); CHLORIDE 100 mmol/L (98-107); GLUCOSE 153 mg/dL (75-110); POTASSIUM 4.9 mmol/L (3.6-5.0)
[2019-10-17] MEDS: AMLODIPINE BESYLATE 5 MG TABLET PO SCH (18:58)
[2019-10-17] MEDS: SIMETHICONE 80 MG TAB.CHEW PO PRN (18:59)
[2019-10-18] MEDS: PANTOPRAZOLE SODIUM 40 MG TABLET.DR PO SCH (05:22)
[2019-10-18 05:38] LABS: ABSOLUTE EOSINOPHILS # (AUTO) 0.1 10^3/uL (0.0-0.6); ABSOLUTE LYMPHOCYTES (AUTO) 0.7 10^3/uL (0.5-4.7); ABSOLUTE MONOCYTES (AUTO) 0.7 10^3/uL (0.1-1.4); ABSOLUTE NEUT (AUTO) 5.6 10^3/uL (1.7-8.2); ALBUMIN 2.3 g/dL (3.5-5.0); ALKALINE PHOSPHATASE 134 U/L (38-126); ANION GAP 6 (5-19); ASPARTATE AMINO TRANSFERASE 32 U/L (14-36); BASOPHILS % (AUTO) 0.3 % (0-2); BILIRUBIN,DIRECT 0.6 mg/dL (0.0-0.4); BILIRUBIN,TOTAL 0.6 mg/dL (0.2-1.3); BLOOD UREA NITROGEN 39 mg/dL (7-20); CALCIUM 7.6 mg/dL (8.4-10.2); CARBON DIOXIDE 22 mmol/L (22-30); CHLORIDE 104 mmol/L (98-107); EOSINOPHILS % (AUTO) 1.6 % (0-6); GLUCOSE 99 mg/dL (75-110); HEMATOCRIT 24.6 % (36.0-47.0); LYMPHOCYTES % (AUTO) 9.7 % (13-45); MEAN CORPUSCULAR HEMOGLOBIN 27.8 pg (27.0-33.4); MEAN CORPUSCULAR HGB CONC 31.9 g/dL (32.0-36.0); MEAN CORPUSCULAR VOLUME 87 fl (80-97); MONOCYTES % (AUTO) 9.8 % (3-13); PLATELET COUNT 205 10^3/uL (150-450); POTASSIUM 5.2 mmol/L (3.6-5.0); RED BLOOD COUNT 2.82 10^6/uL (3.72-5.28); RED CELL DISTRIBUTION WIDTH 18.8 % (11.5-14.0); SEGMENTED NEUTROPHILS % (AUTO) 78.6 % (42-78); TOTAL CELLS COUNTED % (AUTO) 100 %; TOTAL PROTEIN 5.2 g/dL (6.3-8.2); WHITE BLOOD COUNT 7.1 10^3/uL (4.0-10.5)
[2019-10-18 05:39] LABS: HEMOGLOBIN 7.9 g/dL (12.0-15.5)
[2019-10-18] MEDS ORDERED: METOPROLOL SUCCINATE 25 MG TAB.SR.24H PO SCH (10:00)
[2019-10-18] MEDS: NORMAL SALINE 1000 ML 1,000 ML IV PRN ×2 (11:09→21:18)
[2019-10-18] MEDS ORDERED: BISACODYL 10 MG SUPP.RECT PR ONE (15:12)
[2019-10-18] MEDS: HEPARIN SOD (PORCINE) 5,000 UNIT/ML 1 ML VIAL SUBCUT SCH ×2 (16:54→23:33)
--- NOTE | 2019-10-18 17:07 | PDOC H&P ---
History of Present Illness Admission Date/PCP: 10/16/19 20:41 CULLEN SANTIAGO History of Present Illness: JOSIE JOSHI is a 74 year old female patient known to my practice who was referred to the ED for worsening renal indices by Dr. Dyer. She was seen at [facility] as follow up for her metastatic breast cancer with lung involvement and her outpatient chemistry laboratory evaluation revealed acute worsening BUN and serum creatinine with report on 10/15/2019 at 25 and 2.9 and on 10/16/2019 it was reported at 34 and 4.0 respectively. She denied any diarrhea or vomiting. She denied any IV chemotherapy at this time. She reported poor oral intake and decrease urine output. She was discharged on 10/06/2019 following admission for hyponatremia and urinary tract infection. Her chemistry laboratory indices did improved before discharged home. She denied any fever, unusual chills, diaph oresis, nausea, or abdominal pain. She denied any chest pain, palpitation, or difficult with breathing. Her initial ED evaluation did revealed significant deterioration in her renal indices and chemistry laboratory results suggestive of dehydration. She was advised hospitalization for further evaluation and management. Her morbidities are as listed below. Past Medical History Cardiac Medical History: Reports: Hypertension - medicated Denies: Atrial Fibrillation, Congestive Heart Failure, Coronary Artery Disease, Myocardial Infarction, Hyperlipidema, Peripheral Vascular Disease, Pulmonary Embolism, Heart Murmur Pulmonary Medical History: Reports: Pneumonia - Age 13 Denies: Asthma, Bronchitis, Chronic Obstructive Pulmonary Disease (COPD), Respiratory Failure, Sleep Apnea, Tuberculosis Neurological Medical History: Denies: Seizures Endocrine Medical History: Reports: Diabetes Mellitus Type 2 - diet managed Denies: Hyperthyroidism, Hypothyroidism Renal/ Medical History: Malignancy Medical History: Reports: Colorectal Cancer - with lung metastasis Denies: Leukemia, Lung Cancer GI Medical History: Reports: Hiatal Hernia Denies: Crohn's Disease, Gastroesophageal Reflux Disease, Hepatitis Musculoskeltal Medical History: Denies: Arthritis, Fibromyalgia Psychiatric Medical History: Denies: Dementia, Depression Hematology: Denies: Anemia, Hemophilia, Sickle Cell Disease Infectious Medical History: Denies: HIV Past Surgical History Past Surgical History: Reports: Tubal Ligation Denies: Amputation, Appendectomy, Section, Cholecystectomy, Colostomy, Coronary Artery Bypass Graft, Gastric Bypass Surgery, Herniorrhaphy, Hysterectomy, Mastectomy, Pacemaker, Tonsillectomy Social History Lives with: Family Smoking Status: Never Smoker Electronic Cigarette use?: No Frequency of Alcohol Use: None Hx Recreational Drug Use: No Drugs: None Hx Prescription Drug Abuse: No - Advance Directive Resuscitation Status: Do Not Resuscitate Family History Family History: None Parental Family History Reviewed: Yes Children Family History Reviewed: Yes Sibling(s) Family History Reviewed.: Yes Medication/Allergy Home Medications: Lisinopril 20 mg PO DAILY #90 tablet 12/04/18 Amoxicillin/Potassium Clav [Augmentin 875-125 Tablet] 1 tab PO Q12 #20 tablet 10/10/19 Magnesium Oxide [Mag-Ox 400 mg Tablet] 400 mg PO DAILY #30 tablet 10/10/19 Colestipol HCl [Colestid 1 gm Tablet] 1 gm PO Q12 10/17/19 Diphenoxylate HCl/Atropine [Lomotil 2.5-0.025 mg Tablet] 1 tab PO Q6HP PRN 05/02 Dronabinol [Marinol 2.5 mg Capsule] 5 mg PO Q12 10/17/19 Metoprolol Succinate [Toprol Xl 25 mg Tab.sr] 25 mg PO DAILY 10/17/19 Potassium Chloride [Klor-Con 10 Meq Tablet ER] 20 meq PO DAILY 10/17/19 Allergies/Adverse Reactions: oxaliplatin Allergy (Severe, Verified 10/16/19 17:09) Anaphylaxis morphine Adverse Reaction (Unknown, Verified 10/16/19 17:09) Unknown reaction Review of Systems Constitutional: PRESENT: anorexia, fatigue, weakness. ABSENT: chills, fever(s), headache(s), weight gain, weight loss Eyes: ABSENT: visual disturbances Ears: ABSENT: hearing changes Nose, Mouth, and Throat: ABSENT: headache(s), mouth pain, sore throat, vertigo Cardiovascular: ABSENT: chest pain, dyspnea on exertion, edema, orthropnea, palpitations Respiratory: ABSENT: cough, hemoptysis Gastrointestinal: PRESENT: nausea. ABSENT: abdominal pain, constipation, diarrhea, hematemesis, hematochezia, vomiting Genitourinary: ABSENT: dysuria, hematuria Musculoskeletal: ABSENT: joint swelling Integumentary: ABSENT: rash, wounds Neurological: ABSENT: abnormal gait, abnormal speech, confusion, dizziness, focal weakness, syncope Psychiatric: ABSENT: anxiety, depression, homidical ideation, suicidal ideation Endocrine: ABSENT: cold intolerance, heat intolerance, menstrual abnormalities, polydipsia, polyuria Hematologic/Lymphatic: ABSENT: easy bleeding, easy bruising, lymphadenopathy Allergic/Immunologic: ABSENT: seasonal rhinorrhea Physical Exam Vital Signs: Temp Pulse Resp BP Pulse Ox 98.6 F 94 16 151/74 H 95 10/17/19 07:22 10/17/19 07:22 10/17/19 07:22 10/17/19 07:22 10/17/19 07:22 Intake & Output 10/16/19 10/17/19 10/18/19 06:59 06:59 06:59 Intake Total 1620 Output Total 200 Balance 1420 Weight 61.8 kg General appearance: PRESENT: no acute distress, other - chronically ill-looking Head exam: PRESENT: atraumatic, normocephalic Eye exam: PRESENT: conjunctiva pink, EOMI, PERRLA. ABSENT: scleral icterus Ear exam: PRESENT: normal external ear exam Mouth exam: PRESENT: moist, tongue midline Neck exam: PRESENT: full ROM. ABSENT: carotid bruit, JVD, lymphadenopathy, thyromegaly Respiratory exam: PRESENT: clear to auscultation dora, decreased breath sounds - at lung bases Cardiovascular exam: PRESENT: RRR, +S1, +S2. ABSENT: diastolic murmur, rubs, systolic murmur Pulses: PRESENT: normal dorsalis pedis pul, +2 pedal pulses bilateral Vascular exam: PRESENT: normal capillary refill. ABSENT: pallor GI/Abdominal exam: PRESENT: normal bowel sounds, soft. ABSENT: distended, guarding, mass, organolmegaly, rebound, tenderness Rectal exam: PRESENT: deferred Extremities exam: PRESENT: pedal edema - 1+ bilateral edema Neurological exam: PRESENT: alert, awake, oriented to person, oriented to place, oriented to time, oriented to situation, CN II-XII grossly intact. ABSENT: motor sensory deficit Psychiatric exam: PRESENT: appropriate affect, normal mood. ABSENT: homicidal ideation, suicidal ideation Skin exam: PRESENT: dry, intact, warm. ABSENT: cyanosis, rash Results Laboratory Results: 10/16/19 17:35 10/16/19 17:35 10/16/19 10/16/19 10/16/19 17:35 17:35 23:10 WBC 7.5 RBC 3.05 L Hgb 8.8 L Hct 26.6 L MCV 87 MCH 28.8 MCHC 33.0 RDW 18.7 H Plt Count 199 Seg Neutrophils % Not Reportable Sodium 129.6 L Potassium 5.3 H Chloride 97 L Carbon Dioxide 27 Anion Gap 6 BUN 39 H Creatinine 3.83 H Est GFR ( Amer) 14 L Glucose 131 H Calcium 7.9 L Total Bilirubin 0.7 AST 30 Alkaline Phosphatase 118 Total Protein 5.4 L Albumin 2.5 L Urine Color MARLON Urine Appearance CLOUDY Urine pH 5.0 Ur Specific Reeder 1.016 Urine Protein >=500 H Urine Glucose (UA) NEGATIVE Urine Ketones NEGATIVE Urine Blood MODERATE H Urine Nitrite NEGATIVE Ur Leukocyte Esterase MODERATE H Ur Squamous Epith Cells FEW Assessment & Plan - Diagnosis (1) Acute kidney injury Is this a current diagnosis for this admission?: Yes Plan: See admitting physician orders for details about care plan. (2) HTN (hypertension) Qualifiers: Hypertension type: essential hypertension Qualified Code(s): I10 - Essential (primary) hypertension Is this a current diagnosis for this admission?: Yes Plan: See admitting physician orders for details about care plan. (3) Diabetes mellitus type 2 in nonobese Is this a current diagnosis for this admission?: Yes Plan: See admitting physician orders for details about care plan. (4) Colon cancer metastasized to lung Is this a current diagnosis for this admission?: Yes Plan: See admitting physician orders for details about care plan. - Time Time Spent: 50 to 70 Minutes Medications reviewed and adjusted accordingly: Yes Anticipated Discharge Disposition: Home with Home Health Anticipated Discharge Timeframe: within 72 hours - Inpatient Certification Based on my medical assessment, after consideration of the patient's comorbidities, presenting symptoms, or acuity I expect that the services needed warrant INPATIENT care.: Yes I certify that my determination is in accordance with my understanding of Medicare's requirements for reasonable and necessary INPATIENT services [42 CFR 412.3e].: Yes Medical Necessity: Significant Comorbidiites Make Outpatient Treatment Too Risky, Need Close Monitoring Due to Risk of Patient Decompensation, Need For IV Fluids, Need For Continuous Telemetry Monitoring, Risk of Complication if Not C ared For in Hospital, Risk of Diagnosis Which Will Require Inpatient Eval/Care/Monitoring Post Hospital Care: D/C Back Feeder [employer] Layup Line Documentation - Plan Summary Plan Summary: See admitting physician orders for details about care plan.
[2019-10-18] MEDS: AMLODIPINE BESYLATE 5 MG TABLET PO SCH (17:09)
[2019-10-18] MEDS: CEFTRIAXONE 1 GM/D5W RTU 1 GM/50 ML RTUPB IV SCH (17:10)
--- NOTE | 2019-10-18 17:25 | PDOC PROGRESS REPORT ---
Subjective Progress Note for:: 10/18/19 Subjective:: Patient reported worsening constipation. No abdominal pain, nausea or vomiting. P.O intake remain fair. No chest pain or difficulty with breathing. No fever or unusual chills. Reason For Visit: ARF, UTI, HTN, COLON CANCER WITH LUNG METASTASIS Physical Exam Vital Signs: Temp Pulse Resp BP Pulse Ox 97.8 F 95 16 147/76 H 98 10/18/19 12:00 10/18/19 14:00 10/18/19 12:00 10/18/19 12:00 10/18/19 12:00 Intake & Output 10/17/19 10/18/19 10/19/19 06:59 06:59 06:59 Intake Total 1620 4130 260 Output Total 200 500 Balance 1420 3630 260 Weight 61.8 kg 52.9 kg General appearance: PRESENT: no acute distress Head exam: PRESENT: atraumatic, normocephalic Eye exam: PRESENT: conjunctiva pink. ABSENT: scleral icterus Mouth exam: PRESENT: moist - fairly Respiratory exam: PRESENT: clear to auscultation dora, decreased breath sounds - at lung bases Cardiovascular exam: PRESENT: RRR, +S1, +S2. ABSENT: diastolic murmur, rubs, systolic murmur Vascular exam: ABSENT: pallor GI/Abdominal exam: PRESENT: normal bowel sounds, soft. ABSENT: distended, guarding, mass, organolmegaly, rebound, tenderness Extremities exam: PRESENT: pedal edema Musculoskeletal exam: PRESENT: deformity - related to multiple joints involvement with arthritis Neurological exam: PRESENT: alert, awake, oriented to person, oriented to place, oriented to time, oriented to situation, CN II-XII grossly intact. ABSENT: motor sensory deficit Psychiatric exam: PRESENT: appropriate affect, normal mood. ABSENT: homicidal ideation, suicidal ideation Skin exam: PRESENT: dry, warm Results Laboratory Results: 10/18/19 04:45 10/18/19 04:45 10/18/19 10/18/19 04:45 04:45 WBC 7.1 RBC 2.82 L Hgb 7.9 L Hct 24.6 L MCV 87 MCH 27.8 MCHC 31.9 L RDW 18.8 H Plt Count 205 Seg Neutrophils % 78.6 H Sodium 132.4 L Potassium 5.2 H Chloride 104 Carbon Dioxide 22 Anion Gap 6 BUN 39 H Creatinine 4.15 H Est GFR ( Amer) 13 L Glucose 99 Calcium 7.6 L Total Bilirubin 0.6 AST 32 Alkaline Phosphatase 134 H Total Protein 5.2 L Albumin 2.3 L Impressions: Renal Ultrasound 10/17/19 00:00 IMPRESSION: No hydronephrosis. Assessment & Plan - Diagnosis (1) Acute kidney injury Is this a current diagnosis for this admission?: Yes Plan: Continue gentle rehydration with IV N/S. Repeat BMP, phosphorus, and Mag levels in AM (2) UTI (urinary tract infection) Qualifiers: Urinary tract infection type: acute cystitis Is this a current diagnosis for this admission?: Yes Plan: Start on IV Rocephin 1 gm daily.Follow up on urine culture findings. (3) Diabetes mellitus type 2 in nonobese Is this a current diagnosis for this admission?: Yes Plan: Maintain on current medication management. (4) HTN (hypertension) Qualifiers: Hypertension type: essential hypertension Qualified Code(s): I10 - Essential (primary) hypertension Is this a current diagnosis for this admission?: Yes Plan: Maintain on current medication management. (5) Colon cancer metastasized to lung Is this a current diagnosis for this admission?: Yes Plan: Maintain on current medication management. (6) Chronic idiopathic constipation Is this a current diagnosis for this admission?: Yes Plan: Administer Dulcolax supp 10 mg x 1 dose and Lactulose 20 gm p.o x 1 dose. Follow up on response to treatment. Obtain KUB abdomen for further evaluation in view o f her poor oral intake. - Time Time Spent with patient: 25-34 minutes Level of Care: TELE Medications reviewed and adjusted accordingly: Yes Anticipated discharge: Home with Homehealth Anticipated DC Timeframe: within 72 hours - Inpatient Certification Based on my medical assessment, after consideration of the patient's comorbiditi es, presenting symptoms, or acuity I expect that the services needed warrant INPATIENT care.: Yes I certify that my determination is in accordance with my understanding of [facility]'s requirements for reasonable and necessary INPATIENT services [42 CFR 412.3e].: Yes Medical Necessity: Significant Comorbidiites Make Outpatient Treatment Too Risky, Need Close Monitoring Due to Risk of Patient Decompensation, Need For IV Fluids, Need For Continuous Telemetry Monitoring, Need for IV Antibiotics, Risk of Complication if Not Cared For in Hospital, Risk of Diagnosis Which Will Require Inpatient Eval/Care/Monitoring Post Hospital Care: D/C Site Leader Documentation - Plan Summary Plan Summary: See attending physician orders for details about care plan.
--- NOTE | 2019-10-18 18:20 | RADIOLOGY REPORT (SQ) ---
EXAM DESCRIPTION: KUB/ABDOMEN (SINGLE VIEW) IMAGES COMPLETED DATE/TIME: 10/18/2019 5:49 pm REASON FOR STUDY: CONSTIPATION, COLON CANCER WITH LUNG METS COMPARISON: 12/22/2013. NUMBER OF VIEWS: One view. TECHNIQUE: Supine radiographic image of the abdomen acquired. LIMITATIONS: None. FINDINGS: BOWEL GAS PATTERN: Normal bowel gas pattern. No dilated loops. CALCIFICATIONS: No suspicious calcifications. SOFT TISSUES: No gross mass or suggestion of organomegaly. HARDWARE: Surgical mesh. BONES: No acute fracture. No worrisome bone lesions. OTHER: No other significant finding. IMPRESSION: NO RADIOGRAPHIC EVIDENCE FOR ACUTE ABDOMINAL DISEASE. TECHNICAL DOCUMENTATION: JOB ID: [id number] 2010 [employer]- All Rights Reserved Reading location - IP/workstation name: [email or web address]
[2019-10-18] MEDS: LACTULOSE SYRUP 20 GM/30 ML UDCUP PO SCH (21:16)
[2019-10-19] MEDS: NORMAL SALINE 1000 ML 1,000 ML IV PRN ×2 (06:32→16:45)
[2019-10-19] MEDS: PANTOPRAZOLE SODIUM 40 MG TABLET.DR PO SCH (06:32)
[2019-10-19] MEDS: HEPARIN SOD (PORCINE) 5,000 UNIT/ML 1 ML VIAL SUBCUT SCH ×3 (06:32→22:21)
[2019-10-19 08:54] LABS: ABSOLUTE EOSINOPHILS # (AUTO) 0.1 10^3/uL (0.0-0.6); ABSOLUTE LYMPHOCYTES (AUTO) 0.7 10^3/uL (0.5-4.7); ABSOLUTE MONOCYTES (AUTO) 0.6 10^3/uL (0.1-1.4); ABSOLUTE NEUT (AUTO) 5.4 10^3/uL (1.7-8.2); BASOPHILS % (AUTO) 0.5 % (0-2); EOSINOPHILS % (AUTO) 1.4 % (0-6); HEMATOCRIT 24.8 % (36.0-47.0); HEMOGLOBIN 8.2 g/dL (12.0-15.5); MEAN CORPUSCULAR HEMOGLOBIN 28.4 pg (27.0-33.4); MEAN CORPUSCULAR HGB CONC 33.1 g/dL (32.0-36.0); MEAN CORPUSCULAR VOLUME 86 fl (80-97); MONOCYTES % (AUTO) 8.3 % (3-13); PLATELET COUNT 230 10^3/uL (150-450); RED BLOOD COUNT 2.89 10^6/uL (3.72-5.28); RED CELL DISTRIBUTION WIDTH 18.4 % (11.5-14.0); SEGMENTED NEUTROPHILS % (AUTO) 79.8 % (42-78); TOTAL CELLS COUNTED % (AUTO) 100 %; WHITE BLOOD COUNT 6.7 10^3/uL (4.0-10.5)
[2019-10-19 09:16] LABS: ANION GAP 7 (5-19); BLOOD UREA NITROGEN 36 mg/dL (7-20); CALCIUM 7.9 mg/dL (8.4-10.2); CARBON DIOXIDE 21 mmol/L (22-30); CHLORIDE 106 mmol/L (98-107); GLUCOSE 106 mg/dL (75-110); PHOSPHORUS 5.7 mg/dL (2.5-4.5); POTASSIUM 4.9 mmol/L (3.6-5.0)
--- NOTE | 2019-10-19 17:49 | PDOC PROGRESS REPORT ---
Subjective Progress Note for:: 10/19/19 Subjective:: Patient denied any chest pain or difficulty with breathing. No fever or chills. Nursing staff reported episode of low grade temp in 99F last night. Patient reported nasal congestion and post nasal drip. Requested for Flonase Nasal spray. Satisfactory bowel movement. No abdominal pain, nausea or vomiting. Reason For Visit: ARF, UTI, HTN, BREAST CANCER WITH LUNG METASTASIS Physical Exam Vital Signs: Temp Pulse Resp BP Pulse Ox 97.3 F 92 16 149/71 H 100 10/19/19 12:54 10/19/19 12:54 10/19/19 12:54 10/19/19 12:54 10/19/19 12:54 Intake & Output 10/18/19 10/19/19 10/20/19 06:59 06:59 06:59 Intake Total 4130 2593 1000 Output Total 500 300 Balance 3630 2293 1000 Weight 52.9 kg 71.3 kg Physical Exam: General appearance: PRESENT: no acute distress Head exam: PRESENT: atraumatic, normocephalic Eye exam: PRESENT: conjunctiva pink. ABSENT: pallor, scleral icterus Mouth exam: PRESENT: moist - fairly Respiratory exam: PRESENT: clear to auscultation dora, decreased breath sounds - at lung bases Cardiovascular exam: PRESENT: RRR, +S1, +S2. ABSENT: diastolic murmur, rubs, systolic murmur GI/Abdominal exam: PRESENT: normal bowel sounds, soft. ABSENT: distended, guarding, mass, organomegaly, rebound, tenderness Extremities exam: PRESENT: pedal edema Musculoskeletal exam: PRESENT: deformity - related to multiple joints involvement with arthritis Neurological exam: PRESENT: alert, awake, oriented to person, oriented to place, oriented to time, oriented to situation, CN II-XII grossly intact. ABSENT: motor sensory deficit Psychiatric exam: PRESENT: appropriate affect, normal mood. ABSENT: homicidal ideation, suicidal ideation Skin exam: PRESENT: dry, warm Results Laboratory Results: 10/19/19 08:44 10/19/19 08:44 10/19/19 10/19/19 08:44 08:44 WBC 6.7 RBC 2.89 L Hgb 8.2 L Hct 24.8 L MCV 86 MCH 28.4 MCHC 33.1 RDW 18.4 H Plt Count 230 Seg Neutrophils % 79.8 H Sodium 133.9 L Potassium 4.9 Chloride 106 Carbon Dioxide 21 L Anion Gap 7 BUN 36 H Creatinine 3.93 H Est GFR ( Amer) 14 L Glucose 106 Calcium 7.9 L Phosphorus 5.7 H Magnesium 1.5 L Impressions: Renal Ultrasound 10/17/19 00:00 IMPRESSION: No hydronephrosis. KUB X-Ray 10/18/19 00:00 IMPRESSION: NO RADIOGRAPHIC EVIDENCE FOR ACUTE ABDOMINAL DISEASE. Assessment & Plan - Diagnosis (1) Acute kidney injury Is this a current diagnosis for this admission?: Yes (2) UTI (urinary tract infection) Qualifiers: Urinary tract infection type: acute cystitis Is this a current diagnosis for this admission?: Yes (3) Diabetes mellitus type 2 in nonobese Is this a current diagnosis for this admission?: Yes (4) HTN (hypertension) Qualifiers: Hypertension type: essential hypertension Qualified Code(s): I10 - Essential (primary) hypertension Is this a current diagnosis for this admission?: Yes (5) Colon cancer metastasized to lung Is this a current diagnosis for this admission?: Yes (6) Chronic idiopathic constipation Is this a current diagnosis for this admission?: Yes (7) Allergic rhinitis Qualifiers: Allergic rhinitis trigger: unspecified Allergic rhinitis seasonality: seasonal Qualified Code(s): J30.2 - Other seasonal allergic rhinitis Is this a current diagnosis for this admission?: Yes Plan: Start on Flonase NS 2 puffs in each nostrum daily. - Time Time Spent with patient: 25-34 minutes Level of Care: TELE Medications reviewed and adjusted accordingly: Yes Anticipated discharge: Home with Homehealth Anticipated DC Timeframe: within 72 hours - Inpatient Certification Based on my medical assessment, after consideration of the patient's comorbidities, presenting symptoms, or acuity I expect that the services needed warrant INPATIENT care.: Yes I certify that my determination is in accordance with my understanding of Medicare's requirements for reasonable and necessary INPATIENT services [42 CFR 412.3e].: Yes Medical Necessity: Significant Comorbidiites Make Outpatient Treatment Too Risky, Need Close Monitoring Due to Risk of Patient Decompensation, Need For IV Fluids, Need for IV Antibiotics 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
[2019-10-19] MEDS: AMLODIPINE BESYLATE 5 MG TABLET PO SCH (18:07)
[2019-10-19] MEDS: CEFTRIAXONE 1 GM/D5W RTU 1 GM/50 ML RTUPB IV SCH (18:08)
[2019-10-19] MEDS ORDERED: FLUTICASONE NASAL SPRAY 50 MCG/SPRY 120 SPRAY/16 GM ONE (18:09)
[2019-10-19] MEDS: FLUTICASONE NASAL SPRAY 50 MCG/SPRY 120 SPRAY/16 GM NASL SCH (19:46)
[2019-10-19] MEDS ORDERED: MAGNESIUM SULFATE/D5W 1 GM/100 ML RTUPB IV ONE (20:00)
[2019-10-19] MEDS: LACTULOSE SYRUP 20 GM/30 ML UDCUP PO SCH (21:03)
[2019-10-20] MEDS: PANTOPRAZOLE SODIUM 40 MG TABLET.DR PO SCH (05:17)
[2019-10-20 06:28] LABS: ABSOLUTE EOSINOPHILS # (AUTO) 0.1 10^3/uL (0.0-0.6); ABSOLUTE LYMPHOCYTES (AUTO) 0.7 10^3/uL (0.5-4.7); ABSOLUTE MONOCYTES (AUTO) 0.6 10^3/uL (0.1-1.4); ABSOLUTE NEUT (AUTO) 4.4 10^3/uL (1.7-8.2); BASOPHILS % (AUTO) 0.5 % (0-2); EOSINOPHILS % (AUTO) 2.2 % (0-6); HEMATOCRIT 23.6 % (36.0-47.0); MEAN CORPUSCULAR HEMOGLOBIN 28.4 pg (27.0-33.4); MEAN CORPUSCULAR VOLUME 86 fl (80-97); MONOCYTES % (AUTO) 10.5 % (3-13); PLATELET COUNT 207 10^3/uL (150-450); RED BLOOD COUNT 2.74 10^6/uL (3.72-5.28); RED CELL DISTRIBUTION WIDTH 18.6 % (11.5-14.0); SEGMENTED NEUTROPHILS % (AUTO) 74.8 % (42-78); TOTAL CELLS COUNTED % (AUTO) 100 %; WHITE BLOOD COUNT 5.8 10^3/uL (4.0-10.5)
[2019-10-20 06:46] LABS: ANION GAP 8 (5-19); BLOOD UREA NITROGEN 34 mg/dL (7-20); CARBON DIOXIDE 19 mmol/L (22-30); CHLORIDE 108 mmol/L (98-107); GLUCOSE 111 mg/dL (75-110); POTASSIUM 5.1 mmol/L (3.6-5.0)
[2019-10-20 06:50] LABS: HEMOGLOBIN 7.8 g/dL (12.0-15.5)
[2019-10-20] MEDS: HEPARIN SOD (PORCINE) 5,000 UNIT/ML 1 ML VIAL SUBCUT SCH ×3 (09:09→22:15)
--- NOTE | 2019-10-20 09:59 | PDOC PROGRESS REPORT ---
Subjective Progress Note for:: 10/20/19 Subjective:: Patient reported intermittent productive cough with nasal and sinus congestion that is improving on Flonase NS therapy. No chest pain or difficulty with breathing. No fever or chills. No abdominal pain, nausea or vomiting. Reason For Visit: ARF, UTI, HTN, BREAST CANCER WITH LUNG METASTASIS Physical Exam Vital Signs: Temp Pulse Resp BP Pulse Ox 98.0 F 102 H 16 173/89 H 99 10/20/19 08:17 10/20/19 08:00 10/20/19 08:00 10/20/19 08:00 10/20/19 08:00 Intake & Output 10/19/19 10/20/19 10/21/19 06:59 06:59 06:59 Intake Total 2643 2655 1150 Output Total 300 600 Balance 2343 2055 1150 Weight 71.3 kg 70.8 kg Physical Exam: General appearance: PRESENT: no acute distress Head exam: PRESENT: atraumatic, normocephalic Eye exam: PRESENT: conjunctiva pink. ABSENT: pallor, scleral icterus Mouth exam: PRESENT: moist - fairly Respiratory exam: PRESENT: clear to auscultation dora, decreased breath sounds - at lung bases Cardiovascular exam: PRESENT: RRR, +S1, +S2. ABSENT: diastolic murmur, rubs, systolic murmur GI/Abdominal exam: PRESENT: normal bowel sounds, soft. ABSENT: distended, guarding, mass, organomegaly, rebound, tenderness Extremities exam: PRESENT: pedal edema Musculoskeletal exam: PRESENT: deformity - related to multiple joints involvement with arthritis Neurological exam: PRESENT: alert, awake, oriented to person, oriented to place, oriented to time, oriented to situation, CN II-XII grossly intact. ABSENT: motor sensory deficit Psychiatric exam: PRESENT: appropriate affect, normal mood. ABSENT: homicidal ideation, suicidal ideation Skin exam: PRESENT: dry, warm Results Laboratory Results: 10/20/19 06:05 10/20/19 06:05 10/19/19 10/20/19 10/20/19 18:00 06:05 06:05 WBC 5.8 RBC 2.74 L Hgb 7.8 L Hct 23.6 L MCV 86 MCH 28.4 MCHC 33.0 RDW 18.6 H Plt Count 207 Seg Neutrophils % 74.8 Sodium 134.6 L Potassium 5.1 H Chloride 108 H Carbon Dioxide 19 L Anion Gap 8 BUN 34 H Creatinine 3.77 H Est GFR ( Amer) 14 L Glucose 111 H Calcium 8.0 L Magnesium 1.5 L Impressions: Renal Ultrasound 10/17/19 00:00 IMPRESSION: No hydronephrosis. KUB X-Ray 10/18/19 00:00 IMPRESSION: NO RADIOGRAPHIC EVIDENCE FOR ACUTE ABDOMINAL DISEASE. Assessment & Plan - Diagnosis (1) Acute kidney injury Is this a current diagnosis for this admission?: Yes (2) UTI (urinary tract infection) Qualifiers: Urinary tract infection type: acute cystitis Is this a current diagnosis for this admission?: Yes (3) Diabetes mellitus type 2 in nonobese Is this a current diagnosis for this admission?: Yes (4) HTN (hypertension) Qualifiers: Hypertension type: essential hypertension Qualified Code(s): I10 - Esse ntial (primary) hypertension Is this a current diagnosis for this admission?: Yes (5) Colon cancer metastasized to lung Is this a current diagnosis for this admission?: Yes (6) Chronic idiopathic constipation Is this a current diagnosis for this admission?: Yes (7) Allergic rhinitis Qualifiers: Allergic rhinitis trigger: unspecified Allergic rhinitis seasonality: seasonal Qualified Code(s): J30.2 - Other seasonal allergic rhinitis Is this a current diagnosis for this admission?: Yes - Time Time Spent with patient: 25-34 minutes Level of Care: TELE Medications reviewed and adjusted accordingly: Yes Anticipated discharge: Home with Homehealth Anticipated DC Timeframe: within 72 hours - Inpatient Certification Based on my medical assessment, after consideration of the patient's comor bidities, presenting symptoms, or acuity I expect that the services needed warrant INPATIENT care.: Yes I certify that my determination is in accordance with my understanding of Medicare's requirements for reasonable and necessary INPATIENT services [42 CFR 412.3e].: Yes Medical Necessity: Significant Comorbidiites Make Outpatient Treatment Too Risky, Need Close Monitoring Due to Risk of Patient Decompensation, Need For IV Fluids, Need For Continuous Telemetry Monitoring, Need for IV Antibiotics, Risk of Complication if Not Cared For in Hospital, Risk of Diagnosis Which Will Require Inpatient Eval/Care/Monitoring 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 Obtain chest X ray. Obtain CBC with diff and BMP with Mag in AM.
[2019-10-20] MEDS: NORMAL SALINE 1000 ML 1,000 ML IV PRN ×2 (10:37→20:10)
--- NOTE | 2019-10-20 11:08 | RADIOLOGY REPORT (SQ) ---
EXAM DESCRIPTION: CHEST 2 VIEWS IMAGES COMPLETED DATE/TIME: 10/20/2019 9:27 am REASON FOR STUDY: Productive cough COMPARISON: 10/06/2019 EXAM PARAMETERS: NUMBER OF VIEWS: two views TECHNIQUE: Digital Frontal and Lateral radiographic views of the chest acquired. RADIATION DOSE: NA LIMITATIONS: none FINDINGS: LUNGS AND PLEURA: New small left pleural effusion. Left basilar atelectasis. No focal co nsolidation. No pneumothorax. MEDIASTINUM AND HILAR STRUCTURES: Surgical clips in the mediastinum and left hemithorax are stable. No mediastinal mass. HEART AND VASCULAR STRUCTURES: Heart has normal size. No pulmonary vascular congestion. BONES: No acute findings. HARDWARE: Right MediPort catheter with tip in the right atrium unchanged. OTHER: No other significant finding. IMPRESSION: New small left pleural effusion with left basilar atelectasis. TECHNICAL DOCUMENTATION: JOB ID: [id number] 2010 [employer]- All Rights Reserved Reading location - IP/workstation name: [email or web address]
[2019-10-20] MEDS: MEROPENEM 500 MG in NORMAL SALINE 50 ML IV SCH ×2 (12:28→22:08)
[2019-10-20] MEDS ORDERED: MEROPENEM 500 MG in NORMAL SALINE 50 ML IV SCH (14:00)
[2019-10-20] MEDS: AMLODIPINE BESYLATE 5 MG TABLET PO SCH (17:07)
[2019-10-20] MEDS: FLUTICASONE NASAL SPRAY 50 MCG/SPRY 120 SPRAY/16 GM NASL SCH (20:13)
[2019-10-20] MEDS: LACTULOSE SYRUP 20 GM/30 ML UDCUP PO SCH (22:09)
[2019-10-21] MEDS: NORMAL SALINE 1000 ML 1,000 ML IV PRN (05:49)
[2019-10-21] MEDS: PANTOPRAZOLE SODIUM 40 MG TABLET.DR PO SCH (05:56)
[2019-10-21 06:03] LABS: ABSOLUTE EOSINOPHILS # (AUTO) 0.1 10^3/uL (0.0-0.6); ABSOLUTE LYMPHOCYTES (AUTO) 0.5 10^3/uL (0.5-4.7); ABSOLUTE MONOCYTES (AUTO) 0.5 10^3/uL (0.1-1.4); ABSOLUTE NEUT (AUTO) 4.1 10^3/uL (1.7-8.2); BASOPHILS % (AUTO) 0.5 % (0-2); EOSINOPHILS % (AUTO) 1.6 % (0-6); LYMPHOCYTES % (AUTO) 10.3 % (13-45); MEAN CORPUSCULAR HEMOGLOBIN 28.3 pg (27.0-33.4); MEAN CORPUSCULAR HGB CONC 32.9 g/dL (32.0-36.0); MEAN CORPUSCULAR VOLUME 86 fl (80-97); MONOCYTES % (AUTO) 9.9 % (3-13); PLATELET COUNT 196 10^3/uL (150-450); RED BLOOD COUNT 2.68 10^6/uL (3.72-5.28); RED CELL DISTRIBUTION WIDTH 18.8 % (11.5-14.0); SEGMENTED NEUTROPHILS % (AUTO) 77.7 % (42-78); TOTAL CELLS COUNTED % (AUTO) 100 %; WHITE BLOOD COUNT 5.3 10^3/uL (4.0-10.5)
[2019-10-21 06:06] LABS: HEMOGLOBIN 7.6 g/dL (12.0-15.5)
[2019-10-21 06:17] LABS: ANION GAP 5 (5-19); BLOOD UREA NITROGEN 31 mg/dL (7-20); CALCIUM 7.8 mg/dL (8.4-10.2); CARBON DIOXIDE 19 mmol/L (22-30); CHLORIDE 111 mmol/L (98-107); GLUCOSE 105 mg/dL (75-110); POTASSIUM 4.7 mmol/L (3.6-5.0)
[2019-10-21] MEDS: HEPARIN SOD (PORCINE) 5,000 UNIT/ML 1 ML VIAL SUBCUT SCH ×3 (06:22→22:48)
[2019-10-21] MEDS: MEROPENEM 500 MG in NORMAL SALINE 50 ML IV SCH ×2 (10:24→21:48)
--- NOTE | 2019-10-21 12:02 | PDOC PROGRESS REPORT ---
Subjective Progress Note for:: 10/21/19 Subjective:: Patient denied any chest pain or difficulty with breathing. No fever or chills. No abdominal pain, nausea or vomiting. Reason For Visit: ARF, UTI, HTN, BREAST CANCER WITH LUNG METASTASIS Physical Exam Vital Signs: Temp Pulse Resp BP Pulse Ox 98.1 F 96 19 152/74 H 97 10/21/19 07:55 10/21/19 07:55 10/21/19 07:55 10/21/19 07:55 10/21/19 07:55 Intake & Output 10/20/19 10/21/19 10/22/19 06:59 06:59 06:59 Intake Total 2655 3770 Output Total 600 Balance 2055 3770 Weight 70.8 kg 72.1 kg Physical Exam: General appearance: PRESENT: no acute distress Head exam: PRESENT: atraumatic, normocephalic Eye exam: PRESENT: conjunctiva pink. ABSENT: pallor, sclera icterus Mouth exam: PRESENT: moist - fairly Respiratory exam: PRESENT: clear to auscultation dora, decreased breath sounds - at lung bases Cardiovascular exam: PRESENT: RRR, +S1, +S2. ABSENT: diastolic murmur, rubs, systolic murmur GI/Abdominal exam: PRESENT: normal bowel sounds, soft. ABSENT: distended, guarding, mass, organomegaly, rebound, tenderness Extremities exam: PRESENT: pedal edema Musculoskeletal exam: PRESENT: deformity - related to multiple joints involvement with arthritis Neurological exam: PRESENT: alert, awake, oriented to person, oriented to place, oriented to time, oriented to situation, CN II-XII grossly intact. ABSENT: motor sensory deficit Psychiatric exam: PRESENT: appropriate affect, normal mood. ABSENT: homicidal ideation, suicidal ideation Skin exam: PRESENT: dry, warm Results Laboratory Results: 10/21/19 05:20 10/21/19 05:20 10/21/19 10/21/19 10/21/19 05:20 05:20 07:24 WBC 5.3 RBC 2.68 L Hgb 7.6 L Hct 23.0 L MCV 86 MCH 28.3 MCHC 32.9 RDW 18.8 H Plt Count 196 Seg Neutrophils % 77.7 Sodium 135.3 L Potassium 4.7 Chloride 111 H Carbon Dioxide 19 L Anion Gap 5 BUN 31 H Creatinine 3.35 H Est GFR ( Amer) 16 L Glucose 105 Calcium 7.8 L Magnesium 1.5 L Blood Type B POSITIVE Antibody Screen NEGATIVE 10/16/19 23:10 Clean Catch Midstream Urine Culture - Final Escherichia Coli Esbl Pseudomonas Aeruginosa Impressions: Renal Ultrasound 10/17/19 00:00 IMPRESSION: No hydronephrosis. KUB X-Ray 10/18/19 00:00 IMPRESSION: NO RADIOGRAPHIC EVIDENCE FOR ACUTE ABDOMINAL DISEASE. Chest X-Ray 10/20/19 00:00 IMPRESSION: New small left pleural effusion with left basilar atelectasis. Assessment & Plan - Diagnosis (1) Acute kidney injury Is this a current diagnosis for this admission?: Yes (2) Diabetes mellitus type 2 in nonobese Is this a current diagnosis for this admission?: Yes (3) UTI due to extended-spectrum beta lactamase (ESBL) producing Escherichia coli Is this a current diagnosis for this admission?: Yes Plan: Continue IV Meropenem coverage. (4) Pseudomonas urinary tract infection Is this a current diagnosis for this admission?: Yes Plan: Continue IV Meropenem coverage. (5) Anemia of chronic disease Is this a current diagnosis for this admission?: Yes Plan: Patient will be transfused 2 units PRBC due to persistently low hemoglobin. (6) HTN (hypertension) Qualifiers: Hypertension type: essential hypertension Qualified Code(s): I10 - Essentia l (primary) hypertension Is this a current diagnosis for this admission?: Yes (7) Colon cancer metastasized to lung Is this a current diagnosis for this admission?: Yes (8) Chronic idiopathic constipation Is this a current diagnosis for this admission?: Yes (9) Allergic rhinitis Qualifiers: Allergic rhinitis trigger: unspecified Allergic rhinitis seasonality: seasonal Qualified Code(s): J30.2 - Other seasonal allergic rhinitis Is this a current diagnosis for this admission?: Yes - Time Time Spent with patient: 25-34 minutes Level of Care: IMCU Medications reviewed and adjusted accordingly: Yes Anticipated discharge: Home with Homehealth Anticipated DC Timeframe: within 72 hours - Inpatient Certification Based on my medical assessment, after consideration of the patient's comorbidi ties, presenting symptoms, or acuity I expect that the services needed warrant INPATIENT care.: Yes I certify that my determination is in accordance with my understanding of Taye bolanos's requirements for reasonable and necessary INPATIENT services [42 CFR 412.3e].: Yes - Plan Summary Plan Summary: See attending physician orders for details about care plan.
[2019-10-21] MEDS: ACETAMINOPHEN 325 MG TABLET PO PRN (12:16)
[2019-10-21] MEDS ORDERED: MAGNESIUM SULFATE/D5W 1 GM/100 ML RTUPB IV ONE ×2 (13:00→19:01)
[2019-10-21] MEDS: SIMETHICONE 80 MG TAB.CHEW PO PRN (18:09)
[2019-10-21] MEDS: AMLODIPINE BESYLATE 5 MG TABLET PO SCH (18:09)
[2019-10-21] MEDS: FLUTICASONE NASAL SPRAY 50 MCG/SPRY 120 SPRAY/16 GM NASL SCH (19:03)
[2019-10-21 20:59] LABS: ABSOLUTE BASOPHILS # (AUTO) 0.1 10^3/uL (0.0-0.2); ABSOLUTE EOSINOPHILS # (AUTO) 0.2 10^3/uL (0.0-0.6); ABSOLUTE LYMPHOCYTES (AUTO) 0.7 10^3/uL (0.5-4.7); ABSOLUTE MONOCYTES (AUTO) 0.6 10^3/uL (0.1-1.4); ABSOLUTE NEUT (AUTO) 5.2 10^3/uL (1.7-8.2); BASOPHILS % (AUTO) 0.8 % (0-2); EOSINOPHILS % (AUTO) 2.3 % (0-6); HEMATOCRIT 31.5 % (36.0-47.0); LYMPHOCYTES % (AUTO) 10.1 % (13-45); MEAN CORPUSCULAR VOLUME 85 fl (80-97); MONOCYTES % (AUTO) 8.7 % (3-13); PLATELET COUNT 228 10^3/uL (150-450); RED CELL DISTRIBUTION WIDTH 16.8 % (11.5-14.0); SEGMENTED NEUTROPHILS % (AUTO) 78.1 % (42-78); TOTAL CELLS COUNTED % (AUTO) 100 %; WHITE BLOOD COUNT 6.6 10^3/uL (4.0-10.5)
[2019-10-21 21:00] LABS: HEMOGLOBIN 10.7 g/dL (12.0-15.5)
[2019-10-21] MEDS: LACTULOSE SYRUP 20 GM/30 ML UDCUP PO SCH (21:48)
[2019-10-22] MEDS: PANTOPRAZOLE SODIUM 40 MG TABLET.DR PO SCH (05:50)
[2019-10-22] MEDS: HEPARIN SOD (PORCINE) 5,000 UNIT/ML 1 ML VIAL SUBCUT SCH ×3 (07:15→23:52)
--- NOTE | 2019-10-22 11:52 | PDOC PROGRESS REPORT ---
Subjective Progress Note for:: 10/22/19 Subjective:: Patient denied any chest pain or difficulty with breathing. No fever or chills. No abdominal pain, nausea or vomiting. Reason For Visit: ARF, UTI, HTN, BREAST CANCER WITH LUNG METASTASIS Physical Exam Vital Signs: Temp Pulse Resp BP Pulse Ox 97.8 F 95 16 161/85 H 96 10/22/19 07:34 10/22/19 07:34 10/22/19 07:34 10/22/19 07:34 10/22/19 07:34 Intake & Output 10/21/19 10/22/19 10/23/19 06:59 06:59 06:59 Intake Total 3770 1950 Output Total 1350 Balance 3770 600 Weight 72.1 kg 76.1 kg 76.1 kg Physical Exam: General appearance: PRESENT: no acute distress Head exam: PRESENT: atraumatic, normocephalic Eye exam: PRESENT: conjunctiva pink. ABSENT: pallor, sclera icterus Mouth exam: PRESENT: moist - fairly Respiratory exam: PRESENT: clear to auscultation dora, decreased breath sounds - at lung bases Cardiovascular exam: PRESENT: Tachycardia, +S1, +S2. ABSENT: diastolic murmur, rubs, systolic murmur GI/Abdominal exam: PRESENT: normal bowel sounds, soft. ABSENT: distended, guarding, mass, organomegaly, rebound, tenderness Extremities exam: PRESENT: pedal edema Musculoskeletal exam: PRESENT: deformity - related to multiple joints involvement with arthritis Neurological exam: PRESENT: alert, awake, oriented to person, oriented to place, oriented to time, oriented to situation, CN II-XII grossly intact. ABSENT: motor sensory deficit Psychiatric exam: PRESENT: appropriate affect, normal mood. ABSENT: homicidal ideation, suicidal ideation Skin exam: PRESENT: dry, warm Results Laboratory Results: 10/21/19 20:35 10/21/19 05:20 10/21/19 10/21/19 07:24 20:35 WBC 6.6 RBC 3.70 L Hgb 10.7 L D Hct 31.5 L MCV 85 MCH 29.0 MCHC 34.0 RDW 16.8 H Plt Count 228 Seg Neutrophils % 78.1 H Blood Type B POSITIVE Antibody Screen NEGATIVE 10/16/19 22:16 Blood Blood Culture - Final NO GROWTH IN 5 DAYS 10/16/19 21:47 Blood Blood Culture - Final NO GROWTH IN 5 DAYS Impressions: Renal Ultrasound 10/17/19 00:00 IMPRESSION: No hydronephrosis. KUB X-Ray 10/18/19 00:00 IMPRESSION: NO RADIOGRAPHIC EVIDENCE FOR ACUTE ABDOMINAL DISEASE. Chest X-Ray 10/20/19 00:00 IMPRESSION: New small left pleural effusion with left basilar atelectasis. Assessment & Plan - Diagnosis (1) Acute kidney injury Is this a current diagnosis for this admission?: Yes (2) Diabetes mellitus type 2 in nonobese Is this a current diagnosis for this admission?: Yes (3) UTI due to extended-spectrum beta lactamase (ESBL) producing Escherichia coli Is this a current diagnosis for this admission?: Yes (4) Pseudomonas urinary tract infection Is this a current diagnosis for this admission?: Yes (5) Anemia of chronic disease Is this a current diagnosis for this admission?: Yes (6) HTN (hypertension) Qualifiers: Hypertension type: essential hypertension Qualified Code(s): I10 - Essential (primary) hypertension Is this a current diagnosis for this admission?: Yes (7) Colon cancer metastasized to lung Is this a current diagnosis for this admission?: Yes (8) Chronic idiopathic constipation Is this a current diagnosis for this admission?: Yes (9) Allergic rhinitis Qualifiers: Allergic rhinitis trigger: unspecified Allergic rhinitis seasonality: s easonal Qualified Code(s): J30.2 - Other seasonal allergic rhinitis Is this a current diagnosis for this admission?: Yes - Time Time Spent with patient: 25-34 minutes Level of Care: IMCU Anticipated discharge: Home with Homehealth Anticipated DC Timeframe: within 72 hours - Inpatient Certification Based on my medical assessment, after consideration of the patient's comorbidities, presenting symptoms, or acuity I expect that the services needed warrant INPATIENT care.: Yes I certify that my determination is in accordance with my understanding of Medicare's requirements for reasonable and necessary INPATIENT services [42 CFR 412.3e].: Yes Medical Necessity: Significant Comorbidiites Make Outpatient Treatment Too Risky, Need Close Monitoring Due to Risk of Patient Decompensation, Need For IV Fluids, Need For Continuous Telemetry Monitoring, Need for IV Antibiotics, Risk of Complication if Not Cared For in Hospital, Risk of Diagnosis Which Will Require Inpatient Eval/Care/Monitoring 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 Start on Metoprolol Succinate 25 mg po daily. Continue all other current medication management. Obtain BMP, Mag level
[2019-10-22] MEDS: MEROPENEM 500 MG in NORMAL SALINE 50 ML IV SCH ×2 (12:40→21:54)
[2019-10-22] MEDS: METOPROLOL SUCCINATE 25 MG TAB.SR.24H PO SCH (12:40)
[2019-10-22] MEDS: NORMAL SALINE 1000 ML 1,000 ML IV PRN ×2 (12:44→21:56)
[2019-10-22 15:02] LABS: ANION GAP 9 (5-19); BLOOD UREA NITROGEN 32 mg/dL (7-20); CALCIUM 7.5 mg/dL (8.4-10.2); CARBON DIOXIDE 16 mmol/L (22-30); CHLORIDE 110 mmol/L (98-107); GLUCOSE 143 mg/dL (75-110); POTASSIUM 4.7 mmol/L (3.6-5.0)
[2019-10-22] MEDS ORDERED: MAGNESIUM SULFATE/D5W 0 GM/0 ML RTUPB IV ONE (17:06)
[2019-10-22] MEDS ORDERED: MAGNESIUM SULFATE/D5W 1 GM/100 ML RTUPB IV ONE (17:23)
[2019-10-22] MEDS: ACETAMINOPHEN 325 MG TABLET PO PRN (17:34)
[2019-10-22] MEDS: AMLODIPINE BESYLATE 5 MG TABLET PO SCH (17:34)
[2019-10-22] MEDS: FLUTICASONE NASAL SPRAY 50 MCG/SPRY 120 SPRAY/16 GM NASL SCH (21:55)
[2019-10-22] MEDS: LACTULOSE SYRUP 20 GM/30 ML UDCUP PO SCH (21:55)
[2019-10-23] MEDS: PANTOPRAZOLE SODIUM 40 MG TABLET.DR PO SCH (06:39)
[2019-10-23] MEDS: HEPARIN SOD (PORCINE) 5,000 UNIT/ML 1 ML VIAL SUBCUT SCH ×3 (08:02→22:41)
[2019-10-23] MEDS: METOPROLOL SUCCINATE 25 MG TAB.SR.24H PO SCH (09:59)
[2019-10-23] MEDS: MEROPENEM 500 MG in NORMAL SALINE 50 ML IV SCH ×2 (10:00→21:48)
[2019-10-23] MEDS: NORMAL SALINE 1000 ML 1,000 ML IV PRN (10:02)
[2019-10-23] MEDS ORDERED: 1/2 NORMAL SALINE 1,000 ML IV PRN (15:37)
--- NOTE | 2019-10-23 16:23 | PDOC CONSULTATION ---
Consultation Consult Date: 10/23/19 Provider Consulted: Messi CARRILLO Consult reason:: JOSE History of Present Illness Admission Date/PCP: 10/16/19 20:41 CULLEN SANTIAGO History of Present Illness: JOSIE JOSHI is a 74 year old female with a history of metastatic colorectal cancer to the lungs now on fifth cycle of chemotherapy was admitted with a history of abnormal renal labs on a routine visit to her [facility] oncologist a few days ago and so admitted for further evaluation. She had been admitted here late last month around 07 October with generalized weakness and was found to have possible staph bacteremia/UTI and was discharged on Augmentin. Renal labs were normal during her last admission renal labs on this admission was normal with a creatinine at 0.7-0.9. She denies any specific complaints though she is habitually constipated ever since she has been on irinotecan/Panitumumab as chemo for her metastatic cancer. No complaints of any nausea vomiting diarrhea. No complaints of any abdominal pains or dysuria. No complaints of any NSAIDs. However admits to poor intake.She has noticed progressive pedal edema without definitely shortness of breath on exertion over the last couple of weeks which she says is new. Evaluations here included a negative renal ultrasound. CBC done did not show any leukocytosis. Urine analysis showed possible UTI and urine culture has come back growing ESBL E. coli/Pseudomonas which is only 50 K colony counts and has been begun on IV imipenem. She complains of generalized weakness which she says has happened after she was put on a trial chemotherapy at [facility] sometime in April/May of this year. Labs and medications were reviewed. Past Medical History Cardiac Medical History: Reports: Hypertension-primary Denies: Atrial Fibrillation, Coronary Artery Disease, Heart Murmur, Hyperlipidemia, Myocardial Infarction, Peripheral Vascular Disease, Pulmonary Embolism Pulmonary Medical History: Reports: Pneumonia - Age 13 Denies: Asthma, Bronchitis, Chronic Obstructive Pulmonary Disease (COPD), Respiratory Failure, Sleep Apnea, Tuberculosis Neurological Medical History: Denies: Seizures Endocrine Medical History: Reports: Diabetes Mellitus Type 2 - diet managed Denies: Hyperthyroidism, Hypothyroidism Renal/ Medical History: Malignancy Medical History: Reports: Colorectal Cancer - with lung metastasis Denies: Leukemia, Lung Cancer GI Medical History: Reports: Hiatal Hernia Denies: Crohn's Disease, Gastroesophageal Reflux Disease, Hepatitis Musculoskeltal Medical History: Denies: Arthritis, Fibromyalgia, Rheumatoid Arthritis, Systemic Lupus Erythematosus Psychiatric Medical History: Denies: Dementia, Depression Infectious Medical History: Denies: HIV Past Surgical History Past Surgical History: Reports: Tubal Ligation Denies: Appendectomy, Section, Cholecystectomy, Colostomy, Coronary Artery Bypass Graft, Gastric Bypass Surgery, Herniorrhaphy, Hysterectomy, Mastectomy, Pacemaker, Tonsillectomy Social History Lives with: Family Smoking Status: Never Smoker Electronic Cigarette use?: No Frequency of Alcohol Use: None Hx Recreational Drug Use: No Drugs: None Hx Prescription Drug Abuse: No - Advance Directive Resuscitation Status: Do Not Resuscitate Family History Parental Family History Reviewed: Yes - Negative for ESRD Children Family History Reviewed: No Sibling(s) Family History Reviewed.: No Medication/Allergy Home Medications: Lisinopril 20 mg PO DAILY #90 tablet 12/04/18 Amoxicillin/Potassium Clav [Augmentin 875-125 Tablet] 1 tab PO Q12 #20 tablet 10/10/19 Magnesium Oxide [Mag-Ox 400 mg Tablet] 400 mg PO DAILY #30 tablet 10/10/19 Colestipol HCl [Colestid 1 gm Tablet] 1 gm PO Q12 10/17/19 Diphenoxylate HCl/Atropine [Lomotil 2.5-0.025 mg Tablet] 1 tab PO Q6HP PRN 10/17/19 Dronabinol [Marinol 2.5 mg Capsule] 5 mg PO Q12 10/17/19 Metoprolol Succinate [Toprol Xl 25 mg Tab.sr] 25 mg PO DAILY 10/17/19 Potassium Chloride [Klor-Con 10 Meq Tablet ER] 20 meq PO DAILY 10/17/19 Allergies/Adverse Reactions: oxaliplatin Allergy (Severe, Verified 10/16/19 17:09) Anaphylaxis morphine Adverse Reaction (Unknown, Verified 10/16/19 17:09) Unknown reaction Review of Systems Constitutional: PRESENT: anorexia, fatigue, weakness, weight loss. ABSENT: chills, fever(s), headache(s), night sweats Nose, Mouth, and Throat: ABSENT: mouth pain, sore throat Cardiovascular: PRESENT: edema. ABSENT: chest pain, dyspnea on exertion, orthropnea, palpitations Respiratory: PRESENT: cough - Which is chronic and she has a postnasal drip.. ABSENT: dyspnea, hemoptysis Gastrointestinal: PRESENT: constipation. ABSENT: abdominal pain, coffee ground emesis, diarrhea, dysphagia, heartburn, melena, nausea, vomiting Genitourinary: ABSENT: dysuria, hematuria Musculoskeletal: ABSENT: back pain, deformity, joint swelling Integumentary: ABSENT: lesions, pruritus, rash Neurological: ABSENT: abnormal gait, abnormal speech, focal weakness Endocrine: ABSENT: polydipsia Hematologic/Lymphatic: ABSENT: easy bleeding, easy bruising, lymphadenopathy Physical Exam Vital Signs: Temp Pulse Resp BP Pulse Ox 97.3 F 87 17 191/98 H 100 10/23/19 12:27 10/23/19 14:00 10/23/19 12:27 10/23/19 12:27 10/23/19 12:27 Intake & Output 10/22/19 10/23/19 10/24/19 06:59 06:59 06:59 Intake Total 3000 2920 1766 Output Total 1350 Balance 1650 2920 1766 Weight 76.1 kg 76.2 kg General appearance: PRESENT: no acute distress, disheveled Eye exam: PRESENT: EOMI, PERRLA. ABSENT: scleral icterus Ear exam: PRESENT: normal external ear exam Mouth exam: PRESENT: neck supple. ABSENT: moist Neck exam: ABSENT: lymphadenopathy, meningismus, tenderness, thyromegaly, tracheal deviation Respiratory exam: PRESENT: clear to auscultation dora, decreased breath sounds. ABSENT: crackles Cardiovascular exam: PRESENT: +S1, +S2 GI/Abdominal exam: PRESENT: normal bowel sounds, soft. ABSENT: organomegaly, tenderness Extremities exam: PRESENT: +2 edema Neurological exam: PRESENT: alert, awake, oriented to person, oriented to place Psychiatric exam: PRESENT: appropriate affect Skin exam: ABSENT: erythema, mottled, rash Results Laboratory Results: 10/21/19 20:35 10/22/19 14:28 Impressions: Renal Ultrasound 10/17/19 00:00 IMPRESSION: No hydronephrosis. KUB X-Ray 10/18/19 00:00 IMPRESSION: NO RADIOGRAPHIC EVIDENCE FOR ACUTE ABDOMINAL DISEASE. Chest X-Ray 10/20/19 00:00 IMPRESSION: New small left pleural effusion with left basilar atelectasis. Assessment & Plan - Diagnosis (1) Acute kidney injury Is this a current diagnosis for this admission?: Yes Plan: Nonoliguric. Differential includes ATN from ESBL E. coli UTI/AIN from penicillin derivatives during recent admission/dehydration.She is proteinuric and could even potentially be nephrotic. However she shows signs of fluid overload/third spacing specially given a low albumin of 2.5. Will discontinue/change of normal saline to half-normal at a low rate we will introduce IV diuretics. Renal ultrasound was negative for any obstructive uropathy. Monitor closely. No acute indications for renal replacements. (2) UTI due to extended-spectrum beta lactamase (ESBL) producing Escherichia coli Is this a current diagnosis for this admission?: Yes Plan: IV meropenem dosed to GFR of below 25 cc/min. Monitor (3) Colon cancer metastasized to lung Is this a current diagnosis for this admission?: Yes Plan: Plan for cycle of chemo and being managed by Dr. Dyer. (4) HTN (hypertension) Qualifiers: Hypertension type: essential hypertension Qualified Code(s): I10 - Essential (primary) hypertension Is this a current diagnosis for this admission?: Yes Plan: Uncontrolled. Increase metoprolol and monitor response. Fluid removal will also help. (5) Metabolic acidosis Plan: Start replacements and monitor. (6) Anemia of chronic disease Is this a current diagnosis for this admission?: Yes Plan: As per Dr. Santiago/Dr. Dyer. (7) Proteinuria Plan: I also note that she had small amounts of protein during her recent admission in late of last month. As mentioned earlier differential diagnosis also includes possible from AIN. Question renal biopsy but given her comorbidities I am not too inclined.
[2019-10-23] MEDS: AMLODIPINE BESYLATE 5 MG TABLET PO SCH (17:16)
[2019-10-23] MEDS: FUROSEMIDE INJ/PF 20 MG/2 ML SDV IV SCH ×2 (17:16→21:50)
[2019-10-23] MEDS: SODIUM BICARBONATE 650 MG TABLET PO SCH (17:16)
--- NOTE | 2019-10-23 19:13 | PDOC PROGRESS REPORT ---
Subjective Progress Note for:: 10/23/19 Subjective:: Patient denied any chest pain or difficulty with breathing. No fever or chills. No abdominal pain, nausea or vomiting. Oral intake improved. There is persistent of leg swelling with some improvement in her serum creatinine level despite fluid support. Reason For Visit: ARF, UTI, HTN, BREAST CANCER WITH LUNG METASTASIS Physical Exam Vital Signs: Temp Pulse Resp BP Pulse Ox 97.8 F 88 17 173/81 H 98 10/23/19 08:30 10/23/19 08:30 10/23/19 08:30 10/23/19 08:30 10/23/19 08:30 Intake & Output 10/22/19 10/23/19 10/24/19 06:59 06:59 06:59 Intake Total 3000 2920 1050 Output Total 1350 Balance 1650 2920 1050 Weight 76.1 kg 76.2 kg Physical Exam: General appearance: PRESENT: no acute distress Head exam: PRESENT: atraumatic, normocephalic Eye exam: PRESENT: conjunctiva pink. ABSENT: pallor, sclera icterus Mouth exam: PRESENT: moist - fairly Respiratory exam: PRESENT: clear to auscultation dora, decreased breath sounds - at lung bases Cardiovascular exam: PRESENT: Tachycardia, +S1, +S2. ABSENT: diastolic murmur, rubs, systolic murmur GI/Abdominal exam: PRESENT: normal bowel sounds, soft. ABSENT: distended, guarding, mass, organomegaly, rebound, tenderness Extremities exam: PRESENT: pedal edema Musculoskeletal exam: PRESENT: deformity - related to multiple joints involvement with arthritis Neurological exam: PRESENT: alert, awake, oriented to person, oriented to place, oriented to time, oriented to situation, CN II-XII grossly intact. ABSENT: motor sensory deficit Psychiatric exam: PRESENT: appropriate affect, normal mood. ABSENT: homicidal ideation, suicidal ideation Skin exam: PRESENT: dry, warm Results Laboratory Results: 10/21/19 20:35 10/22/19 14:28 10/22/19 14:28 Sodium 134.9 L Potassium 4.7 Chloride 110 H Carbon Dioxide 16 L Anion Gap 9 BUN 32 H Creatinine 3.02 H Est GFR ( Amer) 18 L Glucose 143 H Calcium 7.5 L Magnesium 1.6 Impressions: Renal Ultrasound 10/17/19 00:00 IMPRESSION: No hydronephrosis. KUB X-Ray 10/18/19 00:00 IMPRESSION: NO RADIOGRAPHIC EVIDENCE FOR ACUTE ABDOMINAL DISEASE. Chest X-Ray 10/20/19 00:00 IMPRESSION: New small left pleural effusion with left basilar atelectasis. Assessment & Plan - Diagnosis (1) Acute kidney injury Is this a current diagnosis for this admission?: Yes (2) Diabetes mellitus type 2 in nonobese Is this a current diagnosis for this admission?: Yes (3) UTI due to extended-spectrum beta lactamase (ESBL) producing Escherichia coli Is this a current diagnosis for this admission?: Yes (4) Pseudomonas urinary tract infection Is this a current diagnosis for this admission?: Yes (5) Anemia of chronic disease Is this a current diagnosis for this admission?: Yes (6) HTN (hypertension) Qualifiers: Hypertension type: essential hypertension Qualified Code(s): I10 - Essential (primary) hypertension Is this a current diagnosis for this admission?: Yes (7) Colon cancer metastasized to lung Is this a current diagnosis for this admission?: Yes (8) Chronic idiopathic constipation Is this a current diagnosis for this admission?: Yes (9) Allergic rhinitis Qualifiers: Allergic rhinitis trigger: unspecified Allergic rhinitis seasonality: seasonal Qualified Code(s): J30.2 - Other seasonal allergic rhinitis Is this a current diagnosis for this admission?: Yes - Time Time Spent with patient: 25-34 minutes Level of Care: IMCU Medications reviewed and adjusted accordingly: Yes Anticipated discharge: Home with Homehealth Anticipated DC Timeframe: within 72 hours - Inpatient Certification Based on my medical assessment, after consideration of the patient's comorbidities, presenting symptoms, or acuity I expect that the services needed warrant INPATIENT care.: Yes I certify that my determination is in accordance with my understanding of Medicare's requirements for reasonable and necessary INPATIENT services [42 CFR 412.3e].: Yes Medical Necessity: Significant Comorbidiites Make Outpatient Treatment Too Risky, Need Close Monitoring Due to Risk of Patient Decompensation, Need For IV Fluids, Need For Continuous Telemetry Monitoring, Need for IV Antibiotics, Risk of Complication if Not Cared For in Hospital, Risk of Diagnosis Which Will Require Inpatient Eval/Care/Monitoring Post Hospital Care: D/C [employer] Dec[employer]ator Documentation - Plan Summary Plan Summary: Continue current medication management. I will request nephrology team consultation input in view of her slow response to IV hydration and worsening edema.
[2019-10-23] MEDS: LACTULOSE SYRUP 20 GM/30 ML UDCUP PO SCH (21:49)
[2019-10-23] MEDS: FLUTICASONE NASAL SPRAY 50 MCG/SPRY 120 SPRAY/16 GM NASL SCH (22:00)
[2019-10-24] MEDS: FUROSEMIDE INJ/PF 20 MG/2 ML SDV IV SCH ×3 (06:11→21:57)
[2019-10-24] MEDS: PANTOPRAZOLE SODIUM 40 MG TABLET.DR PO SCH (06:14)
[2019-10-24] MEDS: SODIUM BICARBONATE 650 MG TABLET PO SCH ×2 (06:14→17:13)
[2019-10-24 08:05] LABS: ABSOLUTE BASOPHILS # (AUTO) 0.1 10^3/uL (0.0-0.2); ABSOLUTE EOSINOPHILS # (AUTO) 0.2 10^3/uL (0.0-0.6); ABSOLUTE LYMPHOCYTES (AUTO) 0.6 10^3/uL (0.5-4.7); ABSOLUTE MONOCYTES (AUTO) 0.6 10^3/uL (0.1-1.4); ABSOLUTE NEUT (AUTO) 4.4 10^3/uL (1.7-8.2); BASOPHILS % (AUTO) 0.9 % (0-2); EOSINOPHILS % (AUTO) 3.1 % (0-6); HEMATOCRIT 32.4 % (36.0-47.0); HEMOGLOBIN 10.8 g/dL (12.0-15.5); LYMPHOCYTES % (AUTO) 10.8 % (13-45); MEAN CORPUSCULAR HEMOGLOBIN 28.7 pg (27.0-33.4); MEAN CORPUSCULAR HGB CONC 33.3 g/dL (32.0-36.0); MEAN CORPUSCULAR VOLUME 86 fl (80-97); MONOCYTES % (AUTO) 9.8 % (3-13); PLATELET COUNT 163 10^3/uL (150-450); RED BLOOD COUNT 3.75 10^6/uL (3.72-5.28); RED CELL DISTRIBUTION WIDTH 17.2 % (11.5-14.0); SEGMENTED NEUTROPHILS % (AUTO) 75.4 % (42-78); TOTAL CELLS COUNTED % (AUTO) 100 %; WHITE BLOOD COUNT 5.8 10^3/uL (4.0-10.5)
[2019-10-24 08:26] LABS: ALBUMIN 2.1 g/dL (3.5-5.0); ALKALINE PHOSPHATASE 147 U/L (38-126); ANION GAP 6 (5-19); ASPARTATE AMINO TRANSFERASE 25 U/L (14-36); BILIRUBIN,DIRECT 0.3 mg/dL (0.0-0.4); BILIRUBIN,TOTAL 0.3 mg/dL (0.2-1.3); BLOOD UREA NITROGEN 31 mg/dL (7-20); CALCIUM 7.9 mg/dL (8.4-10.2); CARBON DIOXIDE 19 mmol/L (22-30); CHLORIDE 110 mmol/L (98-107); CREATINE KINASE 34 U/L (30-135); GLUCOSE 129 mg/dL (75-110); PHOSPHORUS 5.8 mg/dL (2.5-4.5); POTASSIUM 4.5 mmol/L (3.6-5.0); TOTAL PROTEIN 5.1 g/dL (6.3-8.2)
[2019-10-24] MEDS ORDERED: MAGNESIUM SULFATE/D5W 1 GM/100 ML RTUPB IV ONE (08:38)
[2019-10-24] MEDS: HEPARIN SOD (PORCINE) 5,000 UNIT/ML 1 ML VIAL SUBCUT SCH ×3 (08:55→22:42)
[2019-10-24] MEDS: MEROPENEM 500 MG in NORMAL SALINE 50 ML IV SCH ×2 (10:32→21:53)
--- NOTE | 2019-10-24 11:40 | PDOC PROGRESS REPORT ---
Subjective Progress Note for:: 10/24/19 Reason For Visit: Patient seen today in the hospital. She is sitting on a recliner. She states that she is feeling better overall. She is less weak than she was yesterday. She also finds some of the edema is improving with her current medications. Appetite is fair. Denies any history of chest pain or shortness of breath. Labs and medications were reviewed that shows improving renal numbers. Physical Exam Vital Signs: Temp Pulse Resp BP Pulse Ox 98.1 F 93 16 175/96 H 99 10/24/19 08:42 10/24/19 08:42 10/24/19 08:42 10/24/19 08:42 10/24/19 08:42 Intake & Output 10/23/19 10/24/19 10/25/19 06:59 06:59 06:59 Intake Total 2920 2396 50 Balance 2920 2396 50 Weight 76.2 kg 76.2 kg General appearance: PRESENT: no acute distress Respiratory exam: PRESENT: clear to auscultation dora, decreased breath sounds. ABSENT: crackles Cardiovascular exam: PRESENT: +S1, +S2 GI/Abdominal exam: PRESENT: normal bowel sounds, soft. ABSENT: organomegaly, tenderness Extremities exam: PRESENT: +1 edema Neurological exam: PRESENT: alert, awake, oriented to person, oriented to place Psychiatric exam: PRESENT: appropriate affect Results Laboratory Results: 10/24/19 07:30 10/24/19 07:30 10/24/19 10/24/19 07:30 07:30 WBC 5.8 RBC 3.75 Hgb 10.8 L Hct 32.4 L MCV 86 MCH 28.7 MCHC 33.3 RDW 17.2 H Plt Count 163 Seg Neutrophils % 75.4 Sodium 135.3 L Potassium 4.5 Chloride 110 H Carbon Dioxide 19 L Anion Gap 6 BUN 31 H Creatinine 2.95 H Est GFR ( Amer) 19 L Glucose 129 H Calcium 7.9 L Phosphorus 5.8 H Magnesium 1.4 L Total Bilirubin 0.3 AST 25 Alkaline Phosphatase 147 H Total Protein 5.1 L Albumin 2.1 L 10/24/19 07:30 Creatine Kinase 34 Impressions: Renal Ultrasound 10/17/19 00:00 IMPRESSION: No hydronephrosis. KUB X-Ray 10/18/19 00:00 IMPRESSION: NO RADIOGRAPHIC EVIDENCE FOR ACUTE ABDOMINAL DISEASE. Chest X-Ray 10/20/19 00:00 IMPRESSION: New small left pleural effusion with left basilar atelectasis. Assessment & Plan - Diagnosis (1) Acute kidney injury Is this a current diagnosis for this admission?: Yes Plan: Nonoliguric. Differential includes ATN from ESBL E. coli UTI/AIN from penicillin derivatives during recent admission/dehydration.She is proteinuric and could even potentially be nephrotic. However she shows signs of fluid overload/third spacing specially given a low albumin of 2.5. Continue current guidelines. Monitor closely. No acute indications for renal replacements. (2) UTI due to extended-spectrum beta lactamase (ESBL) producing Escherichia coli Is this a current diagnosis for this admission?: Yes Plan: IV meropenem dosed to GFR of below 25 cc/min. Monitor (3) Colon cancer metastasized to lung Is this a current diagnosis for this admission?: Yes Plan: Was on chemo - irinotecan and ?. Being managed by Dr. Dyer. (4) HTN (hypertension) Qualifiers: Hypertension type: essential hypertension Qualified Code(s): I10 - Essential (primary) hypertension Is this a current diagnosis for this admission?: Yes Plan: Uncontrolled but better . Monitor response. (5) Metabolic acidosis Plan: Started replacements and improving. monitor. (6) Anemia of chronic disease Is this a current diagnosis for this admission?: Yes Plan: As per Dr. Oakes/Dr. Dyer. (7) Proteinuria Plan: Will quantify.See earlier discussion.
[2019-10-24] MEDS: ACETAMINOPHEN 325 MG TABLET PO PRN (14:57)
[2019-10-24] MEDS: AMLODIPINE BESYLATE 5 MG TABLET PO SCH (17:13)
--- NOTE | 2019-10-24 19:07 | PDOC PROGRESS REPORT ---
Subjective Progress Note for:: 10/24/19 Subjective:: Patient denied any chest pain or difficulty with breathing. Her leg swelling slightly better. No fever or chills. No abdominal pain, nausea or vomiting. Oral intake is better so far today. Reason For Visit: ARF, UTI, HTN, BREAST CANCER WITH LUNG METASTASIS Physical Exam Vital Signs: Temp Pulse Resp BP Pulse Ox 97.9 F 92 17 154/73 H 98 10/24/19 00:00 10/24/19 02:00 10/24/19 00:00 10/24/19 00:00 10/24/19 00:00 Intake & Output 10/23/19 10/24/19 10/25/19 06:59 06:59 06:59 Intake Total 2920 2346 Balance 2920 2346 Weight 76.2 kg 76.2 kg Physical Exam: General appearance: PRESENT: no acute distress Head exam: PRESENT: atraumatic, normocephalic Eye exam: PRESENT: conjunctiva pink. ABSENT: pallor, sclera icterus Mouth exam: PRESENT: moist - fairly Respiratory exam: PRESENT: clear to auscultation dora, decreased breath sounds - at lung bases Cardiovascular exam: PRESENT: Tachycardia, +S1, +S2. ABSENT: diastolic murmur, rubs, systolic murmur GI/Abdominal exam: PRESENT: normal bowel sounds, soft. ABSENT: distended, guarding, mass, organomegaly, rebound, tenderness Extremities exam: PRESENT: pedal edema Musculoskeletal exam: PRESENT: deformity - related to multiple joints involvement with arthritis Neurological exam: PRESENT: alert, awake, oriented to person, oriented to place, oriented to time, oriented to situation, CN II-XII grossly intact. ABSENT: motor sensory deficit Psychiatric exam: PRESENT: appropriate affect, normal mood. ABSENT: homicidal ideation, suicidal ideation Skin exam: PRESENT: dry, warm Results Laboratory Results: 10/24/19 07:30 10/24/19 07:30 10/24/19 10/24/19 07:30 07:30 WBC 5.8 RBC 3.75 Hgb 10.8 L Hct 32.4 L MCV 86 MCH 28.7 MCHC 33.3 RDW 17.2 H Plt Count 163 Seg Neutrophils % 75.4 Sodium 135.3 L Potassium 4.5 Chloride 110 H Carbon Dioxide 19 L Anion Gap 6 BUN 31 H Creatinine 2.95 H Est GFR ( Amer) 19 L Glucose 129 H Calcium 7.9 L Phosphorus 5.8 H Magnesium 1.4 L Total Bilirubin 0.3 AST 25 Alkaline Phosphatase 147 H Total Protein 5.1 L Albumin 2.1 L 10/24/19 07:30 Creatine Kinase 34 Impressions: Renal Ultrasound 10/17/19 00:00 IMPRESSION: No hydronephrosis. KUB X-Ray 10/18/19 00:00 IMPRESSION: NO RADIOGRAPHIC EVIDENCE FOR ACUTE ABDOMINAL DISEASE. Chest X-Ray 10/20/19 00:00 IMPRESSION: New small left pleural effusion with left basilar atelectasis. Assessment & Plan - Diagnosis (1) Acute kidney injury Is this a current diagnosis for this admission?: Yes (2) Diabetes mellitus type 2 in nonobese Is this a current diagnosis for this admission?: Yes (3) UTI due to extended-spectrum beta lactamase (ESBL) producing Escherichia coli Is this a current diagnosis for this admission?: Yes (4) Pseudomonas urinary tract infection Is this a current diagnosis for this admission?: Yes (5) Anemia of chronic disease Is this a current diagnosis for this admission?: Yes (6) HTN (hypertension) Qualifiers: Hypertension type: essential hypertension Qualified Code(s): I10 - Essential (primary) hypertension Is this a current diagnosis for this admission?: Yes (7) Colon cancer metastasized to lung Is this a current diagnosis for this admission?: Yes (8) Chronic idiopathic constipation Is this a current diagnosis for this admission?: Yes (9) Allergic rhinitis Qualifiers: Allergic rhinitis trigger: unspecified Allergic rhinitis seasonality: seasonal Qualified Code(s): J30.2 - Other seasonal allergic rhinitis Is this a current diagnosis for this admission?: Yes - Time Time Spent with patient: 25-34 minutes Level of Care: IMCU Medications reviewed and adjusted accordingly: Yes Anticipated discharge: Home with Homehealth Anticipated DC Timeframe: within 72 hours - Inpatient Certification Based on my medical assessment, after consideration of the patient's comorbidities, presenting symptoms, or acuity I expect that the services needed warrant INPATIENT care.: Yes I certify that my determination is in accordance with my understanding of Medicare's requirements for reasonable and necessary INPATIENT services [42 CFR 412.3e].: Yes Medical Necessity: Significant Comorbidiites Make Outpatient Treatment Too Risky, Need Close Monitoring Due to Risk of Patient Decompensation, Need For IV Fluids, Need For Continuous Telemetry Monitoring, Risk of Complication if Not Cared For in Hospital, Risk of Diagnosis Which Will Require Inpatient Eval/Care/Monitoring Post Hospital Care: D/C Director Internal Communications Documentation - Plan Summary Plan Summary: Continue current medication management. Instructional Technology Teacher input appreciated.
[2019-10-24] MEDS: FLUTICASONE NASAL SPRAY 50 MCG/SPRY 120 SPRAY/16 GM NASL SCH (21:54)
[2019-10-24] MEDS: LACTULOSE SYRUP 20 GM/30 ML UDCUP PO SCH (22:03)
[2019-10-25 00:14] LABS: APPEARANCE,URINE SLIGHTLY-CLOUDY; BILIRUBIN,URINE NEGATIVE (NEGATIVE); COLOR,URINE YELLOW; GLUCOSE, URINE NEGATIVE (NEGATIVE); KETONES,URINE NEGATIVE (NEGATIVE); LEUKOCYTE ESTERASE,URINE TRACE (NEGATIVE); NITRITE,URINE NEGATIVE (NEGATIVE); PROTEIN,URINE >=500 mg/dL (NEGATIVE); URINE SPECIFIC GRAVITY 1.008; UROBILINOGEN,URINE NEGATIVE mg/dL (<2.0)
[2019-10-25] MEDS: SODIUM BICARBONATE 650 MG TABLET PO SCH ×2 (06:07→17:14)
[2019-10-25] MEDS: PANTOPRAZOLE SODIUM 40 MG TABLET.DR PO SCH (06:07)
[2019-10-25] MEDS: FUROSEMIDE INJ/PF 20 MG/2 ML SDV IV SCH ×3 (06:07→21:58)
[2019-10-25] MEDS: MEROPENEM 500 MG in NORMAL SALINE 50 ML IV SCH ×2 (09:05→21:58)
[2019-10-25] MEDS: HEPARIN SOD (PORCINE) 5,000 UNIT/ML 1 ML VIAL SUBCUT SCH ×3 (09:05→23:46)
[2019-10-25 11:18] LABS: ABSOLUTE BASOPHILS # (AUTO) 0.1 10^3/uL (0.0-0.2); ABSOLUTE EOSINOPHILS # (AUTO) 0.2 10^3/uL (0.0-0.6); ABSOLUTE LYMPHOCYTES (AUTO) 0.7 10^3/uL (0.5-4.7); ABSOLUTE MONOCYTES (AUTO) 0.6 10^3/uL (0.1-1.4); ABSOLUTE NEUT (AUTO) 4.5 10^3/uL (1.7-8.2); BASOPHILS % (AUTO) 1.1 % (0-2); HEMATOCRIT 32.5 % (36.0-47.0); HEMOGLOBIN 10.8 g/dL (12.0-15.5); LYMPHOCYTES % (AUTO) 12.2 % (13-45); MEAN CORPUSCULAR HEMOGLOBIN 28.8 pg (27.0-33.4); MEAN CORPUSCULAR HGB CONC 33.2 g/dL (32.0-36.0); MEAN CORPUSCULAR VOLUME 87 fl (80-97); MONOCYTES % (AUTO) 10.4 % (3-13); PLATELET COUNT 130 10^3/uL (150-450); RED BLOOD COUNT 3.74 10^6/uL (3.72-5.28); RED CELL DISTRIBUTION WIDTH 17.2 % (11.5-14.0); SEGMENTED NEUTROPHILS % (AUTO) 73.3 % (42-78); TOTAL CELLS COUNTED % (AUTO) 100 %; WHITE BLOOD COUNT 6.1 10^3/uL (4.0-10.5)
[2019-10-25 11:38] LABS: ANION GAP 7 (5-19); BLOOD UREA NITROGEN 35 mg/dL (7-20); CALCIUM 7.8 mg/dL (8.4-10.2); CARBON DIOXIDE 17 mmol/L (22-30); CHLORIDE 109 mmol/L (98-107); GLUCOSE 127 mg/dL (75-110); POTASSIUM 4.8 mmol/L (3.6-5.0)
[2019-10-25 13:20] LABS: URINE CREATININE 32.7 mg/dL (15-278)
[2019-10-25 13:31] LABS: UR PRO/CREAT RATIO RESULT 16.4 mg/mg (0.0-0.2); URINE PROTEIN 534.7 mg/dL (<12)
--- NOTE | 2019-10-25 15:21 | PDOC PROGRESS REPORT ---
Subjective Progress Note for:: 10/25/19 Subjective:: Patient denied any chest pain or difficulty with breathing. Her leg swelling is improving. No fever or chills. No abdominal pain, nausea or vomiting. Appetite and po intake remain fair. Reason For Visit: ARF, UTI, HTN, BREAST CANCER WITH LUNG METASTASIS Physical Exam Vital Signs: Temp Pulse Resp BP Pulse Ox 97.6 F 99 20 157/88 H 99 10/25/19 11:16 10/25/19 14:00 10/25/19 11:16 10/25/19 11:16 10/25/19 11:16 Intake & Output 10/24/19 10/25/19 10/26/19 06:59 06:59 06:59 Intake Total 2396 2150 1900 Output Total 513 600 Balance 2396 1637 1300 Weight 76.2 kg 63.7 kg Physical Exam: General appearance: PRESENT: no acute distress Head exam: PRESENT: atraumatic, normocephalic Eye exam: PRESENT: conjunctiva pink. ABSENT: pallor, sclera icterus Mouth exam: PRESENT: moist Respiratory exam: PRESENT: clear to auscultation dora, decreased breath sounds - at lung bases Cardiovascular exam: PRESENT: Tachycardia, +S1, +S2. ABSENT: diastolic murmur, rubs, systolic murmur GI/Abdominal exam: PRESENT: normal bowel sounds, soft. ABSENT: distended, guarding, mass, organomegaly, rebound, tenderness Extremities exam: PRESENT: pedal edema improving Musculoskeletal exam: PRESENT: deformity - related to multiple joints involvement with arthritis Neurological exam: PRESENT: alert, awake, oriented to person, oriented to place, oriented to time, oriented to situation, CN II-XII grossly intact. ABSENT: motor sensory deficit Psychiatric exam: PRESENT: appropriate affect, normal mood. ABSENT: homicidal ideation, suicidal ideation Skin exam: PRESENT: dry, warm Results Laboratory Results: 10/25/19 11:00 10/25/19 11:00 10/24/19 10/25/19 10/25/19 23:41 11:00 11:00 WBC 6.1 RBC 3.74 Hgb 10.8 L Hct 32.5 L MCV 87 MCH 28.8 MCHC 33.2 RDW 17.2 H Plt Count 130 L Seg Neutrophils % 73.3 Sodium 133.1 L Potassium 4.8 Chloride 109 H Carbon Dioxide 17 L Anion Gap 7 BUN 35 H Creatinine 2.48 H Est GFR ( Amer) 23 L Glucose 127 H Calcium 7.8 L Urine Color YELLOW Urine Appearance SLIGHTLY-CLOUDY Urine pH 5.0 Ur Specific [place] 1.008 Urine Protein >=500 H Urine Glucose (UA) NEGATIVE Urine Ketones NEGATIVE Urine Blood LARGE H Urine Nitrite NEGATIVE Ur Leukocyte Esterase TRACE H Urine WBC (Auto) 24 Urine RBC (Auto) 163 10/24/19 07:30 Creatine Kinase 34 Impressions: Renal Ultrasound 10/17/19 00:00 IMPRESSION: No hydronephrosis. KUB X-Ray 10/18/19 00:00 IMPRESSION: NO RADIOGRAPHIC EVIDENCE FOR ACUTE ABDOMINAL DISEASE. Chest X-Ray 10/20/19 00:00 IMPRESSION: New small left pleural effusion with left basilar atelectasis. Assessment & Plan - Diagnosis (1) Acute kidney injury Is this a current diagnosis for this admission?: Yes (2) Diabetes mellitus type 2 in nonobese Is this a current diagnosis for this admission?: Yes (3) UTI due to extended-spectrum beta lactamase (ESBL) producing Escherichia coli Is this a current diagnosis for this admission?: Yes (4) Pseudomonas urinary tract infection Is this a current diagnosis for this admission?: Yes (5) Anemia of chronic disease Is this a current diagnosis for this admission?: Yes (6) HTN (hypertension) Qualifiers: Hypertension type: essential hypertension Qualified Code(s): I10 - Essential (primary) hypertension Is this a current diagnosis for this admission?: Yes (7) Colon cancer metastasized to lung Is this a current diagnosis for this admission?: Yes (8) Chronic idiopathic constipation Is this a current diagnosis for this admission?: Yes (9) Allergic rhinitis Qualifiers: Allergic rhinitis trigger: unspecified Allergic rhinitis seasonality: seasonal Qualified Code(s): J30.2 - Other seasonal allergic rhinitis Is this a current diagnosis for this admission?: Yes - Time Time Spent with patient: 25-34 minutes Level of Care: IMCU Medications reviewed and adjusted accordingly: Yes Anticipated discharge: Home with Homehealth Anticipated DC Timeframe: within 72 hours - Inpatient Certification Based on my medical assessment, after consideration of the patient's comorbidities, presenting symptoms, or acuity I expect that the services needed warrant INPATIENT care.: Yes I certify that my determination is in accordance with my understanding of Medicare's requirements for reasonable and necessary INPATIENT services [42 CFR 412.3e].: Yes Medical Necessity: Significant Comorbidiites Make Outpatient Treatment Too R isky, Need Close Monitoring Due to Risk of Patient Decompensation, Need For IV Fluids, Need For Continuous Telemetry Monitoring, Risk of Complication if Not Cared For in Hospital, Risk of Diagnosis Which Will Require Inpatient Eval/Care/Monitoring Post Hospital Care: D/C Stock Mixer Documentation - Plan Summary Plan Summary: Continue current medication and fluid support management. Monitor renal indices and adjust fluid infusion as necessary. Bank Teller Machine Mechanic input appreciated.
[2019-10-25] MEDS: AMLODIPINE BESYLATE 5 MG TABLET PO SCH (17:14)
[2019-10-25] MEDS: FLUTICASONE NASAL SPRAY 50 MCG/SPRY 120 SPRAY/16 GM NASL SCH (21:57)
[2019-10-25] MEDS: LACTULOSE SYRUP 20 GM/30 ML UDCUP PO SCH (21:58)
--- NOTE | 2019-10-25 23:38 | PDOC PROGRESS REPORT ---
Subjective Progress Note for:: 10/25/19 Subjective:: Patient states that she is doing fine. She states that after she get started with furosemide she thought her leg swelling is gone down but today she thinks that her swelling is back up again. She did say that she fell asleep with her legs down though. She denies any shortness of breath. Recorded urine output was 510 mL without any Collins catheter. Intake and output was recorded as +1637 mL. Reason For Visit: ARF, UTI, HTN, BREAST CANCER WITH LUNG METASTASIS Physical Exam Vital Signs: Temp Pulse Resp BP Pulse Ox 98.1 F 98 18 158/76 H 98 10/25/19 07:43 10/25/19 07:43 10/25/19 07:43 10/25/19 07:43 10/25/19 07:43 Intake & Output 10/24/19 10/25/19 10/26/19 06:59 06:59 06:59 Intake Total 2396 2150 150 Output Total 513 Balance 2396 1637 150 Weight 76.2 kg 63.7 kg Exam: General appearance: PRESENT: no acute distress, cooperative, well-developed, well-nourished Head exam: PRESENT: atraumatic, normocephalic Eye exam: PRESENT: conjunctiva slightly pale, PERRLA. ABSENT: scleral icterus Neck exam: ABSENT: JVD Respiratory exam: PRESENT: Diminished breath sounds. ABSENT: crackles, rales, rhonchi, unlabored, wheezes Cardiovascular exam: PRESENT: Regular rate rhythm -+S1, +S2. ABSENT: diastolic murmur, systolic murmur GI/Abdominal exam: PRESENT: normal bowel sounds, soft. ABSENT: guarding, mass, tenderness Extremities exam: Grade 2 bilateral lower extremity pitting edema Neurological exam: PRESENT: alert, awake, oriented to person, place and time. Skin exam: PRESENT: dry, warm, Cardiovascular exam: PRESENT: +S1, +S2 GI/Abdominal exam: PRESENT: normal bowel sounds, soft. ABSENT: organomegaly, tenderness Results Laboratory Results: 10/24/19 07:30 10/24/19 07:30 10/24/19 23:41 Urine Color YELLOW Urine Appearance SLIGHTLY-CLOUDY Urine pH 5.0 Ur Specific [place] 1.008 Urine Protein >=500 H Urine Glucose (UA) NEGATIVE Urine Ketones NEGATIVE Urine Blood LARGE H Urine Nitrite NEGATIVE Ur Leukocyte Esterase TRACE H Urine WBC (Auto) 24 Urine RBC (Auto) 163 10/24/19 07:30 Creatine Kinase 34 Impressions: Renal Ultrasound 10/17/19 00:00 IMPRESSION: No hydronephrosis. KUB X-Ray 10/18/19 00:00 IMPRESSION: NO RADIOGRAPHIC EVIDENCE FOR ACUTE ABDOMINAL DISEASE. Chest X-Ray 10/20/19 00:00 IMPRESSION: New small left pleural effusion with left basilar atelectasis. Assessment & Plan - Diagnosis (1) Acute kidney injury Is this a current diagnosis for this admission?: Yes Plan: Nonoliguric. Differential diagnosis UTI versus acute interstitial nephritis due to previous antibiotics with Augmentin. Associated with some proteinuria. Baseline kidney function include a creatinine of 0.7-0.9 which hansa up to 4.28 and is currently 2.95. Since kidney function is improving, will continue current management. Kidney biopsy probably not warranted as the patient's kidney function is improving and most likely not going to change current management especially with other concomitant comorbid conditions. Discussed with patient today. Continue to monitor kidney function. Continue diuretics and discontinue IV fluids. (2) Proteinuria Is this a current diagnosis for this admission?: Yes Plan: Urine protein to creatinine ratio is 16.4 with hypoalbuminemia with albumin of 2.1. This indicates nephrotic range proteinuria. As a stated above we will hold kidney biopsy for the time being. Will reconsider if the patient's kidney function gets worse. (3) UTI due to extended-spectrum beta lactamase (ESBL) producing Escherichia coli Is this a current diagnosis for this admission?: Yes Plan: On IV meropenem. (4) Pseudomonas urinary tract infection Is this a current diagnosis for this admission?: Yes (5) Metabolic acidosis Is this a current diagnosis for this admission?: Yes Plan: On sodium bicarbonate. (6) Leg edema Is this a current diagnosis for this admission?: Yes Plan: Possibly due to possible nephrotic syndrome. Continue IV Lasix. Discontinue IV fluids. (7) Anemia of chronic disease Is this a current diagnosis for this admission?: Yes Plan: Likely related to chronic illness and chemotherapy. (8) Diabetes mellitus type 2 in nonobese Is this a current diagnosis for this admission?: Yes (9) Colon cancer metastasized to lung Is this a current diagnosis for this admission?: Yes Plan: Patient has been having chemotherapy including a irinotecan and Panitumumab (10) HTN (hypertension) Qualifiers: Hypertension type: essential hypertension Qualified Code(s): I10 - Essential (primary) hypertension Is this a current diagnosis for this admission?: Yes Plan: Worsened by fluid retention. Currently on IV furosemide and amlodipine. Might need additional blood pressure medications. If the patient's kidney function him continues to improve, consider FREDIS/ARB to help control proteinuria as well. (11) Hyponatremia Is this a current diagnosis for this admission?: Yes Plan: Secondary to hypervolemic state. - Time Time with patient: 15-25 minutes
[2019-10-26] MEDS: ACETAMINOPHEN 325 MG TABLET PO PRN ×2 (00:45→19:43)
[2019-10-26] MEDS: FUROSEMIDE INJ/PF 20 MG/2 ML SDV IV SCH ×3 (05:40→21:31)
[2019-10-26] MEDS: SODIUM BICARBONATE 650 MG TABLET PO SCH ×2 (05:41→17:15)
[2019-10-26] MEDS: PANTOPRAZOLE SODIUM 40 MG TABLET.DR PO SCH (05:41)
[2019-10-26] MEDS: MEROPENEM 500 MG in NORMAL SALINE 50 ML IV SCH ×2 (09:56→21:31)
[2019-10-26] MEDS: HEPARIN SOD (PORCINE) 5,000 UNIT/ML 1 ML VIAL SUBCUT SCH ×3 (10:31→22:49)
--- NOTE | 2019-10-26 15:44 | PDOC PROGRESS REPORT ---
Subjective Progress Note for:: 10/26/19 Subjective:: Patient is seen by the bedside, she said she feels somewhat better since admission, she has multiple comorbid conditions Reason For Visit: ARF, UTI, HTN, BREAST CANCER WITH LUNG METASTASIS Physical Exam Vital Signs: Temp Pulse Resp BP Pulse Ox 97.9 F 99 16 159/75 H 98 10/26/19 11:18 10/26/19 14:00 10/26/19 11:18 10/26/19 11:18 10/26/19 11:18 Intake & Output 10/25/19 10/26/19 10/27/19 06:59 06:59 06:59 Intake Total 2150 2675 725 Output Total 513 1500 Balance 1637 1175 725 Weight 63.7 kg 78.2 kg 78.2 kg General appearance: PRESENT: no acute distress Eye exam: PRESENT: PERRLA Respiratory exam: PRESENT: clear to auscultation dora Cardiovascular exam: PRESENT: +S1, +S2 GI/Abdominal exam: PRESENT: soft Neurological exam: PRESENT: alert Results Laboratory Results: 10/25/19 11:00 10/25/19 11:00 10/24/19 07:30 Creatine Kinase 34 Impressions: Renal Ultrasound 10/17/19 00:00 IMPRESSION: No hydronephrosis. KUB X-Ray 10/18/19 00:00 IMPRESSION: NO RADIOGRAPHIC EVIDENCE FOR ACUTE ABDOMINAL DISEASE. Chest X-Ray 10/20/19 00:00 IMPRESSION: New small left pleural effusion with left basilar atelectasis. Assessment & Plan - Diagnosis (1) Acute kidney injury Is this a current diagnosis for this admission?: Yes Plan: Continue gentle rehydration with IV N/S. Repeat BMP, phosphorus, and Mag levels in AM (2) Malignant neoplasm of unspecified part of unspecified bronchus or lung Is this a current diagnosis for this admission?: Yes (3) Type 2 diabetes mellitus without complications Qualifiers: Diabetes mellitus terminal gauger supervisor insulin use: without terminal gauger supervisor use Qualified Code(s): E11.9 - Type 2 diabetes mellitus without complications Is this a current diagnosis for this admission?: Yes (4) UTI (urinary tract infection) Qualifiers: Urinary tract infection type: acute cystitis Is this a current diagnosis for this admission?: Yes Plan: continue on IV Rocephin 1 gm daily.Follow up on urine culture findings. - Time Time Spent with patient: 25-34 minutes Level of Care: IMCU Medications reviewed and adjusted accordingly: Yes Anticipated discharge: Home Anticipated DC Timeframe: within 72 hours
[2019-10-26] MEDS: AMLODIPINE BESYLATE 5 MG TABLET PO SCH (17:15)
[2019-10-26] MEDS: FLUTICASONE NASAL SPRAY 50 MCG/SPRY 120 SPRAY/16 GM NASL SCH (21:32)
[2019-10-26] MEDS: LACTULOSE SYRUP 20 GM/30 ML UDCUP PO SCH (22:49)
[2019-10-27] MEDS: SODIUM BICARBONATE 650 MG TABLET PO SCH ×2 (06:44→17:39)
[2019-10-27] MEDS: FUROSEMIDE INJ/PF 20 MG/2 ML SDV IV SCH ×3 (06:44→21:50)
[2019-10-27] MEDS: PANTOPRAZOLE SODIUM 40 MG TABLET.DR PO SCH (06:44)
[2019-10-27] MEDS: HEPARIN SOD (PORCINE) 5,000 UNIT/ML 1 ML VIAL SUBCUT SCH ×3 (08:19→22:56)
[2019-10-27] MEDS: MEROPENEM 500 MG in NORMAL SALINE 50 ML IV SCH (10:09)
--- NOTE | 2019-10-27 12:31 | PDOC PROGRESS REPORT ---
Subjective Progress Note for:: 10/27/19 Subjective:: Patient seen by the bedside, there is no new complaints Reason For Visit: ARF, UTI, HTN, BREAST CANCER WITH LUNG METASTASIS Physical Exam Vital Signs: Temp Pulse Resp BP Pulse Ox 97.8 F 96 19 151/71 H 98 10/27/19 10:57 10/27/19 10:57 10/27/19 10:57 10/27/19 10:57 10/27/19 10:57 Intake & Output 10/26/19 10/27/19 10/28/19 06:59 06:59 06:59 Intake Total 2675 1305 100 Output Total 1500 1850 Balance 1175 -545 100 Weight 78.2 kg 78.2 kg General appearance: PRESENT: no acute distress Eye exam: PRESENT: PERRLA Respiratory exam: PRESENT: clear to auscultation dora Cardiovascular exam: PRESENT: +S1, +S2 GI/Abdominal exam: PRESENT: soft Neurological exam: PRESENT: alert, CN II-XII grossly intact Results Laboratory Results: 10/25/19 11:00 10/25/19 11:00 10/24/19 07:30 Creatine Kinase 34 Impressions: Renal Ultrasound 10/17/19 00:00 IMPRESSION: No hydronephrosis. KUB X-Ray 10/18/19 00:00 IMPRESSION: NO RADIOGRAPHIC EVIDENCE FOR ACUTE ABDOMINAL DISEASE. Chest X-Ray 10/20/19 00:00 IMPRESSION: New small left pleural effusion with left basilar atelectasis. Assessment & Plan - Diagnosis (1) Acute kidney injury Is this a current diagnosis for this admission?: Yes Plan: Continue gentle rehydration with IV N/S. Repeat BMP, phosphorus, and Mag levels in AM (2) Malignant neoplasm of unspecified part of unspecified bronchus or lung Is this a current diagnosis for this admission?: Yes (3) Type 2 diabetes mellitus without complications Qualifiers: Diabetes mellitus usp insulin use: without usp use Qualified Code(s): E11.9 - Type 2 diabetes mellitus without complications Is this a current diagnosis for this admission?: Yes (4) UTI (urinary tract infection) Qualifiers: Urinary tract infection type: acute cystitis Is this a current diagnosis for this admission?: Yes - Time Time Spent with patient: 25-34 minutes Level of Care: IMCU Anticipated discharge: Home Anticipated DC Timeframe: within 72 hours
[2019-10-27] MEDS: ACETAMINOPHEN 325 MG TABLET PO PRN (17:39)
[2019-10-27] MEDS: AMLODIPINE BESYLATE 5 MG TABLET PO SCH (17:39)
[2019-10-27] MEDS: FLUTICASONE NASAL SPRAY 50 MCG/SPRY 120 SPRAY/16 GM NASL SCH (20:00)
[2019-10-27] MEDS: LACTULOSE SYRUP 20 GM/30 ML UDCUP PO SCH (21:51)
[2019-10-28] MEDS: HEPARIN SOD (PORCINE) 5,000 UNIT/ML 1 ML VIAL SUBCUT SCH ×2 (06:38→14:16)
[2019-10-28] MEDS: SODIUM BICARBONATE 650 MG TABLET PO SCH ×2 (06:40→17:07)
[2019-10-28] MEDS: PANTOPRAZOLE SODIUM 40 MG TABLET.DR PO SCH (06:40)
[2019-10-28] MEDS: FUROSEMIDE INJ/PF 20 MG/2 ML SDV IV SCH ×3 (06:40→22:00)
[2019-10-28 12:47] LABS: ABSOLUTE EOSINOPHILS # (AUTO) 0.2 10^3/uL (0.0-0.6); ABSOLUTE LYMPHOCYTES (AUTO) 0.7 10^3/uL (0.5-4.7); ABSOLUTE MONOCYTES (AUTO) 0.5 10^3/uL (0.1-1.4); ABSOLUTE NEUT (AUTO) 3.5 10^3/uL (1.7-8.2); BASOPHILS % (AUTO) 0.6 % (0-2); EOSINOPHILS % (AUTO) 3.5 % (0-6); HEMATOCRIT 27.9 % (36.0-47.0); HEMOGLOBIN 9.3 g/dL (12.0-15.5); MEAN CORPUSCULAR HEMOGLOBIN 28.7 pg (27.0-33.4); MEAN CORPUSCULAR HGB CONC 33.2 g/dL (32.0-36.0); MEAN CORPUSCULAR VOLUME 86 fl (80-97); MONOCYTES % (AUTO) 10.4 % (3-13); PLATELET COUNT 142 10^3/uL (150-450); RED BLOOD COUNT 3.23 10^6/uL (3.72-5.28); RED CELL DISTRIBUTION WIDTH 17.2 % (11.5-14.0); SEGMENTED NEUTROPHILS % (AUTO) 70.5 % (42-78); TOTAL CELLS COUNTED % (AUTO) 100 %; WHITE BLOOD COUNT 4.9 10^3/uL (4.0-10.5)
[2019-10-28 13:15] LABS: ANION GAP 9 (5-19); BLOOD UREA NITROGEN 37 mg/dL (7-20); CALCIUM 7.6 mg/dL (8.4-10.2); CARBON DIOXIDE 20 mmol/L (22-30); CHLORIDE 107 mmol/L (98-107); GLUCOSE 118 mg/dL (75-110); POTASSIUM 4.7 mmol/L (3.6-5.0)
--- NOTE | 2019-10-28 13:43 | PDOC PROGRESS REPORT ---
Subjective Progress Note for:: 10/28/19 Subjective:: Patient is lying in bed very comfortably. She says she is doing fine and has no specific complaints today. She made about 1850 mL of urine output for the past 24 hours with negative intake and output balance of negative of 545. She has not had any blood test for the last couple of days so I just ordered blood tests this morning. Reason For Visit: ARF, UTI, HTN, BREAST CANCER WITH LUNG METASTASIS Physical Exam Vital Signs: Temp Pulse Resp BP Pulse Ox 97.6 F 97 19 151/71 H 98 10/28/19 07:33 10/28/19 07:22 10/28/19 07:22 10/28/19 07:22 10/28/19 07:22 Intake & Output 10/27/19 10/28/19 10/29/19 06:59 06:59 06:59 Intake Total 1305 1102 Output Total 1850 Balance -545 1102 Weight 78.2 kg 78.2 kg Exam: General appearance: PRESENT: no acute distress, cooperative, well-developed, well-nourished Head exam: PRESENT: atraumatic, normocephalic Eye exam: PRESENT: conjunctiva pale, PERRLA. ABSENT: scleral icterus Neck exam: ABSENT: JVD Respiratory exam: PRESENT: Normal breath sounds. ABSENT: crackles, rales, rhonchi, unlabored, wheezes Cardiovascular exam: PRESENT: Regular rate rhythm -+S1, +S2. ABSENT: diastolic murmur, systolic murmur GI/Abdominal exam: PRESENT: normal bowel sounds, soft. ABSENT: guarding, mass, tenderness Extremities exam: Grade 2 bilateral lower extremity pitting edemaslightly improved. Neurological exam: PRESENT: alert, awake, oriented to person, place and time. Skin exam: PRESENT: dry, warm, Cardiovascular exam: PRESENT: +S1, +S2 GI/Abdominal exam: PRESENT: normal bowel sounds, soft. ABSENT: organomegaly, tenderness Results Laboratory Results: 10/25/19 11:00 10/25/19 11:00 10/24/19 07:30 Creatine Kinase 34 Impressions: Renal Ultrasound 10/17/19 00:00 IMPRESSION: No hydronephrosis. KUB X-Ray 10/18/19 00:00 IMPRESSION: NO RADIOGRAPHIC EVIDENCE FOR ACUTE ABDOMINAL DISEASE. Chest X-Ray 10/20/19 00:00 IMPRESSION: New small left pleural effusion with left basilar atelectasis. Assessment & Plan - Diagnosis (1) Acute kidney injury Is this a current diagnosis for this admission?: Yes Plan: Nonoliguric. Differential diagnosis UTI versus acute interstitial nephritis due to previous antibiotics with Augmentin. Associated with some proteinuria. Baseline kidney function include a creatinine of 0.7-0.9 which hansa up to 4.28 and is currently improved to 1.98. Since kidney function is improving, will continue current management. Kidney biopsy probably not warranted as the patient's kidney function is improving and most likely not going to change current management especially with other concomitant comorbid conditions. Continue to monitor kidney function. Continue current management. (2) Proteinuria Is this a current diagnosis for this admission?: Yes Plan: Urine protein to creatinine ratio is 16.4 with hypoalbuminemia with albumin of 2.1. This indicates nephrotic range proteinuria. As a stated above we will hold kidney biopsy for the time being. Will reconsider if the patient's kidney function gets worse. (3) UTI due to extended-spectrum beta lactamase (ESBL) producing Escherichia coli Is this a current diagnosis for this admission?: Yes Plan: Completed a week of IV meropenem. (4) Pseudomonas urinary tract infection Is this a current diagnosis for this admission?: Yes (5) Metabolic acidosis Is this a current diagnosis for this admission?: Yes Plan: Slowly improving on sodium bicarbonate. (6) Leg edema Is this a current diagnosis for this admission?: Yes Plan: Possibly due to possible nephrotic syndrome. Continue IV Lasix. Discontinued IV fluids. (7) Anemia of chronic disease Is this a current diagnosis for this admission?: Yes Plan: Likely related to chronic illness, chemotherapy and IV hydration. (8) Diabetes mellitus type 2 in nonobese Is this a current diagnosis for this admission?: Yes (9) Colon cancer metastasized to lung Is this a current diagnosis for this admission?: Yes Plan: Patient has been having chemotherapy including a irinotecan and Panitumumab (10) HTN (hypertension) Qualifiers: Hypertension type: essential hypertension Qualified Code(s): I10 - Essential (primary) hypertension Is this a current diagnosis for this admission?: Yes Plan: Worsened by fluid retention. Improving. (11) Hyponatremia Is this a current diagnosis for this admission?: Yes Plan: Secondary to hypervolemic state. Improved. - Time Time with patient: 15-25 minutes
[2019-10-28] MEDS: AMLODIPINE BESYLATE 5 MG TABLET PO SCH (17:07)
[2019-10-28] MEDS: FLUTICASONE NASAL SPRAY 50 MCG/SPRY 120 SPRAY/16 GM NASL SCH (20:00)
--- NOTE | 2019-10-28 20:34 | PDOC PROGRESS REPORT ---
Subjective Progress Note for:: 10/28/19 Subjective:: Patient denied any chest pain, palpitation, or difficulty with breathing. No fever or chills. No abdominal pain, nausea or vomiting. Reason For Visit: ARF, UTI, HTN, BREAST CANCER WITH LUNG METASTASIS Physical Exam Vital Signs: Temp Pulse Resp BP Pulse Ox 97.6 F 98 19 151/71 H 98 10/28/19 07:33 10/28/19 14:00 10/28/19 07:22 10/28/19 07:22 10/28/19 07:22 Intake & Output 10/27/19 10/28/19 10/29/19 06:59 06:59 06:59 Intake Total 1305 1102 Output Total 1850 Balance -545 1102 Weight 78.2 kg 78.2 kg Physical Exam: General appearance: PRESENT: no acute distress Head exam: PRESENT: atraumatic, normocephalic Eye exam: PRESENT: conjunctiva pink. ABSENT: pallor, sclera icterus Mouth exam: PRESENT: moist Respiratory exam: PRESENT: clear to auscultation dora, decreased breath sounds - at lung bases Cardiovascular exam: PRESENT: Tachycardia, +S1, +S2. ABSENT: diastolic murmur, rubs, systolic murmur GI/Abdominal exam: PRESENT: normal bowel sounds, soft. ABSENT: distended, guarding, mass, organomegaly, rebound, tenderness Extremities exam: PRESENT: improving pedal edema Musculoskeletal exam: PRESENT: deformity - related to multiple joints involvement with arthritis Neurological exam: PRESENT: alert, awake, oriented to person, oriented to place, oriented to time, oriented to situation, CN II-XII grossly intact. ABSENT: motor sensory deficit Psychiatric exam: PRESENT: appropriate affect, normal mood. ABSENT: homicidal ideation, suicidal ideation Skin exam: PRESENT: dry, warm Results Laboratory Results: 10/28/19 12:30 10/28/19 12:30 10/28/19 10/28/19 12:30 12:30 WBC 4.9 RBC 3.23 L Hgb 9.3 L Hct 27.9 L MCV 86 MCH 28.7 MCHC 33.2 RDW 17.2 H Plt Count 142 L Seg Neutrophils % 70.5 Sodium 135.9 L Potassium 4.7 Chloride 107 Carbon Dioxide 20 L Anion Gap 9 BUN 37 H Creatinine 1.98 H Est GFR ( Amer) 30 L Glucose 118 H Calcium 7.6 L 10/24/19 07:30 Creatine Kinase 34 Impressions: Renal Ultrasound 10/17/19 00:00 IMPRESSION: No hydronephrosis. KUB X-Ray 10/18/19 00:00 IMPRESSION: NO RADIOGRAPHIC EVIDENCE FOR ACUTE ABDOMINAL DISEASE. Chest X-Ray 10/20/19 00:00 IMPRESSION: New small left pleural effusion with left basilar atelectasis. Assessment & Plan - Diagnosis (1) Acute kidney injury Is this a current diagnosis for this admission?: Yes (2) Diabetes mellitus type 2 in nonobese Is this a current diagnosis for this admission?: Yes (3) UTI due to extended-spectrum beta lactamase (ESBL) producing Escherichia coli Is this a current diagnosis for this admission?: Yes (4) Pseudomonas urinary tract infection Is this a current diagnosis for this admission?: Yes (5) Anemia of chronic disease Is this a current diagnosis for this admission?: Yes (6) HTN (hypertension) Qualifiers: Hypertension type: essential hypertension Qualified Code(s): I10 - Essential (primary) hypertension Is this a current diagnosis for this admission?: Yes (7) Colon cancer metastasized to lung Is this a current diagnosis for this admission?: Yes (8) Chronic idiopathic constipation Is this a current diagnosis for this admission?: Yes (9) Allergic rhinitis Qualifiers: Allergic rhinitis trigger: unspecified Allergic rhinitis seasonality: seasonal Qualified Code(s): J30.2 - Other seasonal allergic rhinitis Is this a current diagnosis for this admission?: Yes - Time Time Spent with patient: 25-34 minutes Level of Care: IMCU Medications reviewed and adjusted accordingly: Yes Anticipated discharge: Home with Homehealth Anticipated DC Timeframe: within 72 hours - Inpatient Certification Based on my medical assessment, after consideration of the patient's comorbidities, presenting symptoms, or acuity I expect that the services needed warrant INPATIENT care.: Yes I certify that my determination is in accordance with my understanding of Medicare's requirements for reasonable and necessary INPATIENT services [42 CFR 412.3e].: Yes Medical Necessity: Significant Comorbidiites Make Outpatient Treatment Too Risky, Need Close Monitoring Due to Risk of Patient Decompensation, Need For Continuous Telemetry Monitoring, Risk of Complication if Not Cared For in Hospital, Risk of Diagnosis Which Will Require Inpatient Eval/Care/Monitoring Post Hospital Care: D/C Junior Underwriter Documentation - Plan Summary Plan Summary: There is gradual improvement in her renal function and lower extremities edema. Nephrology input noted and appreciated. I will discuss with care team tomorrow regarding discharge plan and further outpatient management. Patient expressed disagreement with any future renal biopsy. Her further chemotherapy will be discussed with Dr. Dyer in view of her overall prognosis.
[2019-10-28] MEDS: LACTULOSE SYRUP 20 GM/30 ML UDCUP PO SCH (22:00)
[2019-10-29] MEDS: HEPARIN SOD (PORCINE) 5,000 UNIT/ML 1 ML VIAL SUBCUT SCH ×4 (00:25→22:00)
[2019-10-29] MEDS: FUROSEMIDE INJ/PF 20 MG/2 ML SDV IV SCH ×2 (05:17→13:36)
[2019-10-29] MEDS: PANTOPRAZOLE SODIUM 40 MG TABLET.DR PO SCH (05:18)
[2019-10-29] MEDS: SODIUM BICARBONATE 650 MG TABLET PO SCH ×2 (05:18→18:09)
[2019-10-29] MEDS: FUROSEMIDE 40 MG TABLET PO SCH (18:08)
[2019-10-29] MEDS: AMLODIPINE BESYLATE 5 MG TABLET PO SCH (18:09)
[2019-10-29] MEDS: FLUTICASONE NASAL SPRAY 50 MCG/SPRY 120 SPRAY/16 GM NASL SCH (20:00)
[2019-10-29] MEDS: LACTULOSE SYRUP 20 GM/30 ML UDCUP PO SCH (22:00)
[2019-10-30] MEDS: SODIUM BICARBONATE 650 MG TABLET PO SCH ×2 (05:31→19:56)
[2019-10-30] MEDS: PANTOPRAZOLE SODIUM 40 MG TABLET.DR PO SCH (05:31)
[2019-10-30 06:40] LABS: ABSOLUTE EOSINOPHILS # (AUTO) 0.3 10^3/uL (0.0-0.6); ABSOLUTE MONOCYTES (AUTO) 0.6 10^3/uL (0.1-1.4); ABSOLUTE NEUT (AUTO) 3.6 10^3/uL (1.7-8.2); BASOPHILS % (AUTO) 0.7 % (0-2); EOSINOPHILS % (AUTO) 6.2 % (0-6); HEMATOCRIT 25.3 % (36.0-47.0); HEMOGLOBIN 8.6 g/dL (12.0-15.5); LYMPHOCYTES % (AUTO) 17.3 % (13-45); MEAN CORPUSCULAR HEMOGLOBIN 29.1 pg (27.0-33.4); MEAN CORPUSCULAR HGB CONC 33.9 g/dL (32.0-36.0); MEAN CORPUSCULAR VOLUME 86 fl (80-97); MONOCYTES % (AUTO) 11.1 % (3-13); PLATELET COUNT 146 10^3/uL (150-450); RED BLOOD COUNT 2.94 10^6/uL (3.72-5.28); RED CELL DISTRIBUTION WIDTH 17.9 % (11.5-14.0); SEGMENTED NEUTROPHILS % (AUTO) 64.7 % (42-78); TOTAL CELLS COUNTED % (AUTO) 100 %; WHITE BLOOD COUNT 5.5 10^3/uL (4.0-10.5)
[2019-10-30 06:59] LABS: ANION GAP 6 (5-19); BLOOD UREA NITROGEN 38 mg/dL (7-20); CALCIUM 7.6 mg/dL (8.4-10.2); CARBON DIOXIDE 24 mmol/L (22-30); CHLORIDE 107 mmol/L (98-107); GLUCOSE 114 mg/dL (75-110)
[2019-10-30] MEDS: HEPARIN SOD (PORCINE) 5,000 UNIT/ML 1 ML VIAL SUBCUT SCH ×2 (07:57→14:40)
[2019-10-30] MEDS: FUROSEMIDE 40 MG TABLET PO SCH ×2 (09:59→19:56)
--- NOTE | 2019-10-30 17:10 | PDOC PROGRESS REPORT ---
Subjective Progress Note for:: 10/29/19 Subjective:: No chest pain, palpitation, or difficulty with breathing. Leg swelling is improving. No fever or chills. No abdominal pain, nausea or vomiting. PO intake remain fair. Reason For Visit: ARF, UTI, HTN, BREAST CANCER WITH LUNG METASTASIS Physical Exam Vital Signs: Temp Pulse Resp BP Pulse Ox 97.5 F 100 20 164/79 H 100 10/29/19 15:49 10/29/19 15:49 10/29/19 15:49 10/29/19 15:49 10/29/19 15:49 Intake & Output 10/28/19 10/29/19 10/30/19 06:59 06:59 06:59 Intake Total 1102 948 600 Output Total 1800 Balance 1102 -852 600 Weight 78.2 kg 78.6 kg Physical Exam: General appearance: PRESENT: no acute distress Head exam: PRESENT: atraumatic, normocephalic Eye exam: PRESENT: conjunctiva pink. ABSENT: pallor, sclera icterus Mouth exam: PRESENT: moist Respiratory exam: PRESENT: clear to auscultation dora, decreased breath sounds - at lung bases Cardiovascular exam: PRESENT: Tachycardia, +S1, +S2. ABSENT: diastolic murmur, rubs, systolic murmur GI/Abdominal exam: PRESENT: normal bowel sounds, soft. ABSENT: distended, guarding, mass, organomegaly, rebound, tenderness Extremities exam: PRESENT: improving pedal edema Musculoskeletal exam: PRESENT: deformity - related to multiple joints involvement with arthritis Neurological exam: PRESENT: alert, awake, oriented to person, oriented to place, oriented to time, oriented to situation, CN II-XII grossly intact. ABSENT: motor sensory deficit Psychiatric exam: PRESENT: appropriate affect, normal mood. ABSENT: homicidal ideation, suicidal ideation Skin exam: PRESENT: dry, warm Results Laboratory Results: 10/28/19 12:30 10/28/19 12:30 10/24/19 07:30 Creatine Kinase 34 Impressions: Renal Ultrasound 10/17/19 00:00 IMPRESSION: No hydronephrosis. KUB X-Ray 10/18/19 00:00 IMPRESSION: NO RADIOGRAPHIC EVIDENCE FOR ACUTE ABDOMINAL DISEASE. Chest X-Ray 10/20/19 00:00 IMPRESSION: New small left pleural effusion with left basilar atelectasis. Assessment & Plan - Diagnosis (1) Acute kidney injury Is this a current diagnosis for this admission?: Yes (2) Diabetes mellitus type 2 in nonobese Is this a current diagnosis for this admission?: Yes (3) UTI due to extended-spectrum beta lactamase (ESBL) producing Escherichia coli Is this a current diagnosis for this admission?: Yes (4) Pseudomonas urinary tract infection Is this a current diagnosis for this admission?: Yes (5) Anemia of chronic disease Is this a current diagnosis for this admission?: Yes (6) HTN (hypertension) Qualifiers: Hypertension type: essential hypertension Qualified Code(s): I10 - Essential (primary) hypertension Is this a current diagnosis for this admission?: Yes (7) Colon cancer metastasized to lung Is this a current diagnosis for this admission?: Yes (8) Chronic idiopathic constipation Is this a current diagnosis for this admission?: Yes (9) Allergic rhinitis Qualifiers: Allergic rhinitis trigger: unspecified Allergic rhinitis seasonality: seasonal Qualified Code(s): J30.2 - Other seasonal allergic rhinitis Is this a current diagnosis for this admission?: Yes - Time Time Spent with patient: 25-34 minutes Level of Care: IMCU Medications reviewed and adjusted accordingly: Yes Anticipated discharge: Home with Homehealth Anticipated DC Timeframe: within 48 hours - Inpatient Certification Based on my medical assessment, after consideration of the patient's comorbidities, presenting symptoms, or acuity I expect that the services needed warrant INPATIENT care.: Yes I certify that my determination is in accordance with my understanding of Medicare's requirements for reasonable and necessary INPATIENT services [42 CFR 412.3e].: Yes Medical Necessity: Significant Comorbidiites Make Outpatient Treatment Too Risky, Need Close Monitoring Due to Risk of Patient Decompensation, Need For Continuous Telemetry Monitoring, Risk of Complication if Not Cared For in Hospital, Risk of Diagnosis Which Will Require Inpatient Eval/Care/Monitoring 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 Start on oral Furosemide 40 mg p.o bid. I discussed case with Dr. Mckeon and Dr. Dyer regarding possible discharge tomorrow and outpatient further management if patient continue to improve. Obtain CBC with diff, BMP in AM.
[2019-10-30 18:54] VITALS: BP 158/69
--- NOTE | 2019-10-30 19:41 | PDOC DISCHARGE SUMMARY ---
Impression - Admit/DC Date/PCP Admission Date/Primary Care Provider: 10/16/19 20:41 CULLEN SANTIAGO Discharge Date: 10/30/19 - Discharge Diagnosis (1) Acute kidney injury Is this a current diagnosis for this admission?: Yes (2) Diabetes mellitus type 2 in nonobese Is this a current diagnosis for this admission?: Yes (3) UTI due to extended-spectrum beta lactamase (ESBL) producing Escherichia coli Is this a current diagnosis for this admission?: Yes (4) Pseudomonas urinary tract infection Is this a current diagnosis for this admission?: Yes (5) Anemia of chronic disease Is this a current diagnosis for this admission?: Yes (6) HTN (hypertension) Is this a current diagnosis for this admission?: Yes (7) Colon cancer metastasized to lung Is this a current diagnosis for this admission?: Yes (8) Chronic idiopathic constipation Is this a current diagnosis for this admission?: Yes (9) Allergic rhinitis Is this a current diagnosis for this admission?: Yes - Assessment Summary: Patient was admitted for acute kidney injury. She was initially managed with IV fluid with avoidance of nephrotoxic medication. She was seen in consultation by nephrology team including Dr. Beal and Mario. Adjustment was made to her management including addition of IV Furosemide and oral Sodium Bicarbonate due to associated nonoliguric status, metabolic acidosis, and possible proteinuria with leg swelling. She was transition to oral Furosemide with improvement in her renal function. Her hospitalization was further complicated by ESBL E.coli and Psuedomonas aeruginosa UTI which was adequately treated. Her oral intake remain a challenge but improved before discharge. She will be discharged home today and follow up with the nephrology team, her oncologist, Dr. Dyer, and myself as instructed upon discharge. - Additional Information Resuscitation Status: Do Not Resuscitate Referrals: SHREYAS BEAL MD [ACTIVE STAFF] - CELY DYER MD [ACTIVE STAFF] - CULLEN SANTIAGO MD [Primary Care Provider] - 11/05/19 10:00 am Prescriptions: Fluticasone Propionate [Flonase Nasal [place] 50 Mcg/[place] 16 gm] 2 spray NASL DAILY@2000 PRN #1 spray.pump PRN Reason: Lactulose 20 gm PO DAILYP PRN #1000 ml PRN Reason: For Constipation Furosemide [Lasix 40 mg Tablet] 40 mg PO BID #60 tablet Simethicone [Mylicon 80 mg Chewable Tablet] 120 mg PO QIDP PRN #120 tab.chew PRN Reason: Amlodipine Besylate [Norvasc 5 mg Tablet] 5 mg PO QPM #30 tablet Sodium Bicarbonate [Sodium Bicarbonate 650 mg Tablet] 650 mg PO Q12A #60 tablet Home Medications: Magnesium Oxide [Mag-Ox 400 mg Tablet] 400 mg PO DAILY #30 tablet 10/10/19 Colestipol HCl [Colestid 1 gm Tablet] 1 gm PO Q12 10/17/19 Diphenoxylate HCl/Atropine [Lomotil 2.5-0.025 mg Tablet] 1 tab PO Q6HP PRN 10/17/19 Dronabinol [Marinol 2.5 mg Capsule] 5 mg PO Q12 10/17/19 Metoprolol Succinate [Toprol Xl 25 mg Tab.sr] 25 mg PO DAILY 10/17/19 Potassium Chloride [Klor-Con 10 Meq Tablet ER] 20 meq PO DAILY 10/17/19 Amlodipine Besylate [Norvasc 5 mg Tablet] 5 mg PO QPM #30 tablet 10/30/19 Fluticasone Propionate [Flonase Nasal [place] 50 Mcg/[place] 16 gm] 2 spray NASL DAILY@2000 PRN #1 spray.pump 10/30/19 Furosemide [Lasix 40 mg Tablet] 40 mg PO BID #60 tablet 10/30/19 Lactulose 20 gm PO DAILYP PRN #1000 ml 10/30/19 Simethicone [Mylicon 80 mg Chewable Tablet] 120 mg PO QIDP PRN #120 tab.chew 10/30/19 Sodium Bicarbonate [Sodium Bicarbonate 650 mg Tablet] 650 mg PO Q12A #60 tablet 10/30/19 History of Present Illiness History of Present Illness: JOSIE JOSHI is a 74 year old female patient known to my practice who was referred to the ED for worsening renal indices by Dr. Dyer. She was seen at [facility] as follow up for her metastatic breast cancer with lung involvement and her outpatient chemistry laboratory evaluation revealed acute worsening BUN and serum creatinine with report on 10/15/2019 at 25 and 2.9 and on 10/16/2019 it was reported at 34 and 4.0 respectively. She denied any diarrhea or vomiting. She denied any IV chemotherapy at this time. She reported poor oral intake and decrease urine output. She was discharged on 10/06/2019 following admission for hyponatremia and urinary tract infection. Her chemistry laboratory indices did improved before discharged home. She denied any fever, unusual chills, diaphoresis, nausea, or abdominal pain. She denied any chest pain, palpitation, or difficult with breathing. Her initial ED evaluation did revealed significant deterioration in her renal indices and chemistry laboratory results suggestive of dehydration. She was advised hospitalization for further evaluation and management. Her morbidities are as listed below. Hospital Course Hospital Course: Patient was admitted for acute kidney injury. She was initially managed with IV fluid with avoidance of nephrotoxic medication. She was seen in consultation by nephrology team including Dr. Beal and Mario. Adjustment was made to her management including addition of IV Furosemide and oral Sodium Bicarbonate due to associated nonoliguric status, metabolic acidosis, and possible proteinuria with leg swelling. She was transition to oral Furosemide with improvement in her renal function. Her hospitalization was further complicated by ESBL E.coli and Psuedomonas aeruginosa UTI which was adequately treated. Her oral intake remain a challenge but improved before discharge. She will be discharged home today and follow up with the nephrology team, her oncologist, Dr. Dyer, and myself as instructed upon discharge. Physical Exam Vital Signs: Temp Pulse Resp BP Pulse Ox 98.2 F 100 17 151/67 H 93 10/30/19 15:55 10/30/19 15:55 10/30/19 15:55 10/30/19 15:55 10/30/19 15:55 Intake & Output 10/29/19 10/30/19 10/31/19 06:59 06:59 06:59 Intake Total 948 1250 417 Output Total 2996 723 5352 Balance -852 600 -583 Weight 78.6 kg 78.1 kg General appearance: PRESENT: no acute distress Head exam: PRESENT: atraumatic, normocephalic Eye exam: PRESENT: conjunctiva pink. ABSENT: pallor, sclera icterus Mouth exam: PRESENT: moist Respiratory exam: PRESENT: clear to auscultation dora, decreased breath sounds - at lung bases Cardiovascular exam: PRESENT: Tachycardia, +S1, +S2. ABSENT: diastolic murmur, rubs, systolic murmur GI/Abdominal exam: PRESENT: normal bowel sounds, soft. ABSENT: distended, guarding, mass, organomegaly, rebound, tenderness Extremities exam: PRESENT: improving pedal edema Musculoskeletal exam: PRESENT: deformity - related to multiple joints involvement with arthritis Neurological exam: PRESENT: alert, awake, oriented to person, oriented to place, oriented to time, oriented to situation, CN II-XII grossly intact. ABSENT: motor sensory deficit Psychiatric exam: PRESENT: appropriate affect, normal mood. ABSENT: homicidal ideation, suicidal ideation Skin exam: PRESENT: dry, warm Results Laboratory Results: WBC 5.5 10^3/uL (4.0-10.5) 10/30/19 06:20 RBC 2.94 10^6/uL (3.72-5.28) L 10/30/19 06:20 Hgb 8.6 g/dL (12.0-15.5) L 10/30/19 06:20 Hct 25.3 % (36.0-47.0) L 10/30/19 06:20 MCV 86 fl (80-97) 10/30/19 06:20 MCH 29.1 pg (27.0-33.4) 10/30/19 06:20 MCHC 33.9 g/dL (32.0-36.0) 10/30/19 06:20 RDW 17.9 % (11.5-14.0) H 10/30/19 06:20 Plt Count 146 10^3/uL (150-450) L 10/30/19 06:20 Lymph % (Auto) 17.3 % (13-45) 10/30/19 06:20 [place] % (Auto) 11.1 % (3-13) 10/30/19 06:20 Eos % (Auto) 6.2 % (0-6) H 10/30/19 06:20 Baso % (Auto) 0.7 % (0-2) 10/30/19 06:20 Absolute Neuts (auto) 3.6 10^3/uL (1.7-8.2) 10/30/19 06:20 Absolute Lymphs (auto) 1.0 10^3/uL (0.5-4.7) 10/30/19 06:20 Absolute Monos (auto) 0.6 10^3/uL (0.1-1.4) 10/30/19 06:20 Absolute Eos (auto) 0.3 10^3/uL (0.0-0.6) 10/30/19 06:20 Absolute Basos (auto) 0.0 10^3/uL (0.0-0.2) 10/30/19 06:20 Total Counted 100 10/16/19 17:35 Seg Neutrophils % 64.7 % (42-78) 10/30/19 06:20 Seg Neuts % (Manual) 92 % (42-78) H 10/16/19 17:35 Band Neutrophils % 3 % (3-5) 10/16/19 17:35 Lymphocytes % (Manual) 2 % (13-45) L 10/16/19 17:35 Monocytes % (Manual) 3 % (3-13) 10/16/19 17:35 Eosinophils % (Manual) 0 % (0-6) 10/16/19 17:35 Basophils % (Manual) 0 % (0-2) 10/16/19 17:35 Abs Neuts (Manual) 7.1 10^3/uL (1.7-8.2) 10/16/19 17:35 Abs Lymphs (Manual) 0.2 10^3/uL (0.5-4.7) L 10/16/19 17:35 Abs Monocytes (Manual) 0.2 10^3/uL (0.1-1.4) 10/16/19 17:35 Absolute Eos (Manual) 0.0 10^3/uL (0.0-0.6) 10/16/19 17:35 Abs Basophils (Manual) 0.0 10^3/uL (0.0-0.2) 10/16/19 17:35 Platelet Comment ADEQUATE 10/16/19 17:35 Anisocytosis 2+ 10/16/19 17:35 Ovalocytes 1+ 10/16/19 17:35 Sodium 136.7 mmol/L (137-145) L 10/30/19 06:20 Potassium 4.0 mmol/L (3.6-5.0) 10/30/19 06:20 Chloride 107 mmol/L (98-107) 10/30/19 06:20 Carbon Dioxide 24 mmol/L (22-30) 10/30/19 06:20 Anion Gap 6 (5-19) 10/30/19 06:20 BUN 38 mg/dL (7-20) H 10/30/19 06:20 Creatinine 1.88 mg/dL (0.52-1.25) H 10/30/19 06:20 Est GFR ( Amer) 32 (>60) L 10/30/19 06:20 Est GFR (MDRD) Non-Af 26 (>60) L 10/30/19 06:20 Glucose 114 mg/dL (75-110) H 10/30/19 06:20 POC Glucose 107 mg/dL (70-110) 10/30/19 15:56 Calcium 7.6 mg/dL (8.4-10.2) L 10/30/19 06:20 Phosphorus 5.8 mg/dL (2.5-4.5) H 10/24/19 07:30 Magnesium 1.4 mg/dL (1.6-2.3) L 10/24/19 07:30 Total Bilirubin 0.3 mg/dL (0.2-1.3) 10/24/19 07:30 Direct Bilirubin 0.3 mg/dL (0.0-0.4) 10/24/19 07:30 Neonat Total Bilirubin Not Reportable 10/24/19 07:30 Neonat Direct Bilirubin Not Reportable 10/24/19 07:30 Neonat Indirect Bili Not Reportable 10/24/19 07:30 AST 25 U/L (14-36) 10/24/19 07:30 ALT 8 U/L (<35) 10/24/19 07:30 Alkaline Phosphatase 147 U/L (38-126) H 10/24/19 07:30 Creatine Kinase 34 U/L (30-135) 10/24/19 07:30 Total Protein 5.1 g/dL (6.3-8.2) L 10/24/19 07:30 Albumin 2.1 g/dL (3.5-5.0) L 10/24/19 07:30 Urine Color YELLOW 10/24/19 23:41 Urine Appearance SLIGHTLY-CLOUDY 10/24/19 23:41 Urine pH 5.0 (5.0-9.0) 10/24/19 23:41 Ur Specific [place] 1.008 10/24/19 23:41 Urine Protein >=500 mg/dL (NEGATIVE) H 10/24/19 23:41 Urine Glucose (UA) NEGATIVE mg/dL (NEGATIVE) 10/24/19 23:41 Urine Ketones NEGATIVE mg/dL (NEGATIVE) 10/24/19 23:41 Urine Blood LARGE (NEGATIVE) H 10/24/19 23:41 Urine Nitrite NEGATIVE (NEGATIVE) 10/24/19 23:41 Urine Bilirubin NEGATIVE (NEGATIVE) 10/24/19 23:41 Urine Urobilinogen NEGATIVE mg/dL (<2.0) 10/24/19 23:41 Ur Leukocyte Esterase TRACE (NEGATIVE) H 10/24/19 23:41 Urine WBC (Auto) 24 /HPF 10/24/19 23:41 Urine RBC (Auto) 163 /HPF 10/24/19 23:41 U Hyaline Cast (Auto) 1 /LPF 10/24/19 23:41 Urine Bacteria (Auto) TRACE /HPF 10/24/19 23:41 Urine RBC 5-10 /HPF 10/16/19 23:10 Urine WBC 5-10 /HPF 10/16/19 23:10 Ur Squamous Epith Cells FEW /HPF 10/16/19 23:10 Squamous Epi Cells Auto 1 /HPF 10/24/19 23:41 Amorphous Sediment 1+ 10/16/19 23:10 Urine Bacteria 4+ /HPF 10/16/19 23:10 Urine Mucus 1+ 10/16/19 23:10 Urine Yeast (Budding) PRESENT /HPF 10/24/19 23:41 Urine Creatinine 32.7 mg/dL (15-278) 10/24/19 23:41 Protein/Creatinin Ratio 16.4 mg/mg (0.0-0.2) H 10/24/19 23:41 Urine Total Protein 534.7 mg/dL (<12) H 10/24/19 23:41 Urine Ascorbic Acid NEGATIVE (NEGATIVE) 10/24/19 23:41 Blood Type B POSITIVE 10/21/19 07:24 Antibody Screen NEGATIVE 10/21/19 07:24 Crossmatch See Detail 10/21/19 07:24 Impressions: Renal Ultrasound 10/17/19 00:00 IMPRESSION: No hydronephrosis. KUB X-Ray 10/18/19 00:00 IMPRESSION: NO RADIOGRAPHIC EVIDENCE FOR ACUTE ABDOMINAL DISEASE. Chest X-Ray 10/20/19 00:00 IMPRESSION: New small left pleural effusion with left basilar atelectasis. Plan Health Concerns: High readmission risk due to morbidities. Plan of Treatment: close community follow up with home health agency support. Goals: Reduce readmission risk. Time Spent: Greater than 30 Minutes - I had extensive discussion with patient and son at bedside regarding post acute care planb and follow up with specialist as noted above. Stroke Is this a Stroke Patient?: No Acute Heart Failure Is this a Heart Failure Patient?: No
[2019-10-30] MEDS: AMLODIPINE BESYLATE 5 MG TABLET PO SCH (19:56)
== END 2019-10-30 20:17 | disposition home health service (06) | DRG 683 ==
LOC: ER 16:28 → EH 20:41 → 5 23:10
PROVIDERS: ADMIT Internal Medicine Geriatric Medicine; ATTEND Internal Medicine Geriatric Medicine
PROC: 30233N1 Transfusion of Nonautologous Red Blood Cells into Peripheral Vein, Percutaneous Approach (ICD-10-PCS; principal; 2019-10-21)
DX: N17.0 Acute kidney failure with tubular necrosis (principal); C18.9 Malignant neoplasm of colon, unspecified; C78.00 Secondary malignant neoplasm of unspecified lung; C79.31 Secondary malignant neoplasm of brain; E87.1 Hypo-osmolality and hyponatremia; E87.2 Acidosis; N39.0 Urinary tract infection, site not specified; Z16.12 Extended spectrum beta lactamase (ESBL) resistance; E86.0 Dehydration; D64.9 Anemia, unspecified; B96.20 Unspecified Escherichia coli [E. coli] as the cause of diseases classified elsewhere; B96.5 Pseudomonas (aeruginosa) (mallei) (pseudomallei) as the cause of diseases classified elsewhere; I10 Essential (primary) hypertension; E11.9 Type 2 diabetes mellitus without complications; R80.9 Proteinuria, unspecified; J30.2 Other seasonal allergic rhinitis; K59.04 Chronic idiopathic constipation; Z66 Do not resuscitate; Z79.01 Long term (current) use of anticoagulants; Z79.899 Other long term (current) drug therapy
CPT/HCPCS: 36415; 36430; 71046; 74018; 76770; 80048; 80053; 81001; 82550; 82570; 82962; 83735; 84100; 84156; 85025; 86850; 86900; 86901; 86920; 87040; 87086; 87088; 87186; 96361; 96374; 99285; J0696; J1642; J1644; J1940; J2185; J2550; J3475; J3490; J7030; P9016

== ENCOUNTER → 2019-11-05 | Outpatient (CLI) | payer MEDICARE, MEDICAID ==
[~2019-11-05] MED LIST changes: +ACETAMINOPHEN 325 MG TABLET ONE; +ACETAMINOPHEN 325 MG TABLET PO PRN; -ATROPINE SULFATE INJ 0.4 MG/1 ML VIAL IV PRN; -DEXAMETH 10 MG/ONDANSETRON 16 MG in NS 50 ML IV PRN; -DIPHENHYDRAMINE 50 MG in NS 50 ML IV PRN; +DIPHENHYDRAMINE HCL 25 MG CAPSULE ONE; +DIPHENHYDRAMINE HCL 25 MG CAPSULE PO PRN; -FAMOTIDINE 20 MG in NS 50 ML IV PRN; -IRINOTECAN HCL IV PRN; -NORMAL SALINE 250 ML @ KVO IV PRN; -NORMAL SALINE IV PRN; -PANITUMUMAB IV PRN
[2019-11-05 14:04] LABS: HEMATOCRIT 22.6 % (36.0-47.0); MEAN CORPUSCULAR HEMOGLOBIN 29.5 pg (27.0-33.4); MEAN CORPUSCULAR HGB CONC 34.2 g/dL (32.0-36.0); MEAN CORPUSCULAR VOLUME 86 fl (80-97); PLATELET COUNT 240 10^3/uL (150-450); RED BLOOD COUNT 2.62 10^6/uL (3.72-5.28); RED CELL DISTRIBUTION WIDTH 17.6 % (11.5-14.0); WHITE BLOOD COUNT 7.7 10^3/uL (4.0-10.5)
[2019-11-05 14:14] LABS: HEMOGLOBIN 7.7 g/dL (12.0-15.5)
[2019-11-05 14:30] LABS: BLOOD UREA NITROGEN 25 mg/dL (7-20); CALCIUM 8.3 mg/dL (8.4-10.2); CARBON DIOXIDE 32 mmol/L (22-30); CHLORIDE 103 mmol/L (98-107); GLUCOSE 123 mg/dL (75-110); POTASSIUM 3.5 mmol/L (3.6-5.0)
[2019-11-05 14:34] LABS: ALBUMIN 2.7 g/dL (3.5-5.0); ALKALINE PHOSPHATASE 182 U/L (38-126); ASPARTATE AMINO TRANSFERASE 31 U/L (14-36); BILIRUBIN,DIRECT 0.4 mg/dL (0.0-0.4); BILIRUBIN,TOTAL 0.4 mg/dL (0.2-1.3); TOTAL PROTEIN 5.7 g/dL (6.3-8.2)
[2019-11-05 14:49] LABS: ANION GAP 4 (5-19)
[2019-11-06 17:15] VITALS: BP 173/91
== END ==
LOC: OD 13:16
PROVIDERS: ATTEND Internal Medicine Geriatric Medicine
DX: N17.9 Acute kidney failure, unspecified (principal)
CPT/HCPCS: 36415; 36430; 80048; 80076; 85027; 86850; 86900; 86901; 86920; P9016